=== PATIENT | male | born 1960 | race Caucasian/White ===

== ENCOUNTER → 2020-12-22 10:59 | Outpatient (BNVA) | payer MEDICARE, BC, SELFPAY | PROVIDERS: Visit Provider Nurse Practitioner Family | DX: Z20.822 Contact with and (suspected) exposure to COVID-19 (principal) | CPT/HCPCS: 87426 ==

== ENCOUNTER 2020-12-23 10:56 | Inpatient (IN) | payer MEDICARE, BC, SELFPAY ==
[2020-12-23] VITALS (11 sets, daily range): BP systolic 97–132; BP diastolic 72–78; PULSE 85–115; RESP 16–36; TEMP 37.3–39.5; O2SAT 76–96; BMI 39.8
--- NOTE | 2020-12-23 11:02 | ED_ITS ---
HPI - SOB/Dyspnea General: Chief Complaint: COVID symptoms Stated Complaint: RESP DISTRESS Time Seen by Provider: 12/23/20 11:02 History of Present Illness: HPI Narrative: Mr Ramires is a 60 yoM without significant history with exception of COVID who presents due to low O2 saturation and worsening SOB. His was sick with COVID and he had symptoms starting 1 week ago. Fevers, chill, aches, shortness of breath, nausea, cough all associated. Course worsening. Worse with exertion. Intensity now severe. Found to have room air sat of 50% at infusion clinic prior to infusion so sent to ED. No history of similar. Review of Systems General: Reports: 10 or more systems reviewed and unremarkable except in HPI and below Narrative: CONSTITUTIONAL: positive for fever, fatigue, weakness EYES - denies pain, denies loss of vision NOSE - denies congestion or rhinorrhea. THROAT - denies sore throat or difficult y swallowing. CARDIOVASCULAR - denies chest pain and palpitations RESPIRATORY - positive for shortness of breath and cough GASTROINTESTINAL - denies abdominal pain, positive for nausea, no vomiting, no changes in bowel habits GENITOURINARY - denies dysuria or urinary frequency MUSCULOSKELETAL- denies deformity. aches present SKIN - denies rashes or new changed skin lesions NEUROLOGIC - denies focal weakness or sensory changes HEMATOLOGIC/LYMPHATIC - denies easy bruising or lymphadenopathy. [facility] ED PFSH: Social History Smoking and tobacco status: never smoked Alcohol intake: never Physical Exam Narrative: EXAM NARRATIVE: GENERAL/CONSTITUTIONAL - mildly ill-appearing. No acute distress. Eyes - PERRL, no conjunctival injection ENMT - Atraumatic external nose and ears. Moist mucous membranes NECK - supple. trachea midline CARDIOVASCULAR - regular rate and rhythm. Peripheral pulses 2+ and equal RESPIRATORY -clear to auscultation bilaterally. No retractions or accessory muscle use. ABDOMEN/GI - Nontender/Nondistended. No tenderness to percussion or evidence of peritonitis MSK - Extremities without obvious deformity or tenderness to palpation SKIN - Warm, Dry NEURO - alert and appropriately oriented. strength and sensation intact. Moves all extremities equally. PSYCH - Appropriate mood and affect Course ED course: - Monitor, IV access, and vital signs obtained. - The patient was seen and evaluated by me at bedside - Initial evaluation was notable for only mildly ill appearance, hypoxemic despite NRB mask. - Heated high flow ordered with improvement. - Labs notable for no leukocytosis. Respiratory alkalosis on ABG. Procal elevated mildly concerning for superimposed bacterial process, abx ordered. Metabolic panel with dehydration, K replenishment ordered. - Imaging notable for findings consistent with covid pneumonia. - The results of ED evaluation were discussed with the patient including the need for inpatient management of their . The patient verbalized understanding and was agreeable to be admitted. - Hospitalist was contacted and agreed admit the patient. - Upon serial reexamation the patient's condition remained . They were admitted without incident or further clinical deterioration. Vital Signs: Vital signs: Vital Signs Temperature 98.6 F 12/25/20 00:00 Pulse Rate 58 L 12/25/20 12:15 Respiratory Rate 27 H 12/25/20 08:36 Blood Pressure 116/83 12/25/20 12:15 Pulse Oximetry 90 12/25/20 12:15 MDM - SOB/Dyspnea Medical Records: Attestation: I reviewed the patient's medical records. Lab Data: Attestation: I reviewed the patient's lab results. Labs: Lab Results 3 12/23/20 12/23/20 12/23/20 Range/Units 11:05 11:05 11:05 WBC 8.9 (4.0-10.0) 10^3/ uL RBC 5.15 (4.1-5.3) 10^6/u L Hgb 16.2 (11.7-16.6) g/dL Hct 45.8 (42.0-52.0) % MCV 88.9 (80-94) fl MCH 31.5 (28.0-34.0) pg MCHC 35.4 (30.0-36.0) g/dL RDW 12.5 (12.1-15.1) % Plt Count 162 (130-400) 10^3/c mm MPV 10.9 H (7.4-10.4) fL Neut % (Auto) 87.2 % Lymph % (Auto) 7.1 % Edwards % (Auto) 4.8 % Eos % (Auto) 0.0 % Baso % (Auto) 0.1 % Neut # (Auto) 7.76 H (1.8-7.7) 10^3/u L Lymph # (Auto) 0.6 L (0.8-4.8) 10^3/u L Edwards # (Auto) 0.4 (0.2-0.9) 10^3/u L Eos # (Auto) 0.0 (0.0-0.8) 10^3/u L Baso # (Auto) 0.0 (0.0-0.1) 10^3/u L Nucleated RBC % (a uto) 0 % Nucleated RBCs # 0.0 /100WBC Specimen Type Sample Site ABG pH (7.35-7.45) ABG pCO2 (35-45) mmHg ABG pO2 (80.0-100.0) mmH g ABG HCO3 (22-26) mmol/L ABG Base Excess (-2.0-2.0) mmol/ L Luke Test Hematocrit (42-52) % O2 Delivery Device O2 Liters/Min % FiO2 % [employer] Weighter ID Sodium 134 L (136-145) mmol/L Potassium 3.1 L (3.5-5.1) mmol/L Chloride 94 L (98-107) mmol/L Carbon Dioxide 28 (22-29) mmol/L Anion Gap 15.1 (5-19) BUN 23 (8-23) mg/dL Creatinine 1.0 (0.7-1.2) mg/dL GFR Calculation 75.7 L (90-130) mL/min Glucose 114 (65-115) mg/dL Calculated Osmolal ity 283 L (285-295) mOsm/k g Lactic Acid 1.7 (0.5-2.2) mmol/L Calcium 8.1 L (8.5-10.5) mg/dL Total Bilirubin 0.9 (0.15-1.2) mg/dL AST 78 H (0-40) U/L ALT 30 (0-41) U/L Alkaline Phosphata se 84 (40-130) IU/L Troponin T Baselin e (0-15) ng/L Troponin T 120 Min belkofski (0-15) ng/L Delta Troponin T (0-10) ABS# C-Reactive Protein 182.2 H (0.0-4.9) mg/L NT-Pro-B Natriuret Pep 199 H (0-125) pg/mL Total Protein 6.3 L (6.6-8.7) g/dL Albumin 3.2 L (3.5-5.2) g/dL Globulin 3.1 (1.3-4.6) g/dL Procalcitonin 0.56 H (0-0.5) ng/mL 12/23/20 12/23/20 12/23/20 Range/Units 11:05 11:23 15:04 WBC (4.0-10.0) 10^3/ uL RBC (4.1-5.3) 10^6/u L Hgb (11.7-16.6) g/dL Hct (42.0-52.0) % MCV (80-94) fl MCH (28.0-34.0) pg MCHC (30.0-36.0) g/dL RDW (12.1-15.1) % Plt Count (130-400) 10^3/c mm MPV (7.4-10.4) fL Neut % (Auto) % Lymph % (Auto) % Edwards % (Auto) % Eos % (Auto) % Baso % (Auto) % Neut # (Auto) (1.8-7.7) 10^3/u L Lymph # (Auto) (0.8-4.8) 10^3/u L Edwards # (Auto) (0.2-0.9) 10^3/u L Eos # (Auto) (0.0-0.8) 10^3/u L Baso # (Auto) (0.0-0.1) 10^3/u L Nucleated RBC % (a uto) % Nucleated RBCs # /100WBC Specimen Type Arterial Sample Site Brachial, left ABG pH 7.53 H (7.35-7.45) ABG pCO2 32.1 L (35-45) mmHg ABG pO2 48.1 L (80.0-100.0) mmH g ABG HCO3 26.6 H (22-26) mmol/L ABG Base Excess 4.5 H (-2.0-2.0) mmol/ L Luke Test Pos Hematocrit 50.9 (42-52) % O2 Delivery Device Hag O2 Liters/Min 50.0 % FiO2 100.0 % [employer] Weighter ID Cak Sodium (136-145) mmol/L Potassium (3.5-5.1) mmol/L Chloride (98-107) mmol/L Carbon Dioxide (22-29) mmol/L Anion Gap (5-19) BUN (8-23) mg/dL Creatinine (0.7-1.2) mg/dL GFR Calculation (90-130) mL/min Glucose (65-115) mg/dL Calculated Osmolal ity (285-295) mOsm/k g Lactic Acid (0.5-2.2) mmol/L Calcium (8.5-10.5) mg/dL Total Bilirubin (0.15-1.2) mg/dL AST (0-40) U/L ALT (0-41) U/L Alkaline Phosphata se (40-130) IU/L Troponin T Baselin e 14 (0-15) ng/L Troponin T 120 Min belkofski 12.13 (0-15) ng/L Delta Troponin T -1.87 L (0-10) ABS# C-Reactive Protein (0.0-4.9) mg/L NT-Pro-B Natriuret Pep (0-125) pg/mL Total Protein (6.6-8.7) g/dL Albumin (3.5-5.2) g/dL Globulin (1.3-4.6) g/dL Procalcitonin (0-0.5) ng/mL EKG Data^: EKG 1: Attestation: I personally reviewed and interpreted this EKG as follows: EKG Interpretation Date: 12/23/20 EKG interpretation time: 12:35 Prior EKG tracings: not available for review Interpretation: 12 lead EKG shows regular sinus rhythm at rate of 90 NC 181, QRS 105, QTc 428 Normal axis Interp: Sinus rhythm. limited interpretation due to baseline. EKG 2: Attestation: I personally reviewed and interpreted this EKG as follows: EKG Interpretation Date: 12/23/20 EKG interpretation time: 18:00 Prior EKG tracings: available for review Interpretation: Regular sinus rhythm at rate of 92 NC 168, QRS 99, QTc 430 Normal axis Interp: Sinus rhythm. PVC. Critical Care Time Critical Care Time: Critical Care Time: Yes Total Critical Care Time: 35 Attestation: This case had a high probability of a clinically significant, sudden, or life threatening deterioration of this patient's condition which required my full and direct attention, intervention and personal management. 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
--- NOTE | 2020-12-23 11:03 | XR_ITS ---
WS: [id number] Portable AP upright chest, 12/23/2020 Clinical Data: hypoxia Comparison: None. Findings: Bilateral patchy pulmonary opacities consistent with pneumonia are seen. The heart is enlar ged. There are no nodules, masses or effusions. XR/XR chest 1V portable [id number] Impression: 1. Bilateral patchy opacities consistent with pneumonia. 2. Cardiomegaly.
--- NOTE | 2020-12-23 11:04 | ECG_ITS ---
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
[2020-12-23 11:24] LABS: Basophils % 0.1 %; Hematocrit 45.8 % (42.0-52.0); Hemoglobin 16.2 g/dL (11.7-16.6); Lymphocytes # 0.6 10^3/uL (0.8-4.8); Lymphocytes % 7.1 %; Mean Corpuscular HGB Conc 35.4 g/dL (30.0-36.0); Mean Corpuscular Hemoglobin 31.5 pg (28.0-34.0); Mean Corpuscular Volume 88.9 fl (80-94); Mean Platelet Volume 10.9 fL (7.4-10.4); Monocytes # 0.4 10^3/uL (0.2-0.9); Monocytes % 4.8 %; Neutrophils # 7.76 10^3/uL (1.8-7.7); Neutrophils % 87.2 %; Nucleated Red Blood Cells % 0 %; Platelet Count 162 10^3/cmm (130-400); Red Blood Count 5.15 10^6/uL (4.1-5.3); Red Cell Distribution Width 12.5 % (12.1-15.1); White Blood Count 8.9 10^3/uL (4.0-10.0)
[2020-12-23 11:34] LABS: ABG PCO2 32.1 mmHg (35-45); ABG PH Result 7.53 (7.35-7.45); Arterial Blood Gas Hematocrit 50.9 % (42-52); Base Excess ABG 4.5 mmol/L (-2.0-2.0); Blood Gas Allen Test Pos; Blood Gas Operator Identificat CAK; Blood Gas Sample Site Brachial, left; Blood Gas Sample Type Arterial; HCO3 ABG 26.6 mmol/L (22-26); Oxygen Device HAG; PO2 ABG 48.1 mmHg (80.0-100.0)
[2020-12-23 11:59] LABS: Lactic Sepsis W/Reflex 1.7 mmol/L (0.5-2.2)
[2020-12-23 12:04] LABS: Troponin(5th) Baseline 14 ng/L (0-15)
[2020-12-23 12:11] LABS: NT Pro B Type Natriuretic Pept 199 pg/mL (0-125); Procalcitonin 0.56 ng/mL (0-0.5)
--- NOTE | 2020-12-23 12:20 | PC.PHAR ---
pts verified the pts medications entered-pts states the pt takes no rx medications
[2020-12-23 12:22] LABS: Alanine Aminotransferase 30 U/L (0-41); Albumin Level 3.2 g/dL (3.5-5.2); Alkaline Phosphatase 84 IU/L (40-130); Anion Gap 15.1 (5-19); Aspartate Amino Transferase 78 U/L (0-40); Blood Urea Nitrogen 23 mg/dL (8-23); C Reactive Protein 182.2 mg/L (0.0-4.9); Calcium 8.1 mg/dL (8.5-10.5); Carbon Dioxide 28 mmol/L (22-29); Chloride 94 mmol/L (98-107); Globulin 3.1 g/dL (1.3-4.6); Glomerular Filtration Rate 75.7 mL/min (90-130); Glucose 114 mg/dL (65-115); Osmolality Calculated 283 mOsm/kg (285-295); Potassium 3.1 mmol/L (3.5-5.1); Sodium 134 mmol/L (136-145); Total Bilirubin 0.9 mg/dL (0.15-1.2); Total Protein 6.3 g/dL (6.6-8.7)
--- NOTE | 2020-12-23 13:04 | ECG_ITS ---
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
[2020-12-23] MEDS: cefTRIAXone 1,000 MG in sodium chloride 0.9% (plus) 50 ML 100 MG IV (14:00)
[2020-12-23] MEDS: potassium chloride ER 20 mEq Tablet 40 MEQ PO (14:00)
[2020-12-23] MEDS: sodium chloride 0.9% 500 ML 999 ML IV (14:00)
[2020-12-23] MEDS: morphine 4 mg/mL SDV 1 mL 1 MG IVP (16:19)
--- NOTE | 2020-12-23 16:31 | P.HP_ITS ---
Providers/Chief Complaint Admitting Physician: Joe Fernandes MD Chief Complaint: RESP DISTRESS History of Present Illness Eric Ramires is a 60 year old male with past medical history of right hip osteoarthritis came in with chief complaint of worsening fatigue, generalized body ache, fever, chills, loss of smell and taste. Symptoms started on 12/15, since then has progressively worsened, and son was tested positive for Covid, initially he was at home, but due to worsening of symptoms he decided to come to the ER. On arrival in the ER he was worked up for above-mentioned complaint. Pertinent labs: Imaging studies: X-ray chest: Bilateral patchy opacities consistent with pneumonia. wbc : 8.9, H&H:16.2/45, plt : 162, serum sodium: 134, serum potassium:3.1, BUN and serum creatinine: 23/1, lactic acid:1.7, troponin trend without significant delta. CRP : 182, proBNP: 199, procalcitonin: 0.56. Rapid Covid positive ABG: pH 7.53 PCO2 32 PO2 48 FiO2 100% Review of Systems Const: Denies: diaphoresis Card: Denies: palpitations, edema, swelling of feet/ankles or orthopnea Resp: Denies: wheezing or pain on inspiration GI: Denies: abdominal pain, nausea, vomiting, diarrhea or constipation : Denies: flank pain or difficulty urinating Neuro: Denies: headache(s) or confusion Medications/Allergies Home Medications Medication Instructions Recorded Confirmed Last Taken Type acetaminophen [Tylenol Extra 1,000 mg PO Q4H PRN 12/23/20 12/23/20 Unknown History Strength] ascorbic acid (vitamin C) [Vitamin 500 mg PO EVERY OTHER DAY 12/23/20 12/23/20 12/21/20 History C] cholecalciferol (vitamin D3) 100 mcg PO EVERY OTHER DAY 12/23/20 12/23/20 12/21/20 History [Vitamin D3] rkjjgzocn-JRD-YQ-acetaminophen 30 ml PO BEDTIME 12/23/20 12/23/20 12/22/20 History [NyQuil] guaifenesin [Mucinex] 600 mg PO Q12H 12/23/20 12/23/20 12/22/20 History ibuprofen 200 - 400 mg PO Q4H PRN 12/23/20 12/23/20 Unknown History jrqfcirx-ccu-IR-lycopen-lutein 1 tab PO EVERY OTHER DAY 12/23/20 12/23/20 12/21/20 History [Centrum Silver Men] Allergies Allergy/AdvReac Type Severity Reaction Status Date / Time No Known Allergies Allergy Verified 12/23/20 12:19 PFSH Acute PFSH: Social History (Updated 12/22/20 @ 08:17 by Oliva Lafleur NP) Smoking and tobacco status: never smoked Alcohol intake: never Vitals/I&O/Wt Last Vital Signs Temp 99.1 F 12/23/20 10:59 Pulse 86 12/23/20 14:46 Resp 22 H 12/23/20 14:46 BP 132/78 12/23/20 10:59 Pulse Ox 93 12/23/20 14:46 Weight last 48 hrs Weight 148.325 kg Physical Exam Const: COMMON NORMALS: patient oriented x3 HENMT: COMMON NORMALS: normocephalic and atraumatic HEAD & SCALP: atraumatic Resp: OTHER: Diminished air entry bilaterally, moderate respiratory distress , tachypnea Cardio: COMMON NORMALS: regular rate, regular rhythm, S1 normal heart sound present, S2 normal heart sound present, No gallops present (Cardio), No murmurs present (Cardio), No rub (Cardio) and Peripheral pulses 2+ throughout RATE: regular rate RHYTHM: regular rhythm HEART SOUNDS: S1 normal heart sound present and S2 normal heart sound present PERIPHERAL PULSES: Peripheral pulses 2+ throughout GI: COMMON NORMALS: Normal to inspection, nondistended, normoactive bowel sounds present, Soft to palpation, non-tender, No hepatosplenomegaly present and no masses AUSCULTATION: Yes normoactive bowel sounds PALPATION: Yes Soft to palpation and Yes No hepatosplenomegaly present RECTAL EXAM: Yes deferred Extremity: COMMON NORMALS: no clubbing, cyanosis or edema and no pedal edema Neuro: COMMON NORMALS: patient oriented x3 Data : 12/23/20 11:05 12/23/20 11:05 Micro: Microbiology 12/23/20 15:04 Blood Culture - Preliminary Blood SPECIMEN COLLECTED A&P Assessment and plan (1) Respiratory failure with hypoxia: Acute hypoxic respiratory failure secondary to Covid pneumonia, cannot conclusively rule out superimposed bacterial pneumonia. Currently on COVID Protocol. D -Dimer ESR CRP LDH Ferritin Monitor ABG Monitor X ray chest Dexamethasone 6mg I.V Daily Remdesivir Zinc Vitamin c Albuterol Inhaler Advair Inhaler Certriaxone 1gm I.V Daily Azithromycin 500 mg I.V Daily Incentive Spirometry Flutter Valve Supplemental oxygen Status: Acute (2) Pneumonia due to severe acute respiratory syndrome coronavirus 2 (SARS-CoV-2): Status: Acute (3) Hypokalemia: Status: Acute Additional A&P Information CODE STATUS: Patient do not want intubation and mechanical ventilation but he want rest of medical management ( including chest compression and drugs ) DVT prophylaxis: Lovenox Attestations Medical Necessity Statement*: Patient needs to be in hospital for management o f respiratory failure with hypoxia. Anticipated length of stay greater than 2 midnight. Coding Level of Care Code Acute Registered Veterinary Technician for [facility] Fwd Exam Detailed Diagnoses Respiratory failure with hypoxia J96.91 Pneumonia due to severe acute respiratory syndrome coronavirus 2 (SARS-CoV-2) U07.1; J12.82 Hypokalemia E87.6
--- NOTE | 2020-12-23 16:32 | CTR_ITS ---
PROCEDURE INFORMATION: Exam: CTA Chest With Contrast Exam date and time: 12/23/2020 4:32 PM Age: 60 years old Clinical indication: Cough and shortness of breath; Additional info: R/O p/e TECHNIQUE: Imaging protocol: Computed tomographic angiography of the chest with contrast. 3D rendering (Not supervised by radiologist): MIP and/or 3D reconstructed images were created by the technologist. Total images: 953 Radiation optimization: All CT scans at this facility use at least one of these dose optimization techniques: automated exposure control; mA and/or kV adjustment per patient size (includes targeted exams where dose is matched to clinical indication); or iterative reconstruction. Contrast material: OMNI 350; Contrast volume: 78 ml; Contrast route: INTRAVENOUS (IV); COMPARISON: CR XR chest 1V portable [id number] 12/23/2020 11:18 AM RADIATION DOSE METRICS: Total DLP (mGy-cm): 617.12 FINDINGS: Pulmonary arteries: No visible evidence of pulmonary embolism/pulmonary arterial thrombus. Aorta: The thoracic aorta is nonaneurysmal. No visible intimal flap or dissection. Bovine aortic arch which is a normal anatomical variant. Lungs: Advanced and extensive bilateral mixed ground-glass interstitial lung disease and patches of consolidated alveolar airspace disease of active pneumonitis/pneumonia. Consolidated alveolar airspace disease is most advanced bilateral lower lobes. Air bronchograms. Evidence also of air trapping of COPD/chronic bronchitis. Pleural spaces: No pneumothorax. No pleural effusion. Heart: Mild cardiomegaly. No visible pericardial effusion. No visible coronary artery disease. Mediastinal space: Small hiatal hernia. Lymph nodes: Prominent mediastinal and hilar lymph nodes believed reactive in nature. Liver: Diffuse fatty infiltration of the liver. Bones/joints: No visible active or acute osseous pathology. Soft tissues: Male gynecomastia. Other findings: Heavy body habitus. Increased quantum mottle artifact which degrades image quality and detail assessment. CT/CT angio chest PE protcl [id number] IMPRESSION: 1. No visible evidence of pulmonary embolism/pulmonary arterial thrombus. 2. Advanced and extensive bilateral mixed ground-glass interstitial lung disease and patches of consolidated alveolar airspace disease of active pneumonitis/pneumonia. 3. Evidence also of air trapping of COPD/chronic bronchitis. 4. Prominent mediastinal and hilar lymph nodes believed reactive in nature. Radiation Dose CTDIVOL = (mGy): DLP = 617.12 (mGy-cm)
[2020-12-23 16:37] LABS: Troponin 5 2HR 12.13 ng/L (0-15)
[2020-12-23 16:47] LABS: Troponin 5 2HR Delta -1.87 ABS# (0-10)
--- NOTE | 2020-12-23 17:04 | ECG_ITS ---
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
[2020-12-23 17:31] LABS: Troponin 5 6HR 12.32 ng/L (0-15)
[2020-12-23 17:33] LABS: Troponin 5 6HR Delta -1.68 ng/L (0-12)
[2020-12-23] MEDS: iohexol 350 mg/mL 100 mL Btl IV (18:20)
[2020-12-23] MEDS: acetaminophen 325 mg Tablet 650 MG PO (20:45)
[2020-12-23] MEDS: enoxaparin 40 mg/0.4 mL Syringe SUBCUT (20:45)
[2020-12-23] MEDS: dexamethasone 4 mg/mL INJ 6 MG IVP (20:46)
[2020-12-23] MEDS: ascorbic acid 500 mg Tablet 1000 MG PO (20:46)
[2020-12-24] VITALS (75 sets, daily range): BP systolic 70–139; BP diastolic 45–100; PULSE 61–118; RESP 10–34; TEMP 36.6–38.1; O2SAT 75–97
--- NOTE | 2020-12-24 05:05 | PC.NURSE ---
Patient Samira phoned for update on patient. states doctor phoned her 3 times last night and told her that she was allowed to visit patient today. advised to call back on day shift to confirm as Covid patients are not allowed visitors. agrees to call on dayshift to verify policy.
[2020-12-24 05:58] LABS: Basophils % 0.2 %; Hemoglobin 15.4 g/dL (11.7-16.6); Lymphocytes # 0.7 10^3/uL (0.8-4.8); Lymphocytes % 6.3 %; Mean Corpuscular HGB Conc 34.2 g/dL (30.0-36.0); Mean Corpuscular Hemoglobin 30.4 pg (28.0-34.0); Mean Corpuscular Volume 88.8 fl (80-94); Mean Platelet Volume 11.3 fL (7.4-10.4); Monocytes # 0.4 10^3/uL (0.2-0.9); Monocytes % 3.8 %; Neutrophils # 9.21 10^3/uL (1.8-7.7); Neutrophils % 88.7 %; Nucleated Red Blood Cells % 0 %; Platelet Count 183 10^3/cmm (130-400); Red Blood Count 5.07 10^6/uL (4.1-5.3); Red Cell Distribution Width 12.7 % (12.1-15.1); White Blood Count 10.4 10^3/uL (4.0-10.0)
[2020-12-24 06:42] LABS: INR 1.14 (0.8-1.2)
[2020-12-24 06:43] LABS: Partial Thromboplastin Time 30.4 SECONDS (23.9-36.7)
[2020-12-24 07:06] LABS: Alanine Aminotransferase 30 U/L (0-41); Albumin Level 3.1 g/dL (3.5-5.2); Alkaline Phosphatase 105 IU/L (40-130); Anion Gap 18.6 (5-19); Aspartate Amino Transferase 82 U/L (0-40); Blood Urea Nitrogen 23 mg/dL (8-23); Carbon Dioxide 24 mmol/L (22-29); Chloride 94 mmol/L (98-107); Glomerular Filtration Rate 85.5 mL/min (90-130); Glucose 135 mg/dL (65-115); Magnesium 1.9 mg/dL (1.7-2.3); Osmolality Calculated 282 mOsm/kg (285-295); Potassium 3.6 mmol/L (3.5-5.1); Sodium 133 mmol/L (136-145); Thyroid Stimulating Hormone 1.61 uIU/mL (0.27-4.20); Total Bilirubin 1.1 mg/dL (0.15-1.2); Total Protein 6.1 g/dL (6.6-8.7)
--- NOTE | 2020-12-24 08:00 | PC.NURSE ---
Respiratory distress on heated high flow and non-rebreather Pt is alert, oriented x4, awake. Pt is groaning and moaning. Pt stated he has a chronic hip pain from osteoarthritis. rated at 2/10 pain scale. Spo2 fluctuates from 75 to 86%. when on nonrebreather mask, pt spo2 is fluctuated between 84-94%. RT notified, [facility] [place] notified and talked to Dr. Fernandes. Orders received to transfer pt to ICU.
[2020-12-24] MEDS: zinc gluconate 50 mg Tablet PO (08:05)
[2020-12-24] MEDS: cholecalciferol (vitamin D3) 1,000 unit Tablet 2000 UNIT PO (08:05)
[2020-12-24] MEDS: ascorbic acid 500 mg Tablet 1000 MG PO (08:05)
[2020-12-24 08:20] LABS: NT Pro B Type Natriuretic Pept 288 pg/mL (0-125)
--- NOTE | 2020-12-24 09:30 | PC.NURSE ---
Transferred to ICU via bed. hand-off report via phone to FER [place]
[2020-12-24] MEDS: albuterol 8 gm MDI 2 PUFF INHALATION (09:45)
[2020-12-24] MEDS: dexmedeTOMIDine 0.9 % NaCL 400 MCG/100 ML PREMIX IV ×2 (09:52→16:27)
--- NOTE | 2020-12-24 09:56 | XRR_ITS ---
PROCEDURE INFORMATION: Exam: XR Chest Exam date and time: 12/24/2020 9:56 AM Age: 60 years old Clinical indication: Shortness of breath; Additional info: Pna TECHNIQUE: Imaging protocol: XR of the chest. Views: 1 view. Total images: 1 COMPARISON: CR XR chest 1V portable [id number] 12/23/2020 11:18 AM FINDINGS: Lungs: Bilateral pulmonary opacities have improved from the prior exam. Pleural spaces: Unremarkable. No pleural effusion. No pneumothorax. Heart/Mediastinum: Heart is enlarged but stable when compared to the prior exam. Bones/joints: Osseous structures are unchanged from the prior exam. XR/XR chest 1V portable [id number] IMPRESSION: 1. Bilateral pulmonary opacities have improved from the prior exam. 2. Heart is enlarged but stable when compared to the prior exam.
--- NOTE | 2020-12-24 10:00 | PC.NURSE ---
recieved from [facility] at this time placed on bipap i of 16 and e of 12 fo2 now at 100 % .. placed 16 fr zapata at this time with isatu urine noted monitor sr noted o2 sats at
[2020-12-24] MEDS: remdesivir 200 MG in sodium chloride 0.9% (100 ml) 60 ML 100 MG IV (10:03)
--- NOTE | 2020-12-24 12:00 | PC.NURSE ---
in for visit for one time because of possible intubation at possible time on covid precations isolation..
--- NOTE | 2020-12-24 13:17 | PC.NURSE ---
pressures up now awake and sitting up in bed.. had been resting comfortable prior with lower blood pressure
[2020-12-24] MEDS: ondansetron 2 mg/ML SDV 2 mL 4 MG IVP (13:50)
[2020-12-24] MEDS: cefTRIAXone 1,000 MG in sodium chloride 0.9% (plus) 50 ML 100 MG IV (13:50)
--- NOTE | 2020-12-24 14:01 | PC.NURSE ---
c/o some indegestion and nausea zofran given at this time .. also small sip of water
--- NOTE | 2020-12-24 14:29 | P.PN_ITS ---
Subjective Subjective: Interval history: Patient was seen and examined in the morning, there has been significant detoriation since yesterday evening, patient has extreme respiratory distress with high supplemental oxygen requirement, currently he is requiring 100% FiO2 on BiPAP. Medications: Reviewed: Yes Vitals/I&O/Wt Last Vital Signs Temp 97.8 F 12/24/20 12:28 Pulse 95 12/24/20 13:15 Resp 25 H 12/24/20 12:28 BP 103/69 12/24/20 13:15 Pulse Ox 84 L 12/24/20 13:15 12/23/20 12/24/20 12/24/20 22:59 06:59 14:59 Intake Total 550 / 550 1000 / 1550 60 / 60 Balance 550 / 550 1000 / 1550 60 / 60 Weight last 48 hrs Weight 148.325 kg Weight 148.325 kg Physical Exam Const: COMMON NORMALS: patient oriented x3 HENMT: COMMON NORMALS: normocephalic and atraumatic HEAD & SCALP: normocephalic and atraumatic Resp: OTHER: Diminished air entry bilaterally, marked respiratory distress , tachypnea Cardio: COMMON NORMALS: regular rate, regular rhythm, S1 normal heart sound present, S2 normal heart sound present, No gallops present (Cardio), No murmurs present (Cardio), No rub (Cardio) and Peripheral pulses 2+ throughout RATE: regular rate RHYTHM: regular rhythm HEART SOUNDS: S1 normal heart sound present and S2 normal heart sound present PERIPHERAL PULSES: Peripheral pulses 2+ throughout GI: COMMON NORMALS: Normal to inspection, nondistended, normoactive bowel sounds present, Soft to palpation, non-tender, No hepatosplenomegaly present and no masses AUSCULTATION: Yes normoactive bowel sounds PALPATION: Yes Soft to palpation and Yes No hepatosplenomegaly present RECTAL EXAM: Yes deferred Extremity: COMMON NORMALS: no clubbing, cyanosis or edema and no pedal edema Neuro: COMMON NORMALS: patient oriented x3 Urinary Catheter Management^: Espinosa: Cath Placed During This Visit: yes Urinary Catheter Date of Insertion: 12/24/20 Urinary Catheter Time of Insertion: 11:00 Data : 12/24/20 04:57 12/24/20 04:57 Micro: Microbiology 12/23/20 Unknown Blood Culture - Preliminary Blood SPECIMEN COLLECTED 12/23/20 15:04 Blood Culture - Preliminary Blood SPECIMEN COLLECTED A&P Assessment and plan (1) Respiratory failure with hypoxia: Acute hypoxic respiratory failure : secondary to Covid pneumonia, cannot conclusively rule out superimposed bacterial pneumonia. Currently on COVID Protocol. D -Dimer ESR CRP LDH Ferritin Monitor ABG Monitor X ray chest Dexamethasone 6mg I.V Daily Remdesivir Zinc Vitamin c Albuterol Inhaler Advair Inhaler Certriaxone 1gm I.V Daily Azithromycin 500 mg I.V Daily s/p 1 Dose of Actemra ( 12/24) Precedex for sedation Incentive Spirometry Flutter Valve Supplemental oxygen Status: Acute (2) Pneumonia due to severe acute respiratory syndrome coronavirus 2 (SARS-CoV- 2): Status: Acute (3) Hypokalemia: Status: Acute Additional A&P Information CODE STATUS: Full Code DVT prophylaxis: Lovenox Attestations Medical Necessity Statement*: Patient needs to be in hospital for management of severe Covid pneumonia. 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
[2020-12-24] MEDS: ipratropium-albuterol 3 mL Neb INHALATION ×2 (15:28→20:12)
[2020-12-24] MEDS: alum-mag-hydroxide-sime 30 mL UDC PO (16:19)
--- NOTE | 2020-12-24 16:36 | PC.NURSE ---
medication given for indegestion small sips of water as oxygen sats drop when off bipap
[2020-12-24] MEDS: azithromycin 500 MG in sodium chloride 0.9% 250 ML 250 MG IV (17:18)
[2020-12-24] MEDS: dexamethasone 4 mg/mL INJ 6 MG IVP (17:19)
[2020-12-24] MEDS: enoxaparin 40 mg/0.4 mL Syringe SUBCUT (17:19)
[2020-12-24] MEDS: morphine 4 mg/mL SDV 1 mL 2 MG IVP (18:02)
--- NOTE | 2020-12-24 18:23 | NUR.SHIFT ---
Shift Note Frequent safety and comfort rounds continue. Orders and/or nursing care completed as indicated. Patient monitored for response to intervention and treatment(s). Education provided includes bipap use and monitoring o2 sats []. Patient and/or site safety representative [ and staff Will continue to monitor. thoughout the day has become uncomfortable on bipap precedex infusing and morphine given for pain discomfort . noted blood pressure low Dr Fernandes here aware of status, levophed started at this time .
[2020-12-24] MEDS: budesonide 0.5 mg/2 mL Neb INHALATION (20:12)
[2020-12-24] MEDS: dexmedeTOMIDine 0.9 % NaCL 400 MCG/100 ML PREMIX 14.83 MCG IV (23:17)
[2020-12-25] VITALS (109 sets, daily range): BP systolic 85–143; BP diastolic 58–109; PULSE 54–77; RESP 19–32; TEMP 36.6–37; O2SAT 83–100
[2020-12-25] MEDS: ipratropium-albuterol 3 mL Neb INHALATION ×5 (00:34→23:37)
[2020-12-25 04:42] LABS: Basophils % 0.1 %; Hematocrit 45.2 % (42.0-52.0); Hemoglobin 15.3 g/dL (11.7-16.6); Lymphocytes # 0.6 10^3/uL (0.8-4.8); Lymphocytes % 4.3 %; Mean Corpuscular HGB Conc 33.8 g/dL (30.0-36.0); Mean Corpuscular Hemoglobin 30.5 pg (28.0-34.0); Mean Corpuscular Volume 90.2 fl (80-94); Mean Platelet Volume 11.3 fL (7.4-10.4); Monocytes # 0.3 10^3/uL (0.2-0.9); Monocytes % 2.3 %; Neutrophils # 12.94 10^3/uL (1.8-7.7); Neutrophils % 92.6 %; Nucleated Red Blood Cells % 0.1 %; Platelet Count 195 10^3/cmm (130-400); Red Blood Count 5.01 10^6/uL (4.1-5.3)
[2020-12-25] MEDS: dexmedeTOMIDine 0.9 % NaCL 400 MCG/100 ML PREMIX 14.83 MCG IV ×4 (05:00→23:46)
[2020-12-25] MEDS: remdesivir 100 MG in sodium chloride 0.9% (100 ml) 100 ML IV (05:00)
--- NOTE | 2020-12-25 05:00 | XRR_ITS ---
PROCEDURE INFORMATION: Exam: XR Chest Exam date and time: 12/25/2020 5:00 AM Age: 60 years old Clinical indication: Condition or disease; Lung condition and disease; Pneumonia; Viral; Additional info: Pna TECHNIQUE: Imaging protocol: XR of the chest. Views: 1 view. Total images: 1 COMPARISON: CR (CHEST, ) 12/24/2020 10:48 AM FINDINGS: Lungs: Pulmonary vascular congestion improved. Bilateral pulmonary opacities have improved from the prior exam. Pleural spaces: Unremarkable. No pleural effusion. No pneumothorax. Heart/Mediastinum: Cardiomegaly. Bones/joints: Osseous structures are unchanged from the prior exam. XR/XR chest 1V portable [id number] IMPRESSION: 1. Cardiomegaly with improved pulmonary vascular congestion. 2. Bilateral pulmonary opacities have improved from the prior exam.
[2020-12-25 05:03] LABS: Alanine Aminotransferase 36 U/L (0-41); Albumin Level 2.9 g/dL (3.5-5.2); Alkaline Phosphatase 132 IU/L (40-130); Anion Gap 21.7 (5-19); Aspartate Amino Transferase 67 U/L (0-40); Blood Urea Nitrogen 38 mg/dL (8-23); Calcium 8.2 mg/dL (8.5-10.5); Carbon Dioxide 20 mmol/L (22-29); Chloride 92 mmol/L (98-107); Globulin 3.2 g/dL (1.3-4.6); Glomerular Filtration Rate 36.1 mL/min (90-130); Glucose 257 mg/dL (65-115); Osmolality Calculated 288 mOsm/kg (285-295); Potassium 3.7 mmol/L (3.5-5.1); Sodium 130 mmol/L (136-145); Total Bilirubin 1.1 mg/dL (0.15-1.2); Total Protein 6.1 g/dL (6.6-8.7)
[2020-12-25 05:11] LABS: ABG PCO2 36.1 mmHg (35-45); ABG PH Result 7.38 (7.35-7.45); Arterial Blood Gas Hematocrit 48.2 % (42-52); Base Excess ABG -2.9 mmol/L (-2.0-2.0); Blood Gas Allen Test Pos; Blood Gas Sample Site Radial, right; Blood Gas Sample Type Arterial; Carboxyhemoglobin 0.9 %THgb (0.4-20.1); HCO3 ABG 21.6 mmol/L (22-26); HGB O2 Sat 91.7 % (95-100); Ionized Calcium Level - ABG 1.1 mmol/L (1.1-1.4); Methemoglobin 0.3 % (0.4-1.5); Oxygen Device BIPAP; Oxygen Saturation ABG 92.8; PO2 ABG 69.5 mmHg (80.0-100.0); Potassium Level - ABG 3.8 mmol/L (3.5-5.0); Total Hemoglobin 15.7 g/dL (14-18)
[2020-12-25 05:31] LABS: C Reactive Protein 355.6 mg/L (0.0-4.9); D Dimer >= 20.00 ug/mIFEU (0-0.59); Lactate Dehydrogenase 1301 U/L (135-225)
[2020-12-25 06:08] LABS: Erythrocyte Sedimentation Rate 25 mm/hr (0-10)
--- NOTE | 2020-12-25 07:58 | USR_ITS ---
PROCEDURE INFORMATION: Exam: US Duplex Lower Extremity Veins, Bilateral Exam date and time: 12/25/2020 7:58 AM Age: 60 years old Clinical indication: Condition or disease; Other: Covid +, shortness of breath, ? dvt TECHNIQUE: Imaging protocol: Real-time duplex ultrasound of the extremities with 2-D whyte scale, color Doppler flow and spectral waveform analysis with image documentation. Complete exam focused on the bilateral lower extremity veins. Total images: 74 COMPARISON: No relevant prior studies available. FINDINGS: Right deep veins: Unremarkable. The common femoral, femoral, proximal profunda femoral and popliteal veins are patent without thrombus. Normal Doppler waveforms. Normal compressibility and/or augmentation response. Right superficial veins: Partial thrombosis of the greater saphenous vein noted. Left deep veins: Unremarkable. The common femoral, femoral, proximal profunda femoral and popliteal veins are patent without thrombus. Normal Doppler waveforms. Normal compressibility and/or augmentation response. Questionable thrombus within the posterior tibial vein on the left. Normal compressibility seen. Left superficial veins: Questionable thrombus seen within an unnamed intramuscular vein in the left calf. Soft tissues: Unremarkable. US/[place] [id number] IMPRESSION: 1. Partial thrombosis of bilateral greater saphenous veins. 2. Questionable thrombus seen within an unnamed intramuscular vein in the left calf.
--- NOTE | 2020-12-25 08:00 | PC.NURSE ---
pt awake remain on bipap but are able to decrease settings took mask off for short period able to tolerate lone enough to swallow meds with sips.. lungs with increased breath sounds today .
--- NOTE | 2020-12-25 08:03 | USCV_ITS ---
Eric Ramires Age: 60 Gender: M : 1960 Exam Date: 12/25/2020 08:50 Ordering Phys: Joe Fernandes MD Technologist: Betzy Wiseman [place]am Location: [facility] [place]ication: SOB BP: 105 / 75 HR: 63 Rhythm: Sinus Technical Quality: Technically difficult study MEASUREMENTS (Male / Female) Normal Values 2D ECHO LV Diastolic Diameter PLAX 4.6 cm 4.2 - 5.9 / 3.9 - 5.3 cm LV Systolic Diameter PLAX 2.6 cm LV Chamber Size 4.0 cm IVS Diastolic Thickness 2.2 cm 0.6 - 1.0 / 0.6 - 0.9 cm IVS Systolic Thickness 2.2 cm LVPW Diastolic Thickness 1.2 cm 0.6 - 1.0 / 0.6 - 0.9 cm LVPW Systolic Thickness 1.3 cm RV Chamber Size 2.9 cm LVOT Diameter 2.1 cm LV Ejection Fraction 2D Teich 74.0 % LA Diameter 3.8 cm LA Width 2.1 cm LA Height 5.1 cm RA Width 2.3 cm RA Height 4.9 cm Aorta at Sinotubular Diameter 3.0 cm M-MODE LV Diastolic Diameter MM 7.2 cm 4.2 - 5.9 / 3.9 - 5.3 cm LV Systolic Diameter MM 4.5 cm LV Ejection Fraction MM Teich 66.2 % IVS Diastolic Thickness MM 1.3 cm 0.6 - 1.0 / 0.6 - 0.9 cm IVS Systolic Thickness MM 2.0 cm LVPW Diastolic Thickness MM 1.3 cm 0.6 - 1.0 / 0.6 - 0.9 cm LVPW Systolic Thickness MM 2.5 cm RV Diastolic Diameter MM 0.9 cm Aortic Annulus Diameter 3.6 cm LA Ao Ratio MM 1.3 DOPPLER AV Peak Velocity 84.0 cm/s LVOT Peak Velocity 54.0 cm/s AV Area Cont Eq vti 3.5 cm squared AV Area Cont Eq pk 2.2 cm squared MV Area PHT 2.3 cm squared Mitral E to A Ratio 1.1 MV E' Velocity 32.0 cm/s Mitral E to MV E' Ratio 6.7 Mitral E to LV E' Lateral Ratio 6.4 Mitral E to LV E' Septal Ratio 7.0 TV Peak E Velocity 26.0 cm/s FINDINGS Left Ventricle Normal left ventricular cavity size. Normal left ventricular systolic function. Left ventricular ejection fraction is estimated at 60 %. Right Ventricle The right ventricle is normal in size and function. Right Atrium The right atrium is normal in size. Left Atrium The left atrium is normal in size. Mitral Valve Moderately thickened mitral valve. No mitral valve stenosis. Mild mitral valve regurgitation. Aortic Valve Aortic valve sclerosis without stenosis or regurgitation. Tricuspid Valve Mild tricuspid valve regurgitation. Pulmonic Valve Structurally normal pulmonic valve without significant stenosis. There is no pulmonic regurgitation. Pericardium Normal pericardium without effusion. Aorta Normal ascending aorta dimension. CONCLUSIONS 1-Normal left ventricular cavity size. Normal left ventricular systolic function. Left ventricular ejection fraction is estimated at 60 %. 2-Moderately thickened mitral valve. No mitral valve stenosis. Mild mitral valve regurgitation. 3-Aortic valve sclerosis without stenosis or regurgitation. 4-There is no pericardial effusion. 5-There are no prior echocardiogram studies to compare. Tim Leon MD (Electronically Signed) Final Date: 25 December 2020 13:05 S
[2020-12-25] MEDS: zinc gluconate 50 mg Tablet PO (08:14)
[2020-12-25] MEDS: cholecalciferol (vitamin D3) 1,000 unit Tablet 2000 UNIT PO (08:14)
[2020-12-25] MEDS: heparin 5,000 unit/mL INJ 1 mL 5000 UNIT SUBCUT (08:15)
[2020-12-25] MEDS: ascorbic acid 500 mg Tablet 1000 MG PO ×2 (08:15→17:17)
[2020-12-25] MEDS: lidocaine 5% Patch 1 PATCH TOPICAL (08:16)
[2020-12-25] MEDS: budesonide 0.5 mg/2 mL Neb INHALATION ×2 (08:26→19:44)
[2020-12-25] MEDS: morphine 4 mg/mL SDV 1 mL 2 MG IVP (08:42)
--- NOTE | 2020-12-25 10:41 | PM.CONSULT ---
Providers/Reason For Consult Consulting Physician/Specialty*: temo harrison md / telenephrology Reason for Consult*: LORRAINE Attending Physician: Joe Fernandes MD History of Present Illness History of Present Illness Eric Ramires is a 60 year old male admitted on 12-23-20 w/ COVID-19 SARS PNA. he was started on remdesivir and steroids, ceftriaxone and azithromycin and inhalers. Pts condition worsened over last 48 hrs w/ hypotension and hypoxemia- he was moved to ICU and given fluids. Renal is consulted for LORRAINE. Of note pt got a CTA w/ iv contrast on 12-23-20- 1. No visible evidence of pulmonary embolism/pulmonary arterial thrombus. 2. Advanced and extensive bilateral mixed ground-glass interstitial lung disease and patches of consolidated alveolar airspace disease of active pneumonitis/pneumonia. 3. Evidence also of air trapping of COPD/chronic bronchitis. 4. Prominent mediastinal and hilar lymph nodes believed reactive in nature. he was also diagnosed w/ lower extremity superficial venous thrombosis Review of Systems General: Reports: ROS unobtainable due to medical condition Narrative: limited as sob on bipap- he is thirsty and weak, Meds/Allergies Home Medications and Allergies Home Medications Medication Instructions Recorded Confirmed Last Taken Type acetaminophen [Tylenol Extra 1,000 mg PO Q4H PRN 12/23/20 12/23/20 Unknown History Strength] ascorbic acid (vitamin C) [Vitamin 500 mg PO EVERY OTHER DAY 12/23/20 12/23/20 12/21/20 History C] cholecalciferol (vitamin D3) 100 mcg PO EVERY OTHER DAY 12/23/20 12/23/20 12/21/20 History [Vitamin D3] rkbduqhsg-MHO-QF-acetaminophen 30 ml PO BEDTIME 12/23/20 12/23/20 12/22/20 History [NyQuil] guaifenesin [Mucinex] 600 mg PO Q12H 12/23/20 12/23/20 12/22/20 History ibuprofen 200 - 400 mg PO Q4H PRN 12/23/20 12/23/20 Unknown History nbmblroo-ies-NJ-lycopen-lutein 1 tab PO EVERY OTHER DAY 12/23/20 12/23/20 12/21/20 History [Centrum Silver Men] Allergies Allergy/AdvReac Type Severity Reaction Status Date / Time No Known Allergies Allergy Verified 12/23/20 12:19 Current Medications Current Medications Generic Name Dose Route Start Last Admin Trade Name Freq PRN Reason Stop Dose Admin Acetaminophen 650 mg 12/23/20 16:22 12/23/20 20:45 Acetaminophen 325 Mg Tablet PO 650 mg Q6H PRN Administration Mild/Mod Pain Or Temp >/= 101 Al Hydrox/Mg Hydrox/Simethicone 30 ml 12/24/20 15:52 12/24/20 16:19 Sule-Cnp-Wbbezxvnm-Kenn 30 Ml Udc PO 30 ml Q4H PRN Administration INDIGESTION Albuterol Sulfate 2 puff 12/23/20 16:22 12/24/20 09:45 Albuterol 8 Gm Mdi INHALATION 2 puff Q4H.RESPIRATORY PRN Administration SHORTNESS OF BREATH Albuterol/Ipratropium 3 ml 12/24/20 16:00 12/25/20 08:26 Ipratropium-Albuterol 3 Ml Neb INHALATION 3 ml Q4H.RESPIRATORY JOHNATHON Administration Ascorbic Acid 1,000 mg 12/23/20 18:00 12/25/20 08:15 Ascorbic Acid 500 Mg Tablet PO 1,000 mg BID JOHNATHON Administration Budesonide 0.5 mg 12/24/20 20:00 12/25/20 08:26 Budesonide 0.5 Mg/2 Ml Neb INHALATION 0.5 mg BID.RESPIRATORY JOHNATHON Administration Dexamethasone 6 mg 12/23/20 17:30 12/24/20 17:19 Dexamethasone 4 Mg/Ml Inj IVP 6 mg Q24H JOHNATHON Administration Heparin Sodium (Beef Lung) 5,000 unit 12/25/20 08:30 12/25/20 08:15 Heparin 5,000 Unit/Ml Inj 1 Ml SUBCUT 5,000 unit Q8H JOHNATHON Administration Remdesivir 100 mg/ Sodium 100 mls @ 100 mls/hr 12/25/20 06:00 12/25/20 06:23 Chloride IV Infused Q24H JOHNATHON Infusion Ceftriaxone Sodium 1,000 mg/ 50 mls @ 100 mls/hr 12/24/20 14:00 12/24/20 16:39 Sodium Chloride IV Infused Q24H JOHNATHON Infusion Protocol Azithromycin 500 mg/ Sodium 250 mls @ 250 mls/hr 12/24/20 16:30 12/24/20 18:20 Chloride IV Infused Q24H JOHNATHON Infusion Protocol dexmedeTOMIDine 0.9 % NaCL 400 mcg in 100 mls @ 0 mls/hr 12/24/20 10:00 12/25/20 05:00 Dexmedetomidine-Ns IV 0.4 mcg/kg/hr .Q0M JOHNATHON 14.83 mls/hr Administration Protocol Per Protocol Norepinephrine Bitartrate 4 mg 254 mls @ 0 mls/hr 12/24/20 18:00 12/25/20 09:23 / Dextrose IV 7 mcg/min .Q0M JOHNATHON 26.67 mls/hr Titration Protocol Per Protocol Lidocaine 1 patch 12/24/20 20:00 12/25/20 08:16 Lidocaine 5% Patch TOPICAL 1 patch [id number] JOHNATHON Administration Morphine Sulfate 2 mg 12/23/20 16:22 12/25/20 08:42 Morphine 4 Mg/Ml Sdv 1 Ml IVP 2 mg Q12H PRN Administration SEVERE PAIN Ondansetron HCl 4 mg 12/23/20 16:22 12/24/20 13:50 Ondansetron 2 Mg/Ml Sdv 2 Ml IVP 4 mg Q8H PRN Administration vomiting, or N/V if npo Fluticasone/Salmeterol 2 puff 12/23/20 20:00 12/25/20 08:39 Fluticasone-Salmeterol 250-50 Diskus INHALATION Not Given BID.RESPIRATORY JOHNATHON Vitamin D 2,000 unit 12/24/20 09:00 12/25/20 08:14 Cholecalciferol (Vitamin D3) 1,000 Unit Tablet PO 2,000 unit DAILY JOHNATHON Administration Zinc Gluconate 50 mg 12/24/20 09:00 12/25/20 08:14 Zinc Gluconate 50 Mg Tablet PO 50 mg DAILY JOHNATHON Administration PFSH Acute PFSH: Social History (Updated 12/22/20 @ 08:17 by Oliva Lafleur NP) Smoking and tobacco status: never smoked Alcohol intake: never Vitals/I&O/Wt Last Vital Signs Temp 98.6 F 12/25/20 00:00 Pulse 64 12/25/20 09:45 Resp 27 H 12/25/20 08:36 BP 99/69 12/25/20 09:45 Pulse Ox 94 12/25/20 09:45 12/24/20 12/25/20 12/25/20 22:59 06:59 14:59 Intake Total 862.393 / 922.393 332.120 / 1254.513 70.549 / 70.549 Output Total 400 / 400 375 / 775 Balance 462.393 / 522.393 -42.880 / 479.513 70.549 / 70.549 Weight last 48 hrs Weight 148.325 kg Weight 148.325 kg Physical Exam Narrative: EXAM NARRATIVE: obese sob on bipap 70% fio2 bp low on levophed and precedex heent- nc/at, eomi, anicteric neck supple lungs ronchi b/l heart reg, no rub abd soft, nt, nd, +BS ext min b/l ankle edmea neuro- a,a, o x 2+ Urinary Catheter Management^: Espinosa: Cath Placed During This Visit: yes Reason for Continuing Indwelling Catheter: Accurate Measurement of Urinary Output in Critically Ill Patients Urinary Catheter Date of Insertion: 12/24/20 Urinary Catheter Time of Insertion: 11:00 Data Micro: Micro: Microbiology 12/23/20 Unknown Blood Culture - Pr eliminary Blood Gram positive c occi 12/23/20 15:04 Blood Culture - Pr eliminary Blood NEGATIVE TO CHAZ E A&P Additional A&P Information 60 yr old man w/ COVID-19 pna was on NSAID's at home, had a CTA on admission, had hypotension over Saturday and SAT and w/ LORRAINE. 1. hypoxemia is improving w/ bipap 2. LORRAINE- D Dx is ATN vs PREREnal vs COVID-19 nephropathy -pt is thirsty- pt had hypotension. pt was on nsaid's at home and had CTA on admission- risk for GORDO recs- check uric acid level -check ck -check urine studies -repeat chem 7 -give NS ivf 3. hyponatremia- check ur lytes from prerenal vs ATN -check tsh -pna can cause SIADH physiology -monitor w/ fluids 4. 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
[2020-12-25] MEDS: enoxaparin 120 mg/0.8 mL Syringe SUBCUT ×2 (11:25→22:10)
[2020-12-25] MEDS: sodium chloride 0.9% 500 ML 999 ML IV (11:25)
[2020-12-25] MEDS: enoxaparin 30 mg/0.3 mL Syringe SUBCUT ×2 (11:25→22:11)
--- NOTE | 2020-12-25 11:41 | PM.PN ---
Subjective Subjective: Interval history: Patient was seen and examined in the morning, slightly better today, currently on BiPAP, supplemental requirement is still very high. Medications: Reviewed: Yes Vitals/I&O/Wt Last Vital Signs Temp 98.6 F 12/25/20 00:00 Pulse 58 L 12/25/20 10:45 Resp 27 H 12/25/20 08:36 BP 134/87 12/25/20 10:45 Pulse Ox 91 12/25/20 10:45 12/24/20 12/25/20 12/25/20 22:59 06:59 14:59 Intake Total 862.393 / 922.393 332.120 / 1254.513 70.549 / 70.549 Output Total 400 / 400 375 / 775 Balance 462.393 / 522.393 -42.880 / 479.513 70.549 / 70.549 Weight last 48 hrs Weight 148.325 kg Physical Exam Const: COMMON NORMALS: patient oriented x3 HENMT: COMMON NORMALS: normocephalic and atraumatic HEAD & SCALP: normocephalic and atraumatic Resp: OTHER: Diminished air entry bilaterally, marked respiratory distress , tachypnea Cardio: COMMON NORMALS: regular rate, regular rhythm, S1 normal heart sound present, S2 normal heart sound present, No gallops present (Cardio), No murmurs present (Cardio), No rub (Cardio) and Peripheral pulses 2+ throughout RATE: regular rate RHYTHM: regular rhythm HEART SOUNDS: S1 normal heart sound present and S2 normal heart sound present PERIPHERAL PULSES: Peripheral pulses 2+ throughout GI: COMMON NORMALS: Normal to inspection, nondistended, normoactive bowel sounds present, Soft to palpation, non-tender, No hepatosplenomegaly present and no masses AUSCULTATION: Yes normoactive bowel sounds PALPATION: Yes Soft to palpation and Yes No hepatosplenomegaly present RECTAL EXAM: Yes deferred Extremity: COMMON NORMALS: no clubbing, cyanosis or edema and no pedal edema Neuro: COMMON NORMALS: patient oriented x3 Urinary Catheter Management^: Espinosa: Cath Placed During This Visit: yes Reason for Continuing Indwelling Catheter: Accurate Measurement of Urinary Output in Critically Ill Patients Urinary Catheter Date of Insertion: 12/24/20 Urinary Catheter Time of Insertion: 11:00 Data : 12/25/20 04:07 12/25/20 04:07 Micro: Microbiology 12/23/20 Unknown Blood Culture - Preliminary Blood Gram positive cocci 12/23/20 15:04 Blood Culture - Preliminary Blood NEGATIVE TO DATE A&P Assessment and plan (1) Respiratory failure with hypoxia: Acute hypoxic respiratory failure : secondary to Covid pneumonia, cannot conclusively rule out superimposed bacterial pneumonia. Currently on COVID Protocol. D -Dimer :>20 ESR : 25 CRP : 182-->355 LDH : 1301 Ferritin : > 41946 Monitor ABG Ph : 7.39 , PC2: 37. PO2: 66 fio2: 80 % Monitor X ray chest : Bilateral pulmonary opacities CTA Chest : Negative for PE. Extensive bilateral pulmonary infiltrates. Bilateral lower extremity Doppler veins: Partial thrombosis of bilateral greater saphenous veins. 2D Echo: Normal LV cavity size and systolic function. LVEF 60%. Blood Culture : 1 out of 2 bottles: GPC in clusters Sputum Culture : Dexamethasone 6mg I.V Daily Remdesivir for 5 days Zinc Vitamin c Albuterol Inhaler Advair Inhaler Vancomycin Certriaxone 1gm I.V Daily Azithromycin 500 mg I.V Daily s/p 1 Dose of Actemra ( 12/24) Lovenox 150 mg sc q12 h daily ( given the fact that he has very high d dimer as well as superficial vein DVT, we will keep him on full anticoagulation for now) Precedex for sedation Morphine Incentive Spirometry Flutter Valve Supplemental oxygen Status: Acute (2) Pneumonia due to severe acute respiratory syndrome coronavirus 2 (SARS-CoV-2): Status: Acute (3) LORRAINE (acute kidney injury): LORRAINE multifactorial: Contrast use, hypotensive events, Covid nephropathy, NSAID use at home Currently on gentle IV hydration with 500 cc NS Monitor BMP Avoid nephrotoxic Renal on baord Status: Acute (4) Hypokalemia: Status: Acute Additional A&P Information CODE STATUS: Full Code DVT prophylaxis: Lovenox Attestations Medical Necessity Statement*: Patient needs to be hospitalized for management of Covid pneumonia. 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
[2020-12-25] MEDS: sodium chloride 0.9% 1,000 ML 125 ML IV ×2 (11:50→19:58)
[2020-12-25 12:00] LABS: ABG PCO2 37.5 mmHg (35-45); ABG PH Result 7.39 (7.35-7.45); Alveolar-Arterial Oxygen Gradi 59.3 mmHg (5-10); Arterial Blood Gas Hematocrit 47.2 % (42-52); Blood Gas Allen Test Pos; Blood Gas Operator Identificat GD; Blood Gas Sample Site Radial, left; Blood Gas Sample Type Arterial; Carboxyhemoglobin 0.8 %THgb (0.4-20.1); HCO3 ABG 22.6 mmol/L (22-26); HGB O2 Sat 91.1 % (95-100); Ionized Calcium Level - ABG 1.1 mmol/L (1.1-1.4); Methemoglobin 0.8 % (0.4-1.5); Oxygen Device BIPAP; Oxygen Saturation ABG 92.5; PO2 ABG 66.5 mmHg (80.0-100.0); Potassium Level - ABG 3.2 mmol/L (3.5-5.0); Total Hemoglobin 15.4 g/dL (14-18)
[2020-12-25] MEDS: vancomycin 1,500 MG/300 ML PIGGYBACK 200 MG IV (12:00)
[2020-12-25] MEDS: cefTRIAXone 1,000 MG in sodium chloride 0.9% (plus) 50 ML 100 MG IV (14:06)
[2020-12-25 15:10] LABS: Protein Urine 1+ (Negative); Specific Gravity, Urine 1.025 (1.005-1.030); Urine Appearance Cloudy (CLEAR); Urine Color Dark Yellow (Yellow); pH Urine 5 (5-7)
[2020-12-25 15:11] LABS: Bilirubin Urine 1+ (Negative); Blood Urine 3+ (Negative); Glucose Urine UA Norm (Normal); Ketones Urine Negative (Negative); Leukocyte Esterase Urine Trace (Negative); Nitrate Urine Negative (Negative); Urobilinogen Urine 4 mg/dL (Negative)
[2020-12-25 15:12] LABS: Bacteria Urine 4+ /hpf; RBC Urine 40-50 /hpf (0-2); Squamous Epithelial Cell Urine RARE /hpf (0-5); WBC Urine 15-25 /hpf (0-5)
[2020-12-25 15:13] LABS: Amorphous Sediment Urine 2+ /hpf; Mucus Urine 1+ /hpf
[2020-12-25 15:14] LABS: Add Urine Culture? Yes
[2020-12-25 15:31] LABS: Potassium, Radom Urine 74 mmol/L; Urine Creatinine 231 mg/dL (39-259)
[2020-12-25 15:33] LABS: Urine Random Chloride < 10 mmol/L; Urine Random Sodium 13 mmol/L
--- NOTE | 2020-12-25 15:54 | PC.RESP ---
RT Shift Note Frequent safety and respiratory rounds continue. Orders completed as indicated. Patient monitored pre and post treatments throughout shift. Patient [Did.] tolerate treatments appropriately. Condition [DidNotChange]. Patient and/or site safety representative educated on respiratory treatment and medications. Patient and/or site safety representative [verbalized understanding]. Will continue to monitor patient progress.
[2020-12-25] MEDS: azithromycin 500 MG in sodium chloride 0.9% 250 ML 250 MG IV (16:26)
[2020-12-25 16:37] LABS: Alanine Aminotransferase 32 U/L (0-41); Albumin Level 2.8 g/dL (3.5-5.2); Alkaline Phosphatase 153 IU/L (40-130); Aspartate Amino Transferase 56 U/L (0-40); Blood Urea Nitrogen 56 mg/dL (8-23); Calcium 7.6 mg/dL (8.5-10.5); Carbon Dioxide 22 mmol/L (22-29); Chloride 92 mmol/L (98-107); Glucose 196 mg/dL (65-115); Osmolality Calculated 291 mOsm/kg (285-295); Phosphorus 4.4 mg/dL (2.5-4.5); Sodium 130 mmol/L (136-145); Thyroid Stimulating Hormone 1.82 uIU/mL (0.27-4.20); Total Bilirubin 0.8 mg/dL (0.15-1.2); Total Protein 5.8 g/dL (6.6-8.7)
[2020-12-25 17:00] LABS: Anion Gap 19.4 (5-19); Creatine Phosphokinase 685 U/L (39-308); Potassium 3.4 mmol/L (3.5-5.1)
[2020-12-25] MEDS: dexamethasone 4 mg/mL INJ 6 MG IVP (17:17)
--- NOTE | 2020-12-25 18:24 | NUR.SHIFT ---
Shift Note Frequent safety and comfort rounds continue. Orders and/or nursing care completed as indicated. Patient monitored for response to intervention and treatment(s). Education provided includes[]. Patient and/or digital sales representative [ResponseToTeaching]. Will continue to monitor. frequent request for water today unable to tolerate off bipap for any lenght of time but extremely thirsty .. and anxious remains on levophed gtt and precedex gtt for comfort . urine output very poor . Is alert and oriented at this time placed on high flow o2 100% with flow
[2020-12-26] VITALS (77 sets, daily range): BP systolic 95–172; BP diastolic 48–89; PULSE 53–94; RESP 1–30; TEMP 35.9–37.3; O2SAT 76–99
[2020-12-26] MEDS: morphine 4 mg/mL SDV 1 mL 2 MG IVP ×2 (00:44→08:15)
--- NOTE | 2020-12-26 01:00 | PC.NURSE ---
O2 sats drop in the low 80's when pt sleeping, his mouth drops open. Upon awakening his O2 sats go back up to 86-89%.
[2020-12-26] MEDS: sodium chloride 0.9% 1,000 ML 125 ML IV (01:48)
--- NOTE | 2020-12-26 02:33 | PC.NURSE ---
Shift Note Frequent safety and comfort rounds continue. Orders and/or nursing care completed as indicated. Patient monitored for response to intervention and treatment(s). Education provided includes oxygen therapies, position changes, BiPap safety, medications with side effects, signs symptoms to report, falls safety. Patient and/or business banking representative verbalized understanding of education and returns demonstration. Patient tolerated being on HHF with SpOx >88% as long as he was laying supine in high fowlers, remaining calm without any exertion. Patient tolerated being on HHF for the beginning of the shift but did require Bipap later in the shift when patient didn't recover after position change with SpOx <85%. BiPap and heated high flow managed by RT. GTT's titrated per protocol. Espinosa patient and draining. Will continue to monitor.
[2020-12-26] MEDS: ipratropium-albuterol 3 mL Neb INHALATION ×6 (03:37→23:40)
[2020-12-26 04:23] LABS: Basophils % 0.1 %; Hematocrit 40.7 % (42.0-52.0); Lymphocytes # 0.6 10^3/uL (0.8-4.8); Lymphocytes % 4.5 %; Mean Corpuscular HGB Conc 34.4 g/dL (30.0-36.0); Mean Corpuscular Hemoglobin 30.7 pg (28.0-34.0); Mean Corpuscular Volume 89.3 fl (80-94); Monocytes # 0.5 10^3/uL (0.2-0.9); Monocytes % 3.6 %; Neutrophils # 12.53 10^3/uL (1.8-7.7); Neutrophils % 90.9 %; Nucleated Red Blood Cells % 0 %; Platelet Count 177 10^3/cmm (130-400); Red Blood Count 4.56 10^6/uL (4.1-5.3); White Blood Count 13.8 10^3/uL (4.0-10.0)
[2020-12-26 04:54] LABS: D Dimer >= 20.00 ug/mIFEU (0-0.59)
[2020-12-26 05:02] LABS: NT Pro B Type Natriuretic Pept 149 pg/mL (0-125); Procalcitonin 2.26 ng/mL (0-0.5)
[2020-12-26 05:04] LABS: ABG PCO2 40.8 mmHg (35-45); ABG PH Result 7.37 (7.35-7.45); Alveolar-Arterial Oxygen Gradi 76.4 mmHg (5-10); Arterial Blood Gas Hematocrit 44.4 % (42-52); Base Excess ABG -1.7 mmol/L (-2.0-2.0); Blood Gas Allen Test Pos; Blood Gas Sample Site Radial, right; Blood Gas Sample Type Arterial; Carboxyhemoglobin 0.7 %THgb (0.4-20.1); HCO3 ABG 23.5 mmol/L (22-26); Ionized Calcium Level - ABG 1.1 mmol/L (1.1-1.4); Methemoglobin 0.3 % (0.4-1.5); Oxygen Device BIPAP; PO2 ABG 74.1 mmHg (80.0-100.0); Potassium Level - ABG 3.4 mmol/L (3.5-5.0); Total Hemoglobin 14.5 g/dL (14-18)
[2020-12-26 05:16] LABS: Alanine Aminotransferase 33 U/L (0-41); Albumin Level 2.9 g/dL (3.5-5.2); Alkaline Phosphatase 115 IU/L (40-130); Anion Gap 21.5 (5-19); Aspartate Amino Transferase 54 U/L (0-40); Blood Urea Nitrogen 59 mg/dL (8-23); C Reactive Protein 198.6 mg/L (0.0-4.9); Calcium 7.5 mg/dL (8.5-10.5); Carbon Dioxide 19 mmol/L (22-29); Chloride 97 mmol/L (98-107); Globulin 2.7 g/dL (1.3-4.6); Glucose 175 mg/dL (65-115); Osmolality Calculated 299 mOsm/kg (285-295); Potassium 3.5 mmol/L (3.5-5.1); Sodium 134 mmol/L (136-145); Total Bilirubin 0.6 mg/dL (0.15-1.2); Total Protein 5.6 g/dL (6.6-8.7)
[2020-12-26] MEDS: remdesivir 100 MG in sodium chloride 0.9% (100 ml) 100 ML IV (05:21)
[2020-12-26] MEDS: dexmedeTOMIDine 0.9 % NaCL 400 MCG/100 ML PREMIX 18.54 MCG IV ×3 (05:21→21:15)
[2020-12-26] MEDS: vancomycin 1,500 MG/300 ML PIGGYBACK 200 MG IV (05:22)
[2020-12-26 05:31] LABS: Lactate Dehydrogenase 985 U/L (135-225)
[2020-12-26 05:33] LABS: Erythrocyte Sedimentation Rate 20 mm/hr (0-10)
[2020-12-26 05:37] LABS: Magnesium 2.5 mg/dL (1.7-2.3)
--- NOTE | 2020-12-26 08:03 | P.PN_ITS ---
Subjective Subjective: Interval history: states he is feeling better today Medications: Reviewed: Yes Vitals/I&O/Wt Last Vital Signs Temp 97.6 F 12/26/20 04:00 Pulse 58 L 12/26/20 06:30 Resp 24 H 12/26/20 03:37 BP 172/89 12/26/20 06:30 Pulse Ox 91 12/26/20 06:30 12/25/20 12/26/20 12/26/20 22:59 06:59 14:59 Intake Total 1927.908 / 2898.457 1509.359 / 4407.816 Output Total 200 / 200 725 / 925 Balance 1727.908 / 2698.457 784.359 / 3482.816 Physical Exam Const: COMMON NORMALS: no acute distress GENERAL APPEARANCE: cooperative Urinary Catheter Management^: Espinosa: Cath Placed During This Visit: yes Reason for Continuing Indwelling Catheter: Accurate Measurement of Urinary Outp ut in Critically Ill Patients Urinary Catheter Date of Insertion: 12/24/20 Urinary Catheter Time of Insertion: 11:00 Data : 12/26/20 03:55 12/26/20 03:55 Other Labs: 7.37/40.8/74 on 100% BiPAP urine Na 13, FeNa < 1% Micro: Microbiology 12/26/20 03:55 Blood Culture - Preliminary Blood SPECIMEN COLLECTED 12/26/20 04:00 Blood Culture - Preliminary Blood SPECIMEN COLLECTED 12/23/20 Unknown Blood Culture - Preliminary Blood Gram positive cocci A&P Additional A&P Information 1. Acute nonoliguric kidney injury, urine sodium and FeNa consistent with prerenal azotemia. Also recent NSAIDs, contrast, hypotension, COVID pneumonia. I/O + 3L 2. Hyponatremia, improved 3. Metabolic and respiratory acidosis 4. 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
[2020-12-26] MEDS: budesonide 0.5 mg/2 mL Neb INHALATION ×2 (08:05→19:48)
[2020-12-26] MEDS: ascorbic acid 500 mg Tablet 1000 MG PO ×2 (08:14→17:30)
[2020-12-26] MEDS: zinc gluconate 50 mg Tablet PO (08:15)
[2020-12-26] MEDS: lidocaine 5% Patch 1 PATCH TOPICAL ×2 (08:15→21:10)
[2020-12-26] MEDS: cholecalciferol (vitamin D3) 1,000 unit Tablet 2000 UNIT PO (08:15)
--- NOTE | 2020-12-26 08:30 | PC.CHAP ---
Pastoral Care Encounter/Spiritual Assessment Type of Contact [] Declined preprint analyst visit [] Patient/Family/Request visit [] Outpatient visit [] Follow-up visit [] Physician referral [] Code/Alert [x] Routine visit [] Staff referral [] Actively dying [] Patient sleeping [] Family support [] [] Out of room [] Palliative care [] [] Receiving care in room [] Pre-surgical visit [] Trauma [] Long length of stay [x] ICU visit [] Other: Relational/Emotional Strength [] Patient feels connected with others/family/visitors/staff [] Distress [] Loneliness/isolation [] Abandonment Spirituality of Patient [] Person of Katharine [] Attends Confucianist of their Katharine [] Believes in Prayer [] Reads Bible or Mosque materials [] There are Spiritual issues to be addressed Welder/Installer Interventions [x] Prayer [] Active listening [] Non-anxious presence [] Spiritual/emotional support [] Crisis/trauma care [] Spiritual counseling [] Bereavement support [] Provided bereavement packet [] Provided Bible/devotional materials [] Provided toy/stuffed animal, coloring book to patient or family member [] Provided Communion [] Anointing/[place] [] Salvation [x] Completed spiritual assessment [] Other: Impact on Illness or Injury [] Angry [] Fearful [] Anxious [] Often cries [] Exhaustion [] Unable to work [] Unable to attend pentecostal [] Unable to walk/stand [] Unable to read [] Unable to drive [] Unable to eat/drink [] Unable to sleep [] Unable to be with family [] Patient intubated [] Other: Summary Time spent with patient
--- NOTE | 2020-12-26 09:53 | PC.SOCIAL ---
IM follow up discussed with and she verbalized understanding. Patient is not close to dc at this time. is aware we will continue to provide updates/ reminders regarding IM.
--- NOTE | 2020-12-26 10:30 | PC.NURSE ---
Pt agreed to prone. Assisted pt to proning position. O2 sats improved.
[2020-12-26] MEDS: sodium chloride 0.9% 1,000 ML 40 ML IV ×2 (10:50→21:15)
[2020-12-26] MEDS: enoxaparin 120 mg/0.8 mL Syringe SUBCUT ×2 (10:50→22:41)
[2020-12-26] MEDS: enoxaparin 30 mg/0.3 mL Syringe SUBCUT ×2 (10:50→22:41)
--- NOTE | 2020-12-26 10:56 | USR_ITS ---
PROCEDURE INFORMATION: Exam: US Retroperitoneal Limited, Kidneys Exam date and time: 12/26/2020 10:56 AM Age: 60 years old Clinical indication: Acute renal insufficiency. TECHNIQUE: Imaging protocol: Real-time ultrasound of the retroperitoneum with image documentation. Examination was focused on the kidneys. COMPARISON: [place] [id number] 12/25/2020 8:49 AM FINDINGS: The right kidney measures 9.6 x 6.3 x 5.4 cm. There is a possible small echogenic lesion in the mid right kidney measuring 1 cm. No hydronephrosis. The left kidney measures 12.7 x 6.1 x 3.7 cm. No suspicious mass or hydronephrosis. Incidental note is made of probable hepatic steatosis. US/US renal BI* [id number] IMPRESSION: 1. No hydronephrosis. 2. Possible small echogenic lesion in the mid right kidney. This could represent a small angiomyolipoma. Recommend follow-up CT abdomen to further assess. This could be obtained on a nonemergent basis.
--- NOTE | 2020-12-26 13:55 | PC.NURSE ---
Pt's O2 sats stay around 88% unless his mouth drops oen while resting with his eyes closed then his sats to around 83% and he needs to be nudged and reminded to breath through his nose where the cannula is located.
[2020-12-26] MEDS: cefTRIAXone 1,000 MG in sodium chloride 0.9% (plus) 50 ML 100 MG IV (14:26)
--- NOTE | 2020-12-26 14:34 | PC.SOCIAL ---
IM follow up explained with by phone and she verbalized understanding.
--- NOTE | 2020-12-26 15:01 | PM.PN ---
Subjective Subjective: Interval history: Patient was seen and examined this morning, he was in semiprone position saturating 84 to 85% on 100%, 55 L heated high flow His oxygen improved afterwards Creatinine improved 1.7 DVT positive Vitals/I&O/Wt Last Vital Signs Temp 99.2 F 12/26/20 13:00 Pulse 60 12/26/20 14:04 Resp 17 12/26/20 14:00 BP 107/62 12/26/20 14:00 Pulse Ox 91 12/26/20 14:00 12/26/20 12/26/20 12/26/20 06:59 14:59 22:59 Intake Total 1509.359 / 4407.816 945.667 / 945.667 Output Total 725 / 925 Balance 784.359 / 3482.816 945.667 / 945.667 Physical Exam Narrative: EXAM NARRATIVE: Morbidly obese male laying in semiprone position saturating 88 to 90% on 100% heated high flow 55 L Conversational dyspnea noted Bilateral breath sounds with rhonchi and crackles Distended abdomen no active signs of peritonitis Soft EOMI, PERRLA GCS 15 awake alert oriented Espinosa catheter draining concentrated urine S1, S2 no murmur appreciated No neurological deficits, patient appears very fatigued /lethargic and withdrawn Urinary Catheter Management^: Espinosa: Cath Placed During This Visit: yes Reason for Continuing Indwelling Catheter: Accurate Measurement of Urinary Output in Critically Ill Patients Urinary Catheter Date of Insertion: 12/24/20 Urinary Catheter Time of Insertion: 11:00 Data : 12/26/20 03:55 12/26/20 03:55 Micro: Microbiology 12/23/20 Unknown Blood Culture - Preliminary Blood Staphylococcus sp coag neg 12/25/20 14:00 Urine Culture - Preliminary Urine,Clean Catch 12/26/20 03:55 Blood Culture - Preliminary Blood SPECIMEN COLLECTED 12/26/20 04:00 Blood Culture - Preliminary Blood SPECIMEN COLLECTED A&P Assessment and plan (1) Pneumonia due to severe acute respiratory syndrome coronavirus 2 (SARS-CoV-2): Status: Acute (2) Respiratory failure with hypoxia: Status: Acute (3) Hypokalemia: Status: Acute (4) LORRAINE (acute kidney injury): Status: Acute (5) DVT (deep venous thrombosis): Status: Acute Additional A&P Information Persistent hypoxia related to COVID-19 Currently on heated high flow 100% High risk of deterioration considering high BMI This is his third day in the hospital, continue remdesivir and Decadron High procalcitonin level noted continue ceftriaxone and azithromycin Status post interleukin-6 inhibitor dose 12/24 Continue Lovenox therapeutic dose Incentive spirometry, proning, EF 60% 1/2 bottles GPC in clusters Continue multivitamin Staphylococcus saprophyticus most likely is contaminant noticed on 12/23 blood culture LORRAINE secondary to COVID-19 infection and hypertension, also received NSAIDs Creatinine 1.7 prerenal azotemia appreciate nephro recommendations Hypokalemia: Potassium repleted Full code DVT prophylaxis therapeutic Lovenox Attestations Medical Necessity Statement*: Continue ICU management Time Spent in Patient Care: 16 - 35 minutes Coding Level of Care Code Acute Customer Response Representative for [facility] Fwd Diagnoses Pneumonia due to severe acute respiratory syndrome coronavirus 2 (SARS-CoV-2) U07.1; J12.82 Respiratory failure with hypoxia J96.91 Hypokalemia E87.6 LORRAINE (acute kidney injury) N17.9 DVT (deep venous thrombosis) I82.409
[2020-12-26] MEDS: azithromycin 250 mg Tablet 500 MG PO (16:36)
[2020-12-26 16:46] LABS: Glucose Point of Care 180 mg/dL (70-110)
[2020-12-26] MEDS: dexamethasone 4 mg/mL INJ 6 MG IVP (17:31)
--- NOTE | 2020-12-26 18:53 | PC.NURSE ---
Shift Note: Pt has used heated high flow most of shift, 55 liters and 100%. Pt willing to prone for most of the day. When he isn't proning he is lateral lying. He desats with movement and has a slow recovery. His sats are best while proning , 94%. Sats consistent at 88% while lateral lying. Lidocaine path seems to help his hip pain as he has only needed pain meds 1 time this shift. Urine output goo, 1550ml of dark/bight yellow urine. Updates discussed with three times today. Frequent safety and comfort rounds continue. Orders and/or nursing care completed as indicated. Patient monitored for response to intervention and treatment(s). Education provided includes proning to improve oxygenation, IS and acapella use, Blood sugar and insulin. Patient and/or technical support representative verbalized understanding but both very anxious requires reassurance. Will continue to monitor.
[2020-12-27] VITALS (70 sets, daily range): BP systolic 96–188; BP diastolic 48–92; PULSE 51–97; RESP 3–42; TEMP 36.3–36.9; O2SAT 72–98
[2020-12-27 00:28] LABS: Glucose Point of Care 185 mg/dL (70-110)
[2020-12-27] MEDS: dexmedeTOMIDine 0.9 % NaCL 400 MCG/100 ML PREMIX 18.54 MCG IV (02:11)
[2020-12-27] MEDS: ipratropium-albuterol 3 mL Neb INHALATION ×5 (03:11→20:27)
[2020-12-27 03:21] LABS: ABG PCO2 41.4 mmHg (35-45); ABG PH Result 7.36 (7.35-7.45); Alveolar-Arterial Oxygen Gradi 66.8 mmHg (5-10); Arterial Blood Gas Hematocrit 44.1 % (42-52); Blood Gas Allen Test Pos; Blood Gas Sample Site Radial, right; Blood Gas Sample Type Arterial; Carboxyhemoglobin 0.7 %THgb (0.4-20.1); HCO3 ABG 23.4 mmol/L (22-26); HGB O2 Sat 93.3 % (95-100); Ionized Calcium Level - ABG 1.1 mmol/L (1.1-1.4); Methemoglobin 0.9 % (0.4-1.5); Oxygen Device BIPAP; Oxygen Saturation ABG 94.9; PO2 ABG 75.5 mmHg (80.0-100.0); Potassium Level - ABG 3.6 mmol/L (3.5-5.0); Total Hemoglobin 14.4 g/dL (14-18)
--- NOTE | 2020-12-27 05:45 | PC.NURSE ---
Shift Note Patient talking on phone, attempting to snap chat family, with this exertion became SOB with SpOx 70% on heated high flow FiO2 100%, 55L and was not recovering. RT at beside and place patient on Bipap 100% and was able to wean down to 90%. RT managed HHF and BiPap. After patient recovered, he was able to sleep a short while. Bed bath provided, frequent oral care provided. Patient remained supine or laying on left side. Spoke with and provided update at beginning of shift and in the middle of shift per request. Espinosa patient and draining. GTT's titrated per protocol. Frequent safety and comfort rounds continue. Orders and/or nursing care completed as indicated. Patient monitored for response to intervention and treatment(s). Education provided includes oral care, oxygen safety, fall safety, medication with side effects, signs/symptoms to report. Patient and/or telephone claims representative verbalized understanding of education. Will continue to monitor.
[2020-12-27 06:15] LABS: Magnesium 2.8 mg/dL (1.7-2.3)
[2020-12-27] MEDS: remdesivir 100 MG in sodium chloride 0.9% (100 ml) 100 ML IV (06:18)
[2020-12-27 06:30] LABS: Ferritin 5395 ng/mL (30-400); Lactate Dehydrogenase 1234 U/L (135-225)
[2020-12-27 06:34] LABS: D Dimer > 20.00 ug/mIFEU (0-0.59)
[2020-12-27 06:43] LABS: Erythrocyte Sedimentation Rate 13 mm/hr (0-10)
[2020-12-27] MEDS: budesonide 0.5 mg/2 mL Neb INHALATION ×2 (07:33→20:27)
[2020-12-27 08:18] LABS: Glucose Point of Care 173 mg/dL (70-110)
[2020-12-27 08:21] LABS: Blood Urea Nitrogen 42 mg/dL (8-23); Calcium 7.8 mg/dL (8.5-10.5); Carbon Dioxide 21 mmol/L (22-29); Chloride 103 mmol/L (98-107); Glomerular Filtration Rate 67.8 mL/min (90-130); Glucose 176 mg/dL (65-115); Osmolality Calculated 301 mOsm/kg (285-295); Sodium 138 mmol/L (136-145)
[2020-12-27 08:28] LABS: Anion Gap 17.5 (5-19); Potassium 3.5 mmol/L (3.5-5.1)
[2020-12-27] MEDS: lidocaine 5% Patch 1 PATCH TOPICAL ×2 (09:25→20:24)
[2020-12-27] MEDS: cholecalciferol (vitamin D3) 1,000 unit Tablet 2000 UNIT PO (09:25)
[2020-12-27] MEDS: ascorbic acid 500 mg Tablet 1000 MG PO (09:25)
[2020-12-27] MEDS: azithromycin 250 mg Tablet 500 MG PO (09:25)
[2020-12-27] MEDS: zinc gluconate 50 mg Tablet PO (09:26)
[2020-12-27] MEDS: dexmedeTOMIDine 0.9 % NaCL 400 MCG/100 ML PREMIX 14.83 MCG IV ×2 (09:27→15:56)
[2020-12-27] MEDS: enoxaparin 30 mg/0.3 mL Syringe SUBCUT ×2 (11:29→23:49)
[2020-12-27] MEDS: morphine 4 mg/mL SDV 1 mL 2 MG IVP (11:29)
[2020-12-27] MEDS: sodium chloride 0.9% 1,000 ML 40 ML IV (11:30)
[2020-12-27] MEDS: enoxaparin 120 mg/0.8 mL Syringe SUBCUT ×2 (11:30→23:49)
--- NOTE | 2020-12-27 11:33 | PM.PN ---
Subjective Subjective: Interval history: Mr Ramires came off BiPAP last night, however, desaturated on high flow oxygen and now transitioning back to BiPAP. Passing urine via Espinosa catheter. Minimal extremity edema. No uremic symptoms. Vitals/I&O/Wt Last Vital Signs Temp 97.5 F L 12/27/20 07:00 Pulse 57 L 12/27/20 10:30 Resp 24 H 12/27/20 11:29 BP 148/71 12/27/20 10:30 Pulse Ox 94 12/27/20 10:30 12/26/20 12/27/20 12/27/20 22:59 06:59 14:59 Intake Total 1516.165 / 2561.832 93.318 / 2655.150 668.146 / 668.146 Output Total 2200 / 2200 600 / 2800 Balance -683.835 / 361.832 -506.682 / -144.850 668.146 / 668.146 Physical Exam Narrative: EXAM NARRATIVE: Constitutional: Awake, comfortable HEENT: Wet mucosa, no jvp, non icteric Lungs: Bilaterally diminished, no wheeze, rales in all lung zones CVS: S1 S2, no murmurs Abdo: Soft, BS ok Ext 4: Minimal edema, peripheral perfusion with no cyanosis Neurological: Grossly non-focal Urinary Catheter Management^: Espinosa: Cath Placed During This Visit: yes Reason for Continuing Indwelling Catheter: Accurate Measurement of Urinary Output in Critically Ill Patients Urinary Catheter Date of Insertion: 12/24/20 Urinary Catheter Time of Insertion: 11:00 Data : 12/26/20 03:55 12/27/20 05:30 Micro: Microbiology 12/25/20 14:00 Urine Culture - Final Urine,Clean Catch 12/26/20 04:00 Blood Culture - Preliminary Blood NEGATIVE TO DATE 12/26/20 03:55 Blood Culture - Preliminary Blood NEGATIVE TO DATE 12/23/20 Unknown Blood Culture - Preliminary Blood Staphylococcus sp coag neg A&P Additional A&P Information 1. Acute kidney injury Recovering nicely from acute kidney injury, consistent with prerenal azotemia as the primary cause. DC IV fluids at this time Leave Espinosa catheter for the time being Avoid usual nephrotoxic agents Strict I's and O's 2. Covid pneumonitis BiPAP, status post IL-6 antibody, remdesivir, dexamethasone, broad-spectrum antibiotics. 3. Chemistry Well-balanced Renal issues have now resolved, I will watch his care peripherally at this time. As always it is a pleasure to follow these patients with you. 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
[2020-12-27 12:25] LABS: Glucose Point of Care 133 mg/dL (70-110)
[2020-12-27] MEDS: cefTRIAXone 1,000 MG in sodium chloride 0.9% (plus) 50 ML 100 MG IV (15:55)
--- NOTE | 2020-12-27 16:46 | PM.PN ---
Subjective Subjective: Interval history: -900 mL fluid balance Creatinine improved Turned off fluids Discontinued ceftriaxone and azithromycin and started Levaquin Patient has stayed afebrile, Cultures negative to date at the bedside, updated Patient did use 90% FiO2 via BiPAP and at the time of my evaluation he was 55 L 100% heated high flow Endorsing lethargy fatigue and anxiety Vitals/I&O/Wt Last Vital Signs Temp 97.5 F L 12/27/20 12:30 Pulse 57 L 12/27/20 16:14 Resp 18 12/27/20 16:14 BP 127/55 12/27/20 14:30 Pulse Ox 91 12/27/20 16:14 12/27/20 12/27/20 12/27/20 06:59 14:59 22:59 Intake Total 93.318 / 2655.150 668.146 / 668.146 96.148 / 764.294 Output Total 600 / 2800 Balance -506.682 / -144.850 668.146 / 668.146 96.148 / 764.294 Physical Exam Narrative: EXAM NARRATIVE: Patient and left lateral semiprone position Heated high flow 100% FiO2 Very anxious however able to answer my question appropriately Awake alert oriented x3 No neurological deficits Lower extremity no edema S1, S2 without any active signs of congestive heart failure Abdomen soft no signs of peritonitis EOMI, PERRLA No neurological deficits Espinosa catheter draining concentrated urine Urinary Catheter Management^: Espinosa: Cath Placed During This Visit: yes Reason for Continuing Indwelling Catheter: Accurate Measurement of Urinary Output in Critically Ill Patients Urinary Catheter Date of Insertion: 12/24/20 Urinary Catheter Time of Insertion: 11:00 Data : 12/26/20 03:55 12/27/20 05:30 Micro: Microbiology 12/26/20 16:00 MRSA Culture - Final Nose 12/25/20 14:00 Urine Culture - Final Urine,Clean Catch 12/26/20 04:00 Blood Culture - Preliminary Blood NEGATIVE TO DATE 12/26/20 03:55 Blood Culture - Preliminary Blood NEGATIVE TO DATE A&P Assessment and plan (1) DVT (deep venous thrombosis): Status: Acute (2) LORRAINE (acute kidney injury): Status: Acute (3) Hypokalemia: Status: Acute (4) Pneumonia due to severe acute respiratory syndrome coronavirus 2 (SARS-CoV-2): Status: Acute (5) Respiratory failure with hypoxia: Status: Acute Additional A&P Information Persistent hypoxia COVID-19 ARDS Continue remdesivir and Decadron Continue multivitamins Discontinue antibiotics IV and start Levaquin p.o. Actemra given 12/24 Currently on therapeutic dose of Lovenox due to bilateral DVTs Precedex to decrease anxiety related to hypoxia Morphine for as needed usage Encouraged proning and incentive spirometer LORRAINE improved with fluid resuscitation: Creatinine normal Fluids discontinued today appreciate nephro recommendations Prerenal etiology resolved Full code Consistent carb diet DVT prophylaxis currently on therapeutic Lovenox Mortality morbidity high risk high risk for intubation, updated Attestations Medical Necessity Statement*: Continue ICU management high risk for intubation Time Spent in Patient Care: Greater than 35 minutes Coding Level of Care Code Acute Electrician Underground for g Fwd Diagnoses DVT (deep venous thrombosis) I82.409 LORRAINE (acute kidney injury) N17.9 Hypokalemia E87.6 Pneumonia due to severe acute respiratory syndrome coronavirus 2 (SARS-CoV-2) U07.1; J12.82 Respiratory failure with hypoxia J96.91
[2020-12-27 18:35] LABS: Glucose Point of Care 131 mg/dL (70-110)
[2020-12-27] MEDS: dexamethasone 4 mg/mL INJ 6 MG IVP (19:10)
[2020-12-27] MEDS: dexmedeTOMIDine 0.9 % NaCL 400 MCG/100 ML PREMIX 25.96 MCG IV (21:05)
[2020-12-27] MEDS: LORazepam 2 mg/mL INJ 1 mL 1 MG IVP (21:25)
--- NOTE | 2020-12-27 23:12 | XRR_ITS ---
PROCEDURE INFORMATION: Exam: XR Chest Exam date and time: 12/27/2020 11:12 PM Age: 60 years old Clinical indication: Device placement; Ett placement (vent status); Patient HX: Check S/P et placement; Additional info: Shortness of breath TECHNIQUE: Imaging protocol: XR of the chest. Views: 1 view. COMPARISON: CR (CHEST, ) 12/25/2020 5:34 AM FINDINGS: Tubes, catheters and devices: Mid trachea positioning of the endotracheal tube about 7 cm above kana. Partial visualization of enteric tube in the midline. Lungs: Increasing widespread ground-glass opacities of both lungs compared to the prior imaging. Pleural spaces: Unremarkable. No pleural effusion. No pneumothorax. Heart/Mediastinum: Unremarkable. No cardiomegaly. Bones/joints: Unremarkable. XR/XR chest 1V portable [id number] IMPRESSION: 1. Endotracheal tube position as described. 2. Worsening airspace opacities.
[2020-12-27] MEDS: propofol 1,000 MG/100 ML INJ 4.45 MG IV (23:45)
--- NOTE | 2020-12-27 23:45 | P.EN_ITS ---
Event Note Event Note: Called to evaluate patient as 02 saturation dropping down to 49% while on Bipap. Earlier this evening patient had been tolerating Bipap poorly, extremely uncomfortable and pulling off the machine in spite of concomitant precedex infusion. Through the evening he developed worsening respiratory dis tress with increasing tachypnea and confusion, with impending respiratory arrest. ER physician Dr. Peoples was called for intubation. Patient intubated successfully in one attempt. Tube position confirmed manually and on CXR. Started on Fentanyl and propofol gtt. ABG ordered. Samira updated about all events. Event Notes Attestations Time Spent in Patient Care: Greater than 35 minutes
[2020-12-27] MEDS: succinylcholine 20 mg/mL SDV 10mL 200 MG IVP (23:48)
[2020-12-27] MEDS: fentaNYL 50 mcg/mL INJ 2mL 25 MCG IVP (23:53)
--- NOTE | 2020-12-27 23:56 | ED_ITS ---
HPI - COVID General: Chief Complaint: COVID symptoms Stated Complaint: RESP DISTRESS Time Seen by Provider: 12/23/20 11:02 Triage information: Has fever, cough or shortness of breath . No known COVID + exposure last 14 days COVID Results: SARS-CoV-2 Antigen (Rapid) Positive (Negative) H 12/22/20 10:59 12/22/20 [facility] ED PFSH: Social History Smoking and tobacco status: never smoked Alcohol intake: never Procedures Intubation Time out performed: Yes sedative: Etomidate Mg Given: 20 paralytic: Succinylcholine Mg Given: 200 Laryngoscope: Elaine ET Tube Size: 8 ET Tube Uncuffed: No Tube Secured Depth (cm): 26 Tube Secured Location: lips Tube Placement Confirmation: visualized tube passing through cords, equal breath sounds bilaterally and no breath sounds over epigastrium Patient Tolerated Procedure: well Intubation Complications: none Course Vital Signs: Vital signs: Vital Signs Temperature 98.4 F 12/27/20 16:30 Pulse Rate 61 12/27/20 20:50 Respiratory Rate 34 H 12/27/20 20:31 Blood Pressure 120/66 12/27/20 18:30 Pulse Oximetry 95 12/27/20 20:50 MDM - COVID MDM Narrative: Medical decision making narrative: I was called to the ICU to intubate patient as he is failing on BiPAP. Patient was intubated without any complications. Lab Data: Labs: Lab Results 12/23/20 12/23/20 12/23/20 Range/Units 11:05 11:05 11:05 WBC 8.9 (4.0-10.0) 10^3/ uL RBC 5.15 (4.1-5.3) 10^6/u L Hgb 16.2 (11.7-16.6) g/dL Hct 45.8 (42.0-52.0) % MCV 88.9 (80-94) fl MCH 31.5 (28.0-34.0) pg MCHC 35.4 (30.0-36.0) g/dL RDW 12.5 (12.1-15.1) % Plt Count 162 (130-400) 10^3/c mm MPV 10.9 H (7.4-10.4) fL Neut % (Auto) 87.2 % Lymph % (Auto) 7.1 % [place] % (Auto) 4.8 % Eos % (Auto) 0.0 % Baso % (Auto) 0.1 % Neut # (Auto) 7.76 H (1.8-7.7) 10^3/u L Lymph # (Auto) 0.6 L (0.8-4.8) 10^3/u L [place] # (Auto) 0.4 (0.2-0.9) 10^3/u L Eos # (Auto) 0.0 (0.0-0.8) 10^3/u L Baso # (Auto) 0.0 (0.0-0.1) 10^3/u L Nucleated RBC % (a uto) 0 % Nucleated RBCs # 0.0 /100WBC Specimen Type Sample Site ABG pH (7.35-7.45) ABG pCO2 (35-45) mmHg ABG pO2 (80.0-100.0) mmH g ABG HCO3 (22-26) mmol/L ABG Base Excess (-2.0-2.0) mmol/ L Luke Test Hematocrit (42-52) % O2 Delivery Device O2 Liters/Min % FiO2 % [employer] Cutter ID Sodium 134 L (136-145) mmol/L Potassium 3.1 L (3.5-5.1) mmol/L Chloride 94 L (98-107) mmol/L Carbon Dioxide 28 (22-29) mmol/L Anion Gap 15.1 (5-19) BUN 23 (8-23) mg/dL Creatinine 1.0 (0.7-1.2) mg/dL GFR Calculation 75.7 L (90-130) mL/min Glucose 114 (65-115) mg/dL Calculated Osmolal ity 283 L (285-295) mOsm/k g Lactic Acid 1.7 (0.5-2.2) mmol/L Calcium 8.1 L (8.5-10.5) mg/dL Total Bilirubin 0.9 (0.15-1.2) mg/dL AST 78 H (0-40) U/L ALT 30 (0-41) U/L Alkaline Phosphata se 84 (40-130) IU/L Troponin T Baselin e (0-15) ng/L Troponin T 120 Min [place] (0-15) ng/L Delta Troponin T (0-10) ABS# C-Reactive Protein 182.2 H (0.0-4.9) mg/L NT-Pro-B Natriuret Pep 199 H (0-125) pg/mL Total Protein 6.3 L (6.6-8.7) g/dL Albumin 3.2 L (3.5-5.2) g/dL Globulin 3.1 (1.3-4.6) g/dL Procalcitonin 0.56 H (0-0.5) ng/mL 12/23/20 12/23/20 12/23/20 Range/Units 11:05 11:23 15:04 WBC (4.0-10.0) 10^3/ uL RBC (4.1-5.3) 10^6/u L Hgb (11.7-16.6) g/dL Hct (42.0-52.0) % MCV (80-94) fl MCH (28.0-34.0) pg MCHC (30.0-36.0) g/dL RDW (12.1-15.1) % Plt Count (130-400) 10^3/c mm MPV (7.4-10.4) fL Neut % (Auto) % Lymph % (Auto) % [place] % (Auto) % Eos % (Auto) % Baso % (Auto) % Neut # (Auto) (1.8-7.7) 10^3/u L Lymph # (Auto) (0.8-4.8) 10^3/u L [place] # (Auto) (0.2-0.9) 10^3/u L Eos # (Auto) (0.0-0.8) 10^3/u L Baso # (Auto) (0.0-0.1) 10^3/u L Nucleated RBC % (a uto) % Nucleated RBCs # /100WBC Specimen Type Arterial Sample Site Brachial, left ABG pH 7.53 H (7.35-7.45) ABG pCO2 32.1 L (35-45) mmHg ABG pO2 48.1 L (80.0-100.0) mmH g ABG HCO3 26.6 H (22-26) mmol/L ABG Base Excess 4.5 H (-2.0-2.0) mmol/ L Luke Test Pos Hematocrit 50.9 (42-52) % O2 Delivery Device Hag O2 Liters/Min 50.0 % FiO2 100.0 % [employer] Cutter ID Cak Sodium (136-145) mmol/L Potassium (3.5-5.1) mmol/L Chloride (98-107) mmol/L Carbon Dioxide (22-29) mmol/L Anion Gap (5-19) BUN (8-23) mg/dL Creatinine (0.7-1.2) mg/dL GFR Calculation (90-130) mL/min Glucose (65-115) mg/dL Calculated Osmolal ity (285-295) mOsm/k g Lactic Acid (0.5-2.2) mmol/L Calcium (8.5-10.5) mg/dL Total Bilirubin (0.15-1.2) mg/dL AST (0-40) U/L ALT (0-41) U/L Alkaline Phosphata se (40-130) IU/L Troponin T Baselin e 14 (0-15) ng/L Troponin T 120 Min [place] 12.13 (0-15) ng/L Delta Troponin T -1.87 L (0-10) ABS# C-Reactive Protein (0.0-4.9) mg/L NT-Pro-B Natriuret Pep (0-125) pg/mL Total Protein (6.6-8.7) g/dL Albumin (3.5-5.2) g/dL Globulin (1.3-4.6) g/dL Procalcitonin (0-0.5) ng/mL COVID Results: SARS-CoV-2 Antigen (Rapid) Positive (Negative) H 12/22/20 10:59 12/22/20 Discharge Plan Discharge Patient Disposition: Admitted As Inpatient Admit Provider: Joe Fernandes Coding Level of Care Code ED Active Directory Systems Administrator for Alli Soni
[2020-12-28] VITALS (77 sets, daily range): BP systolic 80–173; BP diastolic 57–102; PULSE 63–117; RESP 18–29; TEMP 36–37.2; O2SAT 88–100
[2020-12-28 00:28] LABS: Glucose Point of Care 134 mg/dL (70-110)
[2020-12-28 01:37] LABS: ABG PCO2 44.1 mmHg (35-45); ABG PH Result 7.31 (7.35-7.45); Arterial Blood Gas Hematocrit 44.9 % (42-52); Blood Gas Allen Test Pos; Blood Gas Operator Identificat JB; Blood Gas Sample Site Radial, right; Blood Gas Sample Type Arterial; HCO3 ABG 22.3 mmol/L (22-26); Oxygen Device VENT; PO2 ABG 63.7 mmHg (80.0-100.0)
[2020-12-28] MEDS: propofol 1,000 MG/100 ML INJ 40.05 MG IV (01:43)
[2020-12-28] MEDS: ipratropium-albuterol 3 mL Neb INHALATION ×6 (03:00→20:53)
[2020-12-28] MEDS: propofol 1,000 MG/100 ML INJ 44.5 MG IV (03:18)
[2020-12-28 05:13] LABS: Basophils # 0.1 10^3/uL (0.0-0.1); Basophils % 0.3 %; Eosinophils % 0.1 %; Hematocrit 42.4 % (42.0-52.0); Hemoglobin 14.4 g/dL (11.7-16.6); Lymphocytes # 0.4 10^3/uL (0.8-4.8); Lymphocytes % 2.3 %; Mean Corpuscular Hemoglobin 31.3 pg (28.0-34.0); Mean Corpuscular Volume 92.2 fl (80-94); Mean Platelet Volume 10.8 fL (7.4-10.4); Monocytes # 0.4 10^3/uL (0.2-0.9); Monocytes % 2.7 %; Neutrophils # 14.93 10^3/uL (1.8-7.7); Neutrophils % 92.6 %; Nucleated Red Blood Cells % 0.1 %; Platelet Count 242 10^3/cmm (130-400); Red Cell Distribution Width 14.1 % (12.1-15.1); White Blood Count 16.1 10^3/uL (4.0-10.0)
[2020-12-28] MEDS: propofol 1,000 MG/100 ML INJ 48.95 MG IV ×9 (05:14→23:45)
[2020-12-28] MEDS: levoFLOXacin 750 mg Tablet PO (05:15)
[2020-12-28 05:19] LABS: ABG PCO2 46.5 mmHg (35-45); Arterial Blood Gas Hematocrit 44.5 % (42-52); Base Excess ABG -3.7 mmol/L (-2.0-2.0); Blood Gas Allen Test Pos; Blood Gas Operator Identificat HARKR; Blood Gas Sample Site Radial, right; Blood Gas Sample Type Arterial; Oxygen Device VENT; PO2 ABG 69.2 mmHg (80.0-100.0)
[2020-12-28] MEDS: remdesivir 100 MG in sodium chloride 0.9% (100 ml) 100 ML IV (05:41)
[2020-12-28 05:55] LABS: Blood Urea Nitrogen 42 mg/dL (8-23); Calcium 7.3 mg/dL (8.5-10.5); Carbon Dioxide 21 mmol/L (22-29); Chloride 106 mmol/L (98-107); Glomerular Filtration Rate 67.8 mL/min (90-130); Glucose 174 mg/dL (65-115); Magnesium 2.7 mg/dL (1.7-2.3); Osmolality Calculated 305 mOsm/kg (285-295); Sodium 140 mmol/L (136-145)
--- NOTE | 2020-12-28 06:02 | PC.NURSE ---
Shift Note Shift change report received by [facility]. Patient was in placed in semi-prone position to help oxygen, was 83% and recovering. Patient woke up in a panic and pulled off Bipap, this nurse was able to calm him down, educated on Bipap compliance and he agreed to wear Bipap. Patient extremely uncomfortable in an old ICU bed, this nurse exchanged the bed for one of the new ICU bed with working air flow, patient stated it was much more comfortable and was compliant with Bipap, oxygenating >88% on FiO2 100%. Patient woke again in a panic, pulled off Bipap, increasing confusion with worsening respiratory distress despite all interventions. Called Samira, patients , in attempt to calm him with her voice, patient in such distress that this did not help. All staff in room to help hold patient to apply oxygen. Dr Aguila called and at bedside to assist and orders received. Patient continued to decline with SpOx as now as 49%, ER MD at bedside and patient intubated. Patient recovered successfully. Both Dr. Aguila and this nurse provided with update. Frequent safety and comfort rounds continue. Orders and/or nursing care completed as indicated. Patient monitored for response to intervention and treatment(s). Education provided includes included Bipap compliance, medications with side effects, fall safety, oxygen safety. Patient and/or data entry representative verbalized understanding of education. Will continue to monitor.
[2020-12-28 06:10] LABS: Anion Gap 17.2 (5-19); Potassium 4.2 mmol/L (3.5-5.1)
--- NOTE | 2020-12-28 08:14 | XR_ITS ---
WS: [id number] Portable AP upright chest, 12/28/2020 Clinical Data: advanced ett by 3cm Comparison: Portable chest, 12/27/2020 Findings: The endotracheal tube has been advanced and is 4.5 cm above the kana. The nasogastric tub e ends in the fundus of the stomach. Monitor leads are on the chest wall. The bilateral pulmonary opa cities have not changed. The heart remains enlarged. XR/XR chest 1V portable [id number] Impression: 1. Repositioning of endotracheal tube which is 4.5 cm above the kana. 2. Nasogastric tube ends in the fundus. 3. No change in bilateral pulmonary opacities and cardiomegaly.
[2020-12-28] MEDS: budesonide 0.5 mg/2 mL Neb INHALATION ×2 (08:19→20:53)
[2020-12-28 08:30] LABS: Glucose Point of Care 175 mg/dL (70-110)
--- NOTE | 2020-12-28 09:31 | PC.CHAP ---
Pastoral Care Encounter/Spiritual Assessment Type of Contact [] Declined welding machine assembler visit [] Patient/Family/Request visit [] Outpatient visit [] Follow-up visit [] Physician referral [] Code/Alert [x] Routine visit [] Staff referral [] Actively dying [] Patient sleeping [] Family support [] [] Out of room [] Palliative care [] [] Receiving care in room [] Pre-surgical visit [] Trauma [] Long length of stay [x] ICU visit [] Other: Relational/Emotional Strength [] Patient feels connected with others/family/visitors/staff [] Distress [] Loneliness/isolation [] Abandonment Spirituality of Patient [] Person of Katharine [] Attends Restoration of their Katharine [] Believes in Prayer [] Reads Bible or Advent materials [] There are Spiritual issues to be addressed Money Room Supervisor Interventions [x] Prayer [] Active listening [] Non-anxious presence [] Spiritual/emotional support [] Crisis/trauma care [] Spiritual counseling [] Bereavement support [] Provided bereavement packet [] Provided Bible/devotional materials [] Provided toy/stuffed animal, coloring book to patient or family member [] Provided Communion [] Anointing/[place] [] Salvation [x] Completed spiritual assessment [] Other: Impact on Illness or Injury [] Angry [] Fearful [] Anxious [] Often cries [] Exhaustion [] Unable to work [] Unable to attend lutheran [] Unable to walk/stand [] Unable to read [] Unable to drive [] Unable to eat/drink [] Unable to sleep [] Unable to be with family [] Patient intubated [] Other: Summary Time spent with patient
[2020-12-28 09:50] LABS: ABG PCO2 39.8 mmHg (35-45); ABG PH Result 7.36 (7.35-7.45); Arterial Blood Gas Hematocrit 45.7 % (42-52); Base Excess ABG -2.7 mmol/L (-2.0-2.0); Blood Gas Allen Test Pos; Blood Gas Operator Identificat CAK; Blood Gas Sample Site Radial, left; Blood Gas Sample Type Arterial; HCO3 ABG 22.5 mmol/L (22-26); Oxygen Device VENT
[2020-12-28] MEDS: cholecalciferol (vitamin D3) 1,000 unit Tablet 2000 UNIT PO (09:55)
[2020-12-28] MEDS: sennosides-docusate Tablet 1 TAB PO (09:56)
[2020-12-28] MEDS: ascorbic acid 500 mg Tablet 1000 MG PO ×2 (09:56→18:24)
[2020-12-28] MEDS: FUROsemide 10 mg/mL SDV 2mL 20 MG IVP (09:56)
[2020-12-28] MEDS: zinc gluconate 50 mg Tablet PO (09:56)
[2020-12-28] MEDS: levofloxacin-dextrose 5 % 750 MG/150 ML PREMIX 100 MG IV (09:57)
[2020-12-28] MEDS: cisatracurium 100 MG in sodium chloride 0.9% 50 ML IV (10:14)
--- NOTE | 2020-12-28 10:14 | P.CONIM_ITS ---
Providers/Reason For Consult Consulting Physician/Specialty*: Kishore Vo MD Reason for Consult*: Acute hypoxic respiratory failure secondary to ARDS due to COVID - 19 Requesting Physician: Tim Ashley MD Attending Physician: Tim Ashley MD History of Present Illness History of Present Illness Eric Ramires is a 60 year old male with past medical history of right hip osteoarthritis [place] [facility] [place] for worsening of small. His symptoms started on 12/15/2020 progressively worsened, his and son were tested positive Covid. In the ED rapid antigen was positive and x-ray showed bilateral patchy opacities consistent with pneumonia, CRP 182, procalcitonin 0.46 and ABG 7.5 07/20/47 and patient was requiring 100% FiO2 on BiPAP. Over the course of next 3 to 4 days patient developed DKA and renal were consulted, after initial improvement-patient gradually deteriorated and was intubated on yesterday 12/27/2020 night. In the morning pulmonary critical care consult requested for acute hypoxic respiratory failure secondary to ARDS due to COVID-19 requiring intubation and mechanical ventilation. -patient seen at bedside intubated and sedated with propofol and fentanyl -Plan is to Versed and paralyze and prone -Labs and imaging reviewed Review of Systems General: Reports: ROS unobtainable due to endotracheal tube, ROS unobtainable due to medical condition and ROS unobtainable due to mental status Meds/Allergies Home Medications and Allergies Home Medications Medication Instructions Recorded Confirmed Last Taken Type acetaminophen [Tylenol Extra 1,000 mg PO Q4H PRN 12/23/20 12/23/20 Unknown History Strength] ascorbic acid (vitamin C) [Vitamin 500 mg PO EVERY OTHER DAY 12/23/20 12/23/20 12/21/20 History C] cholecalciferol (vitamin D3) 100 mcg PO EVERY OTHER DAY 12/23/20 12/23/20 12/21/20 History [Vitamin D3] czukunvil-PSW-RX-acetaminophen 30 ml PO BEDTIME 12/23/20 12/23/20 12/22/20 History [NyQuil] guaifenesin [Mucinex] 600 mg PO Q12H 12/23/20 12/23/20 12/22/20 History ibuprofen 200 - 400 mg PO Q4H PRN 12/23/20 12/23/20 Unknown History nrfjjhcx-sen-IV-lycopen-lutein 1 tab PO EVERY OTHER DAY 12/23/20 12/23/20 12/21/20 History [Centrum Silver Men] Allergies Allergy/AdvReac Type Severity Reaction Status Date / Time No Known Allergies Allergy Verified 12/23/20 12:19 Current Medications Current Medications Generic Name Dose Route Start Last Admin Trade Name Freq PRN Reason Stop Dose Admin Acetaminophen 650 mg 12/23/20 16:22 12/23/20 20:45 Acetaminophen 325 Mg Tablet PO 650 mg Q6H PRN Administration Mild/Mod Pain Or Temp >/= 101 Al Hydrox/Mg Hydrox/Simethicone 30 ml 12/24/20 15:52 12/24/20 16:19 Knpb-Yst-Caynfrlqs-Kenn 30 Ml Udc PO 30 ml Q4H PRN Administration INDIGESTION Albuterol Sulfate 2 puff 12/23/20 16:22 12/24/20 09:45 Albuterol 8 Gm Mdi INHALATION 2 puff Q4H.RESPIRATORY PRN Administration SHORTNESS OF BREATH Albuterol/Ipratropium 3 ml 12/24/20 16:00 12/28/20 08:19 Ipratropium-Albuterol 3 Ml Neb INHALATION 3 ml Q4H.RESPIRATORY JOHNATHON Administration Ascorbic Acid 1,000 mg 12/23/20 18:00 12/27/20 18:11 Ascorbic Acid 500 Mg Tablet PO Not Given BID JOHNATHON Budesonide 0.5 mg 12/24/20 20:00 12/28/20 08:19 Budesonide 0.5 Mg/2 Ml Neb INHALATION 0.5 mg BID.RESPIRATORY JOHNATHON Administration Dexamethasone 6 mg 12/23/20 17:30 12/27/20 19:10 Dexamethasone 4 Mg/Ml Inj IVP 6 mg Q24H JOHNATHON Administration Enoxaparin Sodium 120 mg 12/25/20 11:00 12/27/20 23:49 Enoxaparin 120 Mg/0.8 Ml Syringe SUBCUT 120 mg Q12H JOHNATHON Administration Enoxaparin Sodium 30 mg 12/25/20 11:00 12/27/20 23:49 Enoxaparin 30 Mg/0.3 Ml Syringe SUBCUT 30 mg Q12H JOHNATHON Administration Remdesivir 100 mg/ Sodium 100 mls @ 100 mls/hr 12/25/20 06:00 12/28/20 06:55 Chloride IV Infused Q24H JOHNATHON Infusion dexmedeTOMIDine 0.9 % NaCL 400 mcg in 100 mls @ 0 mls/hr 12/24/20 10:00 12/27/20 23:55 Dexmedetomidine-Ns IV 0 mcg/kg/hr .Q0M JOHNATHON 0 mls/hr Titration Protocol Per Protocol Norepinephrine Bitartrate 4 mg 254 mls @ 0 mls/hr 12/24/20 18:00 12/28/20 06:55 / Dextrose IV 3 mcg/min .Q0M JOHNATHON 11.43 mls/hr Titration Protocol Per Protocol Fentanyl 1,000 mcg/ Sodium 100 mls @ 0 mls/hr 12/27/20 23:30 12/28/20 06:32 Chloride IV 125 mcg/hr .Q0M JOHNATHON 12.5 mls/hr Administration Protocol Per Protocol Propofol 1,000 mg in 100 mls @ 0 mls/hr 12/27/20 23:30 12/28/20 06:54 Diprivan IV 55 mcg/kg/min .Q0M JOHNATHON 48.95 mls/hr Administration Protocol Per Protocol Insulin Aspart 0 unit 12/26/20 18:00 12/27/20 20:23 Insulin Aspart 100 Unit/1 Ml SUBCUT Not Given WM&BEDTIME [facility] Protocol Lidocaine 1 patch 12/24/20 20:00 12/27/20 20:24 Lidocaine 5% Patch TOPICAL 1 patch [id number] JOHNATHON Administration Lorazepam 1 mg 12/23/20 18:30 12/27/20 21:25 Lorazepam 2 Mg/Ml Inj 1 Ml IVP 1 mg Q8H PRN Administration ANXIETY Ondansetron HCl 4 mg 12/23/20 16:22 12/24/20 13:50 Ondansetron 2 Mg/Ml Sdv 2 Ml IVP 4 mg Q8H PRN Administration vomiting, or N/V if npo Fluticasone/Salmeterol 2 puff 12/23/20 20:00 12/28/20 08:20 Fluticasone-Salmeterol 250-50 Diskus INHALATION Not Given BID.RESPIRATORY JOHNATHON Vitamin D 2,000 unit 12/24/20 09:00 12/27/20 09:25 Cholecalciferol (Vitamin D3) 1,000 Unit Tablet PO 2,000 unit DAILY JOHNATHON Administration Zinc Gluconate 50 mg 12/24/20 09:00 12/27/20 09:26 Zinc Gluconate 50 Mg Tablet PO 50 mg DAILY JOHNATHON Administration PFSH Acute PFSH: Social History Smoking and tobacco status: never smoked Alcohol intake: never Vitals/I&O/Wt Last Vital Signs Temp 96.8 F L 12/28/20 04:00 Pulse 74 12/28/20 08:21 Resp 24 H 12/28/20 08:04 BP 123/62 12/28/20 06:30 Pulse Ox 94 12/28/20 08:04 12/27/20 12/28/20 12/28/20 22:59 06:59 14:59 Intake Total 245.091 / 1013.237 589.549 / 1602.786 Output Total 650 / 650 Balance 245.091 / 1013.237 -60.451 / 952.786 Physical Exam Narrative: EXAM NARRATIVE: PHYSICAL EXAM: General: lying in bed, sedated and intubated. HEENT:NCAT, PERRLA, EOMI Neck: Supple Lungs: Bilateral coarse crepitations Heart: s1/s2, RRR Abd: soft, NT, ND, BS + Normoactive Extremities: No edema FARM MANAGER: sedated and limited FARM MANAGER exam possible. SKIN: no rash LDA: # CVC: Left internal jugular vein 12/28/2020 # Espinosa: 12/24/2020 Urinary Catheter Management^: Espinosa: Cath Placed During This Visit: yes Reason for Continuing Indwelling Catheter: Accurate Measurement of Urinary Output in Critically Ill Patients Urinary Catheter Date of Insertion: 12/24/20 Urinary Catheter Time of Insertion: 11:00 Data Micro: Micro: Microbiology 12/26/20 16:00 MRSA Culture - Fin al Nose 12/25/20 14:00 Urine Culture - Fi nal Urine,Clean Catch A&P Assessment and plan (1) Respiratory failure with hypoxia: Status: Acute Qualifiers: Chronicity: acute Qualified Code(s): J96.01 - Acute respiratory failure with hypoxia (2) Acute respiratory distress syndrome (ARDS) due to severe acute respiratory syndrome coronavirus 2 (SARS-CoV-2): Status: Acute (3) DVT (deep venous thrombosis): Status: Acute Qualifiers: DVT location: lower extremity Affected thrombotic vein of extremity: other lower extremity vein Chronicity: unspecified Laterality: bilateral Qualified Code(s): I82.493 - Acute embolism and thrombosis of other specified deep vein of lower extremity, bilateral (4) LORRAINE (acute kidney injury): Status: Acute #Acute hypoxic respiratory failure secondary to ARDS due to COVID-19 pneumonia #Partial thrombosis of bilateral great saphenous veins and questionable thrombus seen on unnamed intramuscular Vein in the left calf #LORRAINE-resolved -Symptoms started 12/15/2020: Rapid antigen 12/23/2020 -Intubated 12/27/2020-currently on mechanical ventilator CMV 500/24/12/90% saturating 88% -ABG 7.3 6/39/61/22 -On day 4 of remdesivir, and Decadron 6 mg daily, 1 dose Actemra 12/24/2020 -DuoNeb and Pulmicort nebulizations -So far cultures negative, Initial pro Aung 0.56 on admission and later 2.26 could be secondary to LORRAINE -On empiric Levaquin started 12/28/2020 -LORRAINE resolved and renal signed off for now -Plan is to keep patient net negative and monitor electrolytes -Sugars well controlled-on scale coverage -On Lovenox 120 units units twice daily for DVT-CTA negative for PE on admission -Start Glucerna feeding 10 to 15 mL/h while supine -Plan is to start Versed and paralyzed with Nimbex and do proning sessions Recommendations conveyed to hospitalist, RN, taking care of the patient Consult Attestations Medical Necessity Statement: Acute hypoxic respiratory failure secondary to ARDS due to COVID-19 pneumonia requiring intubation and mechanical ventilation- plan is to prone at least 3-4 16hr proning sessions; on anticoagulation for DVT Time Spent in Patient Care: Greater than 35 minutes (>than 50% of time spent in counselling and/or direct pt care on unit) . Critical Care Time: The high probability of a clinically significant, sudden or life threatening deterioration of the patient's [pulmonary, renal, vascular] system(s) required my full and direct attention, intervention and personal management. The critical care time is as shown. This time is in addition to time spent performing any reported procedures but includes the following: [x] Data and vital sign review and interpretation [x] Patient assessment, examination and intervention [x] Documentation [x] Medication orders and management Critical Care Time (min): 75 Coding Level of Care Code New Pt Acute Assistant Professor for Chg Fwd Patient Type New History Comprehensive Exam Comprehensive Medical Decision Making High Complexity Diagnoses Respiratory failure with hypoxia J96.01 Chronicity: acute Acute respiratory distress syndrome (ARDS) due to severe acute respiratory syndrome coronavirus 2 (SARS-CoV-2) U07.1; J80 DVT (deep venous thrombosis) I82.493 DVT location: lower extremity Affected thrombotic vein of extremity: other lower extremity vein Chronicity: unspecified Laterality: bilateral LORRAINE (acute kidney injury) N17.9 Time Spent (min) 75
--- NOTE | 2020-12-28 10:14 | PM.ACPR ---
Procedure/Consent Time out: Time Out Performed: Yes Consent: Consent for Procedure: Consent obtained from other (indicate) (), Risks & Benefits reviewed and Agrees to proceed with procedure Procedure Narrative: Procedure time: 10:30 AM Procedure: Left internal jugular Central venous access placement Indication: Multiple medications and for vascular access as patient is intubated and requires sedatives and paralytics for proning Road Inspector(s): Kishore Vo MD Consent: Given by next of kin over telephone. Signed and placed in chart Time out called. [place] precautions applied. Site: Left internal jugular vein Catheter: 7 Fr, 20 cm, Triple Lumen Sutured at: 20 cm Anesthesia: Patient already intubated and sedated with propofol, fentanyl, Versed Description: Area prepped with chlorhexidine and draped in a universal sterile manner. The vessel anatomy and patency was examined by ultrasound probe which was covered with sterile probe cover. The needle was inserted into the vessel under ultrasound guidance, after venous blood aspirated the guidewire was inserted through the needle and kept in situ while the needle was removed. Placement of guidewire in the vein and in relation to the adjacent artery was verified by ultrasound. Catheter was then advanced over the guidewire after dilation and guidewire successfully removed.The catheter was sutured to the skin and sterile dressing with chlorhexidine patch placed. Number of attempts: 1 Dilator applied: 1 number of Dilations: 1 Placement Verified by: Blood draw from all ports and Ultrasound exam and Chest Xray EBL: 5-10 cc Complications: None Ultrasound guidance used: Yes Acute Procedures Epistaxis Control: Time out performed: Yes
--- NOTE | 2020-12-28 10:50 | PC.NURSE ---
CVL placed by Dr Vo. Sorba View contour shield dressing applied.
--- NOTE | 2020-12-28 11:18 | XR_ITS ---
WS: [id number] Portable AP semiupright chest, 12/28/2020, 1121 hours Clinical Data: post left internal jugular line placement Comparison: Portable chest, 12/28/2020, 0818 hours. Findings: A left internal jugular venous catheter has been inserted and it ends in the superior vena cava. No pneumothorax is seen. The remainder of the tubes remains in the same position. Patchy bilate ral pulmonary opacity has not changed. The heart remains enlarged. There are monitor leads on the kori st wall. XR/XR chest 1V portable [id number] Impression: Insertion of left internal jugular venous catheter.
[2020-12-28] MEDS: propofol 1,000 MG/100 ML INJ 62.3 MG IV ×2 (11:25→12:33)
[2020-12-28] MEDS: lidocaine 5% Patch 1 PATCH TOPICAL (11:44)
--- NOTE | 2020-12-28 11:45 | PC.NURSE ---
TOF 2/4. BIS 42. Pt proned.
[2020-12-28 11:53] LABS: Glucose Point of Care 159 mg/dL (70-110)
--- NOTE | 2020-12-28 13:45 | PC.NURSE ---
, Ysabel, in to visit. SHe stood outside room to view her .. She was very tearful. She stated getting to come in to see him helps alleviate some of her anxiety. She took pt's clothing and electronics home. She left his eye glasses and food and drinks.
--- NOTE | 2020-12-28 14:28 | PC.SOCIAL ---
IMM not Given IMM not updated. Pt is intubated & is not expected to discharge within the next 24-48hrs.
--- NOTE | 2020-12-28 15:17 | PM.PN ---
Subjective Subjective: Interval history: Overnight events noted, endotracheal tube remains to centimeters, repeat chest x-ray Increased respiratory rate to 22 after noticing ABG Started Versed and requested pulmonary consult Propofol at 55, levo at 3 fentanyl 125 Positive net fluid balance Leukocytosis 16,000 No fever Repeat ABG does show improvement in PCO2 PaO2 61 on 90% FiO2 PEEP 12 retrograde 22 tidal volume 500 Started tube feeds Vitals/I&O/Wt Last Vital Signs Temp 96.8 F L 12/28/20 04:00 Pulse 88 12/28/20 11:20 Resp 22 H 12/28/20 14:04 BP 123/62 12/28/20 06:30 Pulse Ox 100 12/28/20 14:04 12/28/20 12/28/20 12/28/20 06:59 14:59 22:59 Intake Total 589.549 / 1602.786 674.281 / 674.281 Output Total 650 / 650 Balance -60.451 / 952.786 674.281 / 674.281 Physical Exam Narrative: EXAM NARRATIVE: Patient intubated and sedated currently on mechanical ventilator settings mentioned above Bilateral assisted breath sounds Abdomen soft no signs of peritonitis No bowel movement yet Lower extremity no edema Neuro exam limited Pinpoint pupils Positive gag reflex Endotracheal tube size 8 at 29 cm Urinary Catheter Management^: Espinosa: Cath Placed During This Visit: yes Reason for Continuing Indwelling Catheter: Accurate Measurement of Urinary Output in Critically Ill Patients Urinary Catheter Date of Insertion: 12/24/20 Urinary Catheter Time of Insertion: 11:00 Data : 12/28/20 04:42 12/28/20 04:42 Micro: Microbiology 12/26/20 16:00 MRSA Culture - Final Nose A&P Assessment and plan (1) DVT (deep venous thrombosis): Status: Acute (2) LORRAINE (acute kidney injury): Status: Acute (3) Hypokalemia: Status: Acute (4) Pneumonia due to severe acute respiratory syndrome coronavirus 2 (SARS-CoV-2): Status: Acute (5) Respiratory failure with hypoxia: Status: Acute Additional A&P Information Hypoxia related to COVID-19 ARDS Positive net fluid balance patient did receive IV fluids for his LORRAINE We will give him IV Lasix 20 mg IV push Goal to keep negative balance Tube feeds to be started today at lower rate during supine sessions Start Versed, after placement of central line will start Nimbex and proning Pulmonary consult placed, Dr. Lynn notified Continue multivitamins and empirical antibiotic Levaquin for now Patient finished last dose of remdesivir tomorrow Continue Decadron for 10 days and then taper DuoNeb every 4 Sedation and paralytics Actemra 12/24 LORRAINE: Resolved after fluid resuscitation Hypokalemia: Repleted Full code Guarded prognosis DVT prophylaxis patient currently on therapeutic dose of Lovenox for DVT Attestations Medical Necessity Statement*: Guarded prognosis continue ICU management Time Spent in Patient Care: Greater than 35 minutes Coding Level of Care Code Acute Technology Sales Representative for [facility] Fwd Diagnoses DVT (deep venous thrombosis) I82.409 LORRAINE (acute kidney injury) N17.9 Hypokalemia E87.6 Pneumonia due to severe acute respiratory syndrome coronavirus 2 (SARS-CoV-2) U07.1; J12.82 Respiratory failure with hypoxia J96.91
--- NOTE | 2020-12-28 16:01 | PC.NUTR ---
Tube feeding consult received 07:[address] Ashley states max of 30 ml/hr at this time for 8 hours per day while not proning. Have entered order to start at 20 ml/hr, increase to 30 ml/hr after 4 hrs if tolerated. Pt proning at this time, nurse states feeding will start after this session. Glucerna at 30 ml/hr (X 8 hours per day) with 150 ml H2O flushes q 6 hours will provide 288 kcal, 14 g protein, 793 ml H2O. Additional 1292 kcal/day from propofol and 408 kcal from D5W at current rates. Total kcal (from D5W, propofol, and TF): 1988 kcal/day. Will meet 81% kcal needs, but only 13% protein needs. Suggest Beneprotein QID for additional [address] See full RD assessment for further details.
--- NOTE | 2020-12-28 18:00 | PC.NURSE ---
1215: TOF 0/4 BIS 42 1300: TOF 2/4 BIS 50 1405 TOF 4/4 BIS 33 Pt compliant with vent. 1500 TOF 4/4 BIS 42 continued vent compliance 1600 TOF 4/4 BIS 40 continued vent compliance 1800 TOF 4/4 BIS 45 continued vent compliance Nimbex and sedation medications adjusted accordingly, see MAR>
[2020-12-28 18:11] LABS: Glucose Point of Care 106 mg/dL (70-110)
[2020-12-28] MEDS: dexamethasone 4 mg/mL INJ 6 MG IVP (18:25)
--- NOTE | 2020-12-28 19:18 | PC.NURSE ---
Shift Note Frequent safety and comfort rounds continue. Orders and/or nursing care completed as indicated. Patient monitored for response to intervention and treatment(s). Education provided includes Paralytic, sedation, letting pt rest and let vent do the work, and proning. Central line and CVL associated infections. His verbalized her understanding of these and continued plan of care. Will continue to monitor.
[2020-12-28] MEDS: cisatracurium 100 MG in sodium chloride 0.9% 50 ML 8.9 MG IV (20:38)
[2020-12-28 21:00] LABS: Glucose Point of Care 128 mg/dL (70-110)
[2020-12-29] VITALS (58 sets, daily range): BP systolic 86–156; BP diastolic 51–90; PULSE 77–108; RESP 22–26; TEMP 36.6; O2SAT 86–100
[2020-12-29] MEDS: ipratropium-albuterol 3 mL Neb INHALATION ×6 (00:30→20:05)
[2020-12-29] MEDS: propofol 1,000 MG/100 ML INJ 48.95 MG IV ×12 (01:40→22:52)
[2020-12-29 03:49] LABS: Basophils % 0.3 %; Eosinophils % 0.2 %; Hematocrit 42.3 % (42.0-52.0); Hemoglobin 13.6 g/dL (11.7-16.6); Lymphocytes # 0.2 10^3/uL (0.8-4.8); Lymphocytes % 1.5 %; Mean Corpuscular HGB Conc 32.2 g/dL (30.0-36.0); Mean Corpuscular Hemoglobin 30.8 pg (28.0-34.0); Mean Corpuscular Volume 95.7 fl (80-94); Mean Platelet Volume 10.5 fL (7.4-10.4); Monocytes # 0.3 10^3/uL (0.2-0.9); Monocytes % 2.1 %; Neutrophils # 14.71 10^3/uL (1.8-7.7); Neutrophils % 94.4 %; Nucleated Red Blood Cells % 0.3 %; Platelet Count 192 10^3/cmm (130-400); Red Blood Count 4.42 10^6/uL (4.1-5.3); Red Cell Distribution Width 14.6 % (12.1-15.1); White Blood Count 15.6 10^3/uL (4.0-10.0)
--- NOTE | 2020-12-29 04:00 | XR_ITS ---
WS: [id number] Portable AP semiupright chest, 12/29/2020 Clinical Data: Hypoxia Comparison: Portable chest, 12/28/2020 Findings: The bilateral patchy pulmonary opacities remain the same. Endotracheal tube, nasogastric tu be and left internal jugular venous catheter remain in same position. The heart is slightly enlarged. XR/XR chest 1V portable [id number] Impression: 1. No change in bilateral patchy pulmonary opacities consistent with pneumonia. 2. No change in multiple tubes.
[2020-12-29 04:13] LABS: Anion Gap 13.9 (5-19); Blood Urea Nitrogen 41 mg/dL (8-23); C Reactive Protein 28.6 mg/L (0.0-4.9); Calcium 7.3 mg/dL (8.5-10.5); Carbon Dioxide 26 mmol/L (22-29); Chloride 106 mmol/L (98-107); Glomerular Filtration Rate 61.3 mL/min (90-130); Glucose 168 mg/dL (65-115); Osmolality Calculated 306 mOsm/kg (285-295); Potassium 4.9 mmol/L (3.5-5.1); Sodium 141 mmol/L (136-145)
[2020-12-29 05:02] LABS: ABG PCO2 58.4 mmHg (35-45); ABG PH Result 7.28 (7.35-7.45); Base Excess ABG -0.9 mmol/L (-2.0-2.0); Blood Gas Allen Test Pos; Blood Gas Operator Identificat HARKR; Blood Gas Sample Site Radial, left; Blood Gas Sample Type Arterial; HCO3 ABG 27.1 mmol/L (22-26); Oxygen Device VENT
--- NOTE | 2020-12-29 05:40 | PC.NURSE ---
Shift Note Frequent safety and comfort rounds continue. Orders and/or nursing care completed as indicated. Patient monitored for response to intervention and treatment(s). Education provided to Samira () via phone call 2 times throughout shift. eager to learn. Pt supined at approx. 0515 with assistance from RT. Will continue to monitor.
--- NOTE | 2020-12-29 05:48 | NUR.SHIFT ---
TOF 1900 -4 2100 -4 2300 -3 0100 -3 0300 -3 0500 -3
[2020-12-29] MEDS: remdesivir 100 MG in sodium chloride 0.9% (100 ml) 100 ML IV (06:15)
[2020-12-29] MEDS: levofloxacin-dextrose 5 % 750 MG/150 ML PREMIX 100 MG IV (07:22)
[2020-12-29 07:37] LABS: Glucose Point of Care 185 mg/dL (70-110)
[2020-12-29] MEDS: budesonide 0.5 mg/2 mL Neb INHALATION ×2 (07:43→20:05)
[2020-12-29] MEDS: sennosides-docusate Tablet 1 TAB PO (08:09)
[2020-12-29] MEDS: zinc gluconate 50 mg Tablet PO (08:09)
[2020-12-29] MEDS: ascorbic acid 500 mg Tablet 1000 MG PO ×2 (08:09→17:04)
[2020-12-29] MEDS: cholecalciferol (vitamin D3) 1,000 unit Tablet 2000 UNIT PO (08:09)
[2020-12-29] MEDS: lidocaine 5% Patch 1 PATCH TOPICAL (08:10)
[2020-12-29] MEDS: cisatracurium 100 MG in sodium chloride 0.9% 50 ML 8.9 MG IV ×2 (08:10→19:18)
--- NOTE | 2020-12-29 08:42 | PC.NURSE ---
Glucerna started per pump at 15ml/h with 120ml H20 flush q4h per MD verbal order. Versed and fentanyl weaned down at this time until time to prone pt.
[2020-12-29 10:26] LABS: ABG PCO2 58.2 mmHg (35-45); ABG PH Result 7.27 (7.35-7.45); Alveolar-Arterial Oxygen Gradi 76.9 mmHg (5-10); Arterial Blood Gas Hematocrit 43.6 % (42-52); Base Excess ABG -1.3 mmol/L (-2.0-2.0); Blood Gas Allen Test Pos; Blood Gas Operator Identificat GD; Blood Gas Sample Site Radial, right; Blood Gas Sample Type Arterial; Blood Gas Tidal Volume 0.45; HCO3 ABG 26.8 mmol/L (22-26); HGB O2 Sat 85.1 % (95-100); Ionized Calcium Level - ABG 1.1 mmol/L (1.1-1.4); Oxygen Device VENT; Oxygen Saturation ABG 86.9; PO2 ABG 54.6 mmHg (80.0-100.0); Potassium Level - ABG 4.3 mmol/L (3.5-5.0); Total Hemoglobin 14.2 g/dL (14-18)
[2020-12-29] MEDS: enoxaparin 30 mg/0.3 mL Syringe SUBCUT ×2 (11:02)
[2020-12-29] MEDS: enoxaparin 120 mg/0.8 mL Syringe SUBCUT ×3 (11:02→22:53)
[2020-12-29 11:09] LABS: Glucose Point of Care 147 mg/dL (70-110)
--- NOTE | 2020-12-29 14:25 | PM.PN ---
Subjective Subjective: Interval history: Patient was seen and examined this morning, status post first cycle of the proning he did response to proning with improvement in oxygenation however with same dosages of paralytic and sedatives as soon as he was turned back to supine position his O2 saturation dropped and he required 100% FiO2 vent settings were changed by overnight respiratory therapist however this morning we have turned down his tidal volume to 450 respiratory rate inc 26, FiO2 100%, plan to decrease sedation during supine interval Second cycle of proning to be started at 2 PM We will give him second dose of Lasix today to keep him in negative balance Kidney function normal creatinine 1.2 Will obtain blood gas before proning and then at the end of proning Chest x-ray shows similar bilateral groundglass opacities CRP 28 updated Vitals/I&O/Wt Last Vital Signs Temp 97.9 F 12/29/20 12:00 Pulse 85 12/29/20 12:30 Resp 26 H 12/29/20 14:11 BP 90/56 12/29/20 12:30 Pulse Ox 95 12/29/20 14:11 12/28/20 12/29/20 12/29/20 22:59 06:59 14:59 Intake Total 706.753 / 1381.034 573.172 / 1954.206 867.425 / 867.425 Output Total 1550 / 1550 850 / 2400 Balance -843.247 / -168.966 -276.828 / -445.794 867.425 / 867.425 Physical Exam Narrative: EXAM NARRATIVE: Patient intubated sedated and paralyzed Versed 6 fentanyl 150 propofol 55 level running at 1 Distended abdomen visceral obesity Assisted bilateral breath sounds Neuro exam limited Espinosa catheter draining concentrated urine Lower extremity no edema Pinpoint pupils Urinary Catheter Management^: Espinosa: Cath Placed During This Visit: yes Reason for Continuing Indwelling Catheter: Accurate Measurement of Urinary Output in Critically Ill Patients Urinary Catheter Date of Insertion: 12/24/20 Urinary Catheter Time of Insertion: 11:00 Data : 12/29/20 03:15 12/29/20 03:15 Micro: Microbiology 12/28/20 11:10 Gram Stain - Final Sputum - Endotracheal Tube Aspirate Sputum Culture - Preliminary 12/23/20 Unknown Blood Culture - Final Blood Staphylococcus sp coag neg 12/23/20 15:04 Blood Culture - Final Blood NO GROWTH AFTER 5 DAYS A&P Assessment and plan (1) Acute respiratory distress syndrome (ARDS) due to severe acute respiratory syndrome coronavirus 2 (SARS-CoV-2): Status: Acute (2) Goals of care, counseling/discussion: Status: Acute (3) DVT (deep venous thrombosis): Status: Acute (4) LORRAINE (acute kidney injury): Status: Acute (5) Hypokalemia: Status: Acute (6) Pneumonia due to severe acute respiratory syndrome coronavirus 2 (SARS-CoV-2): Status: Acute (7) Respiratory failure with hypoxia: Status: Acute Additional A&P Information Persistent hypoxia related to COVID-19 Severe ARDS Responsive to full first cycle of proning however oxygenation worsens as soon as he gets in supine position, asked nurse to titrate down sedatives during supine positioning Tube feed to be resumed during supine positioning Afebrile no leukocytosis To finish second cycle of proning today Patient will finish his fifth dose of remdesivir today 12/29, continue Decadron and Levaquin to keep his fluid balance in negative range would use Lasix 20 mg IV push daily monitor kidney function, monitor for any signs of superimposed infections, LORRAINE improved after fluid resuscitation currently he is getting Lasix to keep him in negative balance Adequate urine output creatinine 1.2 Tube feeds to be re-initiated during supine intervals recommendations made by dietitian DVT: currently on therapeutic dose of Lovenox No electrolyte imbalance Family updated Full code Attestations Medical Necessity Statement*: Continue ICU management Time Spent in Patient Care: 16 - 35 minutes Coding Level of Care Code Acute Marble Finisher for [facility] Fwd Diagnoses Acute respiratory distress syndrome (ARDS) due to severe acute respiratory syndrome coronavirus 2 (SARS-CoV-2) U07.1; J80 Goals of care, counseling/discussion Z71.89 DVT (deep venous thrombosis) I82.409 LORRAINE (acute kidney injury) N17.9 Hypokalemia E87.6 Pneumonia due to severe acute respiratory syndrome coronavirus 2 (SARS-CoV-2) U07.1; J12.82 Respiratory failure with hypoxia J96.91
[2020-12-29] MEDS: FUROsemide 10 mg/mL SDV 2mL 20 MG IVP (14:43)
--- NOTE | 2020-12-29 15:22 | PC.RESP ---
RT Shift Note Frequent safety and respiratory rounds continue. Orders completed as indicated. Patient monitored pre and post treatments throughout shift. Patient [Did.] tolerate treatments appropriately. Condition [DidNotChange]. Patient and/or premium service representative educated on respiratory treatment and medications. Patient and/or premium service representative [unable to comprehend]. Will continue to monitor patient progress.
[2020-12-29 16:29] LABS: Glucose Point of Care 124 mg/dL (70-110)
[2020-12-29] MEDS: dexamethasone 4 mg/mL INJ 6 MG IVP (17:04)
--- NOTE | 2020-12-29 18:02 | PC.NURSE ---
Shift Note Frequent safety and comfort rounds continue. Orders and/or nursing care completed as indicated. Patient monitored for response to intervention and treatment(s). Education provided includes treatment plan and medication regimen. verbalizes understanding but requires frequent reminding and reinforcement. Pt oxgenating well in prone position. BIS 39 and TOF 4/4 at this time. No issues noted. Levophed paused after turning, sedation and paralytic infusing per orders. VSS. Will continue to monitor.
[2020-12-29 18:06] LABS: ABG PCO2 57.3 mmHg (35-45); ABG PH Result 7.28 (7.35-7.45); Alveolar-Arterial Oxygen Gradi 47.2 mmHg (5-10); Arterial Blood Gas Hematocrit 44.1 % (42-52); Base Excess ABG -1.1 mmol/L (-2.0-2.0); Blood Gas Allen Test Pos; Blood Gas Operator Identificat GD; Blood Gas Sample Site Radial, left; Blood Gas Sample Type Arterial; Blood Gas Tidal Volume 0.48; Carboxyhemoglobin 0.8 %THgb (0.4-20.1); HCO3 ABG 26.8 mmol/L (22-26); HGB O2 Sat 90.1 % (95-100); Ionized Calcium Level - ABG 1.1 mmol/L (1.1-1.4); Methemoglobin 1.2 % (0.4-1.5); Oxygen Device VENT; PO2 ABG 67.8 mmHg (80.0-100.0); Potassium Level - ABG 4.5 mmol/L (3.5-5.0); Total Hemoglobin 14.4 g/dL (14-18)
--- NOTE | 2020-12-29 19:37 | P.PN_ITS ---
Subjective Subjective: Interval history: -Patient seen at bedside today -Yesterday completed first proning session and during proning his FiO2 is down to 60% -While supine FiO2 again increased to 100% -Plan is to do second proning session today afternoon -Other labs and imaging reviewed Medications: Reviewed: Yes Vitals/I&O/Wt Last Vital Signs Temp 97.8 F 12/29/20 16:00 Pulse 86 12/29/20 16:00 Resp 26 H 12/29/20 17:20 BP 147/82 12/29/20 16:00 Pulse Ox 97 12/29/20 17:20 12/29/20 12/29/20 12/29/20 06:59 14:59 22:59 Intake Total 573.172 / 1954.206 867.425 / 867.425 673.973 / 1541.398 Output Total 850 / 2400 600 / 600 Balance -276.828 / -445.794 867.425 / 867.425 73.973 / 941.398 Physical Exam Narrative: EXAM NARRATIVE: lying in bed, sedated and intubated. HEENT:NCAT, PERRLA, EOMI Neck: Supple Lungs: Bilateral coarse crepitations Heart: s1/s2, RRR Abd: soft, NT, ND, BS + Normoactive Extremities: No edema [employer]IC AFFAIRS VICE PRESIDENT: sedated and limited ACADEMIC AFFA[employer] VICE PRESIDENT exam possible. SKIN: no rash LDA: # CVC: Left internal jugular vein 12/28/2020 # Espinosa: 12/24/2020 Urinary Catheter Management^: Espinosa: Cath Placed During This Visit: yes Reason for Continuing Indwelling Catheter: Accurate Measurement of Urinary Output in Critically Ill Patients Urinary Catheter Date of Insertion: 12/24/20 Urinary Catheter Time of Insertion: 11:00 Data : 12/29/20 03:15 12/29/20 03:15 Other Labs: Laboratory Results WBC 15.6 10^3/uL (4.0-10.0) H 12/29/20 03:15 RBC 4.42 10^6/uL (4.1-5.3) 12/29/20 03:15 Hgb 13.6 g/dL (11.7-16.6) 12/29/20 03:15 Hct 42.3 % (42.0-52.0) 12/29/20 03:15 MCV 95.7 fl (80-94) H 12/29/20 03:15 MCH 30.8 pg (28.0-34.0) 12/29/20 03:15 MCHC 32.2 g/dL (30.0-36.0) D 12/29/20 03:15 RDW 14.6 % (12.1-15.1) 12/29/20 03:15 Plt Count 192 10^3/cmm (130-400) 12/29/20 03:15 MPV 10.5 fL (7.4-10.4) H 12/29/20 03:15 Neut % (Auto) 94.4 % 12/29/20 03:15 Lymph % (Auto) 1.5 % 12/29/20 03:15 [place] % (Auto) 2.1 % 12/29/20 03:15 Eos % (Auto) 0.2 % 12/29/20 03:15 Baso % (Auto) 0.3 % 12/29/20 03:15 Neut # (Auto) 14.71 10^3/uL (1.8-7.7) H 12/29/20 03:15 Lymph # (Auto) 0.2 10^3/uL (0.8-4.8) L 12/29/20 03:15 [place] # (Auto) 0.3 10^3/uL (0.2-0.9) 12/29/20 03:15 Eos # (Auto) 0.0 10^3/uL (0.0-0.8) 12/29/20 03:15 Baso # (Auto) 0.0 10^3/uL (0.0-0.1) 12/29/20 03:15 Nucleated RBC % (auto) 0.3 % 12/29/20 03:15 Nucleated RBCs # 0.0 /100WBC 12/29/20 03:15 ESR 13 mm/hr (0-10) H 12/27/20 05:30 PT 14.90 SECONDS (12.1-14.9) 12/24/20 04:57 INR 1.14 (0.8-1.2) 12/24/20 04:57 APTT 30.4 SECONDS (23.9-36.7) 12/24/20 04:57 D-Dimer > 20.00 ug/mIFEU (0-0.59) H 12/27/20 05:30 Specimen Type Arterial 12/29/20 17:45 Sample Site Radial, left 12/29/20 17:45 ABG pH 7.28 (7.35-7.45) L 12/29/20 17:45 ABG pCO2 57.3 mmHg (35-45) H 12/29/20 17:45 ABG pO2 67.8 mmHg (80.0-100.0) L 12/29/20 17:45 ABG HCO3 26.8 mmol/L (22-26) H 12/29/20 17:45 ABG O2 Saturation 92.0 12/29/20 17:45 ABG Base Excess -1.1 mmol/L (-2.0-2.0) 12/29/20 17:45 Luke Test Pos 12/29/20 17:45 A-a O2 Gradient 47.2 mmHg (5-10) H 12/29/20 17:45 Hematocrit 44.1 % (42-52) 12/29/20 17:45 Hgb O2 Saturation 90.1 % (95-100) L 12/29/20 17:45 Carboxyhemoglobin 0.8 %THgb (0.4-20.1) 12/29/20 17:45 Methemoglobin 1.2 % (0.4-1.5) 12/29/20 17:45 Total Hemoglobin 14.4 g/dL (14-18) 12/29/20 17:45 Sodium 140.0 mmol/L (131-143) 12/29/20 17:45 Potassium 4.5 mmol/L (3.5-5.0) 12/29/20 17:45 Glucose 141.0 mg/dL (70-115) H 12/29/20 17:45 Ionized Calcium 1.1 mmol/L (1.1-1.4) 12/29/20 17:45 O2 Delivery Device Vent 12/29/20 17:45 O2 Liters/Min 50.0 % 12/23/20 11:23 Mechanical Rate 26.0 12/29/20 17:45 FiO2 70.0 % 12/29/20 17:45 Tidal Volume 0.48 12/29/20 17:45 PEEP 12.0 cmH20 12/29/20 17:45 Mobile Electronics Installer ID Gd 12/29/20 17:45 Sodium 141 mmol/L (136-145) 12/29/20 03:15 Potassium 4.9 mmol/L (3.5-5.1) 12/29/20 03:15 Chloride 106 mmol/L (98-107) 12/29/20 03:15 Carbon Dioxide 26 mmol/L (22-29) 12/29/20 03:15 Anion Gap 13.9 (5-19) 12/29/20 03:15 BUN 41 mg/dL (8-23) H 12/29/20 03:15 Creatinine 1.2 mg/dL (0.7-1.2) 12/29/20 03:15 GFR Calculation 61.3 mL/min (90-130) L 12/29/20 03:15 Glucose 168 mg/dL (65-115) H 12/29/20 03:15 POC Glucose 124 mg/dL (70-110) H 12/29/20 16:24 Calculated Osmolality 306 mOsm/kg (285-295) H 12/29/20 03:15 Lactic Acid 1.7 mmol/L (0.5-2.2) 12/23/20 11:05 Uric Acid 7.0 mg/dL (3.4-7.0) 12/25/20 14:00 Calcium 7.3 mg/dL (8.5-10.5) L 12/29/20 03:15 Phosphorus 4.4 mg/dL (2.5-4.5) 12/25/20 14:00 Magnesium 2.7 mg/dL (1.7-2.3) H 12/28/20 04:42 Ferritin 5395 ng/mL (30-400) H 12/27/20 05:30 Total Bilirubin 0.6 mg/dL (0.15-1.2) 12/26/20 03:55 AST 54 U/L (0-40) H 12/26/20 03:55 ALT 33 U/L (0-41) 12/26/20 03:55 Alkaline Phosphatase 115 IU/L (40-130) 12/26/20 03:55 Lactate Dehydrogenase 1234 U/L (135-225) H 12/27/20 05:30 Creatine Kinase 685 U/L (39-308) H* 12/25/20 14:00 Troponin T Baseline 14 ng/L (0-15) 12/23/20 11:05 Troponin T 120 Minute 12.13 ng/L (0-15) 12/23/20 15:04 Delta Troponin T -1.87 ABS# (0-10) L 12/23/20 15:04 Troponin T Hi Sens 6Hr 12.32 ng/L (0-15) 12/23/20 17:00 Troponin T Hi Sens 6Hr Delta -1.68 ng/L (0-12) L 12/23/20 17:00 C-Reactive Protein 28.6 mg/L (0.0-4.9) H 12/29/20 03:15 NT-Pro-B Natriuret Pep 149 pg/mL (0-125) H 12/26/20 03:55 Total Protein 5.6 g/dL (6.6-8.7) L 12/26/20 03:55 Albumin 2.9 g/dL (3.5-5.2) L 12/26/20 03:55 Globulin 2.7 g/dL (1.3-4.6) 12/26/20 03:55 Procalcitonin 0.70 ng/mL (0-0.5) H 12/28/20 04:42 TSH 1.82 uIU/mL (0.27-4.20) 12/25/20 14:00 Urine Color Dark yellow (Yellow) 12/25/20 14:00 Urine Appearance Cloudy (CLEAR) 12/25/20 14:00 Urine pH 5 (5-7) 12/25/20 14:00 Ur Specific Hines 1.025 (1.005-1.030) 12/25/20 14:00 Urine Protein 1+ (Negative) H 12/25/20 14:00 Urine Glucose (UA) Norm (Normal) 12/25/20 14:00 Urine Ketones Negative (Negative) 12/25/20 14:00 Urine Blood 3+ (Negative) H 12/25/20 14:00 Urine Nitrate Negative (Negative) 12/25/20 14:00 Urine Bilirubin 1+ (Negative) H 12/25/20 14:00 Urine Urobilinogen 4 mg/dL (Negative) H 12/25/20 14:00 Ur Leukocyte Esterase Trace (Negative) H 12/25/20 14:00 Urine RBC 40-50 /hpf (0-2) H 12/25/20 14:00 Urine WBC 15-25 /hpf (0-5) H 12/25/20 14:00 Ur Squamous Epith Cells Rare /hpf (0-5) 12/25/20 14:00 Amorphous Sediment 2+ /hpf 12/25/20 14:00 Urine Bacteria 4+ /hpf (NONE) H 12/25/20 14:00 Coarse Granular Casts 10-15 /lpf H 12/25/20 14:00 Urine Mucus 1+ /hpf 12/25/20 14:00 Ur Random Sodium 13 mmol/L 12/25/20 14:00 Ur Random Potassium 74 mmol/L 12/25/20 14:00 Ur Random Chloride < 10 mmol/L 12/25/20 14:00 Urine Creatinine 231 mg/dL (39-259) 12/25/20 14:00 Impressions Chest CTA 12/23/20 16:32 IMPRESSION: 1. No visible evidence of pulmonary embolism/pulmonary arterial thrombus. 2. Advanced and extensive bilateral mixed ground-glass interstitial lung disease and patches of consolidated alveolar airspace disease of active pneumonitis/pneumonia. 3. Evidence also of air trapping of COPD/chronic bronchitis. 4. Prominent mediastinal and hilar lymph nodes believed reactive in nature. Radiation Dose CTDIVOL = (mGy): DLP = 617.12 (mGy-cm) Venous Duplex 12/25/20 07:58 IMPRESSION: 1. Partial thrombosis of bilateral greater saphenous veins. 2. Questionable thrombus seen within an unnamed intramuscular vein in the left calf. Renal Ultrasound 12/26/20 10:56 IMPRESSION: 1. No hydronephrosis. 2. Possible small echogenic lesion in the mid right kidney. This could represent a small angiomyolipoma. Recommend follow-up CT abdomen to further assess. This could be obtained on a nonemergent basis. Chest X-Ray 12/29/20 04:00 Impression: 1. No change in bilateral patchy pulmonary opacities consistent with pneumonia. 2. No change in multiple tubes. Micro: Microbiology 12/28/20 11:10 Gram Stain - Final Sputum - Endotracheal Tube Aspirate Sputum Culture - Preliminary 12/23/20 Unknown Blood Culture - Final Blood Staphylococcus sp coag neg 12/23/20 15:04 Blood Culture - Final Blood NO GROWTH AFTER 5 DAYS A&P Assessment and plan (1) Respiratory failure with hypoxia: Status: Acute Qualifiers: Chronicity: acute Qualified Code(s): J96.01 - Acute respiratory failure with hypoxia (2) Acute respiratory distress syndrome (ARDS) due to severe acute respiratory syndrome coronavirus 2 (SARS-CoV-2): Status: Acute (3) DVT (deep venous thrombosis): Status: Acute Qualifiers: DVT location: lower extremity Affected thrombotic vein of extremity: other lower extremity vein Chronicity: unspecified Laterality: bilateral Qualified Code(s): I82.493 - Acute embolism and thrombosis of other specified deep vein of lower extremity, bilateral (4) LORRAINE (acute kidney injury): Status: Acute #Acute hypoxic respiratory failure secondary to ARDS due to COVID-19 pneumonia #Partial thrombosis of bilateral great saphenous veins and questionable thrombus seen on unnamed intramuscular Vein in the left calf #LORRAINE-resolved -Symptoms started 12/15/2020: Rapid antigen 12/23/2020 -Intubated 12/27/2020-currently on mechanical ventilator sedated with propofol, fentanyl, Versed, paralyzed with Nimbex and proned for second session-On CMV 480//12/70% ABG 7.2 8/67/20 6/92% -Taper off sedation and paralytic while patient is supine -1 dose Actemra 12/24/2020; completed 5 doses of remdesivir -Currently on dexamethasone 10 mg daily started 12/23/2020 -Downtrending CRP-monitor q 48 hours -On DuoNeb and Pulmicort scheduled nebulizations -So far cultures negative, Initial pro Aung 0.56 on admission and later 2.26 could be secondary to LORRAINE - -On empiric Levaquin started 12/28/2020 -LORRAINE resolved and renal signed off for now -Overall net +5.9 L-plan is to keep patient net negative and monitor electrolytes-we will give Lasix 20 mg and assess daily -On Lovenox 120 units units twice daily for DVT-CTA negative for PE on admission -Start Glucerna feeding 10 to 15 mL/h while supine; bowel regimen senna/docusate -Sugars well controlled-on scale coverage -DVT prophylaxis: Lovenox -PPI for GI prophylaxis -Full code -Family updated by hospitalist -Continue to monitor for fluid balance, electrolytes, hemodynamics, secondary infections Recommendations conveyed to hospitalist, RN, taking care of the patient Attestations Medical Necessity Statement*: acute hypoxic respiratory failure secondary to ARDS due to COVID-19 pneumonia requiring mechanical ventilation and continue with 16 hours proning sessions at least 4 sessions; coexisting DVT on therapeutic anticoagulation Time Spent in Patient Care: Greater than 35 minutes (>than 50% of time s pent in counselling and/or direct pt care on unit) . Critical Care Time: The high probability of a clinically significant, sudden or life threatening deterioration of the patient's [pulmonary, renal, vascular] system(s) required my full and direct attention, intervention and personal management. The critical care time is as shown. This time is in addition to time spent performing any reported procedures but includes the following: [x] Data and vital sign review and interpretation [x] Patient assessment, examination and intervention [x] Documentation [x] Medication orders and management Critical Care Time (min): 45 Coding Level of Care Code Established Pt Acute Senior Web Engineer for Chg Fwd Patient Type Established History Comprehensive Exam Comprehensive Medical Decision Making High Complexity Diagnoses Respiratory failure with hypoxia J96.01 Chronicity: acute Acute respiratory distress syndrome (ARDS) due to severe acute respiratory syndrome coronavirus 2 (SARS-CoV-2) U07.1; J80 DVT (deep venous thrombosis) I82.493 DVT location: lower extremity Affected thrombotic vein of extremity: other lower extremity vein Chronicity: unspecified Laterality: bilateral LORRAINE (acute kidney injury) N17.9 Time Spent (min) 45
[2020-12-29 21:17] LABS: Glucose Point of Care 153 mg/dL (70-110)
[2020-12-30] VITALS (49 sets, daily range): BP systolic 93–177; BP diastolic 60–110; PULSE 75–122; RESP 22–26; TEMP 36.2–36.7; O2SAT 88–98
[2020-12-30] MEDS: ipratropium-albuterol 3 mL Neb INHALATION ×6 (00:12→19:53)
[2020-12-30] MEDS: propofol 1,000 MG/100 ML INJ 48.95 MG IV ×5 (00:50→08:47)
[2020-12-30] MEDS: cisatracurium 100 MG in sodium chloride 0.9% 50 ML 8.9 MG IV ×2 (05:12→23:36)
[2020-12-30] MEDS: remdesivir 100 MG in sodium chloride 0.9% (100 ml) 100 ML IV (05:12)
[2020-12-30 05:17] LABS: ABG PCO2 49.4 mmHg (35-45); ABG PH Result 7.34 (7.35-7.45); Arterial Blood Gas Hematocrit 41.5 % (42-52); Base Excess ABG 0.2 mmol/L (-2.0-2.0); Blood Gas Sample Site Radial, right; Blood Gas Sample Type Arterial; Carboxyhemoglobin 0.8 %THgb (0.4-20.1); HCO3 ABG 26.7 mmol/L (22-26); HGB O2 Sat 92.9 % (95-100); Ionized Calcium Level - ABG 1.1 mmol/L (1.1-1.4); Methemoglobin 1.3 % (0.4-1.5); Oxygen Saturation ABG 94.9; PO2 ABG 73.5 mmHg (80.0-100.0); Potassium Level - ABG 4.5 mmol/L (3.5-5.0); Total Hemoglobin 13.5 g/dL (14-18)
[2020-12-30 05:19] LABS: Alveolar-Arterial Oxygen Gradi 47.7 mmHg (5-10); Blood Gas Tidal Volume 0.48; Oxygen Device VENT
--- NOTE | 2020-12-30 05:29 | PC.NURSE ---
TOF 1900 - 4 2100 - 4 2300 - 4 0100 - 4 0300 - 4 0500 - 4
[2020-12-30 06:29] LABS: Basophils % 0.3 %; Eosinophils # 0.1 10^3/uL (0.0-0.8); Eosinophils % 0.4 %; Hemoglobin 13.4 g/dL (11.7-16.6); Lymphocytes # 0.4 10^3/uL (0.8-4.8); Lymphocytes % 3.3 %; Mean Corpuscular HGB Conc 32.7 g/dL (30.0-36.0); Mean Corpuscular Hemoglobin 31.9 pg (28.0-34.0); Mean Corpuscular Volume 97.6 fl (80-94); Mean Platelet Volume 10.1 fL (7.4-10.4); Monocytes # 0.3 10^3/uL (0.2-0.9); Monocytes % 2.7 %; Neutrophils # 10.57 10^3/uL (1.8-7.7); Neutrophils % 88.6 %; Nucleated Red Blood Cells % 0.3 %; Platelet Count 182 10^3/cmm (130-400); Red Cell Distribution Width 14.5 % (12.1-15.1); White Blood Count 11.9 10^3/uL (4.0-10.0)
[2020-12-30 07:04] LABS: Procalcitonin 0.37 ng/mL (0-0.5)
[2020-12-30 07:17] LABS: Blood Urea Nitrogen 47 mg/dL (8-23); Calcium 7.4 mg/dL (8.5-10.5); Carbon Dioxide 23 mmol/L (22-29); Chloride 105 mmol/L (98-107); Glomerular Filtration Rate 61.3 mL/min (90-130); Glucose 145 mg/dL (65-115); Osmolality Calculated 303 mOsm/kg (285-295); Phosphorus 3.9 mg/dL (2.5-4.5); Sodium 139 mmol/L (136-145)
[2020-12-30 07:28] LABS: Glucose Point of Care 172 mg/dL (70-110)
[2020-12-30 07:35] LABS: Creatine Phosphokinase 1454 U/L (39-308)
[2020-12-30 07:36] LABS: Anion Gap 15.6 (5-19); Potassium 4.6 mmol/L (3.5-5.1)
[2020-12-30] MEDS: lidocaine 5% Patch 1 PATCH TOPICAL (08:24)
[2020-12-30] MEDS: levofloxacin-dextrose 5 % 750 MG/150 ML PREMIX 100 MG IV (08:25)
[2020-12-30] MEDS: ascorbic acid 500 mg Tablet 1000 MG PO ×2 (08:26→17:14)
[2020-12-30] MEDS: cholecalciferol (vitamin D3) 1,000 unit Tablet 2000 UNIT PO (08:26)
[2020-12-30] MEDS: zinc gluconate 50 mg Tablet PO (08:26)
[2020-12-30] MEDS: sennosides-docusate Tablet 1 TAB PO (08:26)
--- NOTE | 2020-12-30 09:59 | PC.NURSE ---
Supine 0900 via 6 staff members.
[2020-12-30] MEDS: budesonide 0.5 mg/2 mL Neb INHALATION ×2 (10:07→19:53)
[2020-12-30] MEDS: propofol 1,000 MG/100 ML INJ 35.6 MG IV (11:19)
[2020-12-30 12:13] LABS: Glucose Point of Care 128 mg/dL (70-110)
--- NOTE | 2020-12-30 12:30 | PC.SOCIAL ---
IMM Update Unable to speak to patient at this time. Patient not anticipated to discharge within the next 24-48 hours.
--- NOTE | 2020-12-30 13:49 | P.PN_ITS ---
Subjective Subjective: Interval history: -Patient seen at bedside today -Completed second session of proning -Requiring 70% FiO2 -Plan is to do third session proning tonight -Labs and imaging reviewed Medications: Reviewed: Yes Vitals/I&O/Wt Last Vital Signs Temp 97.8 F 12/29/20 16:00 Pulse 87 12/30/20 12:00 Resp 26 H 12/30/20 12:00 BP 156/93 12/30/20 09:30 Pulse Ox 92 12/30/20 12:00 12/29/20 12/30/20 12/30/20 22:59 06:59 14:59 Intake Total 922.006 / 1789.431 671.945 / 2461.376 632.544 / 632.544 Output Total 600 / 600 950 / 1550 Balance 322.006 / 1189.431 -278.055 / 911.376 632.544 / 632.544 Physical Exam Narrative: EXAM NARRATIVE: General: Lying in bed, sedated and intubated. HEENT:NCAT, PERRLA, EOMI Neck: Supple Lungs: Bilateral coarse crepitations Heart: s1/s2, RRR Abd: soft, NT, ND, BS + Normoactive Extremities: No edema CRIMINAL JUSTICE INSTRUCTOR: sedated and limited CRIMINAL JUSTICE INSTRUCTOR exam possible. SKIN: no rash LDA: # CVC: Left internal jugular vein 12/28/2020 # Espinosa: 12/24/2020 Urinary Catheter Management^: Espinosa: Cath Placed During This Visit: yes Reason for Continuing Indwelling Catheter: Accurate Measurement of Urinary Output in Critically Ill Patients Urinary Catheter Date of Insertion: 12/24/20 Urinary Catheter Time of Insertion: 11:00 Data : 12/31/20 03:40 12/31/20 03:40 Other Labs: Laboratory Results WBC 11.9 10^3/uL (4.0-10.0) H 12/30/20 06:06 Corrected WBC Cancelled 12/30/20 03:40 RBC 4.20 10^6/uL (4.1-5.3) 12/30/20 06:06 Hgb 13.4 g/dL (11.7-16.6) 12/30/20 06:06 Hct 41.0 % (42.0-52.0) L 12/30/20 06:06 MCV 97.6 fl (80-94) H 12/30/20 06:06 MCH 31.9 pg (28.0-34.0) 12/30/20 06:06 MCHC 32.7 g/dL (30.0-36.0) 12/30/20 06:06 RDW 14.5 % (12.1-15.1) 12/30/20 06:06 Plt Count 182 10^3/cmm (130-400) 12/30/20 06:06 MPV 10.1 fL (7.4-10.4) 12/30/20 06:06 Gran % Cancelled 12/30/20 03:40 Neut % (Auto) 88.6 % 12/30/20 06:06 Lymph % (Auto) 3.3 % 12/30/20 06:06 [place] % (Auto) 2.7 % 12/30/20 06:06 Eos % (Auto) 0.4 % 12/30/20 06:06 Baso % (Auto) 0.3 % 12/30/20 06:06 Neut # (Auto) 10.57 10^3/uL (1.8-7.7) H 12/30/20 06:06 Lymph # (Auto) 0.4 10^3/uL (0.8-4.8) L 12/30/20 06:06 [place] # (Auto) 0.3 10^3/uL (0.2-0.9) 12/30/20 06:06 Eos # (Auto) 0.1 10^3/uL (0.0-0.8) 12/30/20 06:06 Baso # (Auto) 0.0 10^3/uL (0.0-0.1) 12/30/20 06:06 Absolute Gran (auto) Cancelled 12/30/20 03:40 Nucleated RBC % (auto) 0.3 % 12/30/20 06:06 Nucleated RBCs # 0.0 /100WBC 12/30/20 06:06 ESR 13 mm/hr (0-10) H 12/27/20 05:30 PT 14.90 SECONDS (12.1-14.9) 12/24/20 04:57 INR 1.14 (0.8-1.2) 12/24/20 04:57 APTT 30.4 SECONDS (23.9-36.7) 12/24/20 04:57 D-Dimer > 20.00 ug/mIFEU (0-0.59) H 12/27/20 05:30 Specimen Type Arterial 12/30/20 05:04 Sample Site Radial, right 12/30/20 05:04 ABG pH 7.34 (7.35-7.45) L 12/30/20 05:04 ABG pCO2 49.4 mmHg (35-45) H 12/30/20 05:04 ABG pO2 73.5 mmHg (80.0-100.0) L 12/30/20 05:04 ABG HCO3 26.7 mmol/L (22-26) H 12/30/20 05:04 ABG O2 Saturation 94.9 12/30/20 05:04 ABG Base Excess 0.2 mmol/L (-2.0-2.0) 12/30/20 05:04 Luke Test N/a 12/30/20 05:04 A-a O2 Gradient 47.7 mmHg (5-10) H 12/30/20 05:04 Hematocrit 41.5 % (42-52) L 12/30/20 05:04 Hgb O2 Saturation 92.9 % (95-100) L 12/30/20 05:04 Carboxyhemoglobin 0.8 %THgb (0.4-20.1) 12/30/20 05:04 Methemoglobin 1.3 % (0.4-1.5) 12/30/20 05:04 Total Hemoglobin 13.5 g/dL (14-18) L 12/30/20 05:04 Sodium 140.0 mmol/L (131-143) 12/30/20 05:04 Potassium 4.5 mmol/L (3.5-5.0) 12/30/20 05:04 Glucose 165.0 mg/dL (70-115) H 12/30/20 05:04 Ionized Calcium 1.1 mmol/L (1.1-1.4) 12/30/20 05:04 O2 Delivery Device Vent 12/30/20 05:04 O2 Liters/Min 50.0 % 12/23/20 11:23 Mechanical Rate 26.0 12/29/20 17:45 FiO2 70.0 % 12/30/20 05:04 Tidal Volume 0.48 12/30/20 05:04 PEEP 12.0 cmH20 12/30/20 05:04 Track Service Person ID Kiki 12/30/20 05:04 Sodium 139 mmol/L (136-145) 12/30/20 06:06 Potassium 4.6 mmol/L (3.5-5.1) 12/30/20 06:06 Chloride 105 mmol/L (98-107) 12/30/20 06:06 Carbon Dioxide 23 mmol/L (22-29) 12/30/20 06:06 Anion Gap 15.6 (5-19) 12/30/20 06:06 BUN 47 mg/dL (8-23) H 12/30/20 06:06 Creatinine 1.2 mg/dL (0.7-1.2) 12/30/20 06:06 GFR Calculation 61.3 mL/min (90-130) L 12/30/20 06:06 Glucose 145 mg/dL (65-115) H 12/30/20 06:06 POC Glucose 128 mg/dL (70-110) H 12/30/20 11:57 Calculated Osmolality 303 mOsm/kg (285-295) H 12/30/20 06:06 Lactic Acid 1.7 mmol/L (0.5-2.2) 12/23/20 11:05 Uric Acid 7.0 mg/dL (3.4-7.0) 12/25/20 14:00 Calcium 7.4 mg/dL (8.5-10.5) L 12/30/20 06:06 Phosphorus 3.9 mg/dL (2.5-4.5) 12/30/20 06:06 Magnesium 3.0 mg/dL (1.7-2.3) H 12/30/20 06:06 Ferritin 5395 ng/mL (30-400) H 12/27/20 05:30 Total Bilirubin 0.6 mg/dL (0.15-1.2) 12/26/20 03:55 AST 54 U/L (0-40) H 12/26/20 03:55 ALT 33 U/L (0-41) 12/26/20 03:55 Alkaline Phosphatase 115 IU/L (40-130) 12/26/20 03:55 Lactate Dehydrogenase 1234 U/L (135-225) H 12/27/20 05:30 Creatine Kinase 1454 U/L (39-308) H* 12/30/20 06:06 Troponin T Baseline 14 ng/L (0-15) 12/23/20 11:05 Troponin T 120 Minute 12.13 ng/L (0-15) 12/23/20 15:04 Delta Troponin T -1.87 ABS# (0-10) L 12/23/20 15:04 Troponin T Hi Sens 6Hr 12.32 ng/L (0-15) 12/23/20 17:00 Troponin T Hi Sens 6Hr Delta -1.68 ng/L (0-12) L 12/23/20 17:00 C-Reactive Protein 28.6 mg/L (0.0-4.9) H 12/29/20 03:15 NT-Pro-B Natriuret Pep 149 pg/mL (0-125) H 12/26/20 03:55 Total Protein 5.6 g/dL (6.6-8.7) L 12/26/20 03:55 Albumin 2.9 g/dL (3.5-5.2) L 12/26/20 03:55 Globulin 2.7 g/dL (1.3-4.6) 12/26/20 03:55 Procalcitonin 0.37 ng/mL (0-0.5) 12/30/20 06:06 TSH 1.82 uIU/mL (0.27-4.20) 12/25/20 14:00 Urine Color Dark yellow (Yellow) 12/25/20 14:00 Urine Appearance Cloudy (CLEAR) 12/25/20 14:00 Urine pH 5 (5-7) 12/25/20 14:00 Ur Specific Carpenter 1.025 (1.005-1.030) 12/25/20 14:00 Urine Protein 1+ (Negative) H 12/25/20 14:00 Urine Glucose (UA) Norm (Normal) 12/25/20 14:00 Urine Ketones Negative (Negative) 12/25/20 14:00 Urine Blood 3+ (Negative) H 12/25/20 14:00 Urine Nitrate Negative (Negative) 12/25/20 14:00 Urine Bilirubin 1+ (Negative) H 12/25/20 14:00 Urine Urobilinogen 4 mg/dL (Negative) H 12/25/20 14:00 Ur Leukocyte Esterase Trace (Negative) H 12/25/20 14:00 Urine RBC 40-50 /hpf (0-2) H 12/25/20 14:00 Urine WBC 15-25 /hpf (0-5) H 12/25/20 14:00 Ur Squamous Epith Cells Rare /hpf (0-5) 12/25/20 14:00 Amorphous Sediment 2+ /hpf 12/25/20 14:00 Urine Bacteria 4+ /hpf (NONE) H 12/25/20 14:00 Coarse Granular Casts 10-15 /lpf H 12/25/20 14:00 Urine Mucus 1+ /hpf 12/25/20 14:00 Ur Random Sodium 13 mmol/L 12/25/20 14:00 Ur Random Potassium 74 mmol/L 12/25/20 14:00 Ur Random Chloride < 10 mmol/L 12/25/20 14:00 Urine Creatinine 231 mg/dL (39-259) 12/25/20 14:00 Impressions Chest CTA 12/23/20 16:32 IMPRESSION: 1. No visible evidence of pulmonary embolism/pulmonary arterial thrombus. 2. Advanced and extensive bilateral mixed ground-glass interstitial lung disease and patches of consolidated alveolar airspace disease of active pneumonitis/pneumonia. 3. Evidence also of air trapping of COPD/chronic bronchitis. 4. Prominent mediastinal and hilar lymph nodes believed reactive in nature. Radiation Dose CTDIVOL = (mGy): DLP = 617.12 (mGy-cm) Venous Duplex 12/25/20 07:58 IMPRESSION: 1. Partial thrombosis of bilateral greater saphenous veins. 2. Questionable thrombus seen within an unnamed intramuscular vein in the left calf. Renal Ultrasound 12/26/20 10:56 IMPRESSION: 1. No hydronephrosis. 2. Possible small echogenic lesion in the mid right kidney. This could represent a small angiomyolipoma. Recommend follow-up CT abdomen to further assess. This could be obtained on a nonemergent basis. Chest X-Ray 12/29/20 04:00 Impression: 1. No change in bilateral patchy pulmonary opacities consistent with pneumonia. 2. No change in multiple tubes. Micro: Microbiology 12/28/20 11:10 Gram Stain - Final Sputum - Endotracheal Tube Aspirate Sputum Culture - Preliminary 12/23/20 Unknown Blood Culture - Final Blood Staphylococcus sp coag neg A&P Assessment and plan (1) Respiratory failure with hypoxia: Status: Acute Qualifiers: Chronicity: acute Qualified Code(s): J96.01 - Acute respiratory failure with hypoxia (2) Acute respiratory distress syndrome (ARDS) due to severe acute respiratory syndrome coronavirus 2 (SARS-CoV-2): Status: Acute (3) DVT (deep venous thrombosis): Status: Acute Qualifiers: DVT location: lower extremity Affected thrombotic vein of extremity: other lower extremity vein Chronicity: unspecified Laterality: bilateral Qualified Code(s): I82.493 - Acute embolism and thrombosis of other specified deep vein of lower extremity, bilateral (4) LORRAINE (acute kidney injury): Status: Acute #Acute hypoxic respiratory failure secondary to ARDS due to COVID-19 pneumonia #Partial thrombosis of bilateral great saphenous veins and questionable thrombus seen on unnamed intramuscular Vein in the left calf #LORRAINE-resolved -Symptoms started 12/15/2020: Rapid antigen 12/23/2020 -Intubated 12/27/2020-currently on mechanical ventilator sedated with propofol, fentanyl, Versed, paralyzed with Nimbex and completed second session of proning- On CMV 480/26/12/70% ABG 7.3 4/49/73/20 6/92% -Taper off Versed and fentanyl and paralytic while patient is supine -Plan is to prone for third session tonight -1 dose Actemra 12/24/2020; completed 5 doses of remdesivir -Currently on dexamethasone 10 mg daily started 12/23/2020 -Downtrending CRP-monitor q 48 hours -On DuoNeb and Pulmicort scheduled nebulizations -So far cultures negative, Initial pro Aung 0.56 on admission and later 2.26 could be secondary to LORRAINE - -On empiric Levaquin started 12/28/2020 -LORRAINE resolved and renal signed off for now -Overall net + 6.8 L-plan is to keep patient net negative and monitor electrolytes-we will give Lasix 20 mg and assess daily -On Lovenox 120 units units twice daily for DVT-CTA negative for PE on admission -Start Glucerna feeding 10 to 15 mL/h while supine; bowel regimen senna/docusate -Sugars well controlled-on scale coverage -DVT prophylaxis: Lovenox -PPI for GI prophylaxis -Full code -Family updated by hospitalist -Continue to monitor for fluid balance, electrolytes, hemodynamics, secondary infections Recommendations conveyed to hospitalist, RN, taking care of the patient Attestations Medical Necessity Statement*: acute hypoxic respiratory failure secondary to ARDS due to COVID-19 pneumonia requiring mechanical ventilation and continue with 16 hours proning sessions at least 4 sessions; coexisting DVT on therapeutic anticoagulation Time Spent in Patient Care: Greater than 35 minutes (>than 50% of time spent in counselling and/or direct pt care on unit) . Critical Care Time: The high probability of a clinically significant, sudden or life threatening deterioration of the patient's [pulmonary, renal, vascular] system(s) required my full and direct attention, intervention and personal management. The critical care time is as shown. This time is in addition to time spent performing any reported procedures but includes the following: [x] Data and vital sign review and interpretation [x] Patient assessment, examination and intervention [x] Documentation [x] Medication orders and management Critical Care Time (min): 45 Coding Level of Care Code Established Pt Acute Teletype Installer for Chg Fwd Patient Type Established History Comprehensive Exam Comprehensive Medical Decision Making High Complexity Diagnoses Respiratory failure with hypoxia J96.01 Chronicity: acute Acute respiratory distress syndrome (ARDS) due to severe acute respiratory syndrome coronavirus 2 (SARS-CoV-2) U07.1; J80 DVT (deep venous thrombosis) I82.493 DVT location: lower extremity Affected thrombotic vein of extremity: other lower extremity vein Chronicity: unspecified Laterality: bilateral LORRAINE (acute kidney injury) N17.9 Time Spent (min) 45
[2020-12-30] MEDS: propofol 1,000 MG/100 ML INJ 26.7 MG IV ×2 (14:04→17:14)
[2020-12-30] MEDS: FUROsemide 10 mg/mL SDV 2mL 20 MG IVP (14:05)
--- NOTE | 2020-12-30 15:50 | PC.NURSE ---
Coffee ground emesis (300 ml) coming from mouth and saturating adeola beneath head at shift change 0700. Patient suctioned and oral care provided. Patient placed in reverse trendelenburg [address] Ashley at bedside. Lovenox and tube feeds held at this time.
--- NOTE | 2020-12-30 16:05 | PC.NUTR ---
Addendum entered by Lovely Glynn 12/30/20 16:11: Clarify below recommendation to say Recommend resume previous order...when medically appropriate as nurse reports issue of blood in throat at this time. Original Note: Tube feeding recommendations: Day 8 of minimal nutritional intake/provision. No TF orders in place. Has received 54 ml total of TF since ordered on 12/28 per chart, providing total of 65 kcal in 3 days. Recommend resume previous order of Glucerna 1.2 at 30 ml/hr (X 8 hours per day) with 150 ml H2O flushes q 6 hours, to provide 288 kcal, 14 g protein, 793 ml H2O. Additional 704 kcal/day from propofol and 408 kcal from D5W at current rates. Total kcal (from D5W, propofol, and TF): 1400 kcal/day. Will meet 55% kcal needs, but only 13% protein needs. Continue to suggest Beneprotein QID for additional 24 g protein. When proning sessions complete, recommend continuous (24 hr) feeding if tolerated to better meet nutritional needs. See full RD assessment for further details.
--- NOTE | 2020-12-30 16:17 | PM.PN ---
Subjective Subjective: Interval history: Patient was proned at the time of my evaluation Noticed overnight events of hemoptysis, dark color blood was noticed on his pillow around endotracheal tube as well about 30 cc of blood noticed overnight hemoglobin however is stable 13.4 he is off vasopressors Positive fluid balance Propofol 55, fentanyl 100 Versed at 4 I have asked his nurse to reduce sedation when he is supine Leukocytosis improving Patient does show improvement in his oxygenation with proning PO2 73 on 70% FiO2 PEEP 12 respiratory rate 26 Cultures negative No bowel movement yet Vitals/I&O/Wt Last Vital Signs Temp 97.1 F L 12/30/20 13:30 Pulse 96 12/30/20 14:00 Resp 22 H 12/30/20 13:30 BP 109/74 12/30/20 13:30 Pulse Ox 95 12/30/20 13:30 12/30/20 12/30/20 12/30/20 06:59 14:59 22:59 Intake Total 671.945 / 2461.376 679.004 / 679.004 Output Total 950 / 1550 550 / 550 Balance -278.055 / 911.376 129.004 / 129.004 Physical Exam Narrative: EXAM NARRATIVE: Patient was proned intubated sedated and paralyzed, right intervention Hemoptysis noted Absent bowel sounds Does not look fluid overloaded Neuro exam limited Assisted bilateral coarse breath sounds Propofol fentanyl and Versed Nimbex running at the bedside rate mention in my subjective Skin without any ulcers Urinary Catheter Management^: Espinosa: Cath Placed During This Visit: yes Reason for Continuing Indwelling Catheter: Accurate Measurement of Urinary Output in Critically Ill Patients Urinary Catheter Date of Insertion: 12/24/20 Urinary Catheter Time of Insertion: 11:00 Data : 12/30/20 06:06 12/30/20 06:06 Micro: Microbiology 12/28/20 11:10 Gram Stain - Final Sputum - Endotracheal Tube Aspirate Sputum Culture - Final 12/23/20 Unknown Blood Culture - Final Blood Staphylococcus sp coag neg A&P Assessment and plan (1) Goals of care, counseling/discussion: Status: Acute (2) Acute respiratory distress syndrome (ARDS) due to severe acute respiratory syndrome coronavirus 2 (SARS-CoV-2): Status: Acute (3) DVT (deep venous thrombosis): Status: Acute Qualifiers: DVT location: lower extremity Affected thrombotic vein of extremity: other lower extremity vein Chronicity: unspecified Laterality: bilateral Qualified Code(s): I82.493 - Acute embolism and thrombosis of other specified deep vein of lower extremity, bilateral (4) LORRAINE (acute kidney injury): Status: Acute (5) Hypokalemia: Status: Acute (6) Pneumonia due to severe acute respiratory syndrome coronavirus 2 (SARS-CoV-2): Status: Acute (7) Respiratory failure with hypoxia: Status: Acute Qualifiers: Chronicity: acute Qualified Code(s): J96.01 - Acute respiratory failure with hypoxia (8) Rhabdomyolysis: Status: Acute Additional A&P Information ARDS COVID-19 Procalcitonin unremarkable Cultures negative Afebrile Leukocytosis improving Positive fluid balance 2/4 cycles of proning Patient is responsive to proning with improvement in oxygenation No bowel movement yet Status post course of remdesivir continue Decadron Status post Actemra 12/24 On empirical antibiotics Hemoptysis most likely secondary to pressure during proning Hemoglobin stable off Levophed Monitor for now continue DVT treatment Hypokalemia: Repleted Rhabdomyolysis secondary to sedation and 16 hours of proning he is getting adequate fluids via medications and tube feeding I would be reluctant to add fluids to avoid keeping his fluid balance over and cause fluid overload I would like to try Lasix today as well Full code currently on therapeutic dose secondary to DVT Family is being updated on daily basis Attestations Medical Necessity Statement*: Continue ICU management Time Spent in Patient Care: 16 - 35 minutes Coding Level of Care Code 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 [facility] Fwd Diagnoses Goals of care, counseling/discussion Z71.89 Acute respiratory distress syndrome (ARDS) due to severe acute respiratory syndrome coronavirus 2 (SARS-CoV-2) U07.1; J80 DVT (deep venous thrombosis) I82.493 DVT location: lower extremity Affected thrombotic vein of extremity: other lower extremity vein Chronicity: unspecified Laterality: bilateral LORRAINE (acute kidney injury) N17.9 Hypokalemia E87.6 Pneumonia due to severe acute respiratory syndrome coronavirus 2 (SARS-CoV-2) U07.1; J12.82 Respiratory failure with hypoxia J96.01 Chronicity: acute Rhabdomyolysis M62.82
[2020-12-30] MEDS: dexamethasone 4 mg/mL INJ IVP (17:13)
[2020-12-30] MEDS: enoxaparin 30 mg/0.3 mL Syringe SUBCUT (17:14)
[2020-12-30 17:41] LABS: Glucose Point of Care 121 mg/dL (70-110)
[2020-12-30] MEDS: propofol 1,000 MG/100 ML INJ 44.5 MG IV ×3 (19:20→23:37)
[2020-12-30 21:08] LABS: Glucose Point of Care 169 mg/dL (70-110)
[2020-12-31] VITALS (64 sets, daily range): BP systolic 94–186; BP diastolic 65–113; PULSE 90–118; RESP 20–36; TEMP 36.2–36.4; O2SAT 87–95
[2020-12-31] MEDS: enoxaparin 120 mg/0.8 mL Syringe SUBCUT ×3 (00:17→23:14)
[2020-12-31] MEDS: ipratropium-albuterol 3 mL Neb INHALATION ×7 (00:46→23:07)
[2020-12-31] MEDS: morphine 4 mg/mL SDV 1 mL 2 MG IVP ×2 (01:20→06:33)
[2020-12-31] MEDS: propofol 1,000 MG/100 ML INJ 44.5 MG IV ×10 (01:45→23:31)
[2020-12-31] MEDS: enoxaparin 30 mg/0.3 mL Syringe SUBCUT ×2 (03:57→16:58)
[2020-12-31 03:58] LABS: Basophils # 0.1 10^3/uL (0.0-0.1); Basophils % 0.3 %; Eosinophils # 0.2 10^3/uL (0.0-0.8); Hematocrit 45.2 % (42.0-52.0); Hemoglobin 14.7 g/dL (11.7-16.6); Lymphocytes # 0.4 10^3/uL (0.8-4.8); Lymphocytes % 2.9 %; Mean Corpuscular HGB Conc 32.5 g/dL (30.0-36.0); Mean Corpuscular Hemoglobin 31.5 pg (28.0-34.0); Mean Corpuscular Volume 96.8 fl (80-94); Mean Platelet Volume 10.1 fL (7.4-10.4); Monocytes # 0.5 10^3/uL (0.2-0.9); Monocytes % 3.2 %; Neutrophils # 12.69 10^3/uL (1.8-7.7); Neutrophils % 86.2 %; Nucleated Red Blood Cells # 0.1 /100WBC; Nucleated Red Blood Cells % 0.3 %; Platelet Count 246 10^3/cmm (130-400); Red Blood Count 4.67 10^6/uL (4.1-5.3); Red Cell Distribution Width 14.8 % (12.1-15.1); White Blood Count 14.7 10^3/uL (4.0-10.0)
[2020-12-31 04:29] LABS: Blood Urea Nitrogen 49 mg/dL (8-23); C Reactive Protein 20.1 mg/L (0.0-4.9); Calcium 7.6 mg/dL (8.5-10.5); Carbon Dioxide 25 mmol/L (22-29); Chloride 105 mmol/L (98-107); Glomerular Filtration Rate 55.9 mL/min (90-130); Glucose 148 mg/dL (65-115); Osmolality Calculated 308 mOsm/kg (285-295); Sodium 141 mmol/L (136-145)
[2020-12-31 04:32] LABS: Anion Gap 16.6 (5-19); Potassium 5.6 mmol/L (3.5-5.1)
[2020-12-31] MEDS: hyDRALAzine 20 mg/mL INJ 1 mL 10 MG IVP (04:32)
[2020-12-31 04:34] LABS: Creatine Phosphokinase 1169 U/L (39-308)
[2020-12-31 05:10] LABS: ABG PCO2 50.7 mmHg (35-45); ABG PH Result 7.33 (7.35-7.45); Arterial Blood Gas Hematocrit 47.4 % (42-52); Blood Gas Allen Test Pos; Blood Gas Sample Type Arterial; HCO3 ABG 26.8 mmol/L (22-26); PO2 ABG 95.4 mmHg (80.0-100.0)
[2020-12-31 05:11] LABS: Blood Gas Sample Site Radial, right; Blood Gas Tidal Volume 0.48; Oxygen Device VENT
[2020-12-31 05:12] LABS: Slide Review Slide Review Perform
--- NOTE | 2020-12-31 05:21 | PC.NURSE ---
TOF 1900 -4 2100 -4 2300 -4 0100 -4 0300 -4 0500 -4
--- NOTE | 2020-12-31 05:23 | PC.NURSE ---
Shift Note Frequent safety and comfort rounds continue. Orders and/or nursing care completed as indicated. Patient monitored for response to intervention and treatment(s). Pt had high BP most of the night. Ayla notified and a one time order given (see MAR). Pt catheter dislodged at some point, catheter removed and a new one was inserted. called unit 3 times and asked for update. Update given. Will continue to monitor.
[2020-12-31] MEDS: propofol 1,000 MG/100 ML INJ 48.95 MG IV (05:45)
--- NOTE | 2020-12-31 07:45 | PC.NURSE ---
Fresh dark/venous blood still coming from mouth and nose. Provider already aware. Patient repositioned for comfort.
--- NOTE | 2020-12-31 07:57 | PC.NURSE ---
Gastric tube out. Will replace when supine.
[2020-12-31 09:03] LABS: Glucose Point of Care 124 mg/dL (70-110)
[2020-12-31] MEDS: lidocaine 5% Patch 1 PATCH TOPICAL (09:05)
[2020-12-31] MEDS: levofloxacin-dextrose 5 % 750 MG/150 ML PREMIX 100 MG IV (09:06)
[2020-12-31] MEDS: calcium gluconate 0.1 gm/mL 10% SDV 10mL 1 GM IVP (09:06)
[2020-12-31] MEDS: dextrose 50% syringe 50 mL 25 ML IVP (09:06)
[2020-12-31] MEDS: insulin regular-human 10 UNIT in SYRINGE 1 EACH IVP (09:07)
[2020-12-31] MEDS: budesonide 0.5 mg/2 mL Neb INHALATION ×2 (09:22→20:16)
[2020-12-31 12:15] LABS: Glucose Point of Care 122 mg/dL (70-110)
[2020-12-31 13:18] LABS: ABG PCO2 53.3 mmHg (35-45); Alveolar-Arterial Oxygen Gradi 38.6 mmHg (5-10); Arterial Blood Gas Hematocrit 47.6 % (42-52); Blood Gas Allen Test Pos; Blood Gas Operator Identificat CAAK; Blood Gas Sample Site Brachial, left; Blood Gas Sample Type Arterial; HCO3 ABG 26.4 mmol/L (22-26); HGB O2 Sat 90.7 % (95-100); Ionized Calcium Level - ABG 1.2 mmol/L (1.1-1.4); Methemoglobin 1.1 % (0.4-1.5); Oxygen Device VENT; Oxygen Saturation ABG 92.6; PO2 ABG 67.9 mmHg (80.0-100.0); Potassium Level - ABG 4.7 mmol/L (3.5-5.0); Total Hemoglobin 15.5 g/dL (14-18)
[2020-12-31] MEDS: FUROsemide 10 mg/mL SDV 2mL 20 MG IVP (14:59)
[2020-12-31] MEDS: sodium polystyrene sulfonate 15 gm/60 mL Btl OG-TUBE (15:01)
[2020-12-31] MEDS: dexamethasone 4 mg/mL INJ IVP (16:58)
[2020-12-31] MEDS: ascorbic acid 500 mg Tablet 1000 MG PO (16:58)
--- NOTE | 2020-12-31 17:23 | PC.NURSE ---
Tube feedings held at this time. Will be proning in one hour.
--- NOTE | 2020-12-31 18:07 | PM.PN ---
Subjective Subjective: Interval history: Bleeding noticed from the nose today which is currently controlled Patient is hypertensive Propofol 50 fentanyl 125 Versed at 4 Off levo pressors 65% FiO2 No bowel movement Given Kayexalate, insulin D50 for hyperkalemia telemetry showed PVCs last night Negative fluid balance Afebrile Blood gas in supine dropped to [id number] Vitals/I&O/Wt Last Vital Signs Temp 97.2 F L 12/31/20 17:00 Pulse 98 12/31/20 17:00 Resp 23 H 12/31/20 17:00 BP 110/84 12/31/20 17:00 Pulse Ox 91 12/31/20 17:00 12/31/20 12/31/20 12/31/20 06:59 14:59 22:59 Intake Total 552.365 / 1584.618 741.447 / 741.447 134.566 / 876.013 Output Total 650 / 1250 1500 / 1500 Balance -97.635 / 334.618 741.447 / 741.447 -1365.434 / -623.987 Physical Exam Narrative: EXAM NARRATIVE: Proned intubated paralyzed and sedated Hypertensive Sinus tachycardia No bowel movement Bilateral assisted breath sounds Neuro exam limited Noticed edema of lower extremities Concentrated urine color in the bag Urinary Catheter Management^: Espinosa: Cath Placed During This Visit: yes Reason for Continuing Indwelling Catheter: Accurate Measurement of Urinary Output in Critically Ill Patients Urinary Catheter Date of Insertion: 12/24/20 Urinary Catheter Time of Insertion: 11:00 Data : 12/31/20 03:40 12/31/20 03:40 Micro: Microbiology 12/26/20 04:00 Blood Culture - Final Blood NO GROWTH AFTER 5 DAYS 12/26/20 03:55 Blood Culture - Final Blood NO GROWTH AFTER 5 DAYS 12/28/20 11:10 Gram Stain - Final Sputum - Endotracheal Tube Aspirate Sputum Culture - Final A&P Assessment and plan (1) Rhabdomyolysis: Status: Acute (2) Goals of care, counseling/discussion: Status: Acute (3) Acute respiratory distress syndrome (ARDS) due to severe acute respiratory syndrome coronavirus 2 (SARS-CoV-2): Status: Acute (4) DVT (deep venous thrombosis): Status: Acute Qualifiers: DVT location: lower extremity Affected thrombotic vein of extremity: other lower extremity vein Chronicity: unspecified Laterality: bilateral Qualified Code(s): I82.493 - Acute embolism and thrombosis of other specified deep vein of lower extremity, bilateral (5) LORRAINE (acute kidney injury): Status: Acute (6) Hypokalemia: Status: Acute (7) Pneumonia due to severe acute respiratory syndrome coronavirus 2 (SARS-CoV-2): Status: Acute (8) Respiratory failure with hypoxia: Status: Acute Qualifiers: Chronicity: acute Qualified Code(s): J96.01 - Acute respiratory failure with hypoxia (9) Hyperkalemia: Status: Acute Additional A&P Information ARDS COVID-19 Persistent hypoxia 3/4 proning today responsive, Status post Actemra Continue Decadron, finished remdesivir We will keep him on Lasix because of his swelling of the extremities Continue multivitamins and empirical antibiotics Hyperkalemia: We will give insulin and D50 and Kayexalate No bowel movement secondary to paralytics and sedatives We will give him bowel regimen Rhabdomyolysis: Improving LORRAINE Monitor on Lasix, CPK improving Full code Currently on therapeutic dose of Lovenox Attestations Medical Necessity Statement*: Continue ICU management Coding Level of Care Code Acute Gluing Machine Adjuster for g Fwd Diagnoses Rhabdomyolysis M62.82 Goals of care, counseling/discussion Z71.89 Acute respiratory distress syndrome (ARDS) due to severe acute respiratory syndrome coronavirus 2 (SARS-CoV-2) U07.1; J80 DVT (deep venous thrombosis) I82.493 DVT location: lower extremity Affected thrombotic vein of extremity: other lower extremity vein Chronicity: unspecified Laterality: bilateral LORRAINE (acute kidney injury) N17.9 Hypokalemia E87.6 Pneumonia due to severe acute respiratory syndrome coronavirus 2 (SARS-CoV-2) U07.1; J12.82 Respiratory failure with hypoxia J96.01 Chronicity: acute Hyperkalemia E87.5
[2020-12-31 18:54] LABS: Glucose Point of Care 174 mg/dL (70-110)
--- NOTE | 2020-12-31 19:15 | PC.NURSE ---
4th proning session held per Tube feedings resumed at 15 ml/hr with 120 flush Q4H.
[2020-12-31 20:39] LABS: Glucose Point of Care 169 mg/dL (70-110)
[2021-01-01] VITALS (54 sets, daily range): BP systolic 94–147; BP diastolic 54–88; PULSE 91–116; RESP 23–34; TEMP 36.6–36.7; O2SAT 87–94
[2021-01-01] MEDS: propofol 1,000 MG/100 ML INJ 40.05 MG IV (01:34)
[2021-01-01] MEDS: ipratropium-albuterol 3 mL Neb INHALATION ×6 (03:21→23:26)
[2021-01-01 03:51] LABS: ABG PCO2 50.8 mmHg (35-45); ABG PH Result 7.35 (7.35-7.45); Base Excess ABG 1.2 mmol/L (-2.0-2.0); Blood Gas Allen Test Pos; Blood Gas Sample Site Radial, right; Blood Gas Sample Type Arterial; Blood Gas Tidal Volume 0.48; HCO3 ABG 27.8 mmol/L (22-26); Oxygen Device VENT; PO2 ABG 56.9 mmHg (80.0-100.0)
[2021-01-01] MEDS: propofol 1,000 MG/100 ML INJ 35.6 MG IV ×4 (04:05→14:58)
[2021-01-01] MEDS: enoxaparin 30 mg/0.3 mL Syringe SUBCUT ×2 (04:06→17:03)
[2021-01-01 04:09] LABS: Basophils % 0.3 %; Eosinophils # 0.1 10^3/uL (0.0-0.8); Eosinophils % 1.3 %; Hematocrit 43.2 % (42.0-52.0); Hemoglobin 13.9 g/dL (11.7-16.6); Lymphocytes # 0.4 10^3/uL (0.8-4.8); Lymphocytes % 3.8 %; Mean Corpuscular HGB Conc 32.2 g/dL (30.0-36.0); Mean Corpuscular Hemoglobin 31.8 pg (28.0-34.0); Mean Corpuscular Volume 98.9 fl (80-94); Mean Platelet Volume 10.3 fL (7.4-10.4); Monocytes # 0.5 10^3/uL (0.2-0.9); Monocytes % 4.2 %; Neutrophils # 9.03 10^3/uL (1.8-7.7); Neutrophils % 84.7 %; Nucleated Red Blood Cells % 0.3 %; Platelet Count 217 10^3/cmm (130-400); Red Blood Count 4.37 10^6/uL (4.1-5.3); Red Cell Distribution Width 15.2 % (12.1-15.1); White Blood Count 10.7 10^3/uL (4.0-10.0)
[2021-01-01 04:33] LABS: Blood Urea Nitrogen 62 mg/dL (8-23); Carbon Dioxide 24 mmol/L (22-29); Chloride 105 mmol/L (98-107); Glomerular Filtration Rate 61.3 mL/min (90-130); Glucose 126 mg/dL (65-115); Osmolality Calculated 309 mOsm/kg (285-295); Sodium 140 mmol/L (136-145)
[2021-01-01 04:54] LABS: Slide Review Slide Review Perform
[2021-01-01 04:59] LABS: Anion Gap 16.1 (5-19); Potassium 5.1 mmol/L (3.5-5.1)
[2021-01-01 05:07] LABS: Creatine Phosphokinase 792 U/L (39-308)
--- NOTE | 2021-01-01 05:56 | PC.NURSE ---
Shift Note Frequent safety and comfort rounds continue. Pt turned every 2 hours and assessed for pain. Nursing cares completed as indicated. Sedation weaned as tolerated. Patient monitored for response to intervention and treatments. Education provided to Samira, , includes vent settings and sedation. Samira verbalized understanding.
[2021-01-01 06:39] LABS: Glucose Point of Care 107 mg/dL (70-110)
[2021-01-01] MEDS: levofloxacin-dextrose 5 % 750 MG/150 ML PREMIX 100 MG IV (07:08)
--- NOTE | 2021-01-01 08:30 | PC.SOCIAL ---
IMM Not Updated Pg. 2 of IMM not updated. Patient remains intubated at this time, not anticipated to d/c within the next 48hours.
[2021-01-01] MEDS: budesonide 0.5 mg/2 mL Neb INHALATION ×2 (08:35→20:52)
[2021-01-01] MEDS: lidocaine 5% Patch 1 PATCH TOPICAL ×2 (09:39→21:29)
[2021-01-01] MEDS: cholecalciferol (vitamin D3) 1,000 unit Tablet 2000 UNIT PO (09:40)
[2021-01-01] MEDS: sennosides-docusate Tablet 1 TAB PO (09:40)
[2021-01-01] MEDS: zinc gluconate 50 mg Tablet PO (09:40)
[2021-01-01] MEDS: ascorbic acid 500 mg Tablet 1000 MG PO ×2 (09:40→17:04)
--- NOTE | 2021-01-01 10:08 | PC.NURSE ---
Tube feedings held for 4th proning session.
[2021-01-01] MEDS: cisatracurium 100 MG in sodium chloride 0.9% 50 ML IV (10:38)
[2021-01-01] MEDS: enoxaparin 120 mg/0.8 mL Syringe SUBCUT ×2 (11:10→23:07)
[2021-01-01 11:16] LABS: Glucose Point of Care 111 mg/dL (70-110)
[2021-01-01] MEDS: propofol 1,000 MG/100 ML INJ 44.5 MG IV (11:58)
--- NOTE | 2021-01-01 12:01 | PC.NURSE ---
4th proning session started at this time, x6 staff.
--- NOTE | 2021-01-01 12:59 | PM.PN ---
Subjective Subjective: Interval history: -400 net balance Afebrile White count 10.7 Requested RT and nurse to finish fourth cycle of proning today Epistaxis and hemoptysis improved Hemoglobin stable Tube feed to be resumed, dietary recommendations appreciated Tube feeding was held because of epistaxis yesterday Creatinine improved 1.2 today however urine color is orange-yellow(he did receive Lasix ) CPK improving CRP trending down FiO2 60% tidal volume 480 PEEP 12 Euglycemic This morning Nimbex and Versed were turned off however they will be resumed to finish for cycle of proning No bowel movement in last 5 days Propofol at 40 fentanyl at 100 Vitals/I&O/Wt Last Vital Signs Temp 98.1 F 01/01/21 07:00 Pulse 116 H 01/01/21 11:56 Resp 23 H 01/01/21 11:56 BP 103/55 01/01/21 11:00 Pulse Ox 92 01/01/21 11:56 12/31/20 01/01/21 01/01/21 22:59 06:59 14:59 Intake Total 399.216 / 1140.663 691.785 / 1832.448 551.482 / 551.482 Output Total 1500 / 1500 700 / 2200 Balance -1100.784 / -359.337 -8.215 / -367.552 551.482 / 551.482 Physical Exam Narrative: EXAM NARRATIVE: Patient supine, sedated and intubated Bilateral assisted breath sounds with rhonchi Patient looks fluid overloaded with edema of extremities Terrell urine Abdomen distended with obesity Bowel sounds present, no bowel movement yet Lower extremity no sign of cellulitis, no signs of ischemia or gangrene Neuro exam limited pinpoint pupils Urinary Catheter Management^: Espinosa: Cath Placed During This Visit: yes Reason for Continuing Indwelling Catheter: Accurate Measurement of Urinary Output in Critically Ill Patients Urinary Catheter Date of Insertion: 12/24/20 Urinary Catheter Time of Insertion: 11:00 Data : 01/01/21 03:30 01/01/21 03:30 A&P Assessment and plan (1) Hyperkalemia: Status: Acute (2) Rhabdomyolysis: Status: Acute (3) Goals of care, counseling/discussion: Status: Acute (4) Acute respiratory distress syndrome (ARDS) due to severe acute respiratory syndrome coronavirus 2 (SARS-CoV-2): Status: Acute (5) DVT (deep venous thrombosis): Status: Acute Qualifiers: DVT location: lower extremity Affected thrombotic vein of extremity: other lower extremity vein Chronicity: unspecified Laterality: bilateral Qualified Code(s): I82.493 - Acute embolism and thrombosis of other specified deep vein of lower extremity, bilateral (6) LORRAINE (acute kidney injury): Status: Acute (7) Pneumonia due to severe acute respiratory syndrome coronavirus 2 (SARS-CoV-2): Status: Acute (8) Respiratory failure with hypoxia: Status: Acute Qualifiers: Chronicity: acute Qualified Code(s): J96.01 - Acute respiratory failure with hypoxia Additional A&P Information Persistent hypoxia ARDS Responsive to proning Today he will finish 4th cycles of proning ABG in the morning Today's blood gas was done in supine position Continue Decadron Status post Actemra and remdesivir Continue Lasix to keep him in negative balance Has stayed afebrile cultures negative, leukocytosis improving, cultures negative to date Will discontinue paralytics and decrease sedation to start awakening trials tomorrow morning LORRAINE: Improved with Lasix Tube feeding to be resumed and optimized tomorrow Hyperkalemia: Improved with insulin, Kayexalate regimen yesterday Rhabdomyolysis: Improving DVT: Currently on therapeutic dose of Lovenox Epistaxis and hemoptysis improved Constipation: Anticipating improvement with stool softeners and with discontinuation of paralytics Full code Tube feeding diet Attestations Medical Necessity Statement*: Awakening trial tomorrow continue ICU management Time Spent in Patient Care: 16 - 35 minutes Coding Level of Care Code Acute 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 [facility] Diagnoses Hyperkalemia E87.5 Rhabdomyolysis M62.82 Goals of care, counseling/discussion Z71.89 Acute respiratory distress syndrome (ARDS) due to severe acute respiratory syndrome coronavirus 2 (SARS-CoV-2) U07.1; J80 DVT (deep venous thrombosis) I82.493 DVT location: lower extremity Affected thrombotic vein of extremity: other lower extremity vein Chronicity: unspecified Laterality: bilateral LORRAINE (acute kidney injury) N17.9 Pneumonia due to severe acute respiratory syndrome coronavirus 2 (SARS-CoV-2) U07.1; J12.82 Respiratory failure with hypoxia J96.01 Chronicity: acute
--- NOTE | 2021-01-01 13:17 | PC.NUTR ---
Addendum entered by Lovely Glynn 01/01/21 13:34: Noted poor tolerance per chart and recent bleeding issues. If TF not appropriate, recommend consideration of TPN for nutritional provision. Original Note: Tube feeding recommendation: Verbal order from Dr. Ashley entered to resume Glucerna 1.2 @ 15 ml/hr when current proning session complete, with goal of 30 ml/hr. 120 ml H2O flushes q 4 hrs. Additional 939 kcal/day from propofol and 408 kcal from D5W at current rates. Total kcal (from D5W, propofol, and TF): 2211 kcal/day. Will meet 91% kcal needs, but only 39% protein needs. If propofol not decreased at that time, would continue to suggest Beneprotein QID for additional 24 g protein, and possibly limiting TF to 15 ml/hr to avoid overfeeding. See full RD assessment for further details.
[2021-01-01] MEDS: FUROsemide 10 mg/mL SDV 2mL 20 MG IVP (14:02)
[2021-01-01] MEDS: dexamethasone 4 mg/mL INJ IVP (17:03)
[2021-01-01] MEDS: alum-mag-hydroxide-sime 30 mL UDC PO (17:04)
[2021-01-01] MEDS: bisacodyl 5 mg Tablet 10 MG PO (17:04)
[2021-01-01 18:02] LABS: Glucose Point of Care 137 mg/dL (70-110)
[2021-01-01] MEDS: propofol 1,000 MG/100 ML INJ 26.7 MG IV ×2 (18:18→21:27)
[2021-01-01] MEDS: cisatracurium 100 MG in sodium chloride 0.9% 50 ML 8.9 MG IV (20:45)
[2021-01-01 21:16] LABS: Glucose Point of Care 170 mg/dL (70-110)
[2021-01-02] VITALS (50 sets, daily range): BP systolic 110–178; BP diastolic 72–105; PULSE 73–125; RESP 20–26; TEMP 35.6–37.2; O2SAT 89–96
[2021-01-02] MEDS: propofol 1,000 MG/100 ML INJ 26.7 MG IV ×4 (00:33→10:18)
--- NOTE | 2021-01-02 04:00 | XR_ITS ---
WS: [id number] XR chest 1V portable [id number] REASON FOR EXAM: hypoxia FINDINGS: Endotracheal tube, left internal jugular central venous line, and nasogastric tube remain properly po sitioned. Extensive interstitial and alveolar infiltrative changes, predominating in the left lower lobe. Minim al resolution compared to 12/29/2020. No new findings. XR/XR chest 1V portable [id number] IMPRESSION: Minimal resolution of diffuse pulmonary infiltrates.
[2021-01-02] MEDS: enoxaparin 30 mg/0.3 mL Syringe SUBCUT (04:12)
[2021-01-02 05:04] LABS: Basophils % 0.2 %; Eosinophils # 0.1 10^3/uL (0.0-0.8); Eosinophils % 1.1 %; Hematocrit 41.4 % (42.0-52.0); Hemoglobin 13.4 g/dL (11.7-16.6); Lymphocytes # 0.5 10^3/uL (0.8-4.8); Lymphocytes % 5.4 %; Mean Corpuscular HGB Conc 32.4 g/dL (30.0-36.0); Mean Corpuscular Hemoglobin 31.9 pg (28.0-34.0); Mean Corpuscular Volume 98.6 fl (80-94); Mean Platelet Volume 10.2 fL (7.4-10.4); Monocytes # 0.6 10^3/uL (0.2-0.9); Monocytes % 5.9 %; Neutrophils # 7.56 10^3/uL (1.8-7.7); Neutrophils % 81.6 %; Nucleated Red Blood Cells % 0 %; Platelet Count 193 10^3/cmm (130-400); Red Cell Distribution Width 14.9 % (12.1-15.1); White Blood Count 9.3 10^3/uL (4.0-10.0)
[2021-01-02 05:26] LABS: Blood Urea Nitrogen 68 mg/dL (8-23); C Reactive Protein 22.9 mg/L (0.0-4.9); Calcium 8.1 mg/dL (8.5-10.5); Carbon Dioxide 25 mmol/L (22-29); Chloride 108 mmol/L (98-107); Glomerular Filtration Rate 61.3 mL/min (90-130); Glucose 108 mg/dL (65-115); Magnesium 3.2 mg/dL (1.7-2.3); Osmolality Calculated 316 mOsm/kg (285-295); Phosphorus 4.4 mg/dL (2.5-4.5); Sodium 143 mmol/L (136-145)
[2021-01-02 05:27] LABS: Anion Gap 14.6 (5-19); Potassium 4.6 mmol/L (3.5-5.1)
[2021-01-02 05:28] LABS: Creatine Phosphokinase 656 U/L (39-308)
[2021-01-02 05:58] LABS: ABG PCO2 48.4 mmHg (35-45); ABG PH Result 7.39 (7.35-7.45); Arterial Blood Gas Hematocrit 49.7 % (42-52); Blood Gas Allen Test Pos; Blood Gas Operator Identificat JB; Blood Gas Sample Site Radial, right; Blood Gas Sample Type Arterial; Blood Gas Tidal Volume 0.48; HCO3 ABG 29.1 mmol/L (22-26); Oxygen Device VENT; PO2 ABG 73.9 mmHg (80.0-100.0)
[2021-01-02 06:11] LABS: Slide Review Slide Review Perform
[2021-01-02] MEDS: levofloxacin-dextrose 5 % 750 MG/150 ML PREMIX 100 MG IV (07:16)
[2021-01-02] MEDS: ipratropium-albuterol 3 mL Neb INHALATION ×5 (08:24→23:09)
[2021-01-02] MEDS: budesonide 0.5 mg/2 mL Neb INHALATION ×2 (08:24→20:24)
--- NOTE | 2021-01-02 08:48 | PC.CHAP ---
Pastoral Care Encounter/Spiritual Assessment Type of Contact [] Declined proofsheet corrector visit [] Patient/Family/Request visit [] Outpatient visit [] Follow-up visit [] Physician referral [] Code/Alert [x] Routine visit [] Staff referral [] Actively dying [] Patient sleeping [] Family support [] [] Out of room [] Palliative care [] [x] Receiving care in room [] Pre-surgical visit [] Trauma [] Long length of stay [x] ICU visit [] Other: Relational/Emotional Strength [] Patient feels connected with others/family/visitors/staff [] Distress [] Loneliness/isolation [] Abandonment Spirituality of Patient [] Person of Katharine [] Attends Caodaism of their Katharine [] Believes in Prayer [] Reads Bible or Pentecostalism materials [] There are Spiritual issues to be addressed Transport Aide Interventions [x] Prayer [] Active listening [] Non-anxious presence [] Spiritual/emotional support [] Crisis/trauma care [] Spiritual counseling [] Bereavement support [] Provided bereavement packet [] Provided Bible/devotional materials [] Provided toy/stuffed animal, coloring book to patient or family member [] Provided Communion [] Anointing/[place] [] Salvation [x] Completed spiritual assessment [] Other: Impact on Illness or Injury [] Angry [] Fearful [] Anxious [] Often cries [] Exhaustion [] Unable to work [] Unable to attend baptism [] Unable to walk/stand [] Unable to read [] Unable to drive [] Unable to eat/drink [] Unable to sleep [] Unable to be with family [] Patient intubated [] Other: Summary Time spent with patient
[2021-01-02] MEDS: ascorbic acid 500 mg Tablet 1000 MG PO ×2 (10:11→17:34)
[2021-01-02] MEDS: cholecalciferol (vitamin D3) 1,000 unit Tablet 2000 UNIT PO (10:11)
[2021-01-02] MEDS: lidocaine 5% Patch 1 PATCH TOPICAL ×2 (10:12→20:27)
[2021-01-02] MEDS: zinc gluconate 50 mg Tablet PO (10:12)
[2021-01-02] MEDS: enoxaparin 120 mg/0.8 mL Syringe SUBCUT (10:12)
[2021-01-02] MEDS: sennosides-docusate Tablet 1 TAB PO (10:12)
[2021-01-02] MEDS: albumin 12.5 GM/250 ML VIAL IV (11:00)
[2021-01-02] MEDS: lactulose oral liq 20 gm/30 mL UDC 10 GM PO ×2 (11:25→17:33)
[2021-01-02 12:51] LABS: Glucose Point of Care 118 mg/dL (70-110)
--- NOTE | 2021-01-02 13:18 | PC.NUTR ---
Nutrition note: Received verbal order from Dr. Ashley to increase TF rate, as pt has completed proning sessions. Propofol rate noted to be decreasing, currently at 14.1 ml/hr and providing 372 kcal. Have modified TF order to Glucerna 1.2, goal rate of 40 ml/hr, with 120 ml H2O flushes q 4, to provide 1152 kcal, 58 g protein, and 1493 ml. Will follow up tomorrow and recommend further increases to better meet nutritional needs as appropriate. See nutrition reassessment completed 01/01/21 for further details.
[2021-01-02] MEDS: propofol 1,000 MG/100 ML INJ 22.25 MG IV (14:23)
[2021-01-02] MEDS: FUROsemide 10 mg/mL SDV 2mL 20 MG IVP (14:23)
[2021-01-02 17:17] LABS: Glucose Point of Care 167 mg/dL (70-110)
--- NOTE | 2021-01-02 17:24 | PC.NURSE ---
Late note: at 0830, patient was placed supine. Respuratory therapy and 4 nurses assisted with turn. reposition was uneventful.
--- NOTE | 2021-01-02 17:24 | PC.NURSE ---
Central line dressing has become saturated with blood. Difficult to estimate as some has leaked out of the dressing. Nurse is approximating 20-[address] Ashley and received orders to hold 1630 lovenox.
[2021-01-02] MEDS: dexamethasone 4 mg/mL INJ 2 MG IVP (17:32)
--- NOTE | 2021-01-02 17:44 | P.PN_ITS ---
Subjective Subjective: Interval history: Patient in negative neck tolerance blood-tinged urine blood noticed around central line status post 4 cycles of proning sedation vacation, awakening trials no further epistaxis or hemoptysis no bowel movement yet added lactulose given albumin with Lasix today held Lovenox secondary to oozing of blood around central line PO2 73 on 60% FiO2 creatinine improved, CPK improving no further electrolyte imbalances noted CRP 22 Vitals/I&O/Wt Last Vital Signs Temp 97.9 F 01/02/21 13:00 Pulse 100 01/02/21 15:23 Resp 20 H 01/02/21 15:09 BP 149/90 01/02/21 14:30 Pulse Ox 90 01/02/21 15:09 01/02/21 01/02/21 01/02/21 06:59 14:59 22:59 Intake Total 173.105 / 1218.147 443.615 / 443.615 418.541 / 862.156 Output Total 1124 250 / 250 Balance -951.895 / -806.853 193.615 / 193.615 418.541 / 612.156 Physical Exam Narrative: EXAM NARRATIVE: Intubated and sedated bilateral assisted breath sounds abdomen nondistended bowel sounds sluggish but present lower extremity trace edema blood-tinged urine blood around Enterline endotracheal tube size 8 at 29 cm FiO2 60% neuro exam limited Urinary Catheter Management^: Espinosa: Cath Placed During This Visit: yes Reason for Continuing Indwelling Catheter: Accurate Measurement of Urinary Output in Critically Ill Patients Urinary Catheter Date of Insertion: 12/24/20 Urinary Catheter Time of Insertion: 11:00 Data : 01/02/21 04:27 01/02/21 04:27 A&P Assessment and plan (1) Rhabdomyolysis: Status: Acute (2) Goals of care, counseling/discussion: Status: Acute (3) Acute respiratory distress syndrome (ARDS) due to severe acute respiratory syndrome coronavirus 2 (SARS-CoV-2): Status: Acute (4) DVT (deep venous thrombosis): Status: Acute Qualifiers: DVT location: lower extremity Affected thrombotic vein of extremity: other lower extremity vein Chronicity: unspecified Laterality: bilateral Joaquin lified Code(s): I82.493 - Acute embolism and thrombosis of other specified deep vein of lower extremity, bilateral (5) LORRAINE (acute kidney injury): Status: Acute (6) Pneumonia due to severe acute respiratory syndrome coronavirus 2 (SARS-CoV-2): Status: Acute (7) Respiratory failure with hypoxia: Status: Acute Qualifiers: Chronicity: acute Qualified Code(s): J96.01 - Acute respiratory failure with hypoxia (8) Uremia: Status: Acute Additional A&P Information Persistent hypoxia related to COVID-19 ARDS P to F ratio improved with 4 cycles of proning sedation vacation off paralytics awakening trials status post Actemra, remdesivir reduce Decadron dose discontinue empirical Levaquin he has been afebrile no growth on cultures Hypoalbuminemia 1 dose of albumin today Blood-tinged urine and oozing of blood around central line: Hold therapeutic Lovenox dose today repeat H&H no further epistaxis or hemoptysis hemoglobin stable DVT: Holding Lovenox for tonight LORRAINE: Improved with Lasix Rhabdomyolysis: Improved Hypocalcemia: Corrected calcium albumin ll be normal Start tube feeding today and optimize full code and daughter in agreement if we need to do tracheostomy placed PEG tube and plan for LTAC in case there is difficulty in extubation plan devised with the help of marketing senior recruiter Attestations Medical Necessity Statement*: Continue medical management Time Spent in Patient Care: 16 - 35 minutes Coding Level of Care Code Acute Product Distribution Specialist for [facility] [facility] Diagnoses Rhabdomyolysis M62.82 Goals of care, counseling/discussion Z71.89 Acute respiratory distress syndrome (ARDS) due to severe acute respiratory syndrome coronavirus 2 (SARS-CoV-2) U07.1; J80 DVT (deep venous thrombosis) I82.493 DVT location: lower extremity Affected thrombotic vein of extremity: other lower extremity vein Chronicity: unspecified Laterality: bilateral LORRAINE (acute kidney injury) N17.9 Pneumonia due to severe acute respiratory syndrome coronavirus 2 (SARS-CoV-2) U07.1; J12.82 Respiratory failure with hypoxia J96.01 Chronicity: acute Uremia N19
--- NOTE | 2021-01-02 18:40 | P.PN_ITS ---
Subjective Subjective: Interval history: -Patient seen in supine position today -Completed 4 proning sessions and currently requiring 60% FiO2 -Plan is to taper down paralytic and sedation and do awakening trial -Labs and imaging reviewed Medications: Reviewed: Yes Vitals/I&O/Wt Last Vital Signs Temp 98.2 F 01/02/21 17:30 Pulse 118 H 01/02/21 17:30 Resp 21 H 01/02/21 17:47 BP 145/89 01/02/21 17:30 Pulse Ox 92 01/02/21 17:47 01/02/21 01/02/21 01/02/21 06:59 14:59 22:59 Intake Total 173.105 / 1218.147 443.615 / 443.615 418.541 / 862.156 Output Total 1124 250 / 250 1150 / 1400 Balance -951.895 / -806.853 193.615 / 193.615 -731.459 / -537.844 Physical Exam Narrative: EXAM NARRATIVE: General: Lying in bed, sedated and intubated. HEENT:NCAT, PERRLA, EOMI Neck: Supple Lungs: Bilateral coarse crepitations Heart: s1/s2, RRR Abd: soft, NT, ND, BS + Normoactive Extremities: No edema COMMISSARY PRODUCTION SUPERVISOR: sedated and limited COMMISSARY PRODUCTION SUPERVISOR exam possible. SKIN: no rash LDA: # CVC: Left internal jugular vein 12/28/2020 # Espinosa: 12/24/2020 Urinary Catheter Management^: Espinosa: Cath Placed During This Visit: yes Reason for Continuing Indwelling Catheter: Accurate Measurement of Urinary Output in Critically Ill Patients Urinary Catheter Date of Insertion: 12/24/20 Urinary Catheter Time of Insertion: 11:00 Data : 01/02/21 04:27 01/02/21 04:27 Other Labs: Laboratory Results WBC 9.3 10^3/uL (4.0-10.0) 01/02/21 04:27 Corrected WBC Cancelled 12/30/20 03:40 RBC 4.20 10^6/uL (4.1-5.3) 01/02/21 04:27 Hgb 13.4 g/dL (11.7-16.6) 01/02/21 04:27 Hct 41.4 % (42.0-52.0) L 01/02/21 04:27 MCV 98.6 fl (80-94) H 01/02/21 04:27 MCH 31.9 pg (28.0-34.0) 01/02/21 04:27 MCHC 32.4 g/dL (30.0-36.0) 01/02/21 04:27 RDW 14.9 % (12.1-15.1) 01/02/21 04:27 Plt Count 193 10^3/cmm (130-400) 01/02/21 04:27 MPV 10.2 fL (7.4-10.4) 01/02/21 04:27 Gran % Cancelled 12/30/20 03:40 Neut % (Auto) 81.6 % 01/02/21 04:27 Lymph % (Auto) 5.4 % 01/02/21 04:27 [facility] % (Auto) 5.9 % 01/02/21 04:27 Eos % (Auto) 1.1 % 01/02/21 04:27 Baso % (Auto) 0.2 % 01/02/21 04:27 Neut # (Auto) 7.56 10^3/uL (1.8-7.7) 01/02/21 04:27 Lymph # (Auto) 0.5 10^3/uL (0.8-4.8) L 01/02/21 04:27 [facility] # (Auto) 0.6 10^3/uL (0.2-0.9) 01/02/21 04:27 Eos # (Auto) 0.1 10^3/uL (0.0-0.8) 01/02/21 04:27 Baso # (Auto) 0.0 10^3/uL (0.0-0.1) 01/02/21 04:27 Absolute Gran (auto) Cancelled 12/30/20 03:40 Nucleated RBC % (auto) 0 % 01/02/21 04:27 Nucleated RBCs # 0.0 /100WBC 01/02/21 04:27 ESR 13 mm/hr (0-10) H 12/27/20 05:30 PT 14.90 SECONDS (12.1-14.9) 12/24/20 04:57 INR 1.14 (0.8-1.2) 12/24/20 04:57 APTT 30.4 SECONDS (23.9-36.7) 12/24/20 04:57 D-Dimer > 20.00 ug/mIFEU (0-0.59) H 12/27/20 05:30 Specimen Type Arterial 01/02/21 05:40 Sample Site Radial, right 01/02/21 05:40 ABG pH 7.39 (7.35-7.45) 01/02/21 05:40 ABG pCO2 48.4 mmHg (35-45) H 01/02/21 05:40 ABG pO2 73.9 mmHg (80.0-100.0) L 01/02/21 05:40 ABG HCO3 29.1 mmol/L (22-26) H 01/02/21 05:40 ABG O2 Saturation 92.6 12/31/20 13:05 ABG Base Excess 3.0 mmol/L (-2.0-2.0) H 01/02/21 05:40 Luke Test Pos 01/02/21 05:40 A-a O2 Gradient 38.6 mmHg (5-10) H 12/31/20 13:05 Hematocrit 49.7 % (42-52) 01/02/21 05:40 Hgb O2 Saturation 90.7 % (95-100) L 12/31/20 13:05 Carboxyhemoglobin 1.0 %THgb (0.4-20.1) 12/31/20 13:05 Methemoglobin 1.1 % (0.4-1.5) 12/31/20 13:05 Total Hemoglobin 15.5 g/dL (14-18) 12/31/20 13:05 Sodium 143.0 mmol/L (131-143) 12/31/20 13:05 Potassium 4.7 mmol/L (3.5-5.0) 12/31/20 13:05 Glucose 136.0 mg/dL (70-115) H 12/31/20 13:05 Ionized Calcium 1.2 mmol/L (1.1-1.4) 12/31/20 13:05 O2 Delivery Device Vent 01/02/21 05:40 O2 Liters/Min 50.0 % 12/23/20 11:23 Mechanical Rate 26.0 12/29/20 17:45 FiO2 60.0 % 01/02/21 05:40 Tidal Volume 0.48 01/02/21 05:40 PEEP 12.0 cmH20 01/02/21 05:40 Medical Screener ID Albert 01/02/21 05:40 Sodium 143 mmol/L (136-145) 01/02/21 04:27 Potassium 4.6 mmol/L (3.5-5.1) 01/02/21 04:27 Chloride 108 mmol/L (98-107) H 01/02/21 04:27 Carbon Dioxide 25 mmol/L (22-29) 01/02/21 04:27 Anion Gap 14.6 (5-19) 01/02/21 04:27 BUN 68 mg/dL (8-23) H 01/02/21 04:27 Creatinine 1.2 mg/dL (0.7-1.2) 01/02/21 04:27 GFR Calculation 61.3 mL/min (90-130) L 01/02/21 04:27 Glucose 108 mg/dL (65-115) 01/02/21 04:27 POC Glucose 167 mg/dL (70-110) H 01/02/21 17:07 Calculated Osmolality 316 mOsm/kg (285-295) H 01/02/21 04:27 Lactic Acid 1.7 mmol/L (0.5-2.2) 12/23/20 11:05 Uric Acid 7.0 mg/dL (3.4-7.0) 12/25/20 14:00 Calcium 8.1 mg/dL (8.5-10.5) L 01/02/21 04:27 Phosphorus 4.4 mg/dL (2.5-4.5) 01/02/21 04:27 Magnesium 3.2 mg/dL (1.7-2.3) H 01/02/21 04:27 Ferritin 5395 ng/mL (30-400) H 12/27/20 05:30 Total Bilirubin 0.6 mg/dL (0.15-1.2) 12/26/20 03:55 AST 54 U/L (0-40) H 12/26/20 03:55 ALT 33 U/L (0-41) 12/26/20 03:55 Alkaline Phosphatase 115 IU/L (40-130) 12/26/20 03:55 Lactate Dehydrogenase 1234 U/L (135-225) H 12/27/20 05:30 Creatine Kinase 656 U/L (39-308) H* 01/02/21 04:27 Troponin T Baseline 14 ng/L (0-15) 12/23/20 11:05 Troponin T 120 Minute 12.13 ng/L (0-15) 12/23/20 15:04 Delta Troponin T -1.87 ABS# (0-10) L 12/23/20 15:04 Troponin T Hi Sens 6Hr 12.32 ng/L (0-15) 12/23/20 17:00 Troponin T Hi Sens 6Hr Delta -1.68 ng/L (0-12) L 12/23/20 17:00 C-Reactive Protein 22.9 mg/L (0.0-4.9) H 01/02/21 04:27 NT-Pro-B Natriuret Pep 149 pg/mL (0-125) H 12/26/20 03:55 Total Protein 5.6 g/dL (6.6-8.7) L 12/26/20 03:55 Albumin 2.9 g/dL (3.5-5.2) L 12/26/20 03:55 Globulin 2.7 g/dL (1.3-4.6) 12/26/20 03:55 Procalcitonin 0.37 ng/mL (0-0.5) 12/30/20 06:06 TSH 1.82 uIU/mL (0.27-4.20) 12/25/20 14:00 Urine Color Dark yellow (Yellow) 12/25/20 14:00 Urine Appearance Cloudy (CLEAR) 12/25/20 14:00 Urine pH 5 (5-7) 12/25/20 14:00 Ur Specific [place] 1.025 (1.005-1.030) 12/25/20 14:00 Urine Protein 1+ (Negative) H 12/25/20 14:00 Urine Glucose (UA) Norm (Normal) 12/25/20 14:00 Urine Ketones Negative (Negative) 12/25/20 14:00 Urine Blood 3+ (Negative) H 12/25/20 14:00 Urine Nitrate Negative (Negative) 12/25/20 14:00 Urine Bilirubin 1+ (Negative) H 12/25/20 14:00 Urine Urobilinogen 4 mg/dL (Negative) H 12/25/20 14:00 Ur Leukocyte Esterase Trace (Negative) H 12/25/20 14:00 Urine RBC 40-50 /hpf (0-2) H 12/25/20 14:00 Urine WBC 15-25 /hpf (0-5) H 12/25/20 14:00 Ur Squamous Epith Cells Rare /hpf (0-5) 12/25/20 14:00 Amorphous Sediment 2+ /hpf 12/25/20 14:00 Urine Bacteria 4+ /hpf (NONE) H 12/25/20 14:00 Coarse Granular Casts 10-15 /lpf H 12/25/20 14:00 Urine Mucus 1+ /hpf 12/25/20 14:00 Ur Random Sodium 13 mmol/L 12/25/20 14:00 Ur Random Potassium 74 mmol/L 12/25/20 14:00 Ur Random Chloride < 10 mmol/L 12/25/20 14:00 Urine Creatinine 231 mg/dL (39-259) 12/25/20 14:00 Impressions Chest CTA 12/23/20 16:32 IMPRESSION: 1. No visible evidence of pulmonary embolism/pulmonary arterial thrombus. 2. Advanced and extensive bilateral mixed ground-glass interstitial lung disease and patches of consolidated alveolar airspace disease of active pneumonitis/pneumonia. 3. Evidence also of air trapping of COPD/chronic bronchitis. 4. Prominent mediastinal and hilar lymph nodes believed reactive in nature. Radiation Dose CTDIVOL = (mGy): DLP = 617.12 (mGy-cm) Venous Duplex 12/25/20 07:58 IMPRESSION: 1. Partial thrombosis of bilateral greater saphenous veins. 2. Questionable thrombus seen within an unnamed intramuscular vein in the left calf. Renal Ultrasound 12/26/20 10:56 IMPRESSION: 1. No hydronephrosis. 2. Possible small echogenic lesion in the mid right kidney. This could represent a small angiomyolipoma. Recommend follow-up CT abdomen to further assess. This could be obtained on a nonemergent basis. Chest X-Ray 01/02/21 04:00 IMPRESSION: Minimal resolution of diffuse pulmonary infiltrates. A&P Assessment and plan (1) Respiratory failure with hypoxia: Status: Acute Qualifiers: Chronicity: acute Qualified Code(s): J96.01 - Acute respiratory failure with hypoxia (2) Acute respiratory distress syndrome (ARDS) due to severe acute respiratory syndrome coronavirus 2 (SARS-CoV-2): Status: Acute (3) DVT (deep venous thrombosis): Status: Acute Qualifiers: DVT location: lower extremity Affected thrombotic vein of extremity: other lower extremity vein Chronicity: unspecified Laterality: bilateral Qualified Code(s): I82.493 - Acute embolism and thrombosis of other specified deep vein of lower extremity, bilateral (4) LORRAINE (acute kidney injury): Status: Acute #Acute hypoxic respiratory failure secondary to ARDS due to COVID-19 pneumonia #Partial thrombosis of bilateral great saphenous veins and questionable thrombus seen on unnamed intramuscular Vein in the left calf #LORRAINE-resolved -Symptoms started 12/15/2020: Rapid antigen 12/23/2020 -Intubated 12/27/2020-currently on mechanical ventilator sedated with propofol, fentanyl, Versed, paralyzed with Nimbex and completed 4 sessions of proning-On CMV 480/12/60 % FiO2 ABG 7.3 /73/29/90% -Taper off paralytic, Versed and fentanyl and do awakening trial -1 dose Actemra 12/24/2020; completed 5 doses of remdesivir -Currently on dexamethasone 10 mg daily started 12/23/2020-discontinue -Downtrending CRP -On DuoNeb and Pulmicort scheduled nebulizations -So far cultures negative, Initial pro Aung 0.56 on admission and later 2.26 could be secondary to LORRAINE - -On empiric Levaquin started 12/28/2020-discontinue -LORRAINE resolved and renal signed off for now -Overall net +5.6 L-plan is to keep patient net negative and monitor electrolytes-we will give 1 dose of albumin and Lasix 20 mg and assess daily -On Lovenox 120 units units twice daily for DVT-CTA negative for PE on admission; Blood-tinged urine and oozing of blood around central line: H&H stable,-check evening H&H until then hold Lovenox -Glucerna feeding 30 mL/h while supine; bowel regimen senna/docusate; added lactulose 10 mg twice daily -Sugars well controlled-on scale coverage -DVT prophylaxis: Currently held Lovenox -PPI for GI prophylaxis -Full code -Family updated by hospitalist -Continue to monitor for fluid balance, electrolytes, hemodynamics, secondary infections Recommendations conveyed to hospitalist, RN, taking care of the patient Attestations Medical Necessity Statement*: acute hypoxic respiratory failure secondary to ARDS due to COVID-19 pneumonia requiring mechanical ventilation and continue with 16 hours proning sessions at least 4 sessions; coexisting DVT on therapeutic anticoagulation Time Spent in Patient Care: Greater than 35 minutes (>than 50% of time spent in counselling and/or direct pt care on unit) . Critical Care Time: The high probability of a clinically significant, sudden or life threatening deterioration of the patient's [pulmonary, renal, vascular] system(s) required my full and direct attention, intervention and personal management. The critical care time is as shown. This time is in addition to time spent performing any reported procedures but includes the following: [x] Data and vital sign review and interpretation [x] Patient assessment, examination and intervention [x] Documentation [x] Medication orders and management Critical Care Time (min): 45 Coding Level of Care Code Established Pt Acute Loan Processor for g Fwd Patient Type Established History Comprehensive Exam Comprehensive Medical Decision Making High Complexity Diagnoses Respiratory failure with hypoxia J96.01 Chronicity: acute Acute respiratory distress syndrome (ARDS) due to severe acute respiratory syndrome coronavirus 2 (SARS-CoV-2) U07.1; J80 DVT (deep venous thrombosis) I82.493 DVT location: lower extremity Affected thrombotic vein of extremity: other lower extremity vein Chronicity: unspecified Laterality: bilateral LORRAINE (acute kidney injury) N17.9 Time Spent (min) 45
[2021-01-02 19:01] LABS: Hematocrit 42.2 % (42.0-52.0); Hemoglobin 13.4 g/dL (11.7-16.6)
--- NOTE | 2021-01-02 19:10 | PC.NURSE ---
Shift Note Frequent safety and comfort rounds continue. Orders and/or nursing care completed as indicated. Patient monitored for response to intervention and treatment. Shift SUmmary: Patient was placed supine at 0830 this morning. Nimbex and versed were discontinued. Sedation vacation started. As of 1400, only sedation going is 25mcg/hr of fentanyl. Patient is becoming slightly more active, but is still unable to follow commands by the end of day shift 01/02/2021. Patient has been bleeding small amounts from from his central line but requiring requiring multiple dressing changes over time. Bleeds approximately 20-30 mL every 3 hours. Lovenox was discontinued.
[2021-01-02 20:34] LABS: Glucose Point of Care 170 mg/dL (70-110)
[2021-01-03] VITALS (34 sets, daily range): BP systolic 93–155; BP diastolic 54–91; PULSE 65–129; RESP 20–33; TEMP 36.9–38.3; O2SAT 86–95
[2021-01-03] MEDS: ipratropium-albuterol 3 mL Neb INHALATION ×6 (03:15→23:58)
[2021-01-03 03:25] LABS: ABG PCO2 44.4 mmHg (35-45); ABG PH Result 7.43 (7.35-7.45); Arterial Blood Gas Hematocrit 41.7 % (42-52); Blood Gas Allen Test Pos; Blood Gas Sample Site Radial, right; Blood Gas Sample Type Arterial; Blood Gas Tidal Volume 0.48; HCO3 ABG 29.1 mmol/L (22-26); Oxygen Device VENT; PO2 ABG 51.6 mmHg (80.0-100.0)
[2021-01-03 06:04] LABS: Basophils % 0.3 %; Eosinophils # 0.1 10^3/uL (0.0-0.8); Eosinophils % 1.2 %; Hematocrit 42.3 % (42.0-52.0); Hemoglobin 12.9 g/dL (11.7-16.6); Lymphocytes # 0.5 10^3/uL (0.8-4.8); Lymphocytes % 4.9 %; Mean Corpuscular HGB Conc 30.5 g/dL (30.0-36.0); Mean Corpuscular Hemoglobin 30.8 pg (28.0-34.0); Mean Platelet Volume 10.1 fL (7.4-10.4); Monocytes % 9.5 %; Neutrophils # 8.35 10^3/uL (1.8-7.7); Neutrophils % 82.1 %; Nucleated Red Blood Cells % 0.2 %; Platelet Count 152 10^3/cmm (130-400); Red Blood Count 4.19 10^6/uL (4.1-5.3); Red Cell Distribution Width 15.5 % (12.1-15.1); White Blood Count 10.2 10^3/uL (4.0-10.0)
[2021-01-03 06:14] LABS: INR 1.06 (0.8-1.2)
[2021-01-03 06:16] LABS: Fibrinogen 321 mg/dL (174-498)
[2021-01-03 06:18] LABS: Alanine Aminotransferase 79 U/L (0-41); Albumin Level 3.1 g/dL (3.5-5.2); Alkaline Phosphatase 142 IU/L (40-130); Anion Gap 13.6 (5-19); Aspartate Amino Transferase 63 U/L (0-40); Blood Urea Nitrogen 72 mg/dL (8-23); C Reactive Protein 25.9 mg/L (0.0-4.9); Calcium 8.4 mg/dL (8.5-10.5); Carbon Dioxide 27 mmol/L (22-29); Chloride 109 mmol/L (98-107); Globulin 2.5 g/dL (1.3-4.6); Glomerular Filtration Rate 61.3 mL/min (90-130); Glucose 137 mg/dL (65-115); Osmolality Calculated 323 mOsm/kg (285-295); Potassium 4.6 mmol/L (3.5-5.1); Sodium 145 mmol/L (136-145); Total Bilirubin 1.1 mg/dL (0.15-1.2); Total Protein 5.6 g/dL (6.6-8.7)
[2021-01-03 06:25] LABS: D Dimer 5.27 ug/mIFEU (0-0.59)
[2021-01-03 08:02] LABS: Glucose Point of Care 146 mg/dL (70-110)
[2021-01-03] MEDS: lactulose oral liq 20 gm/30 mL UDC 10 GM PO ×2 (08:06→17:14)
[2021-01-03] MEDS: zinc gluconate 50 mg Tablet PO (08:06)
[2021-01-03] MEDS: cholecalciferol (vitamin D3) 1,000 unit Tablet 2000 UNIT PO (08:06)
[2021-01-03] MEDS: sennosides-docusate Tablet 1 TAB PO (08:06)
[2021-01-03] MEDS: ascorbic acid 500 mg Tablet 1000 MG PO ×2 (08:06→17:14)
[2021-01-03] MEDS: lidocaine 5% Patch 1 PATCH TOPICAL (08:07)
--- NOTE | 2021-01-03 08:29 | ECG_ITS ---
[facility] Test Date: 2021-01-03 Pat Name: Eric Ramires Department: Room: ICU11 Gender: Male Occupational Therapist: : [id number] Requested By: Tim Ashley Order Number: [id number] Jaxon MD: Britany Teran M.D. Measurements Intervals Zimmerman Rate: 128 P: 47 MD: 163 QRS: 34 QRSD: 97 T: 20 QT: 404 QTc: 591 Interpretive Statements SINUS TACHYCARDIA MODERATE T-WAVE ABNORMALITY, CONSIDER INFERIOR ISCHEMIA [-0.1+ mV T-WAVE IN II/aVF] Compared to ECG 12/23/2020 17:52:14 T-wave abnormality now present Possible ischemia now present Sinus rhythm no longer present Ventricular premature complex(es) no longer present Electronically Signed On 01-03-2021 23:49:47 CDT by Britany Tearn M.D. [id number]
--- NOTE | 2021-01-03 09:28 | PC.NURSE ---
Patient's called for an update, nurse was tending to another patient and unable to get to the phone. Nurse attempted to call back, no answer.
[2021-01-03] MEDS: budesonide 0.5 mg/2 mL Neb INHALATION ×2 (09:35→19:47)
[2021-01-03] MEDS: enoxaparin 120 mg/0.8 mL Syringe SUBCUT ×2 (10:47→22:01)
[2021-01-03] MEDS: dexmedeTOMIDine 0.9 % NaCL 400 MCG/100 ML PREMIX IV (10:48)
--- NOTE | 2021-01-03 12:02 | PC.NUTR ---
Addendum entered by Lovely Glynn 01/03/21 12:52: Received order from Dr. Ashley to increase to 70 ml/hr as tolerated--have entered. Decreased H2O flushes to 50 ml q 4 hr to avoid fluid overload per MD request. Glucerna 1.2 @ 70 ml/hr with 50 ml H2O flush q 4 hrs to provide 2016 kcal, 101 g protein, and 1652 ml H2O. Original Note: Tube feeding recommendations: Glucerna 1.2 at 40 ml/hr with 120 ml H2O flushes q 4 hrs providing 1152 kcal, 58 g protein, and 1493 ml H2O.(<50% estimated kcal needs, and approx 53% protein needs.) Propofol providing 235 kcal/day at 8.9 ml/hr--nurse states not like to require propofol for extended time. 41 lb weight loss noted since 12/23/20--question accuracy. Recommend increase by 10 ml/hr q 8 hrs as tolerated to 70 ml/hr, to provide 2016 kcal, 101 g protein, and 2072 ml H2O. See full RD assessment for further details.
--- NOTE | 2021-01-03 13:00 | P.PN_ITS ---
Subjective Subjective: Interval history: -Patient seen multiple times at bedside today -Off sedation-opening eyes to deep stimuli -Currently on FiO2 60% on ventilator -Plan is to keep off sedation and do awakening trial -If agitated can start on Precedex and add propofol if needed, try to avoid o piates and benzodiazepines -[place] 5-325 twice daily for opiate withdrawal and pain -Labs and imaging reviewed Medications: Reviewed: Yes Vitals/I&O/Wt Last Vital Signs Temp 99.9 F H 01/03/21 08:00 Pulse 120 H 01/03/21 11:26 Resp 30 H 01/03/21 11:26 BP 136/87 01/03/21 08:00 Pulse Ox 90 01/03/21 11:26 01/02/21 01/03/21 01/03/21 22:59 06:59 14:59 Intake Total 429.541 / 873.156 550.267 / 1423.423 21.329 / 21.329 Output Total 1150 / 1400 1300 / 2700 Balance -720.459 / -526.844 -749.733 / -1276.577 21.329 / 21.329 Weight last 48 hrs Weight 286 lb 9.6 oz Weight 286 lb 9.6 oz Physical Exam Narrative: EXAM NARRATIVE: General: Lying in bed, sedated and intubated. HEENT:NCAT, PERRLA, EOMI Neck: Supple Lungs: Bilateral coarse crepitations Heart: s1/s2, RRR Abd: soft, NT, ND, BS + Normoactive Extremities: No edema STAFF DEVELOPMENT EDUCATOR: sedated and limited STAFF DEVELOPMENT EDUCATOR exam possible. SKIN: no rash LDA: # CVC: Left internal jugular vein 12/28/2020 # Espinosa: 12/24/2020 Urinary Catheter Management^: Espinosa: Cath Placed During This Visit: yes Reason for Continuing Indwelling Catheter: Accurate Measurement of Urinary Out put in Critically Ill Patients Urinary Catheter Date of Insertion: 12/24/20 Urinary Catheter Time of Insertion: 11:00 Data : 01/03/21 05:29 01/03/21 05:29 Other Labs: Laboratory Results WBC 10.2 10^3/uL (4.0-10.0) H 01/03/21 05:29 Corrected WBC Cancelled 12/30/20 03:40 RBC 4.19 10^6/uL (4.1-5.3) 01/03/21 05:29 Hgb 12.9 g/dL (11.7-16.6) 01/03/21 05:29 Hct 42.3 % (42.0-52.0) 01/03/21 05:29 MCV 101.0 fl (80-94) H 01/03/21 05:29 MCH 30.8 pg (28.0-34.0) 01/03/21 05:29 MCHC 30.5 g/dL (30.0-36.0) D 01/03/21 05:29 RDW 15.5 % (12.1-15.1) H 01/03/21 05:29 Plt Count 152 10^3/cmm (130-400) 01/03/21 05:29 MPV 10.1 fL (7.4-10.4) 01/03/21 05:29 Gran % Cancelled 12/30/20 03:40 Neut % (Auto) 82.1 % 01/03/21 05:29 Lymph % (Auto) 4.9 % 01/03/21 05:29 Gem % (Auto) 9.5 % 01/03/21 05:29 Eos % (Auto) 1.2 % 01/03/21 05:29 Baso % (Auto) 0.3 % 01/03/21 05:29 Neut # (Auto) 8.35 10^3/uL (1.8-7.7) H 01/03/21 05:29 Lymph # (Auto) 0.5 10^3/uL (0.8-4.8) L 01/03/21 05:29 Gem # (Auto) 1.0 10^3/uL (0.2-0.9) H 01/03/21 05:29 Eos # (Auto) 0.1 10^3/uL (0.0-0.8) 01/03/21 05:29 Baso # (Auto) 0.0 10^3/uL (0.0-0.1) 01/03/21 05:29 Absolute Gran (auto) Cancelled 12/30/20 03:40 Nucleated RBC % (auto) 0.2 % 01/03/21 05:29 Nucleated RBCs # 0.0 /100WBC 01/03/21 05:29 ESR 13 mm/hr (0-10) H 12/27/20 05:30 PT 14.10 SECONDS (12.1-14.9) 01/03/21 05:29 INR 1.06 (0.8-1.2) 01/03/21 05:29 APTT 34.0 SECONDS (23.9-36.7) 01/03/21 05:29 Fibrinogen 321 mg/dL (174-498) 01/03/21 05:29 Fibrin Degrad Products Pos, 10-40 ug/mL (NEG) H 01/03/21 05:29 D-Dimer 5.27 ug/mIFEU (0-0.59) H 01/03/21 05:29 Specimen Type Arterial 01/03/21 03:15 Sample Site Radial, right 01/03/21 03:15 ABG pH 7.43 (7.35-7.45) 01/03/21 03:15 ABG pCO2 44.4 mmHg (35-45) 01/03/21 03:15 ABG pO2 51.6 mmHg (80.0-100.0) L 01/03/21 03:15 ABG HCO3 29.1 mmol/L (22-26) H 01/03/21 03:15 ABG O2 Saturation 92.6 12/31/20 13:05 ABG Base Excess 4.0 mmol/L (-2.0-2.0) H 01/03/21 03:15 Luke Test Pos 01/03/21 03:15 A-a O2 Gradient 38.6 mmHg (5-10) H 12/31/20 13:05 Hematocrit 41.7 % (42-52) L 01/03/21 03:15 Hgb O2 Saturation 90.7 % (95-100) L 12/31/20 13:05 Carboxyhemoglobin 1.0 %THgb (0.4-20.1) 12/31/20 13:05 Methemoglobin 1.1 % (0.4-1.5) 12/31/20 13:05 Total Hemoglobin 15.5 g/dL (14-18) 12/31/20 13:05 Sodium 143.0 mmol/L (131-143) 12/31/20 13:05 Potassium 4.7 mmol/L (3.5-5.0) 12/31/20 13:05 Glucose 136.0 mg/dL (70-115) H 12/31/20 13:05 Ionized Calcium 1.2 mmol/L (1.1-1.4) 12/31/20 13:05 O2 Delivery Device Vent 01/03/21 03:15 O2 Liters/Min 50.0 % 12/23/20 11:23 Mechanical Rate 26.0 12/29/20 17:45 FiO2 50.0 % 01/03/21 03:15 Tidal Volume 0.48 01/03/21 03:15 PEEP 12.0 cmH20 01/03/21 03:15 Plant Guide ID [email or web address] 01/03/21 03:15 Sodium 145 mmol/L (136-145) 01/03/21 05:29 Potassium 4.6 mmol/L (3.5-5.1) 01/03/21 05:29 Chloride 109 mmol/L (98-107) H 01/03/21 05:29 Carbon Dioxide 27 mmol/L (22-29) 01/03/21 05:29 Anion Gap 13.6 (5-19) 01/03/21 05:29 BUN 72 mg/dL (8-23) H 01/03/21 05:29 Creatinine 1.2 mg/dL (0.7-1.2) 01/03/21 05:29 GFR Calculation 61.3 mL/min (90-130) L 01/03/21 05:29 Glucose 137 mg/dL (65-115) H 01/03/21 05:29 POC Glucose 146 mg/dL (70-110) H 01/03/21 07:29 Calculated Osmolality 323 mOsm/kg (285-295) H 01/03/21 05:29 Lactic Acid 1.7 mmol/L (0.5-2.2) 12/23/20 11:05 Uric Acid 7.0 mg/dL (3.4-7.0) 12/25/20 14:00 Calcium 8.4 mg/dL (8.5-10.5) L 01/03/21 05:29 Phosphorus 4.4 mg/dL (2.5-4.5) 01/02/21 04:27 Magnesium 3.2 mg/dL (1.7-2.3) H 01/02/21 04:27 Ferritin 5395 ng/mL (30-400) H 12/27/20 05:30 Total Bilirubin 1.1 mg/dL (0.15-1.2) 01/03/21 05:29 AST 63 U/L (0-40) H 01/03/21 05:29 ALT 79 U/L (0-41) H 01/03/21 05:29 Alkaline Phosphatase 142 IU/L (40-130) H 01/03/21 05:29 Lactate Dehydrogenase 1234 U/L (135-225) H 12/27/20 05:30 Creatine Kinase 656 U/L (39-308) H* 01/02/21 04:27 Troponin T Baseline 14 ng/L (0-15) 12/23/20 11:05 Troponin T 120 Minute 12.13 ng/L (0-15) 12/23/20 15:04 Delta Troponin T -1.87 ABS# (0-10) L 12/23/20 15:04 Troponin T Hi Sens 6Hr 12.32 ng/L (0-15) 12/23/20 17:00 Troponin T Hi Sens 6Hr Delta -1.68 ng/L (0-12) L 12/23/20 17:00 C-Reactive Protein 25.9 mg/L (0.0-4.9) H 01/03/21 05:29 NT-Pro-B Natriuret Pep 149 pg/mL (0-125) H 12/26/20 03:55 Total Protein 5.6 g/dL (6.6-8.7) L 01/03/21 05:29 Albumin 3.1 g/dL (3.5-5.2) L 01/03/21 05:29 Globulin 2.5 g/dL (1.3-4.6) 01/03/21 05:29 Procalcitonin 0.37 ng/mL (0-0.5) 12/30/20 06:06 TSH 1.82 uIU/mL (0.27-4.20) 12/25/20 14:00 Urine Color Dark yellow (Yellow) 12/25/20 14:00 Urine Appearance Cloudy (CLEAR) 12/25/20 14:00 Urine pH 5 (5-7) 12/25/20 14:00 Ur Specific [place] 1.025 (1.005-1.030) 12/25/20 14:00 Urine Protein 1+ (Negative) H 12/25/20 14:00 Urine Glucose (UA) Norm (Normal) 12/25/20 14:00 Urine Ketones Negative (Negative) 12/25/20 14:00 Urine Blood 3+ (Negative) H 12/25/20 14:00 Urine Nitrate Negative (Negative) 12/25/20 14:00 Urine Bilirubin 1+ (Negative) H 12/25/20 14:00 Urine Urobilinogen 4 mg/dL (Negative) H 12/25/20 14:00 Ur Leukocyte Esterase Trace (Negative) H 12/25/20 14:00 Urine RBC 40-50 /hpf (0-2) H 12/25/20 14:00 Urine WBC 15-25 /hpf (0-5) H 12/25/20 14:00 Ur Squamous Epith Cells Rare /hpf (0-5) 12/25/20 14:00 Amorphous Sediment 2+ /hpf 12/25/20 14:00 Urine Bacteria 4+ /hpf (NONE) H 12/25/20 14:00 Coarse Granular Casts 10-15 /lpf H 12/25/20 14:00 Urine Mucus 1+ /hpf 12/25/20 14:00 Ur Random Sodium 13 mmol/L 12/25/20 14:00 Ur Random Potassium 74 mmol/L 12/25/20 14:00 Ur Random Chloride < 10 mmol/L 12/25/20 14:00 Urine Creatinine 231 mg/dL (39-259) 12/25/20 14:00 Impressions Chest CTA 12/23/20 16:32 IMPRESSION: 1. No visible evidence of pulmonary embolism/pulmonary arterial thrombus. 2. Advanced and extensive bilateral mixed ground-glass interstitial lung disease and patches of consolidated alveolar airspace disease of active pneumonitis/pneumonia. 3. Evidence also of air trapping of COPD/chronic bronchitis. 4. Prominent mediastinal and hilar lymph nodes believed reactive in nature. Radiation Dose CTDIVOL = (mGy): DLP = 617.12 (mGy-cm) Venous Duplex 12/25/20 07:58 IMPRESSION: 1. Partial thrombosis of bilateral greater saphenous veins. 2. Questionable thrombus seen within an unnamed intramuscular vein in the left calf. Renal Ultrasound 12/26/20 10:56 IMPRESSION: 1. No hydronephrosis. 2. Possible small echogenic lesion in the mid right kidney. This could represent a small angiomyolipoma. Recommend follow-up CT abdomen to further assess. This could be obtained on a nonemergent basis. Chest X-Ray 01/02/21 04:00 IMPRESSION: Minimal resolution of diffuse pulmonary infiltrates. A&P Assessment and plan (1) Respiratory failure with hypoxia: Status: Acute Qualifiers: Chronicity: acute Qualified Code(s): J96.01 - Acute respiratory failure with hypoxia (2) Acute respiratory distress syndrome (ARDS) due to severe acute respiratory syndrome coronavirus 2 (SARS-CoV-2): Status: Acute (3) DVT (deep venous thrombosis): Status: Acute Qualifiers: DVT location: lower extremity Affected thrombotic vein of extremity: other lower extremity vein Chronicity: unspecified Laterality: bilateral Qualified Code(s): I82.493 - Acute embolism and thrombosis of other specified deep vein of lower extremity, bilateral (4) LORRAINE (acute kidney injury): Status: Acute #Acute hypoxic respiratory failure secondary to ARDS due to COVID-19 pneumonia #Partial thrombosis of bilateral great saphenous veins and questionable thrombus seen on unnamed intramuscular Vein in the left calf #LORRAINE-resolved -Symptoms started 12/15/2020: Rapid antigen 12/23/2020 -Intubated 12/27/2020- completed 4 sessions of proning -On CMV 480/12/60 % FiO2 ABG 7.3 //73/29/90% -Off sedation, opening eyes to deep stimuli, do awakening trial-if needed start Precedex and add propofol-try to avoid fentanyl and Versed if possible -[place] 5-325 1 tablet twice daily for pain and opiate withdrawal -1 dose Actemra 12/24/2020; completed 5 doses of remdesivir and 10 days of dexamethasone 10 mg -On DuoNeb and Pulmicort scheduled nebulizations -So far cultures negative, Initial pro Aung 0.56 on admission and later 2.26 could be secondary to LORRAINE - -received 7 days of empiric Levaquin -LORRAINE resolved and renal signed off for now -Overall net + 4.7 L-plan is to keep patient net negative and monitor electrolyt es- 1 dose of Lasix 20 mg and assess daily -On Lovenox 120 units units twice daily for DVT-CTA negative for PE on admission; Blood-tinged urine and oozing of blood around central line: H&H stable,-continue Lovenox -Glucerna feeding 30 mL/h while supine; bowel regimen senna/docusate; & lactulose 10 mg twice daily and plan is to give enema today -Sugars well controlled-on scale coverage -DVT prophylaxis: Lovenox -PPI for GI prophylaxis -Full code -Family updated by hospitalist -Continue to monitor for fluid balance, electrolytes, hemodynamics, secondary infections Recommendations conveyed to hospitalist, RN, taking care of the patient Attestations Medical Necessity Statement*: acute hypoxic respiratory failure secondary to ARDS due to COVID-19 pneumonia requiring mechanical ventilation and continue with 16 hours proning sessions at least 4 sessions; coexisting DVT on therapeutic anticoagulation Time Spent in Patient Care: Greater than 35 minutes (>than 50% of time spent in counselling and/or direct pt care on unit) . Critical Care Time: The high probability of a clinically significant, sudden or life threatening deterioration of the patient's [pulmonary, renal, vascular] system(s) required my full and direct attention, intervention and personal management. The critical care time is as shown. 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
[2021-01-03 13:13] LABS: Glucose Point of Care 183 mg/dL (70-110)
[2021-01-03] MEDS: acetaminophen 325 mg Tablet 650 MG PO (13:18)
--- NOTE | 2021-01-03 14:03 | PM.PN ---
Subjective Subjective: Interval history: Negative fluid balance No bowel movement will try enema today Awakening trials patient does open his eyes to painful stimuli FiO2 60% Afebrile No growth on cultures Fentanyl turned off today Awakening trials, added Precedex Bergoo scheduled by propagator laborer Plan to avoid sedatives benzodiazepines Hemoglobin stable Blood-tinged urine requested manual irrigation Patient seems to have opiate withdrawal sinus tachycardia Chest x-ray shows mild improvement QTC greater than 500 EKG showing sinus tachycardia Vitals/I&O/Wt Last Vital Signs Temp 99.9 F H 01/03/21 08:00 Pulse 120 H 01/03/21 11:26 Resp 29 H 01/03/21 13:00 BP 136/87 01/03/21 08:00 Pulse Ox 91 01/03/21 13:00 01/02/21 01/03/21 01/03/21 22:59 06:59 14:59 Intake Total 429.541 / 873.156 550.267 / 1423.423 21.329 / 21.329 Output Total 1150 / 1400 1300 / 2700 Balance -720.459 / -526.844 -749.733 / -1276.577 21.329 / 21.329 Weight last 48 hrs Weight 130 kg Weight 130 kg Physical Exam Narrative: EXAM NARRATIVE: Patient intubated Opening his eyes to deep painful stimuli FiO2 60% on vent Abdomen does not look distended bowel sounds sluggish Blood-tinged urine Left-sided IJ central line without any oozing of blood Assisted bilateral breath sounds with rhonchi at the bases Neuro exam limited Sinus tachycardia Edema of extremities noted Urinary Catheter Management^: Espinosa: Cath Placed During This Visit: yes Reason for Continuing Indwelling Catheter: Accurate Measurement of Urinary Output in Critically Ill Patients Urinary Catheter Date of Insertion: 12/24/20 Urinary Catheter Time of Insertion: 11:00 Data : 01/03/21 05:29 01/03/21 05:29 A&P Assessment and plan (1) Uremia: Status: Acute (2) Hyperkalemia: Status: Acute (3) Rhabdomyolysis: Status: Acute (4) Goals of care, counseling/discussion: Status: Acute (5) Acute respiratory distress syndrome (ARDS) due to severe acute respiratory syndrome coronavirus 2 (SARS-CoV-2): Status: Acute (6) DVT (deep venous thrombosis): Status: Acute Qualifiers: DVT location: lower extremity Affected thrombotic vein of extremity: other lower extremity vein Chronicity: unspecified Laterality: bilateral Qualified Code(s): I82.493 - Acute embolism and thrombosis of other specified deep vein of lower extremity, bilateral (7) LORRAINE (acute kidney injury): Status: Acute (8) Pneumonia due to severe acute respiratory syndrome coronavirus 2 (SARS-CoV-2): Status: Acute (9) Respiratory failure with hypoxia: Status: Acute Qualifiers: Chronicity: acute Qualified Code(s): J96.01 - Acute respiratory failure with hypoxia Additional A&P Information Persistent hypoxia ARDS Chest x-ray shows resolution of infiltrates Currently on FiO2 60% Status post 4 cycles of proning Status post remdesivir, Actemra, weaning of steroids On empirical Levaquin Multivitamins Therapeutic Lovenox for DVT Hemoglobin stable Awakening trials, Bergoo scheduled by propagator laborer fentanyl turned off started Precedex today for conscious sedation If patient able to follow commands can try weaning trial Constipation Lactulose started yesterday, will do milk of molasses enema today Hematuria after placement of Espinosa catheter Adequate urine output creatinine normal hemoglobin stable Requested manual irrigation Rhabdomyolysis: Improved LORRAINE: Improved with diuresis continue IV diuretics Status post albumin 01/02 Tube feeding to be optimized as per dietitian's recommendations DVT currently on therapeutic Lovenox Plan was devised in presence of ICU nurse and propagator laborer Attestations Medical Necessity Statement*: Continue ICU management Time Spent in Patient Care: Greater than 35 minutes Coding Level of Care Code Acute Operator Cavity Pump for [facility] Fwd Diagnoses Uremia N19 Hyperkalemia E87.5 Rhabdomyolysis M62.82 Goals of care, counseling/discussion Z71.89 Acute respiratory distress syndrome (ARDS) due to severe acute respiratory syndrome coronavirus 2 (SARS-CoV-2) U07.1; J80 DVT (deep venous thrombosis) I82.493 DVT location: lower extremity Affected thrombotic vein of extremity: other lower extremity vein Chronicity: unspecified Laterality: bilateral LORRAINE (acute kidney injury) N17.9 Pneumonia due to severe acute respiratory syndrome coronavirus 2 (SARS-CoV-2) U07.1; J12.82 Respiratory failure with hypoxia J96.01 Chronicity: acute
--- NOTE | 2021-01-03 14:38 | PC.SOCIAL ---
IMM not updated Imm not updated due to pt still intubated at this time, pt isnt expected to discharge within the next 24-48 hours
[2021-01-03] MEDS: levofloxacin-dextrose 5 % 750 MG/150 ML PREMIX 100 MG IV (15:24)
[2021-01-03] MEDS: FUROsemide 10 mg/mL SDV 2mL 20 MG IVP (15:24)
[2021-01-03] MEDS: dexmedeTOMIDine 0.9 % NaCL 400 MCG/100 ML PREMIX 6.5 MCG IV (15:24)
--- NOTE | 2021-01-03 15:51 | PC.RESP ---
RT Shift Note Frequent safety and respiratory rounds continue. Orders completed as indicated. Patient monitored pre and post treatments throughout shift. Patient [Did.] tolerate treatments appropriately. Condition [DidNotChange]. Patient and/or provider relations representative educated on respiratory treatment and medications. Patient and/or provider relations representative unable to comprehend]. Will continue to monitor patient progress.
[2021-01-03 16:27] LABS: Add Urine Microscopic? YES; Bilirubin Urine Neg (Negative); Blood Urine 3+ (Negative); Glucose Urine UA Norm (Normal); Ketones Urine Negative (Negative); Leukocyte Esterase Urine Trace (Negative); Nitrate Urine Negative (Negative); Protein Urine 2+ (Negative); Specific Gravity, Urine 1.015 (1.005-1.030); Urine Appearance Bloody (CLEAR); Urine Color Red (Yellow); Urobilinogen Urine 1 mg/dL (Negative); pH Urine 5 (5-7)
[2021-01-03 16:28] LABS: Add Urine Culture? Yes; Bacteria Urine TRACE /hpf; RBC Urine >100 /hpf (0-2); Squamous Epithelial Cell Urine 0-4 /hpf (0-5); WBC Urine 0-4 /hpf (0-5)
[2021-01-03] MEDS: HYDROcodone-acetaminophen 5-325 mg Tablet 1 TAB PO (17:14)
[2021-01-03] MEDS: dexamethasone 4 mg/mL INJ 2 MG IVP (17:15)
[2021-01-03 17:36] LABS: Glucose Point of Care 168 mg/dL (70-110)
[2021-01-03] MEDS: propofol 1,000 MG/100 ML INJ 8.9 MG IV (19:00)
--- NOTE | 2021-01-03 19:29 | PC.NURSE ---
Shift Note Frequent safety and comfort rounds continue. Orders and/or nursing care completed as indicated. Patient monitored for response to intervention and treatment. Uneventful shift. Patient rested in bed throughout the day. Sedation was turned completely off during the AM and patient did not become any more alert. Precedex and propofol started for tachypnea and tachycardia. Patient had 1550 mL or urine out. Instances of bleeding from central line did not reoccur. Patient had a bowel movement after a milk and molasses enema. Patient's visited today and was given an update, also updated her at the end of shift.
[2021-01-03 20:44] LABS: Glucose Point of Care 150 mg/dL (70-110)
[2021-01-03] MEDS: dexmedeTOMIDine 0.9 % NaCL 400 MCG/100 ML PREMIX 22.75 MCG IV (21:53)
--- NOTE | 2021-01-03 21:54 | PC.NURSE ---
Upon shift change, Precedex drip was running at 0.7mcg/kg/hr which was no reflected on MAR. Titrated order to current rate at shift change
[2021-01-04] VITALS (37 sets, daily range): BP systolic 84–150; BP diastolic 51–105; PULSE 60–131; RESP 16–24; TEMP 36.5–36.9; O2SAT 89–94
[2021-01-04] MEDS: dexmedeTOMIDine 0.9 % NaCL 400 MCG/100 ML PREMIX 22.75 MCG IV ×3 (00:11→20:47)
[2021-01-04] MEDS: ipratropium-albuterol 3 mL Neb INHALATION ×6 (03:32→23:31)
--- NOTE | 2021-01-04 04:00 | XR_ITS ---
WS: [id number] XR chest 1V portable [id number] REASON FOR EXAM: covid FINDINGS: Nasogastric tube, endotracheal tube, and left internal jugular central venous line remain in proper p osition. Compared to 01/02/2021, bilateral infiltrates demonstrate some resolution. No new findings. XR/XR chest 1V portable [id number] IMPRESSION: Improving abnormal chest.
[2021-01-04 04:40] LABS: ABG PCO2 43.2 mmHg (35-45); ABG PH Result 7.45 (7.35-7.45)
[2021-01-04 04:41] LABS: Base Excess ABG 5.2 mmol/L (-2.0-2.0); HCO3 ABG 29.8 mmol/L (22-26); Oxygen Device VENT; PO2 ABG 61.2 mmHg (80.0-100.0)
--- NOTE | 2021-01-04 05:46 | PC.NURSE ---
Patient able to follow commands and squeeze nurses hands when asked.
--- NOTE | 2021-01-04 05:47 | PC.NURSE ---
Shift Note Frequent safety and comfort rounds continue. Orders and/or nursing care completed as indicated. Patient monitored for response to intervention and treatment(s). Education provided includes effective breathing patterns. Patient and/or school admissions representative reinforcement needed. Will continue to monitor.
[2021-01-04 05:57] LABS: Basophils % 0.2 %; Eosinophils # 0.1 10^3/uL (0.0-0.8); Eosinophils % 1.2 %; Hematocrit 37.5 % (42.0-52.0); Hemoglobin 11.6 g/dL (11.7-16.6); Lymphocytes # 0.6 10^3/uL (0.8-4.8); Lymphocytes % 6.3 %; Mean Corpuscular HGB Conc 30.9 g/dL (30.0-36.0); Mean Corpuscular Hemoglobin 31.2 pg (28.0-34.0); Mean Corpuscular Volume 100.8 fl (80-94); Mean Platelet Volume 10.1 fL (7.4-10.4); Monocytes # 0.8 10^3/uL (0.2-0.9); Monocytes % 9.3 %; Neutrophils # 7.34 10^3/uL (1.8-7.7); Neutrophils % 81.8 %; Nucleated Red Blood Cells % 0 %; Platelet Count 119 10^3/cmm (130-400); Red Blood Count 3.72 10^6/uL (4.1-5.3); Red Cell Distribution Width 15.3 % (12.1-15.1)
[2021-01-04 06:14] LABS: Anion Gap 12.4 (5-19); Blood Urea Nitrogen 78 mg/dL (8-23); Calcium 8.7 mg/dL (8.5-10.5); Carbon Dioxide 30 mmol/L (22-29); Chloride 115 mmol/L (98-107); Glomerular Filtration Rate 55.9 mL/min (90-130); Glucose 149 mg/dL (65-115); Osmolality Calculated 342 mOsm/kg (285-295); Potassium 4.4 mmol/L (3.5-5.1); Sodium 153 mmol/L (136-145)
[2021-01-04] MEDS: budesonide 0.5 mg/2 mL Neb INHALATION ×2 (07:59→20:37)
[2021-01-04] MEDS: HYDROcodone-acetaminophen 5-325 mg Tablet 1 TAB PO ×2 (07:59→17:48)
[2021-01-04] MEDS: zinc gluconate 50 mg Tablet PO (07:59)
[2021-01-04] MEDS: sennosides-docusate Tablet 1 TAB PO (07:59)
[2021-01-04] MEDS: lactulose oral liq 20 gm/30 mL UDC 10 GM PO ×2 (07:59→17:48)
[2021-01-04] MEDS: cholecalciferol (vitamin D3) 1,000 unit Tablet 2000 UNIT PO (08:00)
[2021-01-04] MEDS: lidocaine 5% Patch 1 PATCH TOPICAL (08:04)
[2021-01-04 08:06] LABS: Glucose Point of Care 145 mg/dL (70-110)
[2021-01-04] MEDS: HYDROmorphone 1 mg/mL INJ 1 mL 0.5 MG IVP (09:05)
--- NOTE | 2021-01-04 09:12 | PC.CHAP ---
Pastoral Care Encounter/Spiritual Assessment Type of Contact [] Declined demolition hammer operator visit [] Patient/Family/Request visit [] Outpatient visit [] Follow-up visit [] Physician referral [] Code/Alert [x] Routine visit [] Staff referral [] Actively dying [] Patient sleeping [] Family support [] [] Out of room [] Palliative care [] [x] Receiving care in room [] Pre-surgical visit [] Trauma [] Long length of stay [x] ICU visit [x] Other: irst time jd seen patients eye open... continue to pray Relational/Emotional Strength [] Patient feels connected with others/family/visitors/staff [] Distress [] Loneliness/isolation [] Abandonment Spirituality of Patient [] Person of Katharine [] Attends Uatsdin of their Katharine [] Believes in Prayer [] Reads Bible or Taoist materials [] There are Spiritual issues to be addressed Director Fundraising Interventions [x] Prayer [] Active listening [] Non-anxious presence [] Spiritual/emotional support [] Crisis/trauma care [] Spiritual counseling [] Bereavement support [] Provided bereavement packet [] Provided Bible/devotional materials [] Provided toy/stuffed animal, coloring book to patient or family member [] Provided Communion [] Anointing/[place] [] Salvation [x] Completed spiritual assessment [] Other: Impact on Illness or Injury [] Angry [] Fearful [] Anxious [] Often cries [] Exhaustion [] Unable to work [] Unable to attend oriental orthodox [] Unable to walk/stand [] Unable to read [] Unable to drive [] Unable to eat/drink [] Unable to sleep [] Unable to be with family [] Patient intubated [] Other: Summary Time spent with patient
[2021-01-04] MEDS: FUROsemide 10 mg/mL SDV 2mL 20 MG IVP (09:48)
[2021-01-04] MEDS: ascorbic acid 500 mg Tablet 1000 MG PO ×2 (09:49→17:48)
--- NOTE | 2021-01-04 09:57 | PM.PN ---
Subjective Subjective: Interval history: -Patient seen multiple times at bedside today -Opening eyes following commands, appears weak-on Precedex and propofol drip -Currently saturating 93% on 65% FiO2 and PEEP of 12 -Plan is to continue awakening trial and do spontaneous breathing trial -Dark blood noted around the left IJ insertion dressing site-patient on full dose anticoagulation, H&H stays stable-we will repeat CBC in the evening -Labs and imaging reviewed Medications: Reviewed: Yes Vitals/I&O/Wt Last Vital Signs Temp 100.9 F H 01/03/21 13:00 Pulse 60 01/04/21 07:30 Resp 24 H 01/04/21 07:40 BP 134/86 01/04/21 06:00 Pulse Ox 90 01/04/21 07:40 01/03/21 01/04/21 01/04/21 22:59 06:59 14:59 Intake Total 137.162 / 158.491 343.339 / 501.830 78.795 / 78.795 Output Total 325 / 1550 550 / 2100 Balance -187.838 / -1391.509 -206.661 / -1598.170 78.795 / 78.795 Weight last 48 hrs Weight 286 lb 9.6 oz Weight 286 lb 9.6 oz Physical Exam Narrative: EXAM NARRATIVE: General: Lying in bed, sedated and intubated. HEENT:NCAT, PERRLA, EOMI Neck: Supple Lungs: Bilateral coarse crepitations Heart: s1/s2, RRR Abd: soft, NT, ND, BS + Normoactive Extremities: No edema CORPORATE STATISTICAL FINANCIAL ANALYST: sedated and limited CORPORATE STATISTICAL FINANCIAL ANALYST exam possible. SKIN: no rash LDA: # CVC: Left internal jugular vein 12/28/2020 # Espinosa: 12/24/2020 Urinary Catheter Management^: Espinosa: Cath Placed During This Visit: yes Reason for Continuing Indwelling Catheter: Accurate Measurement of Urinary Output in Critically Ill Patients Urinary Catheter Date of Insertion: 12/24/20 Urinary Catheter Time of Insertion: 11:00 Data : 01/04/21 05:45 01/04/21 05:45 Other Labs: Laboratory Results WBC 9.0 10^3/uL (4.0-10.0) 01/04/21 05:45 Corrected WBC Cancelled 12/30/20 03:40 RBC 3.72 10^6/uL (4.1-5.3) L 01/04/21 05:45 Hgb 11.6 g/dL (11.7-16.6) L 01/04/21 05:45 Hct 37.5 % (42.0-52.0) L 01/04/21 05:45 MCV 100.8 fl (80-94) H 01/04/21 05:45 MCH 31.2 pg (28.0-34.0) 01/04/21 05:45 MCHC 30.9 g/dL (30.0-36.0) 01/04/21 05:45 RDW 15.3 % (12.1-15.1) H 01/04/21 05:45 Plt Count 119 10^3/cmm (130-400) L 01/04/21 05:45 MPV 10.1 fL (7.4-10.4) 01/04/21 05:45 Gran % Cancelled 12/30/20 03:40 Neut % (Auto) 81.8 % 01/04/21 05:45 Lymph % (Auto) 6.3 % 01/04/21 05:45 [place] % (Auto) 9.3 % 01/04/21 05:45 Eos % (Auto) 1.2 % 01/04/21 05:45 Baso % (Auto) 0.2 % 01/04/21 05:45 Neut # (Auto) 7.34 10^3/uL (1.8-7.7) 01/04/21 05:45 Lymph # (Auto) 0.6 10^3/uL (0.8-4.8) L 01/04/21 05:45 [place] # (Auto) 0.8 10^3/uL (0.2-0.9) 01/04/21 05:45 Eos # (Auto) 0.1 10^3/uL (0.0-0.8) 01/04/21 05:45 Baso # (Auto) 0.0 10^3/uL (0.0-0.1) 01/04/21 05:45 Absolute Gran (auto) Cancelled 12/30/20 03:40 Nucleated RBC % (auto) 0 % 01/04/21 05:45 Nucleated RBCs # 0.0 /100WBC 01/04/21 05:45 ESR 13 mm/hr (0-10) H 12/27/20 05:30 PT 14.10 SECONDS (12.1-14.9) 01/03/21 05:29 INR 1.06 (0.8-1.2) 01/03/21 05:29 APTT 34.0 SECONDS (23.9-36.7) 01/03/21 05:29 Fibrinogen 321 mg/dL (174-498) 01/03/21 05:29 Fibrin Degrad Products Pos, 10-40 ug/mL (NEG) H 01/03/21 05:29 D-Dimer 5.27 ug/mIFEU (0-0.59) H 01/03/21 05:29 Specimen Type Arterial 01/04/21 04:20 Sample Site Radial,right 01/04/21 04:20 ABG pH 7.45 (7.35-7.45) 01/04/21 04:20 ABG pCO2 43.2 mmHg (35-45) 01/04/21 04:20 ABG pO2 61.2 mmHg (80.0-100.0) L 01/04/21 04:20 ABG HCO3 29.8 mmol/L (22-26) H 01/04/21 04:20 ABG O2 Saturation 92.6 12/31/20 13:05 ABG Base Excess 5.2 mmol/L (-2.0-2.0) H 01/04/21 04:20 Luke Test Pos 01/04/21 04:20 A-a O2 Gradient 38.6 mmHg (5-10) H 12/31/20 13:05 Hematocrit 36.0 % (42-52) L 01/04/21 04:20 Hgb O2 Saturation 90.7 % (95-100) L 12/31/20 13:05 Carboxyhemoglobin 1.0 %THgb (0.4-20.1) 12/31/20 13:05 Methemoglobin 1.1 % (0.4-1.5) 12/31/20 13:05 Total Hemoglobin 15.5 g/dL (14-18) 12/31/20 13:05 Sodium 143.0 mmol/L (131-143) 12/31/20 13:05 Potassium 4.7 mmol/L (3.5-5.0) 12/31/20 13:05 Glucose 136.0 mg/dL (70-115) H 12/31/20 13:05 Ionized Calcium 1.2 mmol/L (1.1-1.4) 12/31/20 13:05 Respiration Rate 20.0 % 01/04/21 04:20 O2 Delivery Device Vent 01/04/21 04:20 O2 Liters/Min 50.0 % 12/23/20 11:23 Mechanical Rate 26.0 12/29/20 17:45 FiO2 65.0 % 01/04/21 04:20 Tidal Volume .48 01/04/21 04:20 PEEP 12.0 cmH20 01/04/21 04:20 Strapping Machine Tender ID Hinja 01/04/21 04:20 Sodium 153 mmol/L (136-145) H 01/04/21 05:45 Potassium 4.4 mmol/L (3.5-5.1) 01/04/21 05:45 Chloride 115 mmol/L (98-107) H 01/04/21 05:45 Carbon Dioxide 30 mmol/L (22-29) H 01/04/21 05:45 Anion Gap 12.4 (5-19) 01/04/21 05:45 BUN 78 mg/dL (8-23) H 01/04/21 05:45 Creatinine 1.3 mg/dL (0.7-1.2) H 01/04/21 05:45 GFR Calculation 55.9 mL/min (90-130) L 01/04/21 05:45 Glucose 149 mg/dL (65-115) H 01/04/21 05:45 POC Glucose 145 mg/dL (70-110) H 01/04/21 07:47 Calculated Osmolality 342 mOsm/kg (285-295) H 01/04/21 05:45 Lactic Acid 1.7 mmol/L (0.5-2.2) 12/23/20 11:05 Uric Acid 7.0 mg/dL (3.4-7.0) 12/25/20 14:00 Calcium 8.7 mg/dL (8.5-10.5) 01/04/21 05:45 Phosphorus 4.4 mg/dL (2.5-4.5) 01/02/21 04:27 Magnesium 3.2 mg/dL (1.7-2.3) H 01/02/21 04:27 Ferritin 5395 ng/mL (30-400) H 12/27/20 05:30 Total Bilirubin 1.1 mg/dL (0.15-1.2) 01/03/21 05:29 AST 63 U/L (0-40) H 01/03/21 05:29 ALT 79 U/L (0-41) H 01/03/21 05:29 Alkaline Phosphatase 142 IU/L (40-130) H 01/03/21 05:29 Lactate Dehydrogenase 1234 U/L (135-225) H 12/27/20 05:30 Creatine Kinase 656 U/L (39-308) H* 01/02/21 04:27 Troponin T Baseline 14 ng/L (0-15) 12/23/20 11:05 Troponin T 120 Minute 12.13 ng/L (0-15) 12/23/20 15:04 Delta Troponin T -1.87 ABS# (0-10) L 12/23/20 15:04 Troponin T Hi Sens 6Hr 12.32 ng/L (0-15) 12/23/20 17:00 Troponin T Hi Sens 6Hr Delta -1.68 ng/L (0-12) L 12/23/20 17:00 C-Reactive Protein 25.9 mg/L (0.0-4.9) H 01/03/21 05:29 NT-Pro-B Natriuret Pep 149 pg/mL (0-125) H 12/26/20 03:55 Total Protein 5.6 g/dL (6.6-8.7) L 01/03/21 05:29 Albumin 3.1 g/dL (3.5-5.2) L 01/03/21 05:29 Globulin 2.5 g/dL (1.3-4.6) 01/03/21 05:29 Procalcitonin 0.37 ng/mL (0-0.5) 12/30/20 06:06 TSH 1.82 uIU/mL (0.27-4.20) 12/25/20 14:00 Urine Color Red (Yellow) 01/03/21 15:25 Urine Appearance Bloody (CLEAR) A 01/03/21 15:25 Urine pH 5 (5-7) 01/03/21 15:25 Ur Specific [place] 1.015 (1.005-1.030) 01/03/21 15:25 Urine Protein 2+ (Negative) H 01/03/21 15:25 Urine Glucose (UA) Norm (Normal) 01/03/21 15:25 Urine Ketones Negative (Negative) 01/03/21 15:25 Urine Blood 3+ (Negative) H 01/03/21 15:25 Urine Nitrate Negative (Negative) 01/03/21 15:25 Urine Bilirubin Neg (Negative) 01/03/21 15:25 Urine Urobilinogen 1 mg/dL (Negative) H 01/03/21 15:25 Ur Leukocyte Esterase Trace (Negative) H 01/03/21 15:25 Urine RBC >100 /hpf (0-2) H 01/03/21 15:25 Urine WBC 0-4 /hpf (0-5) H 01/03/21 15:25 Ur Squamous Epith Cells 0-4 /hpf (0-5) H 01/03/21 15:25 Amorphous Sediment Not Reportable 01/03/21 15:25 Urine Bacteria Trace /hpf (NONE) 01/03/21 15:25 Coarse Granular Casts 10-15 /lpf H 12/25/20 14:00 Urine Mucus 1+ /hpf 12/25/20 14:00 Ur Random Sodium 13 mmol/L 12/25/20 14:00 Ur Random Potassium 74 mmol/L 12/25/20 14:00 Ur Random Chloride < 10 mmol/L 12/25/20 14:00 Urine Creatinine 231 mg/dL (39-259) 12/25/20 14:00 Impressions Chest CTA 12/23/20 16:32 IMPRESSION: 1. No visible evidence of pulmonary embolism/pulmonary arterial thrombus. 2. Advanced and extensive bilateral mixed ground-glass interstitial lung disease and patches of consolidated alveolar airspace disease of active pneumonitis/pneumonia. 3. Evidence also of air trapping of COPD/chronic bronchitis. 4. Prominent mediastinal and hilar lymph nodes believed reactive in nature. Radiation Dose CTDIVOL = (mGy): DLP = 617.12 (mGy-cm) Venous Duplex 12/25/20 07:58 IMPRESSION: 1. Partial thrombosis of bilateral greater saphenous veins. 2. Questionable thrombus seen within an unnamed intramuscular vein in the left calf. Renal Ultrasound 12/26/20 10:56 IMPRESSION: 1. No hydronephrosis. 2. Possible small echogenic lesion in the mid right kidney. This could represent a small angiomyolipoma. Recommend follow-up CT abdomen to further assess. This could be obtained on a nonemergent basis. Chest X-Ray 01/04/21 04:00 IMPRESSION: Improving abnormal chest. Micro: Microbiology 01/03/21 15:05 Blood Culture - Preliminary Blood SPECIMEN COLLECTED 01/03/21 15:05 Blood Culture - Preliminary Blood SPECIMEN COLLECTED A&P Assessment and plan (1) Respiratory failure with hypoxia: Status: Acute Qualifiers: Chronicity: acute Qualified Code(s): J96.01 - Acute respiratory failure with hypoxia (2) Acute respiratory distress syndrome (ARDS) due to severe acute respiratory syndrome coronavirus 2 (SARS-CoV-2): Status: Acute (3) DVT (deep venous thrombosis): Status: Acute Qualifiers: DVT location: lower extremity Affected thrombotic vein of extremity: other lower extremity vein Chronicity: unspecified Laterality: bilateral Qualified Code(s): I82.493 - Acute embolism and thrombosis of other specified deep vein of lower extremity, bilateral (4) LORRAINE (acute kidney injury): Status: Acute #Acute hypoxic respiratory failure secondary to ARDS due to COVID-19 pneumonia #Partial thrombosis of bilateral great saphenous veins and questionable thrombus seen on unnamed intramuscular Vein in the left calf #LORRAINE-resolved -Symptoms started 12/15/2020: Rapid antigen 12/23/2020 -Intubated 12/27/2020- completed 4 sessions of proning -On CMV 480/65%/12 ABG 7.4 5/43/61/29 -Off sedation, opening eyes to deep stimuli, do awakening trial-if needed start Precedex and add propofol-try to avoid fentanyl and Versed if possible -[place] 5-325 1 tablet twice daily for pain and opiate withdrawal -Continue awakening trial and start doing breathing trial -1 dose Actemra 12/24/2020; completed 5 doses of remdesivir and 10 days of dexamethasone 10 mg -On DuoNeb and Pulmicort scheduled nebulizations -So far cultures negative, Initial pro Aung 0.56 on admission and later 2.26 could be secondary to LORRAINE - -received 7 days of empiric Levaquin -LORRAINE resolved and renal signed off for now -Overall net + 3.1 L-plan is to keep patient net negative and monitor electrolytes- 1 dose of Lasix 20 mg and assess daily -Sodium 153, BUN and creatinine increasing-started on D5-repeat BMP today evening -On Lovenox 120 units units twice daily for DVT-CTA negative for PE on admission; Blood-tinged urine and oozing of blood around central line: H&H stable,-continue Lovenox-repeat CBC today evening -Glucerna feeding 30 mL/h while supine; bowel regimen senna/docusate; & lactulose 10 mg twice daily and-had 1 bowel movement yesterday after edema -Sugars well controlled-on scale coverage -DVT prophylaxis: Lovenox -PPI for GI prophylaxis -Full code -Family updated by hospitalist -Continue to monitor for fluid balance, electrolytes, hemodynamics, secondary infections Recommendations conveyed to hospitalist, RN, taking care of the patient Attestations Medical Necessity Statement*: acute hypoxic respiratory failure secondary to ARDS due to COVID-19 pneumonia requiring mechanical ventilation coexisting DVT on therapeutic anticoagulation Time Spent in Patient Care: Greater than 35 minutes (>than 50% of time spent in counselling and/or direct pt care on unit). Critical Care Time: The high probability of a clinically significant, sudden or life threatening deterioration of the patient's [pulmonary, renal, vascular] system(s) required my full and direct attention, intervention and personal management. The critical care time is as shown. 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
[2021-01-04] MEDS: dexmedeTOMIDine 0.9 % NaCL 400 MCG/100 ML PREMIX 16.25 MCG IV ×2 (10:34→15:57)
[2021-01-04 11:14] LABS: Basophils % 0.2 %; Eosinophils # 0.1 10^3/uL (0.0-0.8); Eosinophils % 0.9 %; Hematocrit 37.9 % (42.0-52.0); Hemoglobin 11.9 g/dL (11.7-16.6); Lymphocytes # 0.6 10^3/uL (0.8-4.8); Lymphocytes % 5.6 %; Mean Corpuscular HGB Conc 31.4 g/dL (30.0-36.0); Mean Corpuscular Hemoglobin 31.3 pg (28.0-34.0); Mean Corpuscular Volume 99.7 fl (80-94); Mean Platelet Volume 10.1 fL (7.4-10.4); Monocytes % 8.9 %; Neutrophils # 9.22 10^3/uL (1.8-7.7); Neutrophils % 83.3 %; Nucleated Red Blood Cells % 0 %; Platelet Count 116 10^3/cmm (130-400); Red Cell Distribution Width 15.2 % (12.1-15.1); White Blood Count 11.1 10^3/uL (4.0-10.0)
[2021-01-04] MEDS: dextrose 5% 1,000 ML 75 ML IV ×2 (11:36→23:11)
[2021-01-04] MEDS: enoxaparin 120 mg/0.8 mL Syringe SUBCUT ×2 (11:36→22:36)
--- NOTE | 2021-01-04 11:51 | PC.NURSE ---
Bleeding rom the central line has reoccured. Dressing becomes saturated after 3-[address] dorsey and Dr salvador. received orders to check a CBC before next lovenox dose. CBC shows HGB went up from this morning. was 11.6, now 11.9. Continuing lovenox as ordered.
[2021-01-04 12:02] LABS: Glucose Point of Care 124 mg/dL (70-110)
--- NOTE | 2021-01-04 12:23 | PC.NUTR ---
Tube feeding recommendation: TF was increased 01/[address] and was being well-tolerated at 70 ml/hr, but decreased to 30 ml/hr today per MD verbal order. No flushes. (Noted this order not yet entered in EMR--still reads 70 ml/hr with 50 ml flushes q [address]). Dr. Ashley requested this RD to re-evaluate as pt appears dehydrated. Recommend continue with 50 ml H2O flushes q 4 hrs, as pt is to be receiving D5 today as well. If Na remains high, suggest increase of flushes to 75-100 ml q 4 hrs per MD discretion. If weaning trial unsuccessful, recommend resume TF rate of 70 ml/hr. Propofol providing 235 kcal/day at 8.9 ml/hr. See full RD assessment for further details.
--- NOTE | 2021-01-04 13:46 | PC.NURSE ---
Weaning trial attempted, patient failed. WHen taken off of pressure control, patient would regularly pull tidal volumes of 1500. Weaning trial stopped. placed back on pressure control. alerted physician.
--- NOTE | 2021-01-04 15:07 | PC.NURSE ---
[facility] call- patient's children did a facetime call with him. WHen his children started talking to him, he opened his eyes and smiled at seeing them. Was able to communicate through hand squeezes that he recognizes them. Email address to use for [employer]: [email or web address]
[2021-01-04 15:36] LABS: Blood Gas Allen Test Pos; Blood Gas Sample Site Radial, right; Blood Gas Sample Type Arterial; Blood Gas Tidal Volume 0.48
[2021-01-04] MEDS: levofloxacin-dextrose 5 % 750 MG/150 ML PREMIX 100 MG IV (15:45)
[2021-01-04] MEDS: propofol 1,000 MG/100 ML INJ 4.45 MG IV (15:56)
[2021-01-04] MEDS: dexamethasone 4 mg/mL INJ 2 MG IVP (16:04)
--- NOTE | 2021-01-04 16:10 | PM.PN ---
Subjective Subjective: Interval history: Patient is dehydrated However net balance is positive Creatinine 1.3 Started D5 today Sedation location awakening trials failed weaning trial patient became tachypneic was pulling high tidal volumes 1 episode of low-grade temperature 100.9 Currently on Levaquin Cultures and urinalysis was sent yesterday Chest x-ray showing mild improvement Patient is on Precedex 0.5 and propofol Give 2 dose of Dilaudid this morning Vitals/I&O/Wt Last Vital Signs Temp 97.9 F 01/04/21 12:00 Pulse 91 01/04/21 15:32 Resp 21 H 01/04/21 15:33 BP 84/55 01/04/21 13:00 Pulse Ox 92 01/04/21 15:33 01/04/21 01/04/21 01/04/21 06:59 14:59 22:59 Intake Total 343.339 / 564.311 5214.986 / 1363.986 87.479 / 1451.465 Output Total 550 / 2100 200 / 200 Balance -206.661 / -3760.168 8778.986 / 1163.986 87.479 / 1251.465 Weight last 48 hrs Weight 130 kg Weight 130 kg Physical Exam Narrative: EXAM NARRATIVE: Intubated and sedated Opening his eyes does respond to verbal commands appropriately Failed weaning trial today Bilateral assisted breath sounds with rhonchi Precedex and propofol at the bedside Abdomen soft Lower extremity trace edema Left-sided left IJ dressing soaked with blood Neuro exam limited Lower extremities without any signs of ischemia or gangrene Urinary Catheter Management^: Espinosa: Cath Placed During This Visit: yes Reason for Continuing Indwelling Catheter: Accurate Measurement of Urinary Output in Critically Ill Patients Urinary Catheter Date of Insertion: 12/24/20 Urinary Catheter Time of Insertion: 11:00 Data : 01/04/21 11:08 01/04/21 05:45 Micro: Microbiology 01/03/21 15:05 Blood Culture - Preliminary Blood NEGATIVE TO DATE 01/03/21 15:05 Blood Culture - Preliminary Blood NEGATIVE TO DATE 01/03/21 21:40 Gram Stain - Final Sputum - Endotracheal Tube Aspirate A&P Assessment and plan (1) Uremia: Status: Acute (2) Hyperkalemia: Status: Acute (3) Rhabdomyolysis: Status: Acute (4) Goals of care, counseling/discussion: Status: Acute (5) Acute respiratory distress syndrome (ARDS) due to severe acute respiratory syndrome coronavirus 2 (SARS-CoV-2): Status: Acute (6) DVT (deep venous thrombosis): Status: Acute Qualifiers: DVT location: lower extremity Affected thrombotic vein of extremity: other lower extremity vein Chronicity: unspecified Laterality: bilateral Qualified Code(s): I82.493 - Acute embolism and thrombosis of other specified deep vein of lower extremity, bilateral (7) LORRAINE (acute kidney injury): Status: Acute (8) Pneumonia due to severe acute respiratory syndrome coronavirus 2 (SARS-CoV-2): Status: Acute (9) Hypernatremia: Status: Acute Additional A&P Information Persistent hypoxia related to ARDS COVID-19 Failed weaning trial today Status post remdesivir Actemra, weaning off steroids Isolated episode of low-grade fever Currently on IV Levaquin Cultures sent yesterday UA reviewed Chest x-ray showing improvement in bilateral infiltrates Sedation location another weaning trial later today In order to avoid going up on propofol was used as needed opioids to avoid opiate withdrawal Hypernatremia 6 0 water deficit Started D5 adjusted tube feedings, dietitian also made some changes Rhabdomyolysis: Improved LORRAINE with hypernatremia Will monitor with fluid resuscitation for next 24 hours Low albumin: Status post 1 dose of albumin DVT on therapeutic dose of Lovenox hemoglobin stable Constipation resolved after bowel regimen Tube feeds Full code Awakening trials Plan for extubation in next 24 hours Attestations Medical Necessity Statement*: Continue ICU management Time Spent in Patient Care: 16 - 35 minutes Coding Level of Care Code Acute Business Associate for [facility] Fwd Diagnoses Uremia N19 Hyperkalemia E87.5 Rhabdomyolysis M62.82 Goals of care, counseling/discussion Z71.89 Acute respiratory distress syndrome (ARDS) due to severe acute respiratory syndrome coronavirus 2 (SARS-CoV-2) U07.1; J80 DVT (deep venous thrombosis) I82.493 DVT location: lower extremity Affected thrombotic vein of extremity: other lower extremity vein Chronicity: unspecified Laterality: bilateral LORRAINE (acute kidney injury) N17.9 Pneumonia due to severe acute respiratory syndrome coronavirus 2 (SARS-CoV-2) U07.1; J12.82 Hypernatremia E87.0
[2021-01-04 17:33] LABS: Glucose Point of Care 163 mg/dL (70-110)
[2021-01-04 18:48] LABS: Sodium 153 mmol/L (136-145)
--- NOTE | 2021-01-04 19:03 | PC.NURSE ---
Attempted weaning trial again. Same issues occurred as earlier today. patient was pulling tidal volumes in excess of 1200. Weaning trial discontinued a few minutes after starting.
--- NOTE | 2021-01-04 19:04 | PC.NURSE ---
Shift Note Frequent safety and comfort rounds continue. Orders and/or nursing care completed as indicated. Patient monitored for response to intervention and treatment. SHIft summary: overall positive shift Patient's mental status has improved. he is able to follow commands, and answer yes/no questions by squeezing hands or eyes shut. Failed 2 weaning trials due to excessive tidal volumes. BLeeding from central line and hematuria continue to be an issue, but HGB is 11.9 and is rising despite bleeding. Physicians aware. Continuing lovenox as ordered. Patient's visited today and was updated on condition. Patient facetimed with his children. It appeared as though he was able to recognize them as he immediately woke up when hearing their voices and smiled when he saw them.
[2021-01-04] MEDS: HYDROmorphone 1 mg/mL INJ 1 mL IVP ×2 (20:14→23:25)
[2021-01-04 20:43] LABS: Glucose Point of Care 118 mg/dL (70-110)
[2021-01-05] VITALS (41 sets, daily range): BP systolic 86–148; BP diastolic 54–87; PULSE 49–81; RESP 12–23; TEMP 36–36.4; O2SAT 82–94
[2021-01-05] MEDS: dexmedeTOMIDine 0.9 % NaCL 400 MCG/100 ML PREMIX 26 MCG IV ×6 (00:28→20:08)
[2021-01-05] MEDS: propofol 1,000 MG/100 ML INJ 8.9 MG IV (01:30)
[2021-01-05] MEDS: HYDROmorphone 1 mg/mL INJ 1 mL IVP ×3 (02:30→13:03)
[2021-01-05] MEDS: ipratropium-albuterol 3 mL Neb INHALATION ×6 (03:42→23:32)
[2021-01-05 04:07] LABS: Basophils % 0.2 %; Eosinophils # 0.1 10^3/uL (0.0-0.8); Eosinophils % 1.6 %; Hematocrit 34.5 % (42.0-52.0); Hemoglobin 10.5 g/dL (11.7-16.6); Lymphocytes # 0.5 10^3/uL (0.8-4.8); Lymphocytes % 6.3 %; Mean Corpuscular HGB Conc 30.4 g/dL (30.0-36.0); Mean Corpuscular Hemoglobin 30.8 pg (28.0-34.0); Mean Corpuscular Volume 101.2 fl (80-94); Mean Platelet Volume 10.1 fL (7.4-10.4); Monocytes # 0.6 10^3/uL (0.2-0.9); Monocytes % 7.9 %; Neutrophils # 6.72 10^3/uL (1.8-7.7); Neutrophils % 83.3 %; Nucleated Red Blood Cells % 0 %; Platelet Count 99 10^3/cmm (130-400); Red Blood Count 3.41 10^6/uL (4.1-5.3); Red Cell Distribution Width 15.2 % (12.1-15.1); White Blood Count 8.1 10^3/uL (4.0-10.0)
[2021-01-05 04:30] LABS: Procalcitonin 0.17 ng/mL (0-0.5)
[2021-01-05 04:31] LABS: Anion Gap 10.3 (5-19); Blood Urea Nitrogen 71 mg/dL (8-23); C Reactive Protein 22.6 mg/L (0.0-4.9); Calcium 8.5 mg/dL (8.5-10.5); Carbon Dioxide 30 mmol/L (22-29); Chloride 118 mmol/L (98-107); Glomerular Filtration Rate 75.7 mL/min (90-130); Glucose 142 mg/dL (65-115); Osmolality Calculated 341 mOsm/kg (285-295); Potassium 4.3 mmol/L (3.5-5.1); Sodium 154 mmol/L (136-145)
[2021-01-05 07:40] LABS: Glucose Point of Care 145 mg/dL (70-110)
[2021-01-05] MEDS: budesonide 0.5 mg/2 mL Neb INHALATION ×2 (08:02→20:48)
[2021-01-05] MEDS: zinc gluconate 50 mg Tablet PO (08:17)
[2021-01-05] MEDS: lidocaine 5% Patch 1 PATCH TOPICAL ×2 (08:17→22:01)
[2021-01-05] MEDS: sennosides-docusate Tablet 1 TAB PO (08:17)
[2021-01-05] MEDS: cholecalciferol (vitamin D3) 1,000 unit Tablet 2000 UNIT PO (08:17)
[2021-01-05] MEDS: ascorbic acid 500 mg Tablet 1000 MG PO ×2 (08:17→18:23)
[2021-01-05] MEDS: HYDROcodone-acetaminophen 5-325 mg Tablet 1 TAB PO ×2 (08:17→18:23)
[2021-01-05] MEDS: lactulose oral liq 20 gm/30 mL UDC 10 GM PO ×2 (08:17→18:23)
--- NOTE | 2021-01-05 08:34 | PC.SOCIAL ---
IMM not updated IMM not updated pt currently intubated
[2021-01-05] MEDS: dextrose 5% 1,000 ML 100 ML IV ×2 (11:11→22:01)
[2021-01-05] MEDS: propofol 1,000 MG/100 ML INJ 17.8 MG IV ×3 (11:51→22:03)
[2021-01-05 12:34] LABS: Glucose Point of Care 152 mg/dL (70-110)
--- NOTE | 2021-01-05 13:32 | XR_ITS ---
WS: [id number] XR chest 1V portable [id number] REASON FOR EXAM: OG tube placement FINDINGS: The nasogastric tube is seen to lie within the body of the stomach. Endotracheal tube and left internal jugular vein central venous line remain in proper position. Newly identifiable infiltrative changes in the right upper mid and lateral lung. The lower lobe infil trates appear to be resolving. XR/XR chest 1V portable [id number] IMPRESSION: New infiltrates as above. Resolving lower lobe infiltrates.
--- NOTE | 2021-01-05 15:00 | PM.PN ---
Subjective Subjective: Interval history: Patient is getting intravascular depleted sodium 154 HIT panel sent Start argatroban discontinue Lovenox Consult to pharmacy to run medications mixed with dextrose instead of normal saline Afebrile Hemoglobin 10.5 Oozing of blood noticed around left IJ Hematuria in urine bag Thrombocytopenia Polyuric more than 3 L output Procalcitonin unremarkable Added water flushes, D5 Chest x-ray with right-sided new infiltrate, aspiration pneumonitis A lot of thick secretions suctioned Requested Mucomyst and chest physiotherapy Oral secretions changed with blood, hemoptysis Change Levaquin to Zosyn Failed weaning trial Vitals/I&O/Wt Last Vital Signs Temp 97.7 F 01/04/21 21:00 Pulse 57 L 01/05/21 11:40 Resp 18 01/05/21 13:27 BP 100/62 01/05/21 11:00 Pulse Ox 89 L 01/05/21 13:27 01/05/21 01/05/21 01/05/21 06:59 14:59 22:59 Intake Total 1497.925 / 3215.365 1281.200 / 1281.200 Output Total 1400 / 2950 650 / 650 Balance 97.925 / 265.365 631.200 / 631.200 Physical Exam Narrative: EXAM NARRATIVE: Intubated and sedated Precedex and propofol which was discontinued to start weaning trial however it was discontinued because of his higher O2 requirement FiO2 increased from 60 to 65% Extremity edema slightly improved Hemoptysis, blood-tinged oral secretions Hematuria in urine bag Soft nondistended abdomen bowel sound present however sluggish Assisted bilateral breath sounds with rhonchi Patient is opening eyes does try to move his arms and follow commands with sedation vacation Dressing soaked with blood around left IJ Urinary Catheter Management^: Espinosa: Cath Placed During This Visit: yes Reason for Continuing Indwelling Catheter: Accurate Measurement of Urinary Output in Critically Ill Patients Urinary Catheter Date of Insertion: 01/05/21 Urinary Catheter Time of Insertion: 10:16 Data : 01/05/21 03:43 01/05/21 03:43 Micro: Microbiology 01/03/21 21:40 Gram Stain - Final Sputum - Endotracheal Tube Aspirate Sputum Culture - Preliminary Yeast 01/03/21 15:25 Urine Culture - Preliminary Urine,Clean Catch 01/03/21 15:05 Blood Culture - Preliminary Blood NEGATIVE TO DATE 01/03/21 15:05 Blood Culture - Preliminary Blood NEGATIVE TO DATE A&P Assessment and plan (1) Thrombocytopenia: Status: Acute (2) Hypernatremia: Status: Acute (3) Uremia: Status: Acute (4) Rhabdomyolysis: Status: Acute (5) Goals of care, counseling/discussion: Status: Acute (6) Acute respiratory distress syndrome (ARDS) due to severe acute respiratory syndrome coronavirus 2 (SARS-CoV-2): Status: Acute (7) DVT (deep venous thrombosis): Status: Acute Qualifiers: DVT location: lower extremity Affected thrombotic vein of extremity: other lower extremity vein Chronicity: unspecified Laterality: bilateral Qualified Code(s): I82.493 - Acute embolism and thrombosis of other specified deep vein of lower extremity, bilateral (8) LORRAINE (acute kidney injury): Status: Acute (9) Pneumonia due to severe acute respiratory syndrome coronavirus 2 (SARS-CoV-2): Status: Acute (10) Respiratory failure with hypoxia: Status: Acute Qualifiers: Chronicity: acute Qualified Code(s): J96.01 - Acute respiratory failure with hypoxia (11) Hematuria: Status: Acute (12) Aspiration pneumonitis: Status: Acute Additional A&P Information COVID-19 related hypoxia ARDS Status post 4 cycles of proning Status post Actemra 12/24 Finished steroid regimen continue inhaled steroids Change Levaquin to Zosyn because of aspiration pneumonitis seen on chest x-ray today a lot of thick sputum secretions change with blood noticed Procalcitonin unremarkable no fever no leukocytosis Failed weaning trial x3 FiO2 60 to 65%, hold off on weaning trials keep on weaning off sedatives patient does open his eyes and follow commands Opioids added to avoid increasing sedative dosages Patient had 2 bowel movements so far during his hospitalization, last bowel movement day before yesterday with enema Hypernatremia Contraction alkalosis bicarb 30 6 L water deficit Start D5 increase water flushes run medication mixed with D5 Lasix held Thrombocytopenia: HIT panel sent secondary to DVT we will start him on argatroban infusion LORRAINE: Improved uremia improved with increase in water flushes Upper GI bleed versus catabolic state Rhabdomyolysis improved Hematuria: Persistent hematuria which has not resolved since placement of previous Espinosa catheter, manual irrigation requested urine color has become dark pink Acute blood loss anemia hemoglobin trickled down noticed hemoptysis hematuria we will transfuse if hemoglobin less than 7 Aspiration pneumonitis change Levaquin to Zosyn, isolated episode of fever however no recurrence, repeat cultures unremarkable Patient has failed weaning trial, FiO2 60 to 65%, guarded prognosis, family is agreeable if we need PEG tube placement and trach, will update behavioral health case manager to start looking for LTAC Full code Attestations Medical Necessity Statement*: Failure of weaning trial, hold off on weaning trial for now continue ICU management Time Spent in Patient Care: 16 - 35 minutes Coding Level of Care Code Acute General Utility Worker for Chg Fwd Diagnoses Thrombocytopenia D69.6 Hypernatremia E87.0 Uremia N19 Rhabdomyolysis M62.82 Goals of care, counseling/discussion Z71.89 Acute respiratory distress syndrome (ARDS) due to severe acute respiratory syndrome coronavirus 2 (SARS-CoV-2) U07.1; J80 DVT (deep venous thrombosis) I82.493 DVT location: lower extremity Affected thrombotic vein of extremity: other lower extremity vein Chronicity: unspecified Laterality: bilateral LORRAINE (acute kidney injury) N17.9 Pneumonia due to severe acute respiratory syndrome coronavirus 2 (SARS-CoV-2) U07.1; J12.82 Respiratory failure with hypoxia J96.01 Chronicity: acute Hematuria R31.9 Aspiration pneumonitis J69.0
[2021-01-05 15:39] LABS: INR 1.09 (0.8-1.2)
[2021-01-05 15:40] LABS: Partial Thromboplastin Time 34.8 SECONDS (23.9-36.7)
[2021-01-05 15:41] LABS: Fibrinogen 397 mg/dL (174-498)
[2021-01-05 15:43] LABS: D Dimer 2.54 ug/mIFEU (0-0.59)
[2021-01-05] MEDS: piperacillin-tazobactam 3.375 GM in sodium chloride 0.9% (plus) 50 ML IV (15:48)
[2021-01-05] MEDS: argatroban 250 MG in sodium chloride 0.9% 250 ML 15.76 MG IV (16:55)
[2021-01-05 17:37] LABS: Glucose Point of Care 135 mg/dL (70-110)
[2021-01-05 19:52] LABS: Partial Thromboplastin Time 68.5 SECONDS (23.9-36.7)
[2021-01-05] MEDS: acetylcysteine 200 mg/mL SDV 4 mL 100 MG INHALATION (20:47)
[2021-01-05] MEDS: quetiapine 25 mg Tablet PO (22:01)
[2021-01-06] VITALS (38 sets, daily range): BP systolic 82–130; BP diastolic 46–75; PULSE 58–86; RESP 16–28; TEMP 37.1–37.2; O2SAT 87–95; BMI 34.8
[2021-01-06] MEDS: dexmedeTOMIDine 0.9 % NaCL 400 MCG/100 ML PREMIX 26 MCG IV ×6 (00:22→20:27)
[2021-01-06] MEDS: propofol 1,000 MG/100 ML INJ 17.8 MG IV (02:15)
[2021-01-06] MEDS: ipratropium-albuterol 3 mL Neb INHALATION ×5 (03:09→20:39)
[2021-01-06] MEDS: piperacillin-tazobactam 3.375 GM in sodium chloride 0.9% (plus) 50 ML IV ×2 (04:18→14:29)
[2021-01-06 04:38] LABS: ABG PCO2 43.2 mmHg (35-45); ABG PH Result 7.43 (7.35-7.45); Arterial Blood Gas Hematocrit 33.4 % (42-52); Base Excess ABG 3.8 mmol/L (-2.0-2.0); Blood Gas Operator Identificat JB; Blood Gas Sample Site Brachial, right; Blood Gas Sample Type Arterial; Blood Gas Tidal Volume 0.48; HCO3 ABG 28.6 mmol/L (22-26); Oxygen Device VENT; PO2 ABG 53.9 mmHg (80.0-100.0)
[2021-01-06 05:46] LABS: Basophils % 0.1 %; Eosinophils # 0.1 10^3/uL (0.0-0.8); Eosinophils % 1.7 %; Hematocrit 33.4 % (42.0-52.0); Hemoglobin 10.5 g/dL (11.7-16.6); Lymphocytes # 0.4 10^3/uL (0.8-4.8); Lymphocytes % 4.9 %; Mean Corpuscular HGB Conc 31.4 g/dL (30.0-36.0); Mean Corpuscular Hemoglobin 31.3 pg (28.0-34.0); Mean Corpuscular Volume 99.7 fl (80-94); Mean Platelet Volume 10.2 fL (7.4-10.4); Monocytes # 0.6 10^3/uL (0.2-0.9); Monocytes % 6.8 %; Neutrophils # 7.14 10^3/uL (1.8-7.7); Neutrophils % 86.1 %; Nucleated Red Blood Cells % 0 %; Platelet Count 88 10^3/cmm (130-400); Red Blood Count 3.35 10^6/uL (4.1-5.3); Red Cell Distribution Width 14.6 % (12.1-15.1); White Blood Count 8.3 10^3/uL (4.0-10.0)
[2021-01-06 05:49] LABS: Glucose Point of Care 126 mg/dL (70-110)
[2021-01-06 06:09] LABS: Partial Thromboplastin Time 78.5 SECONDS (23.9-36.7)
[2021-01-06 06:14] LABS: Alanine Aminotransferase 46 U/L (0-41); Albumin Level 2.8 g/dL (3.5-5.2); Alkaline Phosphatase 106 IU/L (40-130); Aspartate Amino Transferase 29 U/L (0-40); Blood Urea Nitrogen 51 mg/dL (8-23); C Reactive Protein 41.8 mg/L (0.0-4.9); Calcium 8.3 mg/dL (8.5-10.5); Carbon Dioxide 28 mmol/L (22-29); Chloride 111 mmol/L (98-107); Globulin 2.2 g/dL (1.3-4.6); Glucose 106 mg/dL (65-115); Osmolality Calculated 318 mOsm/kg (285-295); Procalcitonin 0.22 ng/mL (0-0.5); Sodium 147 mmol/L (136-145); Total Bilirubin 0.6 mg/dL (0.15-1.2)
--- NOTE | 2021-01-06 07:20 | PC.NURSE ---
Shift Note Frequent safety and comfort rounds continue. Orders and/or nursing care completed as indicated. Patient monitored for response to intervention and treatment(s). Education provided includes[]. Patient and/or traveling representative [ResponseToTeaching]. Will continue to monitor. There were no new changes with the patient. The argatroban drip is still running and had been titrated once during the shift based on the drip protocol. The patient is still producing hematuria.
[2021-01-06 07:24] LABS: Glucose Point of Care 97 mg/dL (70-110)
[2021-01-06] MEDS: budesonide 0.5 mg/2 mL Neb INHALATION ×2 (08:18→20:39)
[2021-01-06] MEDS: acetylcysteine 200 mg/mL SDV 4 mL 100 MG INHALATION ×2 (08:19→20:44)
[2021-01-06] MEDS: propofol 1,000 MG/100 ML INJ 31.15 MG IV (08:56)
[2021-01-06] MEDS: zinc gluconate 50 mg Tablet PO (08:57)
[2021-01-06] MEDS: sennosides-docusate Tablet 1 TAB PO (08:57)
[2021-01-06] MEDS: lactulose oral liq 20 gm/30 mL UDC 10 GM PO ×2 (08:57→17:41)
[2021-01-06] MEDS: HYDROcodone-acetaminophen 5-325 mg Tablet 1 TAB PO ×2 (08:58→17:41)
[2021-01-06] MEDS: HYDROmorphone 1 mg/mL INJ 1 mL IVP ×2 (09:08→18:26)
[2021-01-06 09:29] LABS: Partial Thromboplastin Time 70.4 SECONDS (23.9-36.7)
[2021-01-06] MEDS: ascorbic acid 500 mg Tablet 1000 MG PO ×2 (09:41→17:41)
[2021-01-06] MEDS: cholecalciferol (vitamin D3) 1,000 unit Tablet 2000 UNIT PO (09:41)
[2021-01-06] MEDS: lidocaine 5% Patch 1 PATCH TOPICAL ×2 (10:00→20:28)
--- NOTE | 2021-01-06 11:29 | PM.PN ---
Subjective Subjective: Interval history: Patient is pulling higher tidal volume 800 decision was made to increase his sedation to propofol 35 today Precedex 0.8 FiO2 65% Persistent hypoxia Hypernatremia improved Bleeding around left IJ catheter improved however hematuria is persistent Afebrile, no leukocytosis Concern for aspiration pneumonitis antibiotics switched to Zosyn yesterday Mucomyst trickled down to 10.5, HIT panel sent yesterday, currently on argatroban for DVT, which is on hold because of hematuria BUN improved along chloride with D5 fluid resuscitation and increasing water flushes Albumin 2.8 CRP trending down procalcitonin unremarkable Vitals/I&O/Wt Last Vital Signs Temp 97.6 F 01/05/21 20:00 Pulse 66 01/06/21 10:00 Resp 18 01/06/21 09:08 BP 91/56 01/06/21 10:00 Pulse Ox 90 01/06/21 10:00 01/05/21 01/06/21 01/06/21 22:59 06:59 14:59 Intake Total 1700.370 / 2981.570 566.583 / 3548.153 1307.606 / 1307.606 Output Total 500 / 1150 1000 / 2150 Balance 1200.370 / 1831.570 -433.417 / 7816.517 9398.606 / 1307.606 Weight last 48 hrs Weight 129.727 kg Physical Exam Narrative: EXAM NARRATIVE: Patient is intubated, sedated, FiO2 65% PEEP 12, tidal volume 480, pulling 800 tidal volume Bilateral breath sounds with rhonchi right lower than left Soft abdomen bowel sound present Persistent hematuria Left IJ dressing not soaked with blood today No hemoptysis or epistaxis Patient does respond to painful stimuli S1, S2 sinus rhythm Extremities look less edematous today Urinary Catheter Management^: Espinosa: Cath Placed During This Visit: yes Reason for Continuing Indwelling Catheter: Accurate Measurement of Urinary Output in Critically Ill Patients Urinary Catheter Date of Insertion: 01/05/21 Urinary Catheter Time of Insertion: 10:16 Data : 01/06/21 05:00 01/06/21 05:00 Micro: Microbiology 01/03/21 21:40 Gram Stain - Final Sputum - Endotracheal Tube Aspirate Sputum Culture - Preliminary Yeast 01/03/21 15:25 Urine Culture - Final Urine,Clean Catch A&P Assessment and plan (1) Aspiration pneumonitis: Status: Acute (2) Hematuria: Status: Acute (3) Thrombocytopenia: Status: Acute (4) Hypernatremia: Status: Acute (5) Uremia: Status: Acute (6) Hyperkalemia: Status: Acute (7) Rhabdomyolysis: Status: Acute (8) Goals of care, counseling/discussion: Status: Acute (9) Acute respiratory distress syndrome (ARDS) due to severe acute respiratory syndrome coronavirus 2 (SARS-CoV-2): Status: Acute (10) DVT (deep venous thrombosis): Status: Acute Qualifiers: DVT location: lower extremity Affected thrombotic vein of extremity: other lower extremity vein Chronicity: unspecified Laterality: bilateral Qualified Code(s): I82.493 - Acute embolism and thrombosis of other specified deep vein of lower extremity, bilateral (11) LORRAINE (acute kidney injury): Status: Acute (12) Hypokalemia: Status: Acute (13) Pneumonia due to severe acute respiratory syndrome coronavirus 2 (SARS-CoV-2): Status: Acute (14) Respiratory failure with hypoxia: Status: Acute Qualifiers: Chronicity: acute Qualified Code(s): J96.01 - Acute respiratory failure with hypoxia Additional A&P Information Persistent hypoxia related to COVID-19 Severe ARDS Status post 4 cycles of proning Status post Actemra 12/24 Finished remdesivir and Decadron regimen Has been weaned off steroids Secondary to new appearance of infiltrates on right side of his chest evident on previous chest x-ray started Zosyn and discontinue Levaquin he has been afebrile no leukocytosis procalcitonin unremarkable CRP trending down Failed weaning trials x3 Arranging family meeting today to discuss tracheostomy, PEG tube and LTAC, case management associate updated, family updated To avoid positive net fluid balance we will give him another dose of Lasix today LORRAINE improved No signs of active infection Difficulty weaning off ventilator with underlying ARDS related to COVID-19, consider another CTA chest rule out PE in case of further worsening hypoxia, no active barotrauma pneumomediastinum or pneumothorax however he would be considered high risk DVT: Thrombocytopenia, HIT panel sent, argatroban currently on hold because of persistent hematuria DIC panel unremarkable D-dimer trended down LORRAINE: Uremia Improved Hypernatremia Improved with D5 and increasing water flushes Rhabdomyolysis: Resolved Acute blood loss anemia This seems secondary to COVID-19 related coagulopathy, I am holding off on argatroban today noticed Eliquis, hemoptysis and bleeding around catheter site which has resolved for now Persistent hematuria Aspiration pneumonitis currently doing well on Zosyn, I do believe this happened during episodes of hemoptysis and epistaxis No active signs of ventilator associated pneumonia Constipation: We will do another enema today he responded well to enema 3 days ago, active bowel sounds abdomen does not look distended Guarded prognosis Full code Attestations Medical Necessity Statement*: Continue ICU management Time Spent in Patient Care: 16 - 35 minutes Coding Level of Care Code Acute Bed Placement Coordinator for Chg Fwd Diagnoses Aspiration pneumonitis J69.0 Hematuria R31.9 Thrombocytopenia D69.6 Hypernatremia E87.0 Uremia N19 Hyperkalemia E87.5 Rhabdomyolysis M62.82 Goals of care, counseling/discussion Z71.89 Acute respiratory distress syndrome (ARDS) due to severe acute respiratory syndrome coronavirus 2 (SARS-CoV-2) U07.1; J80 DVT (deep venous thrombosis) I82.493 DVT location: lower extremity Affected thrombotic vein of extremity: other lower extremity vein Chronicity: unspecified Laterality: bilateral LORRAINE (acute kidney injury) N17.9 Hypokalemia E87.6 Pneumonia due to severe acute respiratory syndrome coronavirus 2 (SARS-CoV-2) U07.1; J12.82 Respiratory failure with hypoxia J96.01 Chronicity: acute
[2021-01-06 11:32] LABS: Glucose Point of Care 111 mg/dL (70-110)
[2021-01-06] MEDS: argatroban 250 MG in sodium chloride 0.9% 250 ML 11.82 MG IV (11:32)
[2021-01-06] MEDS: propofol 1,000 MG/100 ML INJ 35.6 MG IV ×4 (12:26→22:00)
[2021-01-06 12:30] LABS: LAB Peripheral Smear Sent for Review
[2021-01-06] MEDS: FUROsemide 10 mg/mL SDV 2mL 20 MG IVP (12:36)
--- NOTE | 2021-01-06 13:38 | PC.NURSE ---
Family meeting asked nurse if I could called Dr. Ashley to discuss patient care. and son questioned nurse and Dr. Ashley about possible tracheotomy and custodial options and possible withdrawal from care if not improving vs comfort measures. All questions answered by Dr. Ashley. Family wishes to wait for more family to arrive to area tomorrow before making a decision. Family wishes to wean sedations enough for them to ask the patient if he wants to continue care or not. They plan on being back 01/07/21 at 1500 to discuss with patient. Nurse to turn down sedation prior to this, if patient's vitals/vent settings allow.
--- NOTE | 2021-01-06 14:06 | PC.NUTR ---
Tube feeding recommendations: Glucerna at 30 ml/hr with 50 ml H2O flush q 4 hrs providing 864 kcal, 43 g protein, 730 ml H2O. Propofol providing 940 kcal/day at 35.6 ml/hr. Nurse reports pt does not tolerate TF well when it goes above 30 ml/hr, however unable to meet estimated nutritional needs at this rate. Recommend continue at 30 ml/hr, and add Beneprotein flushes QID for additional 100 kcal and 24 g protein. Also may benefit from increase in H2O flushes given that TF at 30 providing less fluid than 70 ml/hr would. See full RD assessment for further details.
--- NOTE | 2021-01-06 16:07 | P.PN_ITS ---
Subjective Subjective: Interval history: -Patient seen at bedside today -Overnight had aspiration and ET tube passed tube feeding-hold tube feeding -Yesterday night antibiotic changed to Zosyn -Labs and imaging reviewed -Patient pulling volumes excess of 900 cc on CMV mode and Precedex 0.8 and pr opofol 15 mg/hour; still requiring PEEP of 12 and FiO2 65% -Continues to have hematuria-discontinue argatroban -Appears clinically volume overloaded-sodium 147-DC D5 and give Lasix 20 mg Medications: Reviewed: Yes Vitals/I&O/Wt Last Vital Signs Temp 97.6 F 01/05/21 20:00 Pulse 71 01/06/21 16:06 Resp 21 H 01/06/21 16:06 BP 99/50 01/06/21 14:00 Pulse Ox 92 01/06/21 16:06 01/06/21 01/06/21 01/06/21 06:59 14:59 22:59 Intake Total 566.583 / 3548.153 1488.427 / 1488.427 100 / 1588.427 Output Total 1000 / 2150 800 / 800 Balance -433.417 / 9455.098 7709.427 / 1488.427 -700 / 788.427 Weight last 48 hrs Weight 286 lb Physical Exam Narrative: EXAM NARRATIVE: General: Lying in bed, sedated and intubated. HEENT:NCAT, PERRLA, EOMI Neck: Supple Lungs: Bilateral coarse crepitations Heart: s1/s2, RRR Abd: soft, NT, ND, BS + Normoactive Extremities: No edema SALES APPRENTICE: sedated and limited SALES APPRENTICE exam possible. SKIN: no rash LDA: # CVC: Left internal jugular vein 12/28/2020 # Espinosa: 12/24/2020 Urinary Catheter Management^: Espinosa: Cath Placed During This Visit: yes Reason for Continuing Indwelling Catheter: Accurate Measurement of Urinary Output in Critically Ill Patients Urinary Catheter Date of Insertion: 01/05/21 Urinary Catheter Time of Insertion: 10:16 Data : 01/06/21 05:00 01/06/21 05:00 Other Labs: Laboratory Results WBC 8.3 10^3/uL (4.0-10.0) 01/06/21 05:00 Corrected WBC Cancelled 12/30/20 03:40 RBC 3.35 10^6/uL (4.1-5.3) L 01/06/21 05:00 Hgb 10.5 g/dL (11.7-16.6) L 01/06/21 05:00 Hct 33.4 % (42.0-52.0) L 01/06/21 05:00 MCV 99.7 fl (80-94) H 01/06/21 05:00 MCH 31.3 pg (28.0-34.0) 01/06/21 05:00 MCHC 31.4 g/dL (30.0-36.0) 01/06/21 05:00 RDW 14.6 % (12.1-15.1) 01/06/21 05:00 Plt Count 88 10^3/cmm (130-400) L 01/06/21 05:00 MPV 10.2 fL (7.4-10.4) 01/06/21 05:00 Gran % Cancelled 12/30/20 03:40 Neut % (Auto) 86.1 % 01/06/21 05:00 Lymph % (Auto) 4.9 % 01/06/21 05:00 [place] % (Auto) 6.8 % 01/06/21 05:00 Eos % (Auto) 1.7 % 01/06/21 05:00 Baso % (Auto) 0.1 % 01/06/21 05:00 Neut # (Auto) 7.14 10^3/uL (1.8-7.7) 01/06/21 05:00 Lymph # (Auto) 0.4 10^3/uL (0.8-4.8) L 01/06/21 05:00 [place] # (Auto) 0.6 10^3/uL (0.2-0.9) 01/06/21 05:00 Eos # (Auto) 0.1 10^3/uL (0.0-0.8) 01/06/21 05:00 Baso # (Auto) 0.0 10^3/uL (0.0-0.1) 01/06/21 05:00 Absolute Gran (auto) Cancelled 12/30/20 03:40 Nucleated RBC % (auto) 0 % 01/06/21 05:00 Nucleated RBCs # 0.0 /100WBC 01/06/21 05:00 ESR 13 mm/hr (0-10) H 12/27/20 05:30 PT 14.50 SECONDS (12.1-14.9) 01/05/21 15:10 INR 1.09 (0.8-1.2) 01/05/21 15:10 APTT 70.4 SECONDS (23.9-36.7) H 01/06/21 08:39 Fibrinogen 397 mg/dL (174-498) 01/05/21 15:10 Fibrin Degrad Products Pos, 10-40 ug/mL (NEG) H 01/05/21 15:10 D-Dimer 2.54 ug/mIFEU (0-0.59) H 01/05/21 15:10 Specimen Type Arterial 01/06/21 04:24 Sample Site Brachial, right 01/06/21 04:24 ABG pH 7.43 (7.35-7.45) 01/06/21 04:24 ABG pCO2 43.2 mmHg (35-45) 01/06/21 04:24 ABG pO2 53.9 mmHg (80.0-100.0) L 01/06/21 04:24 ABG HCO3 28.6 mmol/L (22-26) H 01/06/21 04:24 ABG O2 Saturation 92.6 12/31/20 13:05 ABG Base Excess 3.8 mmol/L (-2.0-2.0) H 01/06/21 04:24 Luke Test N/a 01/06/21 04:24 A-a O2 Gradient 38.6 mmHg (5-10) H 12/31/20 13:05 Hematocrit 33.4 % (42-52) L 01/06/21 04:24 Hgb O2 Saturation 90.7 % (95-100) L 12/31/20 13:05 Carboxyhemoglobin 1.0 %THgb (0.4-20.1) 12/31/20 13:05 Methemoglobin 1.1 % (0.4-1.5) 12/31/20 13:05 Total Hemoglobin 15.5 g/dL (14-18) 12/31/20 13:05 Sodium 143.0 mmol/L (131-143) 12/31/20 13:05 Potassium 4.7 mmol/L (3.5-5.0) 12/31/20 13:05 Glucose 136.0 mg/dL (70-115) H 12/31/20 13:05 Ionized Calcium 1.2 mmol/L (1.1-1.4) 12/31/20 13:05 Respiration Rate 20.0 % 01/04/21 04:20 O2 Delivery Device Vent 01/06/21 04:24 O2 Liters/Min 50.0 % 12/23/20 11:23 Mechanical Rate 26.0 12/29/20 17:45 FiO2 65.0 % 01/06/21 04:24 Tidal Volume 0.48 01/06/21 04:24 PEEP 12.0 cmH20 01/06/21 04:24 [employer] Outfit Supervisor ID Albert 01/06/21 04:24 Sodium 147 mmol/L (136-145) H 01/06/21 05:00 Potassium 4.0 mmol/L (3.5-5.1) 01/06/21 05:00 Chloride 111 mmol/L (98-107) H 01/06/21 05:00 Carbon Dioxide 28 mmol/L (22-29) 01/06/21 05:00 Anion Gap 12.0 (5-19) 01/06/21 05:00 BUN 51 mg/dL (8-23) H 01/06/21 05:00 Creatinine 0.8 mg/dL (0.7-1.2) 01/06/21 05:00 GFR Calculation 98.0 mL/min (90-130) 01/06/21 05:00 Glucose 106 mg/dL (65-115) 01/06/21 05:00 POC Glucose 111 mg/dL (70-110) H 01/06/21 11:18 Calculated Osmolality 318 mOsm/kg (285-295) H 01/06/21 05:00 Lactic Acid 1.7 mmol/L (0.5-2.2) 12/23/20 11:05 Uric Acid 7.0 mg/dL (3.4-7.0) 12/25/20 14:00 Calcium 8.3 mg/dL (8.5-10.5) L 01/06/21 05:00 Phosphorus 4.4 mg/dL (2.5-4.5) 01/02/21 04:27 Magnesium 3.2 mg/dL (1.7-2.3) H 01/02/21 04:27 Ferritin 5395 ng/mL (30-400) H 12/27/20 05:30 Total Bilirubin 0.6 mg/dL (0.15-1.2) 01/06/21 05:00 AST 29 U/L (0-40) 01/06/21 05:00 ALT 46 U/L (0-41) H 01/06/21 05:00 Alkaline Phosphatase 106 IU/L (40-130) 01/06/21 05:00 Lactate Dehydrogenase 1234 U/L (135-225) H 12/27/20 05:30 Creatine Kinase 656 U/L (39-308) H* 01/02/21 04:27 Troponin T Baseline 14 ng/L (0-15) 12/23/20 11:05 Troponin T 120 Minute 12.13 ng/L (0-15) 12/23/20 15:04 Delta Troponin T -1.87 ABS# (0-10) L 12/23/20 15:04 Troponin T Hi Sens 6Hr 12.32 ng/L (0-15) 12/23/20 17:00 Troponin T Hi Sens 6Hr Delta -1.68 ng/L (0-12) L 12/23/20 17:00 C-Reactive Protein 41.8 mg/L (0.0-4.9) H 01/06/21 05:00 NT-Pro-B Natriuret Pep 149 pg/mL (0-125) H 12/26/20 03:55 Total Protein 5.0 g/dL (6.6-8.7) L 01/06/21 05:00 Albumin 2.8 g/dL (3.5-5.2) L 01/06/21 05:00 Globulin 2.2 g/dL (1.3-4.6) 01/06/21 05:00 Procalcitonin 0.22 ng/mL (0-0.5) 01/06/21 05:00 TSH 1.82 uIU/mL (0.27-4.20) 12/25/20 14:00 Urine Color Red (Yellow) 01/03/21 15:25 Urine Appearance Bloody (CLEAR) A 01/03/21 15:25 Urine pH 5 (5-7) 01/03/21 15:25 Ur Specific [place] 1.015 (1.005-1.030) 01/03/21 15:25 Urine Protein 2+ (Negative) H 01/03/21 15:25 Urine Glucose (UA) Norm (Normal) 01/03/21 15:25 Urine Ketones Negative (Negative) 01/03/21 15:25 Urine Blood 3+ (Negative) H 01/03/21 15:25 Urine Nitrate Negative (Negative) 01/03/21 15:25 Urine Bilirubin Neg (Negative) 01/03/21 15:25 Urine Urobilinogen 1 mg/dL (Negative) H 01/03/21 15:25 Ur Leukocyte Esterase Trace (Negative) H 01/03/21 15:25 Urine RBC >100 /hpf (0-2) H 01/03/21 15:25 Urine WBC 0-4 /hpf (0-5) H 01/03/21 15:25 Ur Squamous Epith Cells 0-4 /hpf (0-5) H 01/03/21 15:25 Amorphous Sediment Not Reportable 01/03/21 15:25 Urine Bacteria Trace /hpf (NONE) 01/03/21 15:25 Coarse Granular Casts 10-15 /lpf H 12/25/20 14:00 Urine Mucus 1+ /hpf 12/25/20 14:00 Ur Random Sodium 13 mmol/L 12/25/20 14:00 Ur Random Potassium 74 mmol/L 12/25/20 14:00 Ur Random Chloride < 10 mmol/L 12/25/20 14:00 Urine Creatinine 231 mg/dL (39-259) 12/25/20 14:00 Impressions Chest CTA 12/23/20 16:32 IMPRESSION: 1. No visible evidence of pulmonary embolism/pulmonary arterial thrombus. 2. Advanced and extensive bilateral mixed ground-glass interstitial lung disease and patches of consolidated alveolar airspace disease of active pneumonitis/pneumonia. 3. Evidence also of air trapping of COPD/chronic bronchitis. 4. Prominent mediastinal and hilar lymph nodes believed reactive in nature. Radiation Dose CTDIVOL = (mGy): DLP = 617.12 (mGy-cm) Venous Duplex 12/25/20 07:58 IMPRESSION: 1. Partial thrombosis of bilateral greater saphenous veins. 2. Questionable thrombus seen within an unnamed intramuscular vein in the left calf. Renal Ultrasound 12/26/20 10:56 IMPRESSION: 1. No hydronephrosis. 2. Possible small echogenic lesion in the mid right kidney. This could represent a small angiomyolipoma. Recommend follow-up CT abdomen to further assess. This could be obtained on a nonemergent basis. Chest X-Ray 01/05/21 13:32 IMPRESSION: New infiltrates as above. Resolving lower lobe infiltrates. Micro: Microbiology 01/03/21 21:40 Gram Stain - Final Sputum - Endotracheal Tube Aspirate Sputum Culture - Preliminary Yeast 01/03/21 15:25 Urine Culture - Final Urine,Clean Catch A&P Assessment and plan (1) Respiratory failure with hypoxia: Status: Acute Qualifiers: Chronicity: acute Qualified Code(s): J96.01 - Acute respiratory failure with hypoxia (2) Acute respiratory distress syndrome (ARDS) due to severe acute respiratory syndrome coronavirus 2 (SARS-CoV-2): Status: Acute (3) DVT (deep venous thrombosis): Status: Acute Qualifiers: DVT location: lower extremity Affected thrombotic vein of extremity: other lower extremity vein Chronicity: unspecified Laterality: bilateral Qualified Code(s): I82.493 - Acute embolism and thrombosis of other specified deep vein of lower extremity, bilateral (4) LORRAINE (acute kidney injury): Status: Acute (5) Aspiration pneumonitis: Status: Acute (6) Hematuria: Status: Acute (7) Thrombocytopenia: Status: Acute (8) Hypernatremia: Status: Acute #Acute hypoxic respiratory failure secondary to ARDS due to COVID-19 p neumonia #Aspiration pneumonia #Partial thrombosis of bilateral great saphenous veins and questionable thrombus seen on unnamed intramuscular Vein in the left calf-on anticoagulation- complicated by hematuria-so held anticoagulation #LORRAINE-resolved #Hypernatremia-resolved #Thrombocytopenia-? Heparin-induced #Hematuria -Symptoms started 12/15/2020: Rapid antigen 12/23/2020 -Intubated 12/27/2020- completed 4 sessions of proning -1 dose Actemra 12/24/2020; completed 5 doses of remdesivir and 10 days of dexamethasone 10 mg -On CMV 480/65%/12 ABG 7.4 /53/20 8/92% -On Precedex 0.8 and propofol 15 mg/hour, opening eyes, hemodynamically stable but pulling volumes excess of 900 cc -Titrate propofol up to 40 mg/hour -[place] 5-325 1 tablet twice daily for pain and Dilaudid as needed for opiate withdrawal -Unfortunately patient has an episode of aspiration yesterday with tube feeds and ET tube: Hold tube feeding for now and antibiotic changed to Zosyn to cover aspiration pneumonia -On DuoNeb and Pulmicort scheduled nebulizations -So far cultures negative, Initial pro Aung 0.56 on admission and later 2.26 could be secondary to LORRAINE -Endotracheal tube aspirate grew yeast -received 7 days of empiric Levaquin -LORRAINE resolved and renal signed off for now -sodium down from 154-147 on D5 at 100 mL's per hour; Patient is clinically volume overloaded with net +5.5 L since admission and +1.4 L in last 24 hours -Recommended to DC D5 and give Lasix 20 mg and assess daily -Renal functions better, monitor electrolytes -Patient was on Lovenox 120 units units twice daily for DVT-CTA negative for PE on admission; developed thrombocytopenia, discontinue Lovenox and started on argatroban, HIT antibody sent-patient continues to have hematuria and gradual decline in CBC-discontinue argatroban for now -Hold feeding for now as patient has aspiration pneumonia; start tube feeding in the evening at the rate of 10 mL/h and gradually increase not more than 30 mL/h -bowel regimen senna/docusate; & lactulose 10 mg twice daily -Sugars well controlled-on scale coverage -DVT prophylaxis: Currently held argatroban due to hematuria -PPI for GI prophylaxis -Full code -Family updated by hospitalist -Continue to monitor for fluid balance, electrolytes, hemodynamics, secondary infections -If patient continues to improve with PEEP less than 10 and FiO2 around 50%-we will attempt weaning trials-if fails-we will plan for trach and PEG and sent to LTAC Recommendations conveyed to hospitalist, RN, taking care of the patient Attestations Medical Necessity Statement*: acute hypoxic respiratory failure secondary to ARDS due to COVID-19 pneumonia requiring mechanical ventilation coexisting DVT on therapeutic anticoagulation Time Spent in Patient Care: Greater than 35 minutes (>than 50% of time spent in counselling and/or direct pt care on unit) . Critical Care Time: The high probability of a clinically significant, sudden or life threatening deterioration of the patient's [pulmonary, renal, vascular] system(s) required my full and direct attention, intervention and personal management. The critical care time is as shown. This time is in addition to time spent performing any reported procedures but includes the following: [x] Data and vital sign review and interpretation [x] Patient assessment, examination and intervention [x] Documentation [x] Medication orders and management Critical Care Time (min): 45 Coding Level of Care Code Established Pt Acute Software Engineering Project Manager for Chg Fwd Patient Type Established History Comprehensive Exam Comprehensive Medical Decision Making High Complexity Diagnoses Respiratory failure with hypoxia J96.01 Chronicity: acute Acute respiratory distress syndrome (ARDS) due to severe acute respiratory syndrome coronavirus 2 (SARS-CoV-2) U07.1; J80 DVT (deep venous thrombosis) I82.493 DVT location: lower extremity Affected thrombotic vein of extremity: other lower extremity vein Chronicity: unspecified Laterality: bilateral LORRAINE (acute kidney injury) N17.9 Aspiration pneumonitis J69.0 Hematuria R31.9 Thrombocytopenia D69.6 Hypernatremia E87.0 Time Spent (min) 45
--- NOTE | 2021-01-06 16:58 | PC.NURSE ---
Enema given, patient placed on left side x 15 minutes. Only enema returned at this time.
[2021-01-06 17:34] LABS: Glucose Point of Care 157 mg/dL (70-110)
[2021-01-06 18:15] LABS: Urine Creatinine 92 mg/dL (39-259)
[2021-01-06 18:17] LABS: Urine Random Sodium 11 mmol/L
[2021-01-06 18:20] LABS: Creatinine Urine, Random 92 mg/dL (39-259); Microalbum Creatinine Ratio Ur 33 mg/dL (0-20); Microalbumin Random Urine 3 ug/dL (0-20)
[2021-01-06] MEDS: hydroCHLOROthiazide 25 mg Tablet PO (18:22)
[2021-01-06 19:27] LABS: Urine Random Chloride 10 mmol/L
[2021-01-06] MEDS: quetiapine 25 mg Tablet PO (20:28)
[2021-01-06 20:36] LABS: Glucose Point of Care 105 mg/dL (70-110)
[2021-01-07] VITALS (43 sets, daily range): BP systolic 90–132; BP diastolic 52–72; PULSE 76–116; RESP 19–34; TEMP 36.9–38.2; O2SAT 86–91; BMI 36.1
[2021-01-07] MEDS: dexmedeTOMIDine 0.9 % NaCL 400 MCG/100 ML PREMIX 26 MCG IV ×3 (00:22→08:56)
[2021-01-07] MEDS: ipratropium-albuterol 3 mL Neb INHALATION ×7 (00:25→23:34)
[2021-01-07] MEDS: propofol 1,000 MG/100 ML INJ 35.6 MG IV ×2 (01:45→04:17)
[2021-01-07] MEDS: piperacillin-tazobactam 3.375 GM in sodium chloride 0.9% (plus) 50 ML IV (03:30)
[2021-01-07 03:31] LABS: Basophils % 0.2 %; Eosinophils # 0.2 10^3/uL (0.0-0.8); Eosinophils % 2.1 %; Hematocrit 35.2 % (42.0-52.0); Lymphocytes # 0.5 10^3/uL (0.8-4.8); Mean Corpuscular HGB Conc 31.3 g/dL (30.0-36.0); Mean Corpuscular Hemoglobin 31.7 pg (28.0-34.0); Mean Corpuscular Volume 101.4 fl (80-94); Mean Platelet Volume 10.1 fL (7.4-10.4); Monocytes # 0.7 10^3/uL (0.2-0.9); Monocytes % 7.6 %; Neutrophils # 7.55 10^3/uL (1.8-7.7); Neutrophils % 84.8 %; Nucleated Red Blood Cells % 0 %; Platelet Count 103 10^3/cmm (130-400); Red Blood Count 3.47 10^6/uL (4.1-5.3); White Blood Count 8.9 10^3/uL (4.0-10.0)
[2021-01-07 04:03] LABS: Partial Thromboplastin Time 37.6 SECONDS (23.9-36.7)
[2021-01-07 04:04] LABS: Alanine Aminotransferase 44 U/L (0-41); Albumin Level 2.9 g/dL (3.5-5.2); Alkaline Phosphatase 124 IU/L (40-130); Anion Gap 15.5 (5-19); Aspartate Amino Transferase 33 U/L (0-40); Blood Urea Nitrogen 62 mg/dL (8-23); C Reactive Protein 99.3 mg/L (0.0-4.9); Calcium 8.7 mg/dL (8.5-10.5); Carbon Dioxide 25 mmol/L (22-29); Chloride 111 mmol/L (98-107); Globulin 2.6 g/dL (1.3-4.6); Glomerular Filtration Rate 55.9 mL/min (90-130); Glucose 128 mg/dL (65-115); Lactate Dehydrogenase 463 U/L (135-225); Osmolality Calculated 323 mOsm/kg (285-295); Potassium 4.5 mmol/L (3.5-5.1); Sodium 147 mmol/L (136-145); Total Bilirubin 0.8 mg/dL (0.15-1.2); Total Protein 5.5 g/dL (6.6-8.7)
[2021-01-07 04:07] LABS: Procalcitonin 0.38 ng/mL (0-0.5)
[2021-01-07 06:23] LABS: ABG PCO2 43.9 mmHg (35-45); ABG PH Result 7.39 (7.35-7.45); Arterial Blood Gas Hematocrit 40.2 % (42-52); Base Excess ABG 1.4 mmol/L (-2.0-2.0); Blood Gas Sample Type Arterial; Carboxyhemoglobin 1.3 %THgb (0.4-20.1); HCO3 ABG 26.7 mmol/L (22-26); HGB O2 Sat 86.8 % (95-100); Ionized Calcium Level - ABG 1.2 mmol/L (1.1-1.4); Methemoglobin 0.8 % (0.4-1.5); Oxygen Saturation ABG 88.7; PO2 ABG 58.5 mmHg (80.0-100.0); Potassium Level - ABG 4.5 mmol/L (3.5-5.0); Total Hemoglobin 13.1 g/dL (14-18)
[2021-01-07 06:24] LABS: Alveolar-Arterial Oxygen Gradi 59.8 mmHg (5-10); Blood Gas Sample Site Brachial, right; Oxygen Device VENT
--- NOTE | 2021-01-07 06:38 | PC.NURSE ---
Shift Note Frequent safety and comfort rounds continue. Orders and/or nursing care completed as indicated. Patient monitored for response to intervention and treatment(s). Education provided includes[]. 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 . I talked with Samira (spouse) twice during the shift to update her that there had been no improvements. The patient's oxygen saturation dropped down to 86% several times and the FiO2 had to be titrated up from 70 to 80. The patient's sedation was increased from 40 to 50 mcg. of propofol, due to the patient's respirations increasing from an average of 26 bpm to about 31-32 bpm. The patient's residual was measured twice during the shift with the first being 220 mL, and the second 175 mL. Urine output was a little less than 600 mL for the shift, and the the urine was clear and tea color.
[2021-01-07] MEDS: propofol 1,000 MG/100 ML INJ 44.5 MG IV ×5 (07:29→16:26)
--- NOTE | 2021-01-07 07:43 | PM.PN ---
Subjective Subjective: Interval history: -Patient seen at bedside today -currently resting on Precedex 0.8 and propofol drip -Last 24 hours FiO2 requirement increased to 80%, patient had aspiration 1 day ago -Clinically volume overloaded, bedside ultrasound showed dilated IVC -Bright blood noted to 80 suction tube, no active bleeding noted -Urine looks clear with no hematuria -Anticoagulation on hold and H&H is stable Medications: Reviewed: Yes Vitals/I&O/Wt Last Vital Signs Temp 98.5 F 01/07/21 04:00 Pulse 87 01/07/21 06:00 Resp 27 H 01/07/21 06:42 BP 121/61 01/07/21 06:00 Pulse Ox 90 01/07/21 06:42 01/06/21 01/07/21 01/07/21 22:59 06:59 14:59 Intake Total 1526.667 / 3015.094 1030.187 / 4045.281 Output Total 950 / 950 575 / 1525 Balance 576.667 / 2065.094 455.187 / 2520.281 Weight last 48 hrs Weight 296 lb 5 oz Weight 286 lb Physical Exam Narrative: EXAM NARRATIVE: General: Lying in bed, sedated and intubated. HEENT:NCAT, PERRLA, EOMI Neck: Supple Lungs: Bilateral coarse crepitations Heart: s1/s2, RRR Abd: soft, NT, ND, BS + Normoactive Extremities: 1+ pitting pedal edema; old subcutaneous hematoma on right deltoid OPTICAL MODEL MAKER AND TESTER: sedated and limited OPTICAL MODEL MAKER AND TESTER exam possible. SKIN: no rash LDA: # CVC: Left internal jugular vein 12/28/2020 # Espinosa: 12/24/2020 Urinary Catheter Management^: Espinosa: Cath Placed During This Visit: yes Reason for Continuing Indwelling Catheter: Accurate Measurement of Urinary Output in Critically Ill Patients Urinary Catheter Date of Insertion: 01/05/21 Urinary Catheter Time of Insertion: 10:16 Data : 01/07/21 03:20 01/07/21 03:20 Other Labs: Laboratory Results WBC 8.9 10^3/uL (4.0-10.0) 01/07/21 03:20 Corrected WBC Cancelled 12/30/20 03:40 RBC 3.47 10^6/uL (4.1-5.3) L 01/07/21 03:20 Hgb 11.0 g/dL (11.7-16.6) L 01/07/21 03:20 Hct 35.2 % (42.0-52.0) L 01/07/21 03:20 MCV 101.4 fl (80-94) H 01/07/21 03:20 MCH 31.7 pg (28.0-34.0) 01/07/21 03:20 MCHC 31.3 g/dL (30.0-36.0) 01/07/21 03:20 RDW 15.0 % (12.1-15.1) 01/07/21 03:20 Plt Count 103 10^3/cmm (130-400) L 01/07/21 03:20 MPV 10.1 fL (7.4-10.4) 01/07/21 03:20 Gran % Cancelled 12/30/20 03:40 Neut % (Auto) 84.8 % 01/07/21 03:20 Lymph % (Auto) 5.0 % 01/07/21 03:20 Bradford % (Auto) 7.6 % 01/07/21 03:20 Eos % (Auto) 2.1 % 01/07/21 03:20 Baso % (Auto) 0.2 % 01/07/21 03:20 Neut # (Auto) 7.55 10^3/uL (1.8-7.7) 01/07/21 03:20 Lymph # (Auto) 0.5 10^3/uL (0.8-4.8) L 01/07/21 03:20 Bradford # (Auto) 0.7 10^3/uL (0.2-0.9) 01/07/21 03:20 Eos # (Auto) 0.2 10^3/uL (0.0-0.8) 01/07/21 03:20 Baso # (Auto) 0.0 10^3/uL (0.0-0.1) 01/07/21 03:20 Absolute Gran (auto) Cancelled 12/30/20 03:40 Nucleated RBC % (auto) 0 % 01/07/21 03:20 Nucleated RBCs # 0.0 /100WBC 01/07/21 03:20 ESR 13 mm/hr (0-10) H 12/27/20 05:30 Haptoglobin 55.0 mg/L (30-200) 01/07/21 03:20 PT 14.50 SECONDS (12.1-14.9) 01/05/21 15:10 INR 1.09 (0.8-1.2) 01/05/21 15:10 APTT 37.6 SECONDS (23.9-36.7) H 01/07/21 03:20 Fibrinogen 397 mg/dL (174-498) 01/05/21 15:10 Fibrin Degrad Products Pos, 10-40 ug/mL (NEG) H 01/05/21 15:10 D-Dimer 2.54 ug/mIFEU (0-0.59) H 01/05/21 15:10 Specimen Type Arterial 01/07/21 06:10 Sample Site Brachial, right 01/07/21 06:10 ABG pH 7.39 (7.35-7.45) 01/07/21 06:10 ABG pCO2 43.9 mmHg (35-45) 01/07/21 06:10 ABG pO2 58.5 mmHg (80.0-100.0) L 01/07/21 06:10 ABG HCO3 26.7 mmol/L (22-26) H 01/07/21 06:10 ABG O2 Saturation 88.7 01/07/21 06:10 ABG Base Excess 1.4 mmol/L (-2.0-2.0) 01/07/21 06:10 Luke Test N/a 01/07/21 06:10 A-a O2 Gradient 59.8 mmHg (5-10) H 01/07/21 06:10 Hematocrit 40.2 % (42-52) L 01/07/21 06:10 Hgb O2 Saturation 86.8 % (95-100) L 01/07/21 06:10 Carboxyhemoglobin 1.3 %THgb (0.4-20.1) 01/07/21 06:10 Methemoglobin 0.8 % (0.4-1.5) 01/07/21 06:10 Total Hemoglobin 13.1 g/dL (14-18) L 01/07/21 06:10 Sodium 149.0 mmol/L (131-143) H 01/07/21 06:10 Potassium 4.5 mmol/L (3.5-5.0) 01/07/21 06:10 Glucose 126.0 mg/dL (70-115) H 01/07/21 06:10 Ionized Calcium 1.2 mmol/L (1.1-1.4) 01/07/21 06:10 Respiration Rate 20.0 % 01/04/21 04:20 O2 Delivery Device Vent 01/07/21 06:10 O2 Liters/Min 50.0 % 12/23/20 11:23 Mechanical Rate 12.0 01/07/21 06:10 FiO2 80.0 % 01/07/21 06:10 Tidal Volume 0.48 01/06/21 04:24 PEEP 12.0 cmH20 01/07/21 06:10 Computer Hardware Designer ID Rieri 01/07/21 06:10 Sodium 147 mmol/L (136-145) H 01/07/21 03:20 Potassium 4.5 mmol/L (3.5-5.1) 01/07/21 03:20 Chloride 111 mmol/L (98-107) H 01/07/21 03:20 Carbon Dioxide 25 mmol/L (22-29) 01/07/21 03:20 Anion Gap 15.5 (5-19) 01/07/21 03:20 BUN 62 mg/dL (8-23) H 01/07/21 03:20 Creatinine 1.3 mg/dL (0.7-1.2) H 01/07/21 03:20 GFR Calculation 55.9 mL/min (90-130) L 01/07/21 03:20 Glucose 128 mg/dL (65-115) H 01/07/21 03:20 POC Glucose 105 mg/dL (70-110) 01/06/21 19:31 Calculated Osmolality 323 mOsm/kg (285-295) H 01/07/21 03:20 Lactic Acid 1.7 mmol/L (0.5-2.2) 12/23/20 11:05 Uric Acid 7.0 mg/dL (3.4-7.0) 12/25/20 14:00 Calcium 8.7 mg/dL (8.5-10.5) 01/07/21 03:20 Phosphorus 4.4 mg/dL (2.5-4.5) 01/02/21 04:27 Magnesium 3.2 mg/dL (1.7-2.3) H 01/02/21 04:27 Ferritin 5395 ng/mL (30-400) H 12/27/20 05:30 Total Bilirubin 0.8 mg/dL (0.15-1.2) 01/07/21 03:20 AST 33 U/L (0-40) 01/07/21 03:20 ALT 44 U/L (0-41) H 01/07/21 03:20 Alkaline Phosphatase 124 IU/L (40-130) 01/07/21 03:20 Lactate Dehydrogenase 463 U/L (135-225) H 01/07/21 03:20 Creatine Kinase 656 U/L (39-308) H* 01/02/21 04:27 Troponin T Baseline 14 ng/L (0-15) 12/23/20 11:05 Troponin T 120 Minute 12.13 ng/L (0-15) 12/23/20 15:04 Delta Troponin T -1.87 ABS# (0-10) L 12/23/20 15:04 Troponin T Hi Sens 6Hr 12.32 ng/L (0-15) 12/23/20 17:00 Troponin T Hi Sens 6Hr Delta -1.68 ng/L (0-12) L 12/23/20 17:00 C-Reactive Protein 99.3 mg/L (0.0-4.9) H 01/07/21 03:20 NT-Pro-B Natriuret Pep 149 pg/mL (0-125) H 12/26/20 03:55 Total Protein 5.5 g/dL (6.6-8.7) L 01/07/21 03:20 Albumin 2.9 g/dL (3.5-5.2) L 01/07/21 03:20 Globulin 2.6 g/dL (1.3-4.6) 01/07/21 03:20 Procalcitonin 0.38 ng/mL (0-0.5) 01/07/21 03:20 TSH 1.82 uIU/mL (0.27-4.20) 12/25/20 14:00 Urine Color Red (Yellow) 01/03/21 15:25 Urine Appearance Bloody (CLEAR) A 01/03/21 15:25 Urine pH 5 (5-7) 01/03/21 15:25 Ur Specific [place] 1.015 (1.005-1.030) 01/03/21 15:25 Urine Protein 2+ (Negative) H 01/03/21 15:25 Urine Glucose (UA) Norm (Normal) 01/03/21 15:25 Urine Ketones Negative (Negative) 01/03/21 15:25 Urine Blood 3+ (Negative) H 01/03/21 15:25 Urine Nitrate Negative (Negative) 01/03/21 15:25 Urine Bilirubin Neg (Negative) 01/03/21 15:25 Urine Urobilinogen 1 mg/dL (Negative) H 01/03/21 15:25 Ur Leukocyte Esterase Trace (Negative) H 01/03/21 15:25 Urine RBC >100 /hpf (0-2) H 01/03/21 15:25 Urine WBC 0-4 /hpf (0-5) H 01/03/21 15:25 Ur Squamous Epith Cells 0-4 /hpf (0-5) H 01/03/21 15:25 Amorphous Sediment Not Reportable 01/03/21 15:25 Urine Bacteria Trace /hpf (NONE) 01/03/21 15:25 Coarse Granular Casts 10-15 /lpf H 12/25/20 14:00 Urine Mucus 1+ /hpf 12/25/20 14:00 Ur Random Microalbumin 3 ug/dL (0-20) 01/06/21 17:30 Ur Random Sodium 11 mmol/L 01/06/21 17:30 Ur Random Potassium 74 mmol/L 12/25/20 14:00 Ur Random Chloride 10 mmol/L 01/06/21 17:30 Urine Creatinine 92 mg/dL (39-259) 01/06/21 17:30 Urine Creatinine 92 mg/dL (39-259) 01/06/21 17:30 Microalb/Creat Ratio 33 mg/dL (0-20) H 01/06/21 17:30 Impressions Chest CTA 12/23/20 16:32 IMPRESSION: 1. No visible evidence of pulmonary embolism/pulmonary arterial thrombus. 2. Advanced and extensive bilateral mixed ground-glass interstitial lung disease and patches of consolidated alveolar airspace disease of active pneumonitis/pneumonia. 3. Evidence also of air trapping of COPD/chronic bronchitis. 4. Prominent mediastinal and hilar lymph nodes believed reactive in nature. Radiation Dose CTDIVOL = (mGy): DLP = 617.12 (mGy-cm) Venous Duplex 12/25/20 07:58 IMPRESSION: 1. Partial thrombosis of bilateral greater saphenous veins. 2. Questionable thrombus seen within an unnamed intramuscular vein in the left calf. Renal Ultrasound 12/26/20 10:56 IMPRESSION: 1. No hydronephrosis. 2. Possible small echogenic lesion in the mid right kidney. This could represent a small angiomyolipoma. Recommend follow-up CT abdomen to further assess. This could be obtained on a nonemergent basis. Chest X-Ray 01/05/21 13:32 IMPRESSION: New infiltrates as above. Resolving lower lobe infiltrates. Micro: Microbiology 01/03/21 21:40 Gram Stain - Final Sputum - Endotracheal Tube Aspirate Sputum Culture - Preliminary Yeast 01/03/21 15:25 Urine Culture - Final Urine,Clean Catch A&P Assessment and plan (1) Respiratory failure with hypoxia: Status: Acute Qualifiers: Chronicity: acute Qualified Code(s): J96.01 - Acute respiratory failure with hypoxia (2) Acute respiratory distress syndrome (ARDS) due to severe acute respiratory syndrome coronavirus 2 (SARS-CoV-2): Status: Acute (3) DVT (deep venous thrombosis): Status: Acute Qualifiers: DVT location: lower extremity Affected thrombotic vein of extremity: other lower extremity vein Chronicity: unspecified Laterality: bilateral Qualified Code(s): I82.493 - Acute embolism and thrombosis of other specified deep vein of lower extremity, bilateral (4) LORRAINE (acute kidney injury): Status: Acute (5) Aspiration pneumonitis: Status: Acute (6) Hematuria: Status: Acute (7) Thrombocytopenia: Status: Acute (8) Hypernatremia: Status: Acute #Acute hypoxic respiratory failure secondary to ARDS due to COVID-19 pneumonia #Event of aspiration 01/06/2021-?? Aspiration pneumonia #Partial thrombosis of bilateral great saphenous veins and questionable thrombus seen on unnamed intramuscular Vein in the left calf-on anticoagulation-complicated by hematuria and Endo tracheal bleeding- held anticoagulation #LORRAINE #Hypernatremia-resolved #Thrombocytopenia-? Heparin-induced #Hematuria -Symptoms started 12/15/2020: Rapid antigen 12/23/2020 -Intubated 12/27/2020- completed 4 sessions of proning -1 dose Actemra 12/24/2020; completed 5 doses of remdesivir and 10 days of dexamethasone 10 mg -On CMV 480/ 80%/12 ABG 7.3 9/43/58/26/88% -On Precedex 0.8 and propofol gtt., opening eyes, hemodynamically stable -Nicolaus 5-325 1 tablet twice daily for pain and Dilaudid as needed for opiate withdrawal -Unfortunately patient has an episode of aspiration 01/06/2021 with tube feeds in ET tube -On DuoNeb and Pulmicort scheduled nebulizations -So far cultures negative, Initial pro Aung 0.56 on admission and later 2.26 could be secondary to LORRAINE -Endotracheal tube aspirate grew yeast-identification pending -Completed 7 days of empiric Levaquin -Due to worsening FiO2 requirements-which I think is predominantly due to fluid overload but also patient had aspiration event 1 day ago -patient started on Zosyn; -Although patient is afebrile and normal WBC, there is a chance of translocation and possibility of VAP - and broadened coverage with addition of vancomycin; pharmacy to drug vancomycin trough and adjust dosage accordingly -sodium 147'; Patient is clinically volume overloaded and ultrasound showed dilated IVC with net + 7.2 L since admission and + 2.5 L in last 24 hours -Albumin 2.9; give 1 dose of albumin and Lasix 40 mg, check BMP today evening and if chemistry is normal I will give another dose of Lasix 40 mg -Patient was on Lovenox 120 units units twice daily for DVT-CTA negative for PE on admission; developed thrombocytopenia, discontinue Lovenox and started on argatroban, HIT antibody pending -patient continues to have hematuria and gradual decline in CBC-discontinue argatroban for now-currently H&H stable -Restarted tube feeding-target not more than 30 mL/h -bowel regimen senna/docusate; & lactulose 10 mg twice daily -Sugars well controlled-on scale coverage -DVT prophylaxis: Currently held argatroban due to hematuria -PPI for GI prophylaxis -Full code -Family updated by hospitalist -Continue to monitor for fluid balance, electrolytes, hemodynamics, secondary infections Recommendations conveyed to hospitalist, RN, taking care of the patient Attestations Medical Necessity Statement*: acute hypoxic respiratory failure secondary to ARDS due to COVID-19 pneumonia requiring mechanical ventilation coexisting DVT on therapeutic anticoagulation Time Spent in Patient Care: Greater than 35 minutes (>than 50% of time spent in counselling and/or direct pt care on unit). Critical Care Time: The high probability of a clinically significant, sudden or life threatening deterioration of the patient's [pulmonary, renal, vascular] system(s) required my full and direct attention, intervention and personal management. The critical care time is as shown. This time is in addition to time spent performing any reported procedures but includes the following: [x] Data and vital sign review and interpretation [x] Patient assessment, examination and intervention [x] Documentation [x] Medication orders and management Critical Care Time (min): 45 Coding Level of Care Code Established Pt Acute Pet Technologist for Chg Fwd Patient Type Established History Comprehensive Exam Comprehensive Medical Decision Making High Complexity Diagnoses Respiratory failure with hypoxia J96.01 Chronicity: acute Acute respiratory distress syndrome (ARDS) due to severe acute respiratory syndrome coronavirus 2 (SARS-CoV-2) U07.1; J80 DVT (deep venous thrombosis) I82.493 DVT location: lower extremity Affected thrombotic vein of extremity: other lower extremity vein Chronicity: unspecified Laterality: bilateral LORRAINE (acute kidney injury) N17.9 Aspiration pneumonitis J69.0 Hematuria R31.9 Thrombocytopenia D69.6 Hypernatremia E87.0 Time Spent (min) 45
--- NOTE | 2021-01-07 07:48 | XRR_ITS ---
PROCEDURE INFORMATION: Exam: XR Chest Exam date and time: 01/07/2021 7:48 AM Age: 60 years old Clinical indication: Condition or disease; Lung condition and disease; Pneumonia TECHNIQUE: Imaging protocol: XR of the chest. Views: 1 view. COMPARISON: CR XR chest 1V portable [id number] 01/05/2021 1:38 PM FINDINGS: Tubes, catheters and devices: Endotracheal tube is in satisfactory position. Feeding tube is in satisfactory position. Left IJ approach central line is in satisfactory position, with distal tip in the SVC, approximately 2 cm above the SVC/RA junction. Lungs: Low lung volumes. Persistent bilateral airspace opacities. No large pleural effusion or pneumothorax. Pleural spaces: See Lungs finding. Heart/Mediastinum: Stable cardiomediastinal silhouette. Bones/joints: No acute osseous injury identified. XR/XR chest 1V portable [id number] IMPRESSION: Persistent bilateral airspace opacities.
--- NOTE | 2021-01-07 08:47 | PC.SOCIAL ---
IMM Updated Page 2 of IMM updated. Copy left in chart. Initialed, signed and dated.
[2021-01-07 08:54] LABS: Glucose Point of Care 125 mg/dL (70-110)
[2021-01-07] MEDS: lactulose oral liq 20 gm/30 mL UDC 10 GM PO ×2 (08:54→17:39)
[2021-01-07] MEDS: lidocaine 5% Patch 1 PATCH TOPICAL ×2 (08:55→20:41)
[2021-01-07] MEDS: zinc gluconate 50 mg Tablet PO (08:55)
[2021-01-07] MEDS: sennosides-docusate Tablet 1 TAB PO (08:55)
[2021-01-07] MEDS: ascorbic acid 500 mg Tablet 1000 MG PO ×2 (08:55→17:39)
[2021-01-07] MEDS: HYDROcodone-acetaminophen 5-325 mg Tablet 1 TAB PO ×2 (08:55→17:39)
[2021-01-07] MEDS: cholecalciferol (vitamin D3) 1,000 unit Tablet 2000 UNIT PO (08:55)
[2021-01-07] MEDS: budesonide 0.5 mg/2 mL Neb INHALATION ×2 (08:57→20:27)
[2021-01-07] MEDS: acetylcysteine 200 mg/mL SDV 4 mL 100 MG INHALATION ×2 (09:25→20:27)
[2021-01-07] MEDS: FUROsemide 10 mg/mL SDV 4mL 40 MG IVP ×2 (09:38→21:08)
[2021-01-07 11:35] LABS: Glucose Point of Care 173 mg/dL (70-110)
--- NOTE | 2021-01-07 11:45 | PM.PN ---
Subjective Subjective: Interval history: Patient was seen and examined this morning, currently intubated, sedated and on mechanical ventilation.Off sedation GCS is 10 T Medications: Reviewed: Yes Vitals/I&O/Wt Last Vital Signs Temp 100.1 F H 01/07/21 09:14 Pulse 112 H 01/07/21 09:14 Resp 34 H 01/07/21 09:27 BP 116/67 01/07/21 09:14 Pulse Ox 90 01/07/21 09:27 01/06/21 01/07/21 01/07/21 22:59 06:59 14:59 Intake Total 1526.667 / 3015.094 1030.187 / 4045.281 849.383 / 849.383 Output Total 950 / 950 575 / 1525 Balance 576.667 / 2065.094 455.187 / 2520.281 849.383 / 849.383 Weight last 48 hrs Weight 134.405 kg Weight 129.727 kg Physical Exam Const: COMMON NORMALS: patient oriented x3 HENMT: COMMON NORMALS: normocephalic and atraumatic HEAD & SCALP: normocephalic and atraumatic Resp: OTHER: Diminished air entry bilaterally, marked respiratory distress , tachypnea Cardio: COMMON NORMALS: regular rate, regular rhythm, S1 normal heart sound present, S2 normal heart sound present, No gallops present (Cardio), No murmurs present (Cardio), No rub (Cardio) and Peripheral pulses 2+ throughout RATE: regular rate RHYTHM: regular rhythm HEART SOUNDS: S1 normal heart sound present and S2 normal heart sound present PERIPHERAL PULSES: Peripheral pulses 2+ throughout GI: COMMON NORMALS: Normal to inspection, nondistended, normoactive bowel sounds present, Soft to palpation, non-tender, No hepatosplenomegaly present and no masses AUSCULTATION: Yes normoactive bowel sounds PALPATION: Yes Soft to palpation and Yes No hepatosplenomegaly present RECTAL EXAM: Yes deferred Extremity: COMMON NORMALS: no clubbing, cyanosis or edema and no pedal edema Neuro: COMMON NORMALS: patient oriented x3 Urinary Catheter Management^: Espinosa: Cath Placed During This Visit: yes Reason for Continuing Indwelling Catheter: Accurate Measurement of Urinary Output in Critically Ill Patients Urinary Catheter Date of Insertion: 01/05/21 Urinary Catheter Time of Insertion: 10:16 Data : 01/07/21 03:20 01/07/21 17:05 Micro: Microbiology 01/03/21 21:40 Gram Stain - Final Sputum - Endotracheal Tube Aspirate Sputum Culture - Preliminary Yeast 01/03/21 15:25 Urine Culture - Final Urine,Clean Catch A&P Assessment and plan (1) Aspiration pneumonitis: Status: Acute (2) Hematuria: Status: Acute (3) Thrombocytopenia: Status: Acute (4) Hypernatremia: Status: Acute (5) Uremia: Status: Acute (6) Hyperkalemia: Status: Acute (7) Rhabdomyolysis: Status: Acute (8) Goals of care, counseling/discussion: Status: Acute (9) Acute respiratory distress syndrome (ARDS) due to severe acute respiratory syndrome coronavirus 2 (SARS-CoV-2): Status: Acute (10) DVT (deep venous thrombosis): Status: Acute Qualifiers: Affected thrombotic vein of extremity: other lower extremity vein Chronicity: unspecified DVT location: lower extremity Laterality: bilateral Qualified Code(s): I82.493 - Acute embolism and thrombosis of other specified deep vein of lower extremity, bilateral (11) LORRAINE (acute kidney injury): LORRAINE multifactorial: Contrast use, hypotensive events, Covid nephropathy, NSAID use at home Currently on gentle IV hydration with 500 cc NS Monitor BMP Avoid nephrotoxic Renal on baord Status: Acute (12) Hypokalemia: Status: Acute (13) Pneumonia due to severe acute respiratory syndrome coronavirus 2 (SARS-CoV-2): Status: Acute (14) Respiratory failure with hypoxia: Severe ARDS 2/2 COVID pneumonia, cannot conclusively rule out superimposed bacterial pneumonia. Currently on COVID Protocol. D -Dimer :>20 ESR : 25 CRP : 182-->355 LDH : 1301 Ferritin : > 03672 Monitor ABG Ph : 7.39 , PC2: 37. PO2: 66 fio2: 80 % Monitor X ray chest : Bilateral pulmonary opacities CTA Chest : Negative for PE. Extensive bilateral pulmonary infiltrates. Bilateral lower extremity Doppler veins: Partial thrombosis of bilateral greater saphenous veins. 2D Echo: Normal LV cavity size and systolic function. LVEF 60%. Blood Culture : 1 out of 2 bottles: GPC in clusters Sputum Culture : Initially on Dexamethasone 6mg I.V Daily. Remdesivir for 5 days Zinc Vitamin c Albuterol Inhaler Advair Inhaler Vancomycin Zosyn Caspofungin s/p 1 Dose of Actemra ( 12/24) S/P 4 Proning sessions Initially on Lovenox 150 mg sc q12 h daily ( given the fact that he has very high d dimer as well as superficial vein DVT. Was Stopped as there is some concern for possible HIT.Argatroban currently on hold because of persistent hematuria. Precedex Fentanyl and Propofol for sedation Morphine On Mechanical Ventilation Status: Acute Qualifiers: Chronicity: acute Qualified Code(s): J96.01 - Acute respiratory failure with hypoxia Additional A&P Information Persistent hypoxia related to COVID-19 Severe ARDS Status post 4 cycles of proning Status post Actemra 12/24 Finished remdesivir and Decadron regimen Has been weaned off steroids Secondary to new appearance of infiltrates on right side of his chest evident on previous chest x-ray started Zosyn and discontinue Levaquin he has been afebrile no leukocytosis procalcitonin unremarkable CRP trending down Failed weaning trials x3 Arranging family meeting today to discuss tracheostomy, PEG tube and LTAC, manager rn case updated, family updated To avoid positive net fluid balance we will give him another dose of Lasix today LORRAINE improved No signs of active infection Difficulty weaning off ventilator with underlying ARDS related to COVID-19, consider another CTA chest rule out PE in case of further worsening hypoxia, no active barotrauma pneumomediastinum or pneumothorax however he would be considered high risk DVT: Thrombocytopenia, HIT panel sent, argatroban currently on hold because of persistent hematuria DIC panel unremarkable D-dimer trended down LORRAINE: Uremia Improved Hypernatremia Improved with D5 and increasing water flushes Rhabdomyolysis: Resolved Acute blood loss anemia This seems secondary to COVID-19 related coagulopathy, I am holding off on argatroban today noticed Eliquis, hemoptysis and bleeding around catheter site which has resolved for now Persistent hematuria Aspiration pneumonitis currently doing well on Zosyn, I do believe this happened during episodes of hemoptysis and epistaxis No active signs of ventilator associated pneumonia Constipation: We will do another enema today he responded well to enema 3 days ago, active bowel sounds abdomen does not look distended Guarded prognosis Full code Attestations Medical Necessity Statement*: Patient needs to be in hospital for management of ARDS. Coding Level of Care Code Acute Coal Handler for [facility] Fwd Exam Detailed Diagnoses Aspiration pneumonitis J69.0 Hematuria R31.9 Thrombocytopenia D69.6 Hypernatremia E87.0 Uremia N19 Hyperkalemia E87.5 Rhabdomyolysis M62.82 Goals of care, counseling/discussion Z71.89 Acute respiratory distress syndrome (ARDS) due to severe acute respiratory syndrome coronavirus 2 (SARS-CoV-2) U07.1; J80 DVT (deep venous thrombosis) I82.493 Affected thrombotic vein of extremity: other lower extremity vein Chronicity: unspecified DVT location: lower extremity Laterality: bilateral LORRAINE (acute kidney injury) N17.9 Hypokalemia E87.6 Pneumonia due to severe acute respiratory syndrome coronavirus 2 (SARS-CoV-2) U07.1; J12.82 Respiratory failure with hypoxia J96.01 Chronicity: acute
[2021-01-07] MEDS: piperacillin-tazobactam 3.375 GM in dextrose 5% (plus) 50 ML IV ×2 (11:53→20:39)
[2021-01-07] MEDS: dexmedeTOMIDine 0.9 % NaCL 400 MCG/100 ML PREMIX 16.25 MCG IV ×2 (16:26→20:51)
[2021-01-07 17:35] LABS: Anion Gap 17.7 (5-19); Blood Urea Nitrogen 68 mg/dL (8-23); Calcium 8.8 mg/dL (8.5-10.5); Carbon Dioxide 25 mmol/L (22-29); Chloride 107 mmol/L (98-107); Creatinine Clr Calc Pharmacy 81.9015; Glomerular Filtration Rate 51.4 mL/min (90-130); Glucose 202 mg/dL (65-115); Magnesium 2.8 mg/dL (1.7-2.3); Osmolality Calculated 326 mOsm/kg (285-295); Potassium 4.7 mmol/L (3.5-5.1); Sodium 145 mmol/L (136-145)
[2021-01-07 17:44] LABS: Glucose Point of Care 210 mg/dL (70-110)
[2021-01-07] MEDS: propofol 1,000 MG/100 ML INJ 53.4 MG IV ×3 (18:34→23:00)
[2021-01-07] MEDS: quetiapine 25 mg Tablet PO (20:42)
[2021-01-07 20:46] LABS: Glucose Point of Care 197 mg/dL (70-110)
[2021-01-08] VITALS (35 sets, daily range): BP systolic 86–115; BP diastolic 45–64; PULSE 69–95; RESP 16–24; TEMP 35.8–36.8; O2SAT 88–92; BMI 35.8
[2021-01-08] MEDS: propofol 1,000 MG/100 ML INJ 53.4 MG IV ×3 (01:53→05:59)
[2021-01-08] MEDS: ipratropium-albuterol 3 mL Neb INHALATION ×6 (03:00→23:22)
[2021-01-08] MEDS: piperacillin-tazobactam 3.375 GM in dextrose 5% (plus) 50 ML IV (03:17)
[2021-01-08] MEDS: dexmedeTOMIDine 0.9 % NaCL 400 MCG/100 ML PREMIX 16.25 MCG IV ×4 (03:19→22:48)
[2021-01-08 04:08] LABS: Basophils % 0.1 %; Hematocrit 32.3 % (42.0-52.0); Hemoglobin 9.8 g/dL (11.7-16.6); Lymphocytes # 0.4 10^3/uL (0.8-4.8); Lymphocytes % 3.1 %; Mean Corpuscular HGB Conc 30.3 g/dL (30.0-36.0); Mean Corpuscular Hemoglobin 31.8 pg (28.0-34.0); Mean Corpuscular Volume 104.9 fl (80-94); Monocytes # 0.6 10^3/uL (0.2-0.9); Monocytes % 4.1 %; Neutrophils # 12.68 10^3/uL (1.8-7.7); Neutrophils % 92.3 %; Nucleated Red Blood Cells % 0 %; Platelet Count 117 10^3/cmm (130-400); Red Blood Count 3.08 10^6/uL (4.1-5.3); Red Cell Distribution Width 14.6 % (12.1-15.1); White Blood Count 13.7 10^3/uL (4.0-10.0)
[2021-01-08 04:58] LABS: Alanine Aminotransferase 63 U/L (0-41); Albumin Level 3.4 g/dL (3.5-5.2); Alkaline Phosphatase 123 IU/L (40-130); Anion Gap 14.8 (5-19); Aspartate Amino Transferase 108 U/L (0-40); Blood Urea Nitrogen 62 mg/dL (8-23); Calcium 8.7 mg/dL (8.5-10.5); Carbon Dioxide 26 mmol/L (22-29); Chloride 110 mmol/L (98-107); Creatinine Clr Calc Pharmacy 71.6639; Globulin 2.3 g/dL (1.3-4.6); Glucose 177 mg/dL (65-115); NT Pro B Type Natriuretic Pept 553 pg/mL (0-125); Osmolality Calculated 324 mOsm/kg (285-295); Potassium 4.8 mmol/L (3.5-5.1); Sodium 146 mmol/L (136-145); Total Bilirubin 0.8 mg/dL (0.15-1.2); Total Protein 5.7 g/dL (6.6-8.7)
--- NOTE | 2021-01-08 07:19 | PC.NURSE ---
Shift Note Frequent safety and comfort rounds continue. Orders and/or nursing care completed as indicated. Patient monitored for response to intervention and treatment(s). Education provided includes[]. Patient and/or physician representative [ResponseToTeaching]. Will continue to monitor. There were no changes during the shift. The patient's oxygen saturation fluctuated between 88-92%. The sedation medication remained the same as the previous shift, and the tube feeding was stopped at 2200 due to high residuals. I talked with Samira (Spouse) twice during the shift.
[2021-01-08 08:25] LABS: Glucose Point of Care 170 mg/dL (70-110)
[2021-01-08 08:49] LABS: Vancomycin Trough 34.4 ug/mL (10-15)
[2021-01-08] MEDS: acetylcysteine 200 mg/mL SDV 4 mL 100 MG INHALATION ×2 (08:56→19:39)
[2021-01-08] MEDS: budesonide 0.5 mg/2 mL Neb INHALATION ×2 (08:57→19:37)
[2021-01-08] MEDS: propofol 1,000 MG/100 ML INJ 44.5 MG IV (09:00)
[2021-01-08] MEDS: lactulose oral liq 20 gm/30 mL UDC 10 GM PO ×2 (09:41→17:39)
[2021-01-08] MEDS: cholecalciferol (vitamin D3) 1,000 unit Tablet 2000 UNIT PO (09:41)
[2021-01-08] MEDS: sennosides-docusate Tablet 1 TAB PO (09:41)
[2021-01-08] MEDS: lidocaine 5% Patch 1 PATCH TOPICAL ×2 (09:42→20:40)
[2021-01-08] MEDS: ascorbic acid 500 mg Tablet 1000 MG PO ×2 (09:42→17:39)
[2021-01-08] MEDS: HYDROcodone-acetaminophen 5-325 mg Tablet 1 TAB PO ×2 (09:42→17:39)
[2021-01-08] MEDS: pantoprazole 40 mg SDV IVP (09:42)
[2021-01-08] MEDS: zinc gluconate 50 mg Tablet PO (09:43)
[2021-01-08] MEDS: FUROsemide 10 mg/mL SDV 4mL 40 MG IVP ×2 (09:43→20:39)
[2021-01-08] MEDS: propofol 1,000 MG/100 ML INJ 35.6 MG IV ×5 (11:28→23:33)
[2021-01-08] MEDS: dexamethasone 10 mg/mL INJ 6 MG IVP (12:43)
[2021-01-08 12:59] LABS: Glucose Point of Care 165 mg/dL (70-110)
--- NOTE | 2021-01-08 13:10 | PC.NUTR ---
Nutrition Note: TF was halted 01/07 @ 22:00. If/when medically appropriate, recommend continuation of Glucerna at 30 ml/hr with 50 ml H2O flush q 4 hrs which provides 864 kcal, 43 g protein, 730 ml H2O. Currently Pt recieving Propofol at 35.6 ml/hr which provides additional 940 kcal/day. Recommend adding Beneprotein flushes QID for additional 100 kcal and 24 g protein. Also may benefit from increase in H2O flushes per MD discretion.
[2021-01-08 13:29] LABS: Magnesium 3.1 mg/dL (1.7-2.3)
--- NOTE | 2021-01-08 13:39 | P.PN_ITS ---
Subjective Subjective: Interval history: Patient was seen and examined this morning, Good Urine output in the last 24 Hrs, though patient is still 8.6 Ls positive.Currently on 80 % Fio2 and maintaining saturation around upper 85% to 90s. Medications: Reviewed: Yes Vitals/I&O/Wt Last Vital Signs Temp 97.1 F L 01/08/21 09:00 Pulse 77 01/08/21 11:08 Resp 18 01/08/21 11:08 BP 115/64 01/08/21 09:00 Pulse Ox 90 01/08/21 11:08 01/07/21 01/08/21 01/08/21 22:59 06:59 14:59 Intake Total 2195.704 / 3586.312 692.833 / 4279.145 450.000 / 450.000 Output Total 1999 / 1999 1100 / 3100 450 / 450 Balance 195.704 / 1586.312 -407.167 / 1179.145 0 / 0 Weight last 48 hrs Weight 133.47 kg Weight 134.405 kg Physical Exam Const: COMMON NORMALS: patient oriented x3 HENMT: COMMON NORMALS: normocephalic and atraumatic HEAD & SCALP: normocephalic and atraumatic Resp: OTHER: Diminished air entry bilaterally, marked respiratory distress , tachypnea Cardio: COMMON NORMALS: regular rate, regular rhythm, S1 normal heart sound present, S2 normal heart sound present, No gallops present (Cardio), No murmurs present (Cardio), No rub (Cardio) and Peripheral pulses 2+ throughout RATE: regular rate RHYTHM: regular rhythm HEART SOUNDS: S1 normal heart sound present and S2 normal heart sound present PERIPHERAL PULSES: Peripheral pulses 2+ throughout GI: COMMON NORMALS: Normal to inspection, nondistended, normoactive bowel sounds present, Soft to palpation, non-tender, No hepatosplenomegaly present and no masses AUSCULTATION: Yes normoactive bowel sounds PALPATION: Yes Soft to palpation and Yes No hepatosplenomegaly present RECTAL EXAM: Yes deferred Extremity: COMMON NORMALS: no clubbing, cyanosis or edema and no pedal edema Neuro: COMMON NORMALS: patient oriented x3 Urinary Catheter Management^: Espinosa: Cath Placed During This Visit: yes Reason for Continuing Indwelling Catheter: Accurate Measurement of Urinary Output in Critically Ill Patients Urinary Catheter Date of Insertion: 01/05/21 Urinary Catheter Time of Insertion: 10:16 Data : 01/08/21 03:48 01/08/21 03:48 Micro: Microbiology 01/03/21 21:40 Gram Stain - Final Sputum - Endotracheal Tube Aspirate Sputum Culture - Final Yeast 01/07/21 09:15 Sputum Culture - Preliminary Sputum - Endotracheal Tube Aspirate Yeast A&P Assessment and plan (1) Aspiration pneumonitis: Status: Acute (2) Hematuria: Status: Acute (3) Thrombocytopenia: Status: Acute (4) Hypernatremia: Status: Acute (5) Uremia: Status: Acute (6) Hyperkalemia: Status: Acute (7) Rhabdomyolysis: Status: Acute (8) Goals of care, counseling/discussion: Status: Acute (9) Acute respiratory distress syndrome (ARDS) due to severe acute respiratory syndrome coronavirus 2 (SARS-CoV-2): Status: Acute (10) DVT (deep venous thrombosis): Status: Acute Qualifiers: Affected thrombotic vein of extremity: other lower extremity vein Chronicity: unspecified DVT location: lower extremity Laterality: bilateral Qualified Code(s): I82.493 - Acute embolism and thrombosis of other specified deep vein of lower extremity, bilateral (11) LORRAINE (acute kidney injury): LORRAINE multifactorial: Contrast use, hypotensive events, Covid nephropathy, NSAID use at home Currently on gentle IV hydration with 500 cc NS Monitor BMP Avoid nephrotoxic Renal on baord Status: Acute (12) Hypokalemia: Status: Acute (13) Pneumonia due to severe acute respiratory syndrome coronavirus 2 (SARS-CoV-2): Status: Acute (14) Respiratory failure with hypoxia: Severe ARDS 2/2 COVID pneumonia, cannot conclusively rule out superimposed bacterial pneumonia. Currently on COVID Protocol. D -Dimer :>20 ESR : 25 CRP : 182-->355 LDH : 1301 Ferritin : > 50248 Monitor ABG Ph : 7.39 , PC2: 37. PO2: 66 fio2: 80 % Monitor X ray chest : Bilateral pulmonary opacities CTA Chest : Negative for PE. Extensive bilateral pulmonary infiltrates. Bilateral lower extremity Doppler veins: Partial thrombosis of bilateral greater saphenous veins. 2D Echo: Normal LV cavity size and systolic function. LVEF 60%. Blood Culture : 1 out of 2 bottles: GPC in clusters Sputum Culture : Extended Dexamethasone 6mg I.V Shanna course . Remdesivir for 5 days Zinc Vitamin c Albuterol Inhaler Advair Inhaler Vancomycin Imipenam Caspofungin s/p 1 Dose of Actemra ( 12/24) S/P 4 Proning sessions Initially on Lovenox 150 mg sc q12 h daily ( given the fact that he has very high d dimer as well as superficial vein DVT. Was Stopped as there is some concern for possible HIT.Argatroban currently on hold because of persistent hematuria. Precedex Fentanyl and Propofol for sedation Morphine On Mechanical Ventilation. Lasix 40 mg I.V Q12 H Daily Status: Acute Qualifiers: Chronicity: acute Qualified Code(s): J96.01 - Acute respiratory failure with hypoxia Additional A&P Information Persistent hypoxia related to COVID-19 Severe ARDS Status post 4 cycles of proning Status post Actemra 12/24 Finished remdesivir and Decadron regimen Has been weaned off steroids Secondary to new appearance of infiltrates on right side of his chest evident on previous chest x-ray started Zosyn and discontinue Levaquin he has been afebrile no leukocytosis procalcitonin unremarkable CRP trending down Failed weaning trials x3 Arranging family meeting today to discuss tracheostomy, PEG tube and LTAC, pillowcase maker updated, family updated To avoid positive net fluid balance we will give him another dose of Lasix today LORRAINE improved No signs of active infection Difficulty weaning off ventilator with underlying ARDS related to COVID-19, consider another CTA chest rule out PE in case of further worsening hypoxia, no active barotrauma pneumomediastinum or pneumothorax however he would be considered high risk DVT: Thrombocytopenia, HIT panel sent, argatroban currently on hold because of persistent hematuria DIC panel unremarkable D-dimer trended down LORRAINE: Uremia Improved Hypernatremia Improved with D5 and increasing water flushes Rhabdomyolysis: Resolved Acute blood loss anemia This seems secondary to COVID-19 related coagulopathy, I am holding off on argatroban today noticed Eliquis, hemoptysis and bleeding around catheter site which has resolved for now Persistent hematuria Aspiration pneumonitis currently doing well on Zosyn, I do believe this happened during episodes of hemoptysis and epistaxis No active signs of ventilator associated pneumonia Constipation: We will do another enema today he responded well to enema 3 days ago, active bowel sounds abdomen does not look distended Guarded prognosis Full code Attestations Medical Necessity Statement*: Patient needs to be in hospital for the management of ARDS 2/2 COVID PNA Coding Level of Care Code 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 Detailed Diagnoses Aspiration pneumonitis J69.0 Hematuria R31.9 Thrombocytopenia D69.6 Hypernatremia E87.0 Uremia N19 Hyperkalemia E87.5 Rhabdomyolysis M62.82 Goals of care, counseling/discussion Z71.89 Acute respiratory distress syndrome (ARDS) due to severe acute respiratory syndrome coronavirus 2 (SARS-CoV-2) U07.1; J80 DVT (deep venous thrombosis) I82.493 Affected thrombotic vein of extremity: other lower extremity vein Chronicity: unspecified DVT location: lower extremity Laterality: bilateral LORRAINE (acute kidney injury) N17.9 Hypokalemia E87.6 Pneumonia due to severe acute respiratory syndrome coronavirus 2 (SARS-CoV-2) U07.1; J12.82 Respiratory failure with hypoxia J96.01 Chronicity: acute
--- NOTE | 2021-01-08 13:49 | PC.NURSE ---
Patient had a 10 second run of SVT at 1234, then returned to normal sinus. Nurse alerted Dr Mcfadden. Received an order to draw a magnesium lab. Lab drawn and sent to lab. Level came back as 3.1. Nurse alerted Dr mcfadden. no new orders received at this time. was advised to continue to monitor.
[2021-01-08 17:14] LABS: Glucose Point of Care 133 mg/dL (70-110)
--- NOTE | 2021-01-08 18:45 | PC.NURSE ---
Shift Note Frequent safety and comfort rounds continue. Orders and/or nursing care completed as indicated. Patient monitored for response to intervention and treatment. Shift SUmmary: Uneventful shift. Patient rested in bed throughout the day. Had 1400 urine output. Had a 10 second bout of SVT and magnesium levels were shown to be elevated at 3.10. FIO2 reduced form 90% to 80%.
[2021-01-08 20:03] LABS: Glucose Point of Care 144 mg/dL (70-110)
[2021-01-08] MEDS: quetiapine 25 mg Tablet PO (20:40)
[2021-01-09] VITALS (42 sets, daily range): BP systolic 87–133; BP diastolic 47–74; PULSE 71–117; RESP 16–24; TEMP 36.6–37.3; O2SAT 90–98; BMI 35.8
[2021-01-09] MEDS: propofol 1,000 MG/100 ML INJ 35.6 MG IV ×3 (03:12→13:48)
[2021-01-09] MEDS: ipratropium-albuterol 3 mL Neb INHALATION ×6 (03:14→23:35)
[2021-01-09 04:59] LABS: Basophils % 0.2 %; Eosinophils % 0.2 %; Hematocrit 29.1 % (42.0-52.0); Hemoglobin 8.7 g/dL (11.7-16.6); Lymphocytes # 0.5 10^3/uL (0.8-4.8); Lymphocytes % 8.2 %; Mean Corpuscular HGB Conc 29.9 g/dL (30.0-36.0); Mean Corpuscular Hemoglobin 31.1 pg (28.0-34.0); Mean Corpuscular Volume 103.9 fl (80-94); Mean Platelet Volume 10.4 fL (7.4-10.4); Monocytes # 0.6 10^3/uL (0.2-0.9); Monocytes % 9.8 %; Neutrophils # 4.85 10^3/uL (1.8-7.7); Neutrophils % 80.6 %; Nucleated Red Blood Cells % 0 %; Platelet Count 108 10^3/cmm (130-400); Red Cell Distribution Width 14.5 % (12.1-15.1)
[2021-01-09] MEDS: dexmedeTOMIDine 0.9 % NaCL 400 MCG/100 ML PREMIX 16.25 MCG IV ×4 (05:20→22:05)
[2021-01-09 05:32] LABS: Alanine Aminotransferase 78 U/L (0-41); Albumin Level 3.1 g/dL (3.5-5.2); Alkaline Phosphatase 108 IU/L (40-130); Anion Gap 17.5 (5-19); Aspartate Amino Transferase 113 U/L (0-40); Calcium 8.4 mg/dL (8.5-10.5); Carbon Dioxide 25 mmol/L (22-29); Chloride 112 mmol/L (98-107); Globulin 2.2 g/dL (1.3-4.6); Glomerular Filtration Rate 38.4 mL/min (90-130); Glucose 98 mg/dL (65-115); Osmolality Calculated 336 mOsm/kg (285-295); Potassium 4.5 mmol/L (3.5-5.1); Sodium 150 mmol/L (136-145); Total Bilirubin 0.6 mg/dL (0.15-1.2); Total Protein 5.3 g/dL (6.6-8.7)
[2021-01-09 05:38] LABS: Blood Urea Nitrogen 86 mg/dL (8-23)
--- NOTE | 2021-01-09 05:45 | PC.PHAR ---
Vancomycin trough on 2gm IVPB every 12 hours is 24.0. Hold 224 hours and resume at 1500mg IVPB every 12 hours with another trough before the fourth 1500mg dose.
--- NOTE | 2021-01-09 07:11 | PC.NURSE ---
Shift Note Frequent safety and comfort rounds continue. Orders and/or nursing care completed as indicated. Patient monitored for response to intervention and treatment(s). Education provided includes[]. 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 Will continue to monitor. For changes this shift, the kidneys are continuing to worsening according to the labs, the Fio2 went down from 80% to 70%, the fentanyl drip was decreased from 100 mcg. down to 25 mcg. Urine output was 1,175 mL for the shift. Residual was 175 mL with a coffee ground appearance. The patient's oxygen saturation was been steady at 93%.
[2021-01-09 07:21] LABS: Glucose Point of Care 103 mg/dL (70-110)
--- NOTE | 2021-01-09 07:26 | XRR_ITS ---
PROCEDURE INFORMATION: Exam: XR Chest Exam date and time: 01/09/2021 7:26 AM Age: 60 years old Clinical indication: Shortness of breath; Additional info: Pneumonia, respiratory distress, PT unable to provide HX TECHNIQUE: Imaging protocol: XR of the chest. Views: 1 view. COMPARISON: CR (CHEST, ) 01/07/2021 7:49 AM FINDINGS: Tubes, catheters and devices: An endotracheal tube, nasogastric tube and central venous catheter projects in satisfactory position. Lungs: There are extensive bilateral pulmonary infiltrates which are unchanged. Pleural spaces: Unremarkable. No pleural effusion. No pneumothorax. Heart/Mediastinum: Unremarkable. No cardiomegaly. Bones/joints: Unremarkable. XR/XR chest 1V portable [id number] IMPRESSION: Stable extensive bilateral pulmonary infiltrates.
--- NOTE | 2021-01-09 07:26 | P.PN_ITS ---
Subjective Subjective: Interval history: Patient seen at bedside today - FiO2 down to 70% -Received Lasix 40 mg twice daily yesterday and net -400 cc -Unfortunately renal functions are deteriorating with creatinine up to 1.8 and BUN 86 -Currently sedated with fentanyl 25 mg/hour, Precedex gtt. and propofol gtt. -Overnight maps were around 60-65 started on Levophed to max to keep MAP greater than 65 -Gradual drop in H&H noted, no active bleeding -Other labs and imaging reviewed Medications: Reviewed: Yes Vitals/I&O/Wt Last Vital Signs Temp 97.8 F 01/09/21 04:00 Pulse 77 01/09/21 07:00 Resp 16 01/09/21 03:14 BP 108/54 01/09/21 07:00 Pulse Ox 92 01/09/21 07:00 01/08/21 01/09/21 01/09/21 22:59 06:59 14:59 Intake Total 598.493 / 1248.493 719.389 / 1967.882 Output Total 750 / 1200 1175 / 2375 Balance -151.507 / 48.493 -455.611 / -407.118 Weight last 48 hrs Weight 294 lb 4 oz Weight 294 lb 4 oz Physical Exam Narrative: EXAM NARRATIVE: General: Lying in bed, sedated and intubated. HEENT:NCAT, PERRLA, EOMI Neck: Supple Lungs: Bilateral coarse crepitations Heart: s1/s2, RRR Abd: soft, NT, ND, BS + Normoactive Extremities: 1+ pitting pedal edema; healing subcutaneous hematoma on right deltoid BRUSH CLEANER: sedated and limited BRUSH CLEANER exam possible. SKIN: no rash LDA: # CVC: Left internal jugular vein 12/28/2020 # Espinosa: 12/24/2020 Urinary Catheter Management^: Espinosa: Cath Placed During This Visit: yes Reason for Continuing Indwelling Catheter: Accurate Measurement of Urinary Out put in Critically Ill Patients Urinary Catheter Date of Insertion: 01/05/21 Urinary Catheter Time of Insertion: 10:16 Data : 01/09/21 04:17 01/09/21 04:17 Other Labs: Laboratory Results WBC 6.0 10^3/uL (4.0-10.0) 01/09/21 04:17 Corrected WBC Cancelled 12/30/20 03:40 RBC 2.80 10^6/uL (4.1-5.3) L 01/09/21 04:17 Hgb 8.7 g/dL (11.7-16.6) L 01/09/21 04:17 Hct 29.1 % (42.0-52.0) L 01/09/21 04:17 MCV 103.9 fl (80-94) H 01/09/21 04:17 MCH 31.1 pg (28.0-34.0) 01/09/21 04:17 MCHC 29.9 g/dL (30.0-36.0) L 01/09/21 04:17 RDW 14.5 % (12.1-15.1) 01/09/21 04:17 Plt Count 108 10^3/cmm (130-400) L 01/09/21 04:17 MPV 10.4 fL (7.4-10.4) 01/09/21 04:17 Gran % Cancelled 12/30/20 03:40 Neut % (Auto) 80.6 % 01/09/21 04:17 Lymph % (Auto) 8.2 % 01/09/21 04:17 [place] % (Auto) 9.8 % 01/09/21 04:17 Eos % (Auto) 0.2 % 01/09/21 04:17 Baso % (Auto) 0.2 % 01/09/21 04:17 Neut # (Auto) 4.85 10^3/uL (1.8-7.7) 01/09/21 04:17 Lymph # (Auto) 0.5 10^3/uL (0.8-4.8) L 01/09/21 04:17 [place] # (Auto) 0.6 10^3/uL (0.2-0.9) 01/09/21 04:17 Eos # (Auto) 0.0 10^3/uL (0.0-0.8) 01/09/21 04:17 Baso # (Auto) 0.0 10^3/uL (0.0-0.1) 01/09/21 04:17 Absolute Gran (auto) Cancelled 12/30/20 03:40 Nucleated RBC % (auto) 0 % 01/09/21 04:17 Nucleated RBCs # 0.0 /100WBC 01/09/21 04:17 ESR 13 mm/hr (0-10) H 12/27/20 05:30 Haptoglobin 55.0 mg/L (30-200) 01/07/21 03:20 PT 14.50 SECONDS (12.1-14.9) 01/05/21 15:10 INR 1.09 (0.8-1.2) 01/05/21 15:10 APTT 37.6 SECONDS (23.9-36.7) H 01/07/21 03:20 Fibrinogen 397 mg/dL (174-498) 01/05/21 15:10 Fibrin Degrad Products Pos, 10-40 ug/mL (NEG) H 01/05/21 15:10 D-Dimer 2.54 ug/mIFEU (0-0.59) H 01/05/21 15:10 Specimen Type Arterial 01/07/21 06:10 Sample Site Brachial, right 01/07/21 06:10 ABG pH 7.39 (7.35-7.45) 01/07/21 06:10 ABG pCO2 43.9 mmHg (35-45) 01/07/21 06:10 ABG pO2 58.5 mmHg (80.0-100.0) L 01/07/21 06:10 ABG HCO3 26.7 mmol/L (22-26) H 01/07/21 06:10 ABG O2 Saturation 88.7 01/07/21 06:10 ABG Base Excess 1.4 mmol/L (-2.0-2.0) 01/07/21 06:10 Luke Test N/a 01/07/21 06:10 A-a O2 Gradient 59.8 mmHg (5-10) H 01/07/21 06:10 Hematocrit 40.2 % (42-52) L 01/07/21 06:10 Hgb O2 Saturation 86.8 % (95-100) L 01/07/21 06:10 Carboxyhemoglobin 1.3 %THgb (0.4-20.1) 01/07/21 06:10 Methemoglobin 0.8 % (0.4-1.5) 01/07/21 06:10 Total Hemoglobin 13.1 g/dL (14-18) L 01/07/21 06:10 Sodium 149.0 mmol/L (131-143) H 01/07/21 06:10 Potassium 4.5 mmol/L (3.5-5.0) 01/07/21 06:10 Glucose 126.0 mg/dL (70-115) H 01/07/21 06:10 Ionized Calcium 1.2 mmol/L (1.1-1.4) 01/07/21 06:10 Respiration Rate 20.0 % 01/04/21 04:20 O2 Delivery Device Vent 01/07/21 06:10 O2 Liters/Min 50.0 % 12/23/20 11:23 Mechanical Rate 12.0 01/07/21 06:10 FiO2 80.0 % 01/07/21 06:10 Tidal Volume 0.48 01/06/21 04:24 PEEP 12.0 cmH20 01/07/21 06:10 Power Sweeper Operator ID [email or web address] 01/07/21 06:10 Sodium 150 mmol/L (136-145) H 01/09/21 04:17 Potassium 4.5 mmol/L (3.5-5.1) 01/09/21 04:17 Chloride 112 mmol/L (98-107) H 01/09/21 04:17 Carbon Dioxide 25 mmol/L (22-29) 01/09/21 04:17 Anion Gap 17.5 (5-19) 01/09/21 04:17 BUN 86 mg/dL (8-23) H* 01/09/21 04:17 Creatinine 1.8 mg/dL (0.7-1.2) H 01/09/21 04:17 GFR Calculation 38.4 mL/min (90-130) L 01/09/21 04:17 Glucose 98 mg/dL (65-115) 01/09/21 04:17 POC Glucose 103 mg/dL (70-110) 01/09/21 07:17 Calculated Osmolality 336 mOsm/kg (285-295) H 01/09/21 04:17 Lactic Acid 1.7 mmol/L (0.5-2.2) 12/23/20 11:05 Uric Acid 7.0 mg/dL (3.4-7.0) 12/25/20 14:00 Calcium 8.4 mg/dL (8.5-10.5) L 01/09/21 04:17 Phosphorus 4.4 mg/dL (2.5-4.5) 01/02/21 04:27 Magnesium 3.1 mg/dL (1.7-2.3) H 01/08/21 13:00 Ferritin 5395 ng/mL (30-400) H 12/27/20 05:30 Total Bilirubin 0.6 mg/dL (0.15-1.2) 01/09/21 04:17 AST 113 U/L (0-40) H 01/09/21 04:17 ALT 78 U/L (0-41) H 01/09/21 04:17 Alkaline Phosphatase 108 IU/L (40-130) 01/09/21 04:17 Lactate Dehydrogenase 463 U/L (135-225) H 01/07/21 03:20 Creatine Kinase 656 U/L (39-308) H* 01/02/21 04:27 Troponin T Baseline 14 ng/L (0-15) 12/23/20 11:05 Troponin T 120 Minute 12.13 ng/L (0-15) 12/23/20 15:04 Delta Troponin T -1.87 ABS# (0-10) L 12/23/20 15:04 Troponin T Hi Sens 6Hr 12.32 ng/L (0-15) 12/23/20 17:00 Troponin T Hi Sens 6Hr Delta -1.68 ng/L (0-12) L 12/23/20 17:00 C-Reactive Protein 99.3 mg/L (0.0-4.9) H 01/07/21 03:20 NT-Pro-B Natriuret Pep 553 pg/mL (0-125) H 01/08/21 03:48 Total Protein 5.3 g/dL (6.6-8.7) L 01/09/21 04:17 Albumin 3.1 g/dL (3.5-5.2) L 01/09/21 04:17 Globulin 2.2 g/dL (1.3-4.6) 01/09/21 04:17 Procalcitonin 0.38 ng/mL (0-0.5) 01/07/21 03:20 TSH 1.82 uIU/mL (0.27-4.20) 12/25/20 14:00 Urine Color Red (Yellow) 01/03/21 15:25 Urine Appearance Bloody (CLEAR) A 01/03/21 15:25 Urine pH 5 (5-7) 01/03/21 15:25 Ur Specific [place] 1.015 (1.005-1.030) 01/03/21 15:25 Urine Protein 2+ (Negative) H 01/03/21 15:25 Urine Glucose (UA) Norm (Normal) 01/03/21 15:25 Urine Ketones Negative (Negative) 01/03/21 15:25 Urine Blood 3+ (Negative) H 01/03/21 15:25 Urine Nitrate Negative (Negative) 01/03/21 15:25 Urine Bilirubin Neg (Negative) 01/03/21 15:25 Urine Urobilinogen 1 mg/dL (Negative) H 01/03/21 15:25 Ur Leukocyte Esterase Trace (Negative) H 01/03/21 15:25 Urine RBC >100 /hpf (0-2) H 01/03/21 15:25 Urine WBC 0-4 /hpf (0-5) H 01/03/21 15:25 Ur Squamous Epith Cells 0-4 /hpf (0-5) H 01/03/21 15:25 Amorphous Sediment Not Reportable 01/03/21 15:25 Urine Bacteria Trace /hpf (NONE) 01/03/21 15:25 Coarse Granular Casts 10-15 /lpf H 12/25/20 14:00 Urine Mucus 1+ /hpf 12/25/20 14:00 Ur Random Microalbumin 3 ug/dL (0-20) 01/06/21 17:30 Ur Random Sodium 11 mmol/L 01/06/21 17:30 Ur Random Potassium 74 mmol/L 12/25/20 14:00 Ur Random Chloride 10 mmol/L 01/06/21 17:30 Urine Creatinine 92 mg/dL (39-259) 01/06/21 17:30 Urine Creatinine 92 mg/dL (39-259) 01/06/21 17:30 Microalb/Creat Ratio 33 mg/dL (0-20) H 01/06/21 17:30 Vancomycin Trough 24.0 ug/mL (10-15) H 01/09/21 04:30 Impressions Chest CTA 12/23/20 16:32 IMPRESSION: 1. No visible evidence of pulmonary embolism/pulmonary arterial thrombus. 2. Advanced and extensive bilateral mixed ground-glass interstitial lung disease and patches of consolidated alveolar airspace disease of active pneumonitis/pneumonia. 3. Evidence also of air trapping of COPD/chronic bronchitis. 4. Prominent mediastinal and hilar lymph nodes believed reactive in nature. Radiation Dose CTDIVOL = (mGy): DLP = 617.12 (mGy-cm) Venous Duplex 12/25/20 07:58 IMPRESSION: 1. Partial thrombosis of bilateral greater saphenous veins. 2. Questionable thrombus seen within an unnamed intramuscular vein in the left calf. Renal Ultrasound 12/26/20 10:56 IMPRESSION: 1. No hydronephrosis. 2. Possible small echogenic lesion in the mid right kidney. This could represent a small angiomyolipoma. Recommend follow-up CT abdomen to further assess. This could be obtained on a nonemergent basis. Chest X-Ray 01/07/21 07:48 IMPRESSION: Persistent bilateral airspace opacities. Micro: Microbiology 01/03/21 15:05 Blood Culture - Final Blood NO GROWTH AFTER 5 DAYS 01/03/21 15:05 Blood Culture - Final Blood NO GROWTH AFTER 5 DAYS 01/03/21 21:40 Gram Stain - Final Sputum - Endotracheal Tube Aspirate Sputum Culture - Final Yeast 01/07/21 09:15 Sputum Culture - Preliminary Sputum - Endotracheal Tube Aspirate Yeast A&P Assessment and plan (1) Respiratory failure with hypoxia: Status: Acute Qualifiers: Chronicity: acute Qualified Code(s): J96.01 - Acute respiratory failure with hypoxia (2) Acute respiratory distress syndrome (ARDS) due to severe acute respiratory syndrome coronavirus 2 (SARS-CoV-2): Status: Acute (3) DVT (deep venous thrombosis): Status: Acute Qualifiers: DVT location: lower extremity Affected thrombotic vein of extremity: other lower extremity vein Chronicity: unspecified Laterality: bilateral Qualified Code(s): I82.493 - Acute embolism and thrombosis of other specified deep vein of lower extremity, bilateral (4) LORRAINE (acute kidney injury): Status: Acute (5) Aspiration pneumonitis: Status: Acute (6) Hematuria: Status: Acute Qualifiers: Hematuria type: unspecified type Qualified Code(s): R31.9 - Hematuria, unspecified (7) Thrombocytopenia: Status: Acute (8) Hypernatremia: Status: Acute #Acute hypoxic respiratory failure secondary to ARDS due to COVID-19 pneumonia #Event of aspiration 01/06/2021-?? Aspiration pneumonia #Partial thrombosis of bilateral great saphenous veins and questionable thrombus seen on unnamed intramuscular Vein in the left calf-on anticoagulation- complicated by hematuria and Endo tracheal bleeding- held anticoagulation #LORRAINE-worsening #Hypernatremia #Thrombocytopenia-? Heparin-induced #Hematuria -Symptoms started 12/15/2020: Rapid antigen 12/23/2020 -Intubated 12/27/2020- completed 4 sessions of proning -1 dose Actemra 12/24/2020; completed 5 doses of remdesivir and 10 days of dexamethasone 10 mg -On CMV 480/ 70%/12 ABG 7.3 ///88% -obtain ABG -On Precedex 0.8 and propofol gtt., fentanyl 25/hour opening eyes, -Currently requiring Levophed 2-to keep MAP>65 -[place] 5-325 1 tablet twice daily for pain and Dilaudid as needed for opiate withdrawal -Unfortunately patient has an episode of aspiration 01/06/2021 with tube feeds in ET tube -On DuoNeb and Pulmicort -So far all cultures negative except Endotracheal tube aspirate grew yeast-identification pending-added Diflucan 400 PO daily -Completed 7 days of empiric Levaquin and currently on vancomycin and imipenem -Due to worsening FiO2 requirements-which I think is predominantly due to fluid overload but also patient had aspiration few days ago -Patient is clinically volume overloaded with net + 8 L since admission and -400 cc in last 24 hours; currently on Lasix 40 mg twice daily-sodium gradually going up to 150, free water flushes through NG tube-renal function started worsening with creatinine 1.8/ BUN 86 -probably heading towards CRRT/hemodialysis in couple of days-recommended renal consult - -Albumin 3.1; -Patient was on Lovenox 120 units units twice daily for DVT-CTA negative for PE on admission; developed thrombocytopenia, discontinue Lovenox and started on argatroban, HIT antibody pending-currently held due to hematuria and gradual decline in CBC -Monitor H&H and transfuse to keep> 11/09 -Restarted tube feeding-target not more than 30 mL/h -bowel regimen senna/docusate; & lactulose 10 mg twice daily -Sugars well controlled-on scale coverage -DVT prophylaxis: Currently held argatroban due to hematuria -PPI for GI prophylaxis -Full code -Family updated by hospitalist and to discuss about further goals of care depending on how he does in the next couple of days -Continue to monitor for fluid balance, electrolytes, hemodynamics, secondary infections Recommendations conveyed to hospitalist, RN, taking care of the patient Patient admitted with acute hypoxic respiratory failure secondary to ARDS due to COVID-19 pneumonia-completed 4 proning sessions, 1 dose Tocilizumab, 5 days remdesivir and 10 days dexamethasone-FiO2 down to 50%-patient was tolerating awakening trial and opening eyes but then later gradually started going up to 90 % after an aspiration event as well as fluid overload-fluid overload being managed with Lasix at the expense of kidney function and patient becoming hypernatremic-in what looks like he might end up requiring dialysis; recommended renal consult. Possibility of aspiration pneumonia and related ARDS-currently covered with broad-spectrum antibiotics vancomycin and imipenem-in view of possible VAP as most of these patients do not mount fevers, leukocytosis. So far cultures negative except tracheal aspirate is growing yeast with identification pending. Attestations Medical Necessity Statement*: acute hypoxic respiratory failure secondary to ARDS due to COVID-19 pneumonia requiring mechanical ventilation coexisting DVT on therapeutic anticoagulation Time Spent in Patient Care: Greater than 35 minutes (>than 50% of time spent in counselling and/or direct pt care on unit) . Critical Care Time: The high probability of a clinically significant, sudden or life threatening deterioration of the patient's [pulmonary, renal, vascular] system(s) required my full and direct attention, intervention and personal management. The critical care time is as shown. This time is in addition to time spent performing any reported procedures but includes the following: [x] Data and vital sign review and interpretation [x] Patient assessment, examination and intervention [x] Documentation [x] Medication orders and management Critical Care Time (min): 45 Coding Level of Care Code Established Pt Acute Funeral Car Driver for Chg Fwd Patient Type Established History Comprehensive Exam Comprehensive Medical Decision Making High Complexity Diagnoses Respiratory failure with hypoxia J96.01 Chronicity: acute Acute respiratory distress syndrome (ARDS) due to severe acute respiratory syndrome coronavirus 2 (SARS-CoV-2) U07.1; J80 DVT (deep venous thrombosis) I82.493 DVT location: lower extremity Affected thrombotic vein of extremity: other lower extremity vein Chronicity: unspecified Laterality: bilateral LORRAINE (acute kidney injury) N17.9 Aspiration pneumonitis J69.0 Hematuria R31.9 Hematuria type: unspecified type Thrombocytopenia D69.6 Hypernatremia E87.0 Time Spent (min) 45
[2021-01-09] MEDS: acetylcysteine 200 mg/mL SDV 4 mL 100 MG INHALATION ×2 (08:06→19:54)
[2021-01-09] MEDS: budesonide 0.5 mg/2 mL Neb INHALATION ×2 (08:06→19:55)
[2021-01-09] MEDS: fluconazole 100 mg Tablet 200 MG PO (08:36)
[2021-01-09] MEDS: folic acid 1 mg Tablet PO (08:36)
[2021-01-09] MEDS: cholecalciferol (vitamin D3) 1,000 unit Tablet 2000 UNIT PO (08:36)
[2021-01-09] MEDS: multivitamin therapeutic Tablet 1 TAB PO (08:36)
[2021-01-09] MEDS: sennosides-docusate Tablet 1 TAB PO (08:36)
[2021-01-09] MEDS: zinc gluconate 50 mg Tablet PO (08:36)
[2021-01-09] MEDS: pantoprazole 40 mg SDV IVP (08:37)
[2021-01-09] MEDS: ascorbic acid 500 mg Tablet 1000 MG PO ×2 (08:37→21:37)
[2021-01-09] MEDS: lactulose oral liq 20 gm/30 mL UDC 10 GM PO ×2 (08:37→21:38)
[2021-01-09] MEDS: HYDROcodone-acetaminophen 5-325 mg Tablet 1 TAB PO ×2 (08:38→21:37)
--- NOTE | 2021-01-09 09:28 | PC.CHAP ---
Pastoral Care Encounter/Spiritual Assessment Type of Contact [] Declined piccolo mechanic visit [] Patient/Family/Request visit [] Outpatient visit [] Follow-up visit [] Physician referral [] Code/Alert [x] Routine visit [] Staff referral [] Actively dying [] Patient sleeping [] Family support [] [] Out of room [] Palliative care [] [] Receiving care in room [] Pre-surgical visit [] Trauma [] Long length of stay [x] ICU visit [] Other: Relational/Emotional Strength [] Patient feels connected with others/family/visitors/staff [] Distress [] Loneliness/isolation [] Abandonment Spirituality of Patient [] Person of Katharine [] Attends Restorationism of their Katharine [] Believes in Prayer [] Reads Bible or Evangelical materials [] There are Spiritual issues to be addressed Four Slide Machine Setter Interventions [x] Prayer [] Active listening [] Non-anxious presence [] Spiritual/emotional support [] Crisis/trauma care [] Spiritual counseling [] Bereavement support [] Provided bereavement packet [] Provided Bible/devotional materials [] Provided toy/stuffed animal, coloring book to patient or family member [] Provided Communion [] Anointing/[place] [] Salvation [x] Completed spiritual assessment [] Other: Impact on Illness or Injury [] Angry [] Fearful [] Anxious [] Often cries [] Exhaustion [] Unable to work [] Unable to attend rastafari [] Unable to walk/stand [] Unable to read [] Unable to drive [] Unable to eat/drink [] Unable to sleep [] Unable to be with family [] Patient intubated [] Other: Summary Time spent with patient
[2021-01-09 11:43] LABS: Glucose Point of Care 119 mg/dL (70-110)
[2021-01-09] MEDS: propofol 1,000 MG/100 ML INJ 26.7 MG IV (12:00)
--- NOTE | 2021-01-09 13:24 | P.PN_ITS ---
Subjective Subjective: Interval history: We are asked to weigh in on Mr Ramires for evaluation of increasing serum creatinine and sodium. We did follow his care earlier during his hospitalizat ion, we signed off his renal function had recovered. He still remains on high dose ventilator settings his FiO2 is 70% and he is reliant upon Bumex to help to keep this down. Sodium levels now up to 150, free water deficit is 4.8 L and creatinine is now trending up to 1.8. Urine output remains robust. Hemodynamics reviewed and remained stable. Vitals/I&O/Wt Last Vital Signs Temp 97.8 F 01/09/21 04:00 Pulse 90 01/09/21 11:19 Resp 20 H 01/09/21 11:08 BP 108/54 01/09/21 07:00 Pulse Ox 92 01/09/21 11:08 01/08/21 01/09/21 01/09/21 22:59 06:59 14:59 Intake Total 598.493 / 1248.493 719.389 / 1967.882 300 / 300 Output Total 750 / 1200 1175 / 2375 Balance -151.507 / 48.493 -455.611 / -407.118 300 / 300 Weight last 48 hrs Weight 133.47 kg Weight 133.47 kg Physical Exam Narrative: EXAM NARRATIVE: Constitutional: Sedated and vented HEENT: Wet mucosa, no jvp, non icteric Lungs: Bilaterally poor entry bilaterally CVS: S1 S2, no murmurs Abdo: Soft, BS ok Ext 4: Minimal edema, peripheral perfusion with no cyanosis Neurological: Grossly non-focal Urinary Catheter Management^: Espinosa: Cath Placed During This Visit: yes Reason for Continuing Indwelling Catheter: Accurate Measurement of Urinary Output in Critically Ill Patients Urinary Catheter Date of Insertion: 01/05/21 Urinary Catheter Time of Insertion: 10:16 Data : 01/09/21 04:17 01/09/21 04:17 Micro: Microbiology 01/07/21 09:15 Sputum Culture - Final Sputum - Endotracheal Tube Aspirate Yeast 01/03/21 15:05 Blood Culture - Final Blood NO GROWTH AFTER 5 DAYS 01/03/21 15:05 Blood Culture - Final Blood NO GROWTH AFTER 5 DAYS 01/03/21 21:40 Gram Stain - Final Sputum - Endotracheal Tube Aspirate Sputum Culture - Final Yeast A&P Additional A&P Information 1. Acute kidney injury Creatinine up-trending, likely to be due to IVVD from diuretics Will check urine sodium levels Leave Espinosa catheter for the time being Avoid usual nephrotoxic agents Strict I's and O's 2. Covid pneumonitis BiPAP, status post IL-6 antibody, remdesivir, dexamethasone, broad-spectrum antibiotics. VDRF with high FiO2 Continue diuretics (see below) 3. Chemistry sodium 150, FWD 4.8L Change Lasix BID to daily with addition of Metolazone at night to help stimulate endogenous ADH Add D5w at 100mL/hr Will check urine chemistry for electrolyte free water losses Cas Noriega MD Nephrology [phone] Patient seen and examined via telemedicine, with the assistance of the bedside RN > 25 min spent in evaluation and mgmt of patient Attestations Medical Necessity Statement*: Eval for LORRAINE Coding Level of Care Code Acute Link Wire Fabric Machine Tender for Tomaszg Fwd
[2021-01-09] MEDS: dexamethasone 10 mg/mL INJ 6 MG IVP (13:45)
--- NOTE | 2021-01-09 14:12 | P.PN_ITS ---
Subjective Subjective: Interval history: FiO2 weaned down from 90% to 70%, sedation vacation awakening trials today Propofol running at 40 fentanyl at 25 overnight required Levophed this morning it was discontinued Nephro consulted for worsening creatinine 4 L water deficit with hyponatremia Lasix on hold Tube feeds were on hold over the weekend, without tube feeds residual gastric contents 170 mL H&H trending down no active bleeding, hematuria improved HIT panel pending Vitals/I&O/Wt Last Vital Signs Temp 97.8 F 01/09/21 04:00 Pulse 90 01/09/21 11:19 Resp 20 H 01/09/21 13:31 BP 108/54 01/09/21 07:00 Pulse Ox 92 01/09/21 13:31 01/08/21 01/09/21 01/09/21 22:59 06:59 14:59 Intake Total 598.493 / 1248.493 719.389 / 1967.882 348.06 / 348.06 Output Total 750 / 1200 1175 / 2375 Balance -151.507 / 48.493 -455.611 / -407.118 348.06 / 348.06 Weight last 48 hrs Weight 133.47 kg Weight 133.47 kg Physical Exam Narrative: EXAM NARRATIVE: Patient intubated and sedated Propofol and fentanyl at bedside Current FiO2 70% Urine color has improved no hematuria No further bleeding episodes Bilateral assisted breath sounds Soft abdomen Bowel sounds present Neuro exam limited Extremities without cyanosis or gangrene Urinary Catheter Management^: Espinosa: Cath Placed During This Visit: yes Reason for Continuing Indwelling Catheter: Accurate Measurement of Urinary Output in Critically Ill Patients Urinary Catheter Date of Insertion: 01/05/21 Urinary Catheter Time of Insertion: 10:16 Data : 01/09/21 04:17 01/09/21 04:17 Micro: Microbiology 01/07/21 09:15 Sputum Culture - Final Sputum - Endotracheal Tube Aspirate Yeast 01/03/21 15:05 Blood Culture - Final Blood NO GROWTH AFTER 5 DAYS 01/03/21 15:05 Blood Culture - Final Blood NO GROWTH AFTER 5 DAYS 01/03/21 21:40 Gram Stain - Final Sputum - Endotracheal Tube Aspirate Sputum Culture - Final Yeast A&P Assessment and plan (1) Aspiration pneumonitis: Status: Acute (2) Hematuria: Status: Acute Qualifiers: Hematuria type: unspecified type Qualified Code(s): R31.9 - Hematuria, unspecified (3) Thrombocytopenia: Status: Acute (4) Hypernatremia: Status: Acute (5) Uremia: Status: Acute (6) Hyperkalemia: Status: Acute (7) Rhabdomyolysis: Status: Acute (8) Goals of care, counseling/discussion: Status: Acute (9) Acute respiratory distress syndrome (ARDS) due to severe acute respiratory syndrome coronavirus 2 (SARS-CoV-2): Status: Acute (10) DVT (deep venous thrombosis): Status: Acute Qualifiers: DVT location: lower extremity Affected thrombotic vein of extremity: other lower extremity vein Chronicity: unspecified Laterality: bilateral Qualified Code(s): I82.493 - Acute embolism and thrombosis of other specified deep vein of lower extremity, bilateral (11) LORRAINE (acute kidney injury): Status: Acute (12) Pneumonia due to severe acute respiratory syndrome coronavirus 2 (SARS-CoV-2): Status: Acute (13) Respiratory failure with hypoxia: Status: Acute Qualifiers: Chronicity: acute Qualified Code(s): J96.01 - Acute respiratory failure with hypoxia Additional A&P Information Persistent hypoxia related to COVID-19 Severe ARDS FiO2 70% Failed extubation trials Decrease sedation, awakening trials Status post Actemra, remdesivir and Decadron, Antibiotics coverage broadened over the weekend including antifungal and Decadron was restarted Family meeting over the weekend conducted by Dr. Fernandes will touch base with family 1 more time today LTAC screening being done, project manager retail updated Hyper natremia: More than 4 L of water deficit however patient seems to be in positive fluid balance, Lasix has been held over the weekend, nephrology consulted who recommended D5 water at 100 mL/h, we have started tube feeding with water flushes as well on 150 mL every 6 hours LORRAINE worsening creatinine Secondary to intravascular depletion, nephro consulted appreciate their recommendations Blood loss anemia: Patient did experience hemoptysis, epistaxis, persistent hematuria which has resolved HIT panel is pending, argatroban is currently on hold hemoglobin slightly trickled down Will transfuse if less than 7 Not requiring any vasopressors DIC ruled out This seems to be Covid related coagulopathy Hyperkalemia: Calcium gluconate, insulin, Kayexalate Aspiration pneumonitis has been afebrile no severe worsening of leukocytosis, antibiotics broadened currently on antifungal as well Tracheal aspirate showing yeast DVT chronic: Currently argatroban on hold Full code DVT prophylaxis: SCDs Tube feed diet Guarded prognosis With family meeting I would like to discuss whether they would lean towards tracheostomy and PEG tube placement if they are agreeable for tracheostomy we will discuss further whether they want it here while he is in the hospital versus LTAC, Guarded prognosis Attestations Medical Necessity Statement*: Continue ICU managed Time Spent in Patient Care: 16 - 35 minutes Coding Level of Care Code Acute Doorperson Or Luggage Porter for Chg Fwd Diagnoses Aspiration pneumonitis J69.0 Hematuria R31.9 Hematuria type: unspecified type Thrombocytopenia D69.6 Hypernatremia E87.0 Uremia N19 Hyperkalemia E87.5 Rhabdomyolysis M62.82 Goals of care, counseling/discussion Z71.89 Acute respiratory distress syndrome (ARDS) due to severe acute respiratory syndrome coronavirus 2 (SARS-CoV-2) U07.1; J80 DVT (deep venous thrombosis) I82.493 DVT location: lower extremity Affected thrombotic vein of extremity: other lower extremity vein Chronicity: unspecified Laterality: bilateral LORRAINE (acute kidney injury) N17.9 Pneumonia due to severe acute respiratory syndrome coronavirus 2 (SARS-CoV-2) U07.1; J12.82 Respiratory failure with hypoxia J96.01 Chronicity: acute
--- NOTE | 2021-01-09 14:53 | PC.SOCIAL ---
IMM Update pg 2 of IMM not updated. Patient remains intubated and not anticipating discharge.
--- NOTE | 2021-01-09 14:59 | XRR_ITS ---
PROCEDURE INFORMATION: Exam: XR Chest Exam date and time: 01/09/2021 2:59 PM Age: 60 years old Clinical indication: Device placement; Patient HX: History-- ng tube check, PT unable to provide history; Additional info: Ng tube verification TECHNIQUE: Imaging protocol: XR of the chest. Views: 1 view. COMPARISON: CR XR chest 1V portable [id number] 01/09/2021 7:33 AM FINDINGS: Tubes, catheters and devices: NG tube tip in the stomach. Endotracheal tube tip approximately 5 cm above the kana. Lungs: Bilateral opacities and consolidation most prominent in the left lower lung. Pleural spaces: No definite pleural effusion. No pneumothorax. Heart/Mediastinum: Borderline minimal cardiomegaly. Bones/joints: No acute findings. XR/XR chest 1V portable [id number] IMPRESSION: NG tube tip in the stomach. Bilateral pneumonia.
--- NOTE | 2021-01-09 15:19 | PC.NURSE ---
Metolazone administration delay. Waiting on verification of new OG tube insertion.
[2021-01-09 15:47] LABS: Osmolality Serum 327 mOsm/kg (278-305)
[2021-01-09 15:47] LABS: Osmolality Urine 537 mOsm/kg (50-1200)
[2021-01-09 16:45] LABS: Potassium, Radom Urine 27 mmol/L; Urine Random Sodium 28 mmol/L
[2021-01-09 16:46] LABS: Urine Random Chloride 15 mmol/L
[2021-01-09] MEDS: propofol 1,000 MG/100 ML INJ 44.5 MG IV ×3 (16:46→22:21)
[2021-01-09] MEDS: midazolam 1 mg/mL INJ 2 mL 2 MG IVP (16:58)
[2021-01-09] MEDS: rocuronium 10 mg/mL INJ 5mL 100 MG IVP (16:59)
--- NOTE | 2021-01-09 17:07 | XRR_ITS ---
PROCEDURE INFORMATION: Exam: XR Chest Exam date and time: 01/09/2021 5:07 PM Age: 60 years old Clinical indication: Device placement; Ett placement (vent status); Prior surgery; Surgery date: 1-6 months; Additional info: Intubation TECHNIQUE: Imaging protocol: XR of the chest. Views: 1 view. COMPARISON: CR XR chest 1V portable [id number] 01/09/2021 3:01 PM FINDINGS: Tubes, catheters and devices: There is a new endotracheal tube present, with distal tip 5 cm above the kana. Left jugular central line is unchanged. Previously noted nasogastric tube is been removed. Lungs: Nonspecific bilateral pulmonary infiltrates, unchanged. Pleural spaces: Small left pleural effusion. No pneumothorax. Heart/Mediastinum: Mild cardiomegaly is noted. Bones/joints: Degenerative spine changes are noted. XR/XR chest 1V portable [id number] IMPRESSION: 1. There is a new endotracheal tube present, with distal tip 5 cm above the kana. 2. Mild cardiomegaly is noted. 3. Nonspecific bilateral pulmonary infiltrates, unchanged. 4. Small left pleural effusion, unchanged.
[2021-01-09] MEDS: cisatracurium 100 MG in sodium chloride 0.9% 50 ML IV (17:58)
[2021-01-09 18:11] LABS: Heparin-Induced Platelet AB Negative (Negative)
[2021-01-09 18:41] LABS: Glucose Point of Care 175 mg/dL (70-110)
[2021-01-09 18:51] LABS: ABG PH Result 7.23 (7.35-7.45); Alveolar-Arterial Oxygen Gradi 70.4 mmHg (5-10); Base Excess ABG -0.1 mmol/L (-2.0-2.0); Blood Gas Operator Identificat glc; Blood Gas Sample Site Brachial, right; Blood Gas Sample Type Arterial; Blood Gas Tidal Volume 0.48; Carboxyhemoglobin 1.4 %THgb (0.4-20.1); HCO3 ABG 28.5 mmol/L (22-26); HGB O2 Sat 93.4 % (95-100); Ionized Calcium Level - ABG 1.2 mmol/L (1.1-1.4); Methemoglobin 1.2 % (0.4-1.5); Oxygen Device VENT; Oxygen Saturation ABG 95.9; PO2 ABG 87.6 mmHg (80.0-100.0); Potassium Level - ABG 4.4 mmol/L (3.5-5.0); Total Hemoglobin 10.1 g/dL (14-18)
[2021-01-09 18:54] LABS: ABG PCO2 68.4 mmHg (35-45)
--- NOTE | 2021-01-09 19:15 | XRR_ITS ---
PROCEDURE INFORMATION: Exam: XR Chest Exam date and time: 01/09/2021 7:15 PM Age: 60 years old Clinical indication: Device placement; Other: Og placemernt; Additional info: Confirm og placement TECHNIQUE: Imaging protocol: XR of the chest. Views: 1 view. COMPARISON: CR (CHEST, ) 01/09/2021 5:05 PM FINDINGS: Tubes, catheters and devices: There is a new enteric tube present with distal tip in the stomach. Endotracheal tube and left central line are unchanged. Lungs: Nonspecific bilateral pulmonary infiltrates, unchanged. Pleural spaces: Small left pleural effusion. No pneumothorax. Heart/Mediastinum: Mild cardiomegaly is noted. Bones/joints: Unremarkable. XR/XR chest 1V portable [id number] IMPRESSION: 1. There is a new enteric tube present with distal tip in the stomach. 2. No additional change noted when compared to 01/09/2021 at 5:06 p.m.
--- NOTE | 2021-01-09 19:30 | PC.NURSE ---
COnnections between ET tube and vent tubing are loose and frequently are , which disconnects patient form ventalation. unable to secure them with other measures. Nurse, along with RT, Dr dorsey, and Dr flores replaced ET tube. 100mg of Rocuronium were given during intubation. Patient already on fentanyl, propofol, and precedex for sedation.
--- NOTE | 2021-01-09 19:32 | PC.NURSE ---
4mg of versed and 100mcg of fentanyl were pulled form the pyxis and drawn up into syringes to be administered during intubation. THey were not given. Nurse wasted fentanyl in pyxis, unable to waste versed in the pyxis. Nurse Ignacio moon witnessed wasting of 4 mg of versed.
--- NOTE | 2021-01-09 19:33 | PC.NURSE ---
Patient is off of isolation per Dr dorsey
--- NOTE | 2021-01-09 19:35 | PC.NURSE ---
1330 and 1800 PO meds not given due to no OG access at the time and unable to get access due to other procedures. OG tube is now in place, currently waiting on Xray verification before meds can be given.
--- NOTE | 2021-01-09 19:37 | PC.NURSE ---
NUrse attempted to call erma to update her to changing ET tubes and he is now off of sedation. no answer.
[2021-01-09 20:28] LABS: Basophils % 0.2 %; Eosinophils % 0.5 %; Hematocrit 30.1 % (42.0-52.0); Hemoglobin 9.3 g/dL (11.7-16.6); Lymphocytes # 0.2 10^3/uL (0.8-4.8); Lymphocytes % 2.1 %; Mean Corpuscular HGB Conc 30.9 g/dL (30.0-36.0); Mean Corpuscular Hemoglobin 31.6 pg (28.0-34.0); Mean Corpuscular Volume 102.4 fl (80-94); Monocytes # 0.7 10^3/uL (0.2-0.9); Monocytes % 8.6 %; Neutrophils # 7.09 10^3/uL (1.8-7.7); Neutrophils % 87.2 %; Nucleated Red Blood Cells % 0 %; Platelet Count 147 10^3/cmm (130-400); Red Blood Count 2.94 10^6/uL (4.1-5.3); Red Cell Distribution Width 15.2 % (12.1-15.1); White Blood Count 8.1 10^3/uL (4.0-10.0)
--- NOTE | 2021-01-09 20:50 | P.PCN_ITS ---
Procedure/Consent Time out: Time Out Performed: Yes Consent: Consent for Procedure: Emergency procedure and Risks & Benefits reviewed Procedure Narrative: Endotracheal tube exchange Procedure Note Indication for endotracheal tube exchange: tube leak and frequently disconnecting from exisiting ET tube due to dilated distal end Consent: There was not time to obtain consent. The patient was in immediate danger, and required the procedure emergently. Sedation: already on fentanyl 100 mcg/hr, precedex 0.8 mcg/hr, Paralytic: Rocuronium 100 cc Equipment: Bougie Number of attempts: 1 ETT location confirmed by Chest x ray Immediately post ET tube exchange, fogging noted in the endotracheal tube, end- tidal CO2 noted 40 on the monitor and saturations were around 83-85 with 100% FiO2 and PEEP of 16, but could not appreciate bilateral breath sounds and patient tidal volumes were < 200 cc while ET tube was 25 cm at the lip. ET CO2 Steadily started increasing to 70s while patient was saturating around 91 to 92%; patient went into transient V. tach-but never lost pulse or became hypotensive. ET tube advanced to 27 cm, tidal volumes started picking up into mid 200s with ET CO2 down to 50; saturation improved to 96 and patient reverted to sinus rhythm and we were able to hear bilateral breath sounds. Chest x-ray confirmed ET tube at least 5 cm above kana and so ET tube advanced towards main kana with 29 cm at lip. At that point ventilator was changed and tidal volumes improved to 500 and saturations 99%. Apparently there was some technical issue with previous ventilator. Kishore DatarMD Pulm/Critical Care Medicine Acute Procedures Epistaxis Control: Time out performed: Yes
[2021-01-09 21:18] LABS: Glucose Point of Care 152 mg/dL (70-110)
[2021-01-09] MEDS: metOLazone 5 MG Tablet 10 MG PO (21:36)
[2021-01-09] MEDS: quetiapine 25 mg Tablet PO (21:39)
[2021-01-10] VITALS (44 sets, daily range): BP systolic 88–135; BP diastolic 51–73; PULSE 75–120; RESP 16–26; TEMP 37.2–38.1; O2SAT 86–97
[2021-01-10] MEDS: propofol 1,000 MG/100 ML INJ 44.5 MG IV ×7 (01:02→21:06)
[2021-01-10] MEDS: dexmedeTOMIDine 0.9 % NaCL 400 MCG/100 ML PREMIX 16.25 MCG IV ×2 (03:10→09:08)
[2021-01-10] MEDS: ipratropium-albuterol 3 mL Neb INHALATION ×6 (03:23→23:39)
[2021-01-10 04:47] LABS: Basophils % 0.1 %; Eosinophils # 0.1 10^3/uL (0.0-0.8); Eosinophils % 1.6 %; Hematocrit 30.4 % (42.0-52.0); Hemoglobin 9.3 g/dL (11.7-16.6); Lymphocytes # 0.5 10^3/uL (0.8-4.8); Lymphocytes % 6.8 %; Mean Corpuscular HGB Conc 30.6 g/dL (30.0-36.0); Mean Corpuscular Hemoglobin 32.1 pg (28.0-34.0); Mean Corpuscular Volume 104.8 fl (80-94); Mean Platelet Volume 9.9 fL (7.4-10.4); Monocytes # 0.9 10^3/uL (0.2-0.9); Monocytes % 13.7 %; Neutrophils # 5.24 10^3/uL (1.8-7.7); Neutrophils % 76.3 %; Nucleated Red Blood Cells % 0 %; Platelet Count 160 10^3/cmm (130-400); Red Cell Distribution Width 15.7 % (12.1-15.1); White Blood Count 6.9 10^3/uL (4.0-10.0)
[2021-01-10 05:08] LABS: Alanine Aminotransferase 67 U/L (0-41); Albumin Level 2.9 g/dL (3.5-5.2); Alkaline Phosphatase 107 IU/L (40-130); Anion Gap 12.9 (5-19); Aspartate Amino Transferase 59 U/L (0-40); Blood Urea Nitrogen 74 mg/dL (8-23); C Reactive Protein 66.5 mg/L (0.0-4.9); Calcium 8.4 mg/dL (8.5-10.5); Carbon Dioxide 28 mmol/L (22-29); Chloride 116 mmol/L (98-107); Globulin 2.3 g/dL (1.3-4.6); Glomerular Filtration Rate 47.4 mL/min (90-130); Glucose 122 mg/dL (65-115); Osmolality Calculated 339 mOsm/kg (285-295); Potassium 3.9 mmol/L (3.5-5.1); Sodium 153 mmol/L (136-145); Total Bilirubin 0.6 mg/dL (0.15-1.2); Total Protein 5.2 g/dL (6.6-8.7)
[2021-01-10 05:12] LABS: Procalcitonin 0.45 ng/mL (0-0.5)
[2021-01-10] MEDS: cisatracurium 100 MG in sodium chloride 0.9% 50 ML 14.42 MG IV (05:21)
[2021-01-10 06:25] LABS: ABG PCO2 55.3 mmHg (35-45); ABG PH Result 7.34 (7.35-7.45); Alveolar-Arterial Oxygen Gradi 57.7 mmHg (5-10); Arterial Blood Gas Hematocrit 27.7 % (42-52); Base Excess ABG 2.9 mmol/L (-2.0-2.0); Blood Gas Operator Identificat JB; Blood Gas Sample Site Brachial, left; Blood Gas Sample Type Arterial; Blood Gas Tidal Volume 0.48; Carboxyhemoglobin 1.5 %THgb (0.4-20.1); HCO3 ABG 29.5 mmol/L (22-26); HGB O2 Sat 88.3 % (95-100); Ionized Calcium Level - ABG 1.2 mmol/L (1.1-1.4); Methemoglobin 1.1 % (0.4-1.5); Oxygen Device VENT; Oxygen Saturation ABG 90.6; PO2 ABG 60.3 mmHg (80.0-100.0); Potassium Level - ABG 3.8 mmol/L (3.5-5.0)
--- NOTE | 2021-01-10 06:30 | PC.NURSE ---
Shift Note Frequent safety and comfort rounds continue. Orders and/or nursing care completed as indicated. Patient monitored for response to intervention and treatment(s). Education provided includes[]. Patient and/or floor representative [ResponseToTeaching]. Will continue to monitor. There were no changes with the patient. The paralytic is on, along with versed, fentanyl, precedex, and propofol. There is also D5W running. Ventilator synchrony was achieved the entire shift despite getting 4/4 for the train of four test. Time TOF BIS 07/24 46 2200 07/24 33 0000 07/24 39 0200 07/24 39 0400 07/24 44 0600 07/24 34
[2021-01-10] MEDS: acetylcysteine 200 mg/mL SDV 4 mL 100 MG INHALATION (08:02)
[2021-01-10] MEDS: budesonide 0.5 mg/2 mL Neb INHALATION ×2 (08:02→20:10)
[2021-01-10 08:25] LABS: Glucose Point of Care 151 mg/dL (70-110)
[2021-01-10] MEDS: vancomycin 1,500 MG/300 ML PIGGYBACK 150 MG IV (08:42)
[2021-01-10] MEDS: sennosides-docusate Tablet 1 TAB PO (08:42)
[2021-01-10] MEDS: fluconazole 100 mg Tablet 200 MG PO (08:42)
[2021-01-10] MEDS: metOLazone 5 MG Tablet 10 MG PO (08:42)
[2021-01-10] MEDS: multivitamin therapeutic Tablet 1 TAB PO (08:42)
[2021-01-10] MEDS: folic acid 1 mg Tablet PO (08:42)
[2021-01-10] MEDS: cholecalciferol (vitamin D3) 1,000 unit Tablet 2000 UNIT PO (08:43)
[2021-01-10] MEDS: zinc gluconate 50 mg Tablet PO (08:43)
[2021-01-10] MEDS: lactulose oral liq 20 gm/30 mL UDC 10 GM PO (08:43)
[2021-01-10] MEDS: ascorbic acid 500 mg Tablet 1000 MG PO (08:43)
[2021-01-10] MEDS: pantoprazole 40 mg SDV IVP (08:44)
--- NOTE | 2021-01-10 10:00 | PC.NURSE ---
Nimbex was titrated off this shift.
[2021-01-10] MEDS: dextrose 5% 1,000 ML 100 ML IV ×3 (10:41→21:42)
[2021-01-10 12:16] LABS: Glucose Point of Care 138 mg/dL (70-110)
[2021-01-10] MEDS: dexamethasone 10 mg/mL INJ 6 MG IVP (13:32)
--- NOTE | 2021-01-10 13:32 | P.PN_ITS ---
Subjective Subjective: Interval history: Events of the last 24hrs noted. Reintubated and arrested responding to precordial thump. Remains critically sick in the icu. Tube feeds currently off since last night. Currently receiving D5w at 100mL/hr. Continues to have global ansarca. Remains in negative balance from diuretic therapy Medications: Reviewed: Yes Vitals/I&O/Wt Last Vital Signs Temp 99.9 F H 01/10/21 12:00 Pulse 113 H 01/10/21 12:00 Resp 19 H 01/10/21 11:23 BP 113/58 01/10/21 12:00 Pulse Ox 93 01/10/21 12:00 01/09/21 01/10/21 01/10/21 22:59 06:59 14:59 Intake Total 738.698 / 1186.758 568.836 / 6252.819 5474.185 / 1600.185 Output Total 1700 / 1700 1350 / 3050 500 / 500 Balance -961.302 / -513.242 -781.164 / -0036.015 6765.185 / 1100.185 Weight last 48 hrs Weight 133.47 kg Physical Exam Narrative: EXAM NARRATIVE: Constitutional: Sedated and vented HEENT: Wet mucosa, no jvp, non icteric Lungs: Bilaterally poor entry bilaterally CVS: S1 S2, no murmurs Abdo: Soft, BS ok Ext 4: Minimal edema, peripheral perfusion with no cyanosis Neurological: Grossly non-focal Urinary Catheter Management^: Espinosa: Cath Placed During This Visit: yes Reason for Continuing Indwelling Catheter: Accurate Measurement of Urinary Output in Critically Ill Patients Urinary Catheter Date of Insertion: 01/05/21 Urinary Catheter Time of Insertion: 10:16 Data : 01/10/21 04:21 01/10/21 04:21 Micro: Microbiology 01/07/21 09:15 Sputum Culture - Final Sputum - Endotracheal Tube Aspirate Yeast A&P Additional A&P Information 1. Acute kidney injury Creatinine a little improved since yesterday Continue D5w in the setting of diuretics (metolazone) Leave Espinosa catheter for the time being Avoid usual nephrotoxic agents Strict I's and O's 2. Covid pneumonitis BiPAP, status post IL-6 antibody, remdesivir, dexamethasone, broad-spectrum antibiotics. VDRF with high FiO2 Continue diuretics (see below) 3. Chemistry sodium 153 FWD 6.2L electrolyte free water losses = Vol x (1- Yi+k/SNa) = 1.85L x (1-28+27/150) = 1.17L ie free water loss yesterday of 1.17L, in part due to diuretics Lasix now held, meolazone on board, D5w on board, will continue to trend - very gaurded prognosis at this time Cas Noriega MD Nephrology [phone] Patient seen and examined via telemedicine, with the assistance of the bedside RN > 25 min spent in evaluation and mgmt of patient Attestations Medical Necessity Statement*: Eval for LORRAINE Coding Level of Care Code Acute Tutoring Assistant for Chg Fwd
--- NOTE | 2021-01-10 14:48 | PC.NUTR ---
Nutrition Recommendation: No TF provided since 01/07. Propofol providing 1175kcal/day and D5W providing 408kcal/day. If/when medically appropriate, recommend Beneprotein with water flushes Q4H: 1 scoop Q4H with H20 flush of 90mL (60mL mixed with powder + 30mL flush after); Beneprotein will provide 144 kcal and 36g protein/day. Could consider trickle feeds of TF for gut stimulation, but not over 10-15 ml/hr at this time. If unable to tolerate Beneprotein/trickle feeds, suggest TPN to meet nutritional needs. See full assessment for more details.
--- NOTE | 2021-01-10 15:20 | PC.NURSE ---
Frequent PVC's have been noted along with episodes of trigemeny. Dr. Ashley was informed. Order for mag level was entered.
--- NOTE | 2021-01-10 15:42 | P.PN_ITS ---
Subjective Subjective: Interval history: Patient was seen and examined this morning, overnight events noted, his endotracheal tube was passed over the bougie and was advanced up to 29 cm, his rhythm did convert to PVCs with V. tach and as per the conversation with the nursing staff and scroll assembler, cardiac punch did improve his rhythm, he was started on Versed and paralytics overnight -1.2 L fluid balance Nephro did try Lasix with metolazone yesterday Hemoglobin 9.3 Sodium 153, creatinine 1.5 BUN 74 Glucose 122 Potassium 3.9 Requested magnesium level, multiple PVCs on telemetry Did talk with scroll assembler and Dr. Calloway today, nephrology is not recommending any diuretics today We will start tube feeding from tomorrow Did talk with the nurse to turn off paralytics and decrease sedation, turn off Versed Propofol at 45 fentanyl at 100 Did notice multiple PVCs and tachyarrhythmia, opiate withdrawal?, Added Precedex at low-dose at the bedside, updated Discussed goals of care, patient will remain full code, she does not want to prolong resuscitative measures more than 15 minutes and if he requires cardioversion or defibrillation she would only allow once Vitals/I&O/Wt Last Vital Signs Temp 99.9 F H 01/10/21 12:00 Pulse 104 H 01/10/21 15:25 Resp 20 H 01/10/21 15:20 BP 113/58 01/10/21 12:00 Pulse Ox 93 01/10/21 15:20 01/10/21 01/10/21 01/10/21 06:59 14:59 22:59 Intake Total 568.836 / 6033.351 7609.185 / 1999.185 Output Total 1350 / 3050 500 / 500 Balance -781.164 / -4813.949 5656.185 / 1500.185 Weight last 48 hrs Weight 133.47 kg Physical Exam Narrative: EXAM NARRATIVE: Patient intubated sedated and was paralyzed in the morning, paralytics were discontinued Clinically his extremities does look fluid overloaded Blood-tinged secretions noted from endotracheal tube Patient heavily sedated No signs of ischemia gangrene or ulcer of lower extremities Abdomen with bowel sounds present nondistended S1, S2 sinus tachycardia Neuro exam limited Bilateral assisted breath sounds with rhonchi, coarse bilateral Urinary Catheter Management^: Espinosa: Cath Placed During This Visit: yes Reason for Continuing Indwelling Catheter: Accurate Measurement of Urinary Output in Critically Ill Patients Urinary Catheter Date of Insertion: 01/05/21 Urinary Catheter Time of Insertion: 10:16 Data : 01/10/21 04:21 01/10/21 04:21 A&P Assessment and plan (1) Aspiration pneumonitis: Status: Acute (2) Hematuria: Status: Acute Qualifiers: Hematuria type: unspecified type Qualified Code(s): R31.9 - Hematuria, unspecified (3) Thrombocytopenia: Status: Acute (4) Hypernatremia: Status: Acute (5) Uremia: Status: Acute (6) Rhabdomyolysis: Status: Acute (7) Goals of care, counseling/discussion: Status: Acute (8) Acute respiratory distress syndrome (ARDS) due to severe acute respiratory syndrome coronavirus 2 (SARS-CoV-2): Status: Acute (9) DVT (deep venous thrombosis): Status: Acute Qualifiers: DVT location: lower extremity Affected thrombotic vein of extremity: other lower extremity vein Chronicity: unspecified Laterality: bilateral Qualified Code(s): I82.493 - Acute embolism and thrombosis of other specified deep vein of lower extremity, bilateral (10) LORRAINE (acute kidney injury): Status: Acute (11) Pneumonia due to severe acute respiratory syndrome coronavirus 2 (SARS-CoV-2): Status: Acute (12) Respiratory failure with hypoxia: Status: Acute Qualifiers: Chronicity: acute Qualified Code(s): J96.01 - Acute respiratory failure with hypoxia Additional A&P Information COVID-19 related ARDS Persistent hypoxia FiO2 fluctuating between 70 to 75% after I discontinued paralytics Patient does respond to stimuli when we tried to wean him off sedation Positive fluid balance with third spacing status post albumin We did diurese him extensively that resulted in LORRAINE, hypernatremia, nephro on board, will start tube feeding diet from tomorrow, Lasix and metolazone were t ried on 01/10 L fluid balance today, Endotracheal culture growing yeast, discontinue vancomycin Continue Decadron 6 mg IV De-escalate Primaxin to Augmentin if he stays afebrile without worsening of odin kocytosis in next 48 hours Continue fluconazole p.o. regimen Plan to restart argatroban Did talk with scroll assembler, he is high risk to be transferred to LTAC, can do tracheostomy inpatient if FiO2 below 60% Today after family meeting has requested that we only do cardioversion or defibrillation once and if he codes we can start chest compressions but do not prolong more than 15 minutes if there is no meaningful recovery, in case of further decline family might lean towards comfort care but for now he will be full code LORRAINE: Hypernatremia, currently on D5, gastric residual noticed yesterday, plan to start his tube feeds from tomorrow, follow-up with nephro recommendations from today DVT: Start argatroban Thrombocytopenia: Platelet count 160, Covid related coagulopathy, hemoglobin 9.3, HIT panel is pending Sinus tachycardia: Opiate withdrawal versus underlying PE, start anticoagulation , start low-dose Precedex, if he stays tachycardic can try low-dose clonidine Multiple PVCs: Potassium 3.9, check magnesium level. Blood pressure stable, low-dose metoprolol Rhabdomyolysis: Improved Hypoalbuminemia: Status post albumin Patient: We will try enema along stool softeners and lactulose Full code Guarded prognosis Attestations Medical Necessity Statement*: Continue ICU management, Time Spent in Patient Care: Greater than 35 minutes Coding Level of Care Code Acute Printed Circuit Designer for [facility] Fwd Diagnoses Aspiration pneumonitis J69.0 Hematuria R31.9 Hematuria type: unspecified type Thrombocytopenia D69.6 Hypernatremia E87.0 Uremia N19 Rhabdomyolysis M62.82 Goals of care, counseling/discussion Z71.89 Acute respiratory distress syndrome (ARDS) due to severe acute respiratory syndrome coronavirus 2 (SARS-CoV-2) U07.1; J80 DVT (deep venous thrombosis) I82.493 DVT location: lower extremity Affected thrombotic vein of extremity: other lower extremity vein Chronicity: unspecified Laterality: bilateral LORRAINE (acute kidney injury) N17.9 Pneumonia due to severe acute respiratory syndrome coronavirus 2 (SARS-CoV-2) U07.1; J12.82 Respiratory failure with hypoxia J96.01 Chronicity: acute
[2021-01-10 16:19] LABS: Magnesium 3.2 mg/dL (1.7-2.3)
[2021-01-10 16:47] LABS: Glucose Point of Care 177 mg/dL (70-110)
[2021-01-10 17:31] LABS: ABG PCO2 58.9 mmHg (35-45); ABG PH Result 7.29 (7.35-7.45); Alveolar-Arterial Oxygen Gradi 50.8 mmHg (5-10); Arterial Blood Gas Hematocrit 30.2 % (42-52); Base Excess ABG 0.8 mmol/L (-2.0-2.0); Blood Gas Allen Test Pos; Blood Gas Sample Site Radial, left; Blood Gas Sample Type Arterial; Blood Gas Tidal Volume 0.48; Carboxyhemoglobin 1.7 %THgb (0.4-20.1); HCO3 ABG 28.2 mmol/L (22-26); HGB O2 Sat 92.2 % (95-100); Ionized Calcium Level - ABG 1.2 mmol/L (1.1-1.4); Methemoglobin 1.2 % (0.4-1.5); Oxygen Device VENT; Oxygen Saturation ABG 94.9; PO2 ABG 75.6 mmHg (80.0-100.0); Potassium Level - ABG 3.9 mmol/L (3.5-5.0); Total Hemoglobin 9.9 g/dL (14-18)
[2021-01-10 17:33] LABS: Blood Gas Operator Identificat CAK
--- NOTE | 2021-01-10 17:44 | PC.NURSE ---
An episode of wide ventricular tachycardia was noted on monitor. Staff entered patients room and pulse was noted. Pads were placed on patient and bed was placed in CPR position. After about two minuets SR was seen on monitor. Dr. Ashley gave order for 10mg push of cardizem. Patient continues to have frequent PAC's and PVC's.
[2021-01-10] MEDS: dexmedeTOMIDine 0.9 % NaCL 400 MCG/100 ML PREMIX 22.75 MCG IV ×2 (19:13→23:37)
[2021-01-10] MEDS: quetiapine 25 mg Tablet PO (21:42)
[2021-01-10 22:34] LABS: Glucose Point of Care 200 mg/dL (70-110)
[2021-01-11] VITALS (39 sets, daily range): BP systolic 85–147; BP diastolic 47–84; PULSE 59–115; RESP 19–25; TEMP 36.3–36.9; O2SAT 87–96; BMI 34.9
[2021-01-11] MEDS: propofol 1,000 MG/100 ML INJ 44.5 MG IV ×2 (00:15→02:47)
[2021-01-11] MEDS: ipratropium-albuterol 3 mL Neb INHALATION ×5 (03:17→20:08)
[2021-01-11] MEDS: dexmedeTOMIDine 0.9 % NaCL 400 MCG/100 ML PREMIX 22.75 MCG IV ×2 (04:03→11:01)
[2021-01-11 04:25] LABS: Basophils % 0.4 %; Eosinophils # 0.2 10^3/uL (0.0-0.8); Eosinophils % 3.7 %; Hematocrit 28.9 % (42.0-52.0); Hemoglobin 8.7 g/dL (11.7-16.6); Lymphocytes # 0.4 10^3/uL (0.8-4.8); Lymphocytes % 7.5 %; Mean Corpuscular HGB Conc 30.1 g/dL (30.0-36.0); Mean Corpuscular Hemoglobin 31.2 pg (28.0-34.0); Mean Corpuscular Volume 103.6 fl (80-94); Mean Platelet Volume 9.6 fL (7.4-10.4); Monocytes # 0.5 10^3/uL (0.2-0.9); Monocytes % 9.8 %; Neutrophils % 77.1 %; Nucleated Red Blood Cells % 0.4 %; Platelet Count 135 10^3/cmm (130-400); Red Blood Count 2.79 10^6/uL (4.1-5.3); White Blood Count 5.2 10^3/uL (4.0-10.0)
[2021-01-11 04:42] LABS: Anion Gap 10.7 (5-19); Blood Urea Nitrogen 75 mg/dL (8-23); C Reactive Protein 78.9 mg/L (0.0-4.9); Calcium 8.3 mg/dL (8.5-10.5); Carbon Dioxide 28 mmol/L (22-29); Chloride 113 mmol/L (98-107); Glomerular Filtration Rate 67.8 mL/min (90-130); Glucose 131 mg/dL (65-115); Lactate Dehydrogenase 442 U/L (135-225); Magnesium 3.3 mg/dL (1.7-2.3); Osmolality Calculated 330 mOsm/kg (285-295); Potassium 3.7 mmol/L (3.5-5.1); Sodium 148 mmol/L (136-145)
[2021-01-11 04:45] LABS: D Dimer 8.31 ug/mIFEU (0-0.59)
[2021-01-11] MEDS: propofol 1,000 MG/100 ML INJ 35.6 MG IV (06:13)
--- NOTE | 2021-01-11 06:24 | PC.NURSE ---
Shift Note Frequent safety and comfort rounds continue. Orders and/or nursing care completed as indicated. Patient monitored for response to intervention and treatment(s). Education provided Samira (Spouse)]. Patient and/or patient access representative [ResponseToTeaching]. Will continue to monitor. There were no significant changes with the patient during the shift. The patient remains sedated on propofol, fentanyl, and precedex. Samira, the spouse, was updated this morning. Patient's temperature remains around 98. Blood pressure has been a little soft this morning with a MAP of 62, therefore the propofol was back up a bit, titrated to 40 mcg. The patient had ventilator synchrony the entire shift, with an oxygen saturation around 92%.
[2021-01-11 07:22] LABS: Glucose Point of Care 132 mg/dL (70-110)
[2021-01-11] MEDS: budesonide 0.5 mg/2 mL Neb INHALATION ×2 (07:57→20:08)
[2021-01-11] MEDS: acetylcysteine 200 mg/mL SDV 4 mL 100 MG INHALATION ×2 (08:09→20:08)
--- NOTE | 2021-01-11 08:11 | XR_ITS ---
WS: [id number] Portable AP semiupright chest, 01/11/2021 Clinical Data: pneumonia Comparison: Portable chest, 01/09/2021. Findings: The endotracheal tube, left internal jugular venous catheter, nasogastric tube and monitor leads remain in the same position. Bilateral diffuse pulmonary opacities have not changed. The heart size remains the same. XR/XR chest 1V portable [id number] Impression: No change in bilateral pulmonary opacities.
--- NOTE | 2021-01-11 09:03 | PC.NUTR ---
Addendum entered by Lovely Glynn 01/11/21 15:47: Noted TF/Beneprotein not yet initiated when on floor. Discussed below orders with nurse (Eliot) who then clarified them with curtain cutter as well, who states wants to follow below orders with additional 200 ml flushes q6. Total fluid would be 1533 ml H2O. Original Note: Tube feeding recommendation: Received order from Dr. Ashley to enter RD recommendation as follows, Glucerna 1.2 at 10 ml/hr, with Beneprotein 1 scoop q 4 hrs. (Note each scoop Beneprotein (7 grams) to be mixed with 60 ml H2O then flushed with 30 ml H2O for total of 540 ml per day). This will provide 438 kcal, 51 g protein, and 733 ml H2O. TF not to be increased above 10 ml/hr at this time due to hx of poor tolerance, but minimal feeding as tolerated to provide gut stimulation. See previous RD assessments for further details. Will follow up 01/12/21.
[2021-01-11] MEDS: dextrose 5% 1,000 ML 100 ML IV (09:16)
[2021-01-11] MEDS: zinc gluconate 50 mg Tablet PO (09:17)
[2021-01-11] MEDS: ascorbic acid 500 mg Tablet 1000 MG PO ×2 (09:17→17:52)
[2021-01-11] MEDS: fluconazole 100 mg Tablet 200 MG PO (09:17)
[2021-01-11] MEDS: metOLazone 5 MG Tablet 10 MG PO (09:18)
[2021-01-11] MEDS: multivitamin therapeutic Tablet 1 TAB PO (09:18)
[2021-01-11] MEDS: lactulose oral liq 20 gm/30 mL UDC 10 GM PO ×2 (09:18→17:52)
[2021-01-11] MEDS: sennosides-docusate Tablet 1 TAB PO (09:18)
[2021-01-11] MEDS: cholecalciferol (vitamin D3) 1,000 unit Tablet 2000 UNIT PO (09:18)
[2021-01-11] MEDS: pantoprazole 40 mg SDV IVP (09:19)
[2021-01-11] MEDS: folic acid 1 mg Tablet PO (09:19)
--- NOTE | 2021-01-11 10:08 | PC.CHAP ---
Pastoral Care Encounter/Spiritual Assessment Type of Contact [] Declined health plan advisor visit [] Patient/Family/Request visit [] Outpatient visit [] Follow-up visit [] Physician referral [] Code/Alert [x] Routine visit [] Staff referral [] Actively dying [] Patient sleeping [] Family support [] [] Out of room [] Palliative care [] [x] Receiving care in room [] Pre-surgical visit [] Trauma [] Long length of stay [x] ICU visit [x] Other: off quarantine.. allowed to enter room now.. still on vent Relational/Emotional Strength [] Patient feels connected with others/family/visitors/staff [] Distress [] Loneliness/isolation [] Abandonment Spirituality of Patient [] Person of Katharine [] Attends Ep[employer] of their Katharine [] Believes in Prayer [] Reads Bible or Hoahaoism materials [] There are Spiritual issues to be addressed Pond Scaler Interventions [x] Prayer [] Active listening [] Non-anxious presence [] Spiritual/emotional support [] Crisis/trauma care [] Spiritual counseling [] Bereavement support [] Provided bereavement packet [] Provided Bible/devotional materials [] Provided toy/stuffed animal, coloring book to patient or family member [] Provided Communion [] Anointing/[place] [] Salvation [x] Completed spiritual assessment [] Other: Impact on Illness or Injury [] Angry [] Fearful [] Anxious [] Often cries [] Exhaustion [] Unable to work [] Unable to attend latter day [] Unable to walk/stand [] Unable to read [] Unable to drive [] Unable to eat/drink [] Unable to sleep [] Unable to be with family [] Patient intubated [] Other: Summary Time spent with patient
[2021-01-11] MEDS: argatroban 250 MG in sodium chloride 0.9% 250 ML 11.82 MG IV (10:55)
[2021-01-11] MEDS: propofol 1,000 MG/100 ML INJ 26.7 MG IV ×3 (11:02→17:42)
[2021-01-11 11:47] LABS: Glucose Point of Care 135 mg/dL (70-110)
--- NOTE | 2021-01-11 12:10 | PM.PN ---
Subjective Subjective: Interval history: Remains relatively stable over the last 24 hours since reintubation. He has been on D5W at 100 mL an hour overnight, double feeding she was now replaced. Ventilator and hemodynamic parameters are reviewed. Medications: Reviewed: Yes Vitals/I&O/Wt Last Vital Signs Temp 98.2 F 01/11/21 09:00 Pulse 76 01/11/21 11:31 Resp 22 H 01/11/21 11:31 BP 112/60 01/11/21 10:00 Pulse Ox 92 01/11/21 11:31 01/10/21 01/11/21 01/11/21 22:59 06:59 14:59 Intake Total 1600 / 3668.388 700.000 / 4368.388 1300 / 1300 Output Total 1650 / 2150 1650 / 3800 Balance -50 / 1518.388 -950.000 / 485.314 6030 / 1300 Weight last 48 hrs Weight 130.379 kg Physical Exam Narrative: EXAM NARRATIVE: Constitutional: Sedated and vented HEENT: Wet mucosa, no jvp, non icteric Lungs: Bilaterally poor entry bilaterally CVS: S1 S2, no murmurs Abdo: Soft, BS ok Ext 4: Minimal edema, peripheral perfusion with no cyanosis Neurological: Grossly non-focal Urinary Catheter Management^: Espinosa: Cath Placed During This Visit: yes Reason for Continuing Indwelling Catheter: Accurate Measurement of Urinary Output in Critically Ill Patients Urinary Catheter Date of Insertion: 01/05/21 Urinary Catheter Time of Insertion: 10:16 Data : 01/11/21 04:00 01/11/21 04:00 A&P Additional A&P Information 1. Acute kidney injury Creatinine coming down nicely Leave Espinosa catheter for the time being Avoid usual nephrotoxic agents Strict I's and O's 2. Covid pneumonitis BiPAP, status post IL-6 antibody, remdesivir, dexamethasone, broad-spectrum antibiotics. VDRF with high FiO2 Continue diuretics (see below) 3. Chemistry Sodium coming down nicely Lasix now held, meolazone on board, D5w on board, will continue to trend Once he has resumed feeding would give FWF 200mL Q6 and DC if Renal issues have now become quiescent and I will step back from the case at this time. Please not hesitate to contact our team should we be of further assistance in his care. 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
[2021-01-11] MEDS: dexamethasone 10 mg/mL INJ 6 MG IVP (12:54)
[2021-01-11 13:31] LABS: Partial Thromboplastin Time 67.1 SECONDS (23.9-36.7)
--- NOTE | 2021-01-11 13:46 | P.PN_ITS ---
Subjective Subjective: Interval history: Good urine output with metolazone 3 L output Negative balance of 300 Sodium 148 Creatinine 1.1 Advance tube feeds today appreciate dietary recommendations D5 at the bedside FiO2 65% Chest x-ray showing bilateral opacities no recent fever, vancomycin discontinued yesterday Currently on Primaxin Constipation, will try enema today Yeast endotracheal culture continue fluconazole: Marcie lusitaniae Chemical Dependency Professional notified by the RT regarding endotracheal tube troubleshooting Is a 29 cm, he does try to cough with adequate gag reflex Urine color yellow HIT panel: Negative Platelet count 135 will go ahead and start him on therapeutic Lovenox dose Hemoglobin 8.7 Sinus bradycardia, decrease Precedex dose Vitals/I&O/Wt Last Vital Signs Temp 98.2 F 01/11/21 09:00 Pulse 76 01/11/21 11:31 Resp 22 H 01/11/21 11:31 BP 112/60 01/11/21 10:00 Pulse Ox 92 01/11/21 11:31 01/10/21 01/11/21 01/11/21 22:59 06:59 14:59 Intake Total 1600 / 3668.388 700.000 / 4368.388 1300 / 1300 Output Total 1650 / 2150 1650 / 3800 Balance -50 / 1518.388 -950.000 / 072.517 3014 / 1300 Weight last 48 hrs Weight 130.379 kg Physical Exam Narrative: EXAM NARRATIVE: Patient intubated and sedated Edema of extremities has slightly improved Yellow color urine Bowel sound present Nondistended abdomen No active bleeding around central line Stage II sacral ulcer reported by the nursing staff Lower extremity no vascular compromise No active signs of ischemia or gangrene or cyanosis Assisted bilateral breath sounds current FiO2 65% with coarse rhonchi S1, S2, sinus bradycardia PVCs Neuro Exam limited Urinary Catheter Management^: Espinosa: Cath Placed During This Visit: yes Reason for Continuing Indwelling Catheter: Accurate Measurement of Urinary Output in Critically Ill Patients Urinary Catheter Date of Insertion: 01/05/21 Urinary Catheter Time of Insertion: 10:16 Data : 01/11/21 04:00 01/11/21 04:00 A&P Assessment and plan (1) Aspiration pneumonitis: Status: Acute (2) Hematuria: Status: Acute Qualifiers: Hematuria type: unspecified type Qualified Code(s): R31.9 - Hematuria, unspecified (3) Thrombocytopenia: Status: Acute (4) Hypernatremia: Status: Acute (5) Uremia: Status: Acute (6) Rhabdomyolysis: Status: Acute (7) Goals of care, counseling/discussion: Status: Acute (8) Acute respiratory distress syndrome (ARDS) due to severe acute respiratory syndrome coronavirus 2 (SARS-CoV-2): Status: Acute (9) DVT (deep venous thrombosis): Status: Acute Qualifiers: DVT location: lower extremity Affected thrombotic vein of extremity: other lower extremity vein Chronicity: unspecified Laterality: bilateral Qualified Code(s): I82.493 - Acute embolism and thrombosis of other specified deep vein of lower extremity, bilateral (10) LORRAINE (acute kidney injury): Status: Acute (11) Pneumonia due to severe acute respiratory syndrome coronavirus 2 (SARS-CoV-2): Status: Acute (12) Coagulopathy: Status: Acute (13) Hypocalcemia: Status: Acute (14) Hypoalbuminemia: Status: Acute Additional A&P Information Active issues COVID-19 related ARDS Current FiO2 65% Hypernatremia Uremia DVT Thrombocytopenia: HIT panel negative Covid related coagulopathy Failed weaning trial Polyuria Hypoalbuminemia Tube feeding Endotracheal tube troubleshooting LORRAINE Rhabdomyolysis Hypocalcemia Hematuria Blood loss anemia Constipation Plan Weaned oxygen down to 65% today, awakening trials, sedation vacation, off paralytics, does not require vasopressors, Failed previous weaning trial Chemical Dependency Professional to talk with the family if they would allow inpatient tracheostomy once FiO2 less than 60% Negative fluid balance with metolazone creatinine improved, LORRAINE resolved Hypernatremia: Resolving with D5 starting tube feeds today appreciate dietary recommendations Urine osmolarity is greater than serum osmolarity does not fit criteria of diabetes insipidus however he has been getting diuretics which would explain urine electrolyte levels Covid related coagulopathy, thrombocytopenia improved, HIT panel negative, start full dose Lovenox back on today Monitor hemoglobin, H&H 8.7 most likely related to blood loss anemia, he had hematuria for almost 7 days which has resolved epistaxis, hemoptysis, bleeding around central line resolved Hypoalbuminemia: Status post dose of albumin blood pressure stable Secondary to prolonged intubation and catabolic state with active steroid Aspiration pneumonitis had 2 isolated episode of fever continue Primaxin, vancomycin discontinued, endotracheal tube culture growing yeast Marcie lusitaniae, continue fluconazole Plan to de-escalate antibiotics if he stays clinically stable and next 48 hours however he is high risk because of endotracheal tube troubleshooting Dr. Lynn to replace endotracheal tube this evening Hypocalcemia: Calcium gluconate 1 g given today Constipation: He did respond to milk of molasses enema which I would repeat today Full code: stated that she would only allow cardioversion or defibrillation once, in case of cardiac arrest no resuscitative measures beyond 15 minutes Reevaluate with family today Attestations Medical Necessity Statement*: Continue ICU management Time Spent in Patient Care: 16 - 35 minutes Coding Level of Care Code Acute Residential Building Inspector for Chg Fwd Diagnoses Aspiration pneumonitis J69.0 Hematuria R31.9 Hematuria type: unspecified type Thrombocytopenia D69.6 Hypernatremia E87.0 Uremia N19 Rhabdomyolysis M62.82 Goals of care, counseling/discussion Z71.89 Acute respiratory distress syndrome (ARDS) due to severe acute respiratory syndrome coronavirus 2 (SARS-CoV-2) U07.1; J80 DVT (deep venous thrombosis) I82.493 DVT location: lower extremity Affected thrombotic vein of extremity: other lower extremity vein Chronicity: unspecified Laterality: bilateral LORRAINE (acute kidney injury) N17.9 Pneumonia due to severe acute respiratory syndrome coronavirus 2 (SARS-CoV-2) U07.1; J12.82 Coagulopathy D68.9 Hypocalcemia E83.51 Hypoalbuminemia E88.09
--- NOTE | 2021-01-11 14:11 | P.PN_ITS ---
Subjective Subjective: Interval history: -Patient seen at bedside multiple times today -He is still on sedated and on 70% FiO2 -ET tube started to leak and has to change to 8.5 cm ET tube -Still on D5 100 mL/h and on metolazone-sodium down to 149; renal functions improving with good urine output -Labs and imaging reviewed Medications: Reviewed: Yes Vitals/I&O/Wt Last Vital Signs Temp 98.2 F 01/11/21 09:00 Pulse 76 01/11/21 11:31 Resp 22 H 01/11/21 14:01 BP 112/60 01/11/21 10:00 Pulse Ox 92 01/11/21 14:01 01/10/21 01/11/21 01/11/21 22:59 06:59 14:59 Intake Total 1600 / 3668.388 700.000 / 4368.388 1374.76 / 1374.76 Output Total 1650 / 2150 1650 / 3800 Balance -50 / 1518.388 -950.000 / 834.007 1461.76 / 1374.76 Weight last 48 hrs Weight 287 lb 7 oz Physical Exam Narrative: EXAM NARRATIVE: General: Lying in bed, sedated and intubated. HEENT:NCAT, PERRLA, EOMI Neck: Supple Lungs: Bilateral coarse crepitations Heart: s1/s2, RRR Abd: soft, NT, ND, BS + Normoactive Extremities: 1+ pitting pedal edema; healing subcutaneous hematoma on right deltoid ENVIRONMENTAL SERVICES COORDINATOR: sedated and limited ENVIRONMENTAL SERVICES COORDINATOR exam possible. SKIN: no rash; stage II decubitus ulcer on sacrum LDA: # CVC: Left internal jugular vein 12/28/2020 # Espinosa: 12/24/2020 Urinary Catheter Management^: Espinosa: Cath Placed During This Visit: yes Reason for Continuing Indwelling Catheter: Accurate Measurement of Urinary Output in Critically Ill Patients Urinary Catheter Date of Insertion: 01/05/21 Urinary Catheter Time of Insertion: 10:16 Data : 01/12/21 16:20 01/12/21 04:45 A&P Assessment and plan (1) Respiratory failure with hypoxia: Status: Acute Qualifiers: Chronicity: acute Qualified Code(s): J96.01 - Acute respiratory failure with hypoxia (2) Acute respiratory distress syndrome (ARDS) due to severe acute respiratory syndrome coronavirus 2 (SARS-CoV-2): Status: Acute (3) DVT (deep venous thrombosis): Status: Acute Qualifiers: DVT location: lower extremity Affected thrombotic vein of extremity: other lower extremity vein Chronicity: unspecified Laterality: bilateral Qualified Code(s): I82.493 - Acute embolism and thrombosis of other specified deep vein of lower extremity, bilateral (4) LORRAINE (acute kidney injury): Status: Acute (5) Aspiration pneumonitis: Status: Acute (6) Hematuria: Status: Acute Qualifiers: Hematuria type: unspecified type Qualified Code(s): R31.9 - Hematuria, unspecified (7) Thrombocytopenia: Status: Acute (8) Hypernatremia: Status: Acute #Acute hypoxic respiratory failure secondary to ARDS due to COVID-19 pneumonia #Event of aspiration 01/06/2021-?? Aspiration pneumonia #Partial thrombosis of bilateral great saphenous veins and questionable thrombus seen on unnamed intramuscular Vein in the left calf-on anticoagulation- complicated by hematuria and Endo tracheal bleeding-currently no more bleeding episodes and started anticoagulation #LORRAINE--improving #Hypernatremia-improving #Thrombocytopenia-improved, HIT antibodies negative #Hematuria-resolved -Symptoms started 12/15/2020: Rapid antigen 12/23/2020 -Intubated 12/27/2020- completed 4 sessions of proning -1 dose Actemra 12/24/2020; completed 5 doses of remdesivir and 10 days of dexamethasone 10 mg -On CMV 480/ 75%/12 ABG 7.2 58/75/28 -On Precedex 0.8 and propofol gtt., fentanyl 25/hour opening eyes, -Off pressors -Cody 5-325 1 tablet twice daily for pain and Dilaudid as needed for opiate withdrawal -Unfortunately patient has an episode of aspiration 01/06/2021 with tube feeds in ET tube -On DuoNeb and Pulmicort -So far all cultures negative except Endotracheal tube aspirate grew yeast- Marcie lusitaniae patient is currently on fluconazole 200 mg p.o. daily -Completed 7 days of empiric Levaquin and currently on vancomycin and imipenem -Patient on a D5 100 mL/hour and and metolazone 10 mg p.o. daily currently +550 cc over the last 24 hours and sodium down to 148; appreciate renal recommendations -Patient was on Lovenox 120 units units twice daily for DVT-CTA negative for PE on admission; developed hematuria, bleeding through ET tube, bleeding IJ site- anticoagulation held for few days-Heparin antibodies negative; no more obvious bleeding noted and so restarted Lovenox -Monitor H&H and transfuse to keep> 7/21 -Restarted tube feeding-currently on 10 ml/hr and on beneprotein q 4hr -bowel regimen senna/docusate; & lactulose 10 mg twice daily -Sugars well controlled-on scale coverage -DVT prophylaxis: lovenox -PPI for GI prophylaxis -Full code -Medical condition and guarded prognosis explained to need for exchanging PEG. -Continue to monitor for fluid balance, electrolytes, hemodynamics, secondary infections Recommendations conveyed to hospitalist, RN, taking care of the patient -Once patient FiO2 requirements come down to 60%-we will plan to transfer patient to LTAC for trach and PEG Attestations Medical Necessity Statement*: acute hypoxic respiratory failure secondary to ARDS due to COVID-19 pneumonia requiring mechanical ventilation coexisting DVT on therapeutic anticoagulation Time Spent in Patient Care: Greater than 35 minutes (>than 50% of time spent in counselling and/or direct pt care on unit) . Critical Care Time: The high probability of a clinically significant, sudden or life threatening deterioration of the patient's [pulmonary, renal, vascular] system(s) required my full and direct attention, intervention and personal management. The critical care time is as shown. 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
[2021-01-11] MEDS: fentaNYL 50 mcg/mL INJ 2mL IVP (14:28)
[2021-01-11] MEDS: rocuronium 10 mg/mL INJ 5mL 100 MG IVP (14:31)
--- NOTE | 2021-01-11 14:35 | XR_ITS ---
WS: [id number] Portable AP upright chest, 01/11/2021, 1437 hours Clinical Data: for et tube placement Comparison: Portable chest, today, 0815 hours Findings: The endotracheal tube has been advanced and appears to and just at the origin of the right mainstem bronchus. The other tubes remain in the same position. Bilateral diffuse patchy pulmonary op acities remain same. XR/XR chest 1V portable [id number] Impression: 1. The endotracheal tube has been inserted and at the origin of the right ernesto tem bronchus. 2. No change in patchy pulmonary opacities. 3. The ICU was notified of the position of the endotracheal tube at 1530 hours.
--- NOTE | 2021-01-11 14:50 | PM.ACPR ---
Procedure/Consent Time out: Time Out Performed: Yes Consent: Consent for Procedure: Consent obtained from other (indicate) (Verbal consent taken from ), Emergency procedure, Risks & Benefits reviewed and Agrees to proceed with procedure Additional Consent Information: Indication for endotracheal Intubation: tube leak Consent: The patient was in immediate danger, and required the procedure emergently. Verbal consent taken from at bedside and she verbalized understanding of the risks and complications of the procedure and agreed with the procedure Sedation: already on fentanyl 100 mcg/hr, precedex 0.8 mcg/hr, propofol 30 mg gtt- given additonal stat dose of fentanyl 50 mcg, versed 2 mg and propofol 10 mg Paralytic: Rocuronium 100 cc Equipment: Glidoscope Number of attempts: 1 Procedure: Previous ET tube removed over bougie and attempted to introduce new 8.5 cm ET tube but could not advance over bougie. With the help of the glide scope 8.5 cm ET tube was passed through vocal cords uneventfully. Patient was hemodynamically stable with no arrhythmias. Least saturation achieved was 70% which immediately below 93% post intubation. ETT location confirmed by bilateral breath sounds, ETCO2, Chest x ray Kishore CairMD Pulm/Critical Care Medicine Acute Procedures Epistaxis Control: Time out performed: Yes
[2021-01-11] MEDS: potassium chloride ER 20 mEq Tablet 40 MEQ PO (15:55)
[2021-01-11] MEDS: enoxaparin 80 mg/0.8 mL Syringe 130 MG SUBCUT (15:56)
[2021-01-11] MEDS: calcium gluconate 0.1 gm/mL 10% SDV 10mL 1 GM IVP (15:56)
--- NOTE | 2021-01-11 17:25 | PC.SOCIAL ---
IMM update pg 2 of IMM updated w/ and copy provided.
[2021-01-11 17:48] LABS: Glucose Point of Care 163 mg/dL (70-110)
--- NOTE | 2021-01-11 19:22 | PC.NURSE ---
Shift Note Frequent safety and comfort rounds continue. Orders and/or nursing care completed as indicated. Patient monitored for response to intervention and treatment. Uneventful shift. Patient rested in bed throughout the day. Total urine output was 1300 mL during day shift 01/11/2021. Nurse titrated down precedex from 0.7 in the morning to 0.2 by evening after observing prolonged QT intervals when doing afternoon cardiac strips. The cuff on the ET tube developed a significant leak and needed to be replaced. DR datar, respiratory therapy, and nurse replaced ET tube. Intubation was uneventful. After patient was intubated, Tube feedings were restarted.
[2021-01-11] MEDS: propofol 1,000 MG/100 ML INJ 40.05 MG IV ×2 (21:21→23:59)
[2021-01-11 22:13] LABS: Glucose Point of Care 139 mg/dL (70-110)
[2021-01-11] MEDS: quetiapine 25 mg Tablet PO (22:30)
[2021-01-12] VITALS (52 sets, daily range): BP systolic 112–171; BP diastolic 65–88; PULSE 102–145; RESP 20–28; TEMP 36.7–37.1; O2SAT 89–96; BMI 35.6
[2021-01-12] MEDS: ipratropium-albuterol 3 mL Neb INHALATION ×6 (00:39→19:54)
[2021-01-12] MEDS: propofol 1,000 MG/100 ML INJ 40.05 MG IV ×2 (03:02→05:41)
[2021-01-12] MEDS: enoxaparin 80 mg/0.8 mL Syringe 130 MG SUBCUT ×2 (03:07→14:35)
[2021-01-12] MEDS: metoprolol tartrate 1 mg/1 mL SDV 5 mL 5 MG IVP (05:15)
[2021-01-12 05:16] LABS: Basophils % 0.3 %; Eosinophils # 0.5 10^3/uL (0.0-0.8); Eosinophils % 4.6 %; Hematocrit 32.1 % (42.0-52.0); Lymphocytes # 0.7 10^3/uL (0.8-4.8); Lymphocytes % 6.8 %; Mean Corpuscular HGB Conc 31.2 g/dL (30.0-36.0); Mean Corpuscular Hemoglobin 31.9 pg (28.0-34.0); Mean Corpuscular Volume 102.6 fl (80-94); Mean Platelet Volume 9.5 fL (7.4-10.4); Monocytes # 0.8 10^3/uL (0.2-0.9); Monocytes % 7.5 %; Neutrophils # 7.79 10^3/uL (1.8-7.7); Neutrophils % 77.2 %; Nucleated Red Blood Cells % 0.3 %; Platelet Count 175 10^3/cmm (130-400); Red Blood Count 3.13 10^6/uL (4.1-5.3); Red Cell Distribution Width 15.2 % (12.1-15.1); White Blood Count 10.1 10^3/uL (4.0-10.0)
[2021-01-12 05:29] LABS: ABG PCO2 55.4 mmHg (35-45); ABG PH Result 7.33 (7.35-7.45); Arterial Blood Gas Hematocrit 31.5 % (42-52); Base Excess ABG 2.4 mmol/L (-2.0-2.0); Blood Gas Allen Test Pos; Blood Gas Sample Site Brachial, right; Blood Gas Sample Type Arterial; Blood Gas Tidal Volume 0.48; HCO3 ABG 29.2 mmol/L (22-26); Oxygen Device VENT; PO2 ABG 81.5 mmHg (80.0-100.0)
[2021-01-12 05:37] LABS: Anion Gap 13.8 (5-19); Blood Urea Nitrogen 62 mg/dL (8-23); Calcium 8.9 mg/dL (8.5-10.5); Carbon Dioxide 28 mmol/L (22-29); Chloride 111 mmol/L (98-107); Glomerular Filtration Rate 67.8 mL/min (90-130); Glucose 111 mg/dL (65-115); Osmolality Calculated 326 mOsm/kg (285-295); Potassium 3.8 mmol/L (3.5-5.1); Sodium 149 mmol/L (136-145)
--- NOTE | 2021-01-12 07:16 | PC.NURSE ---
Shift Note Frequent safety and comfort rounds continue. Orders and/or nursing care completed as indicated. Patient monitored for response to intervention and treatment(s). Education provided includes[]. Patient and/or client account representative [ResponseToTeaching]. Will continue to monitor. There was one change that took place during the shift that is worth sharing. In between 7013-5013 the patient's heart rate increased to 130 bpm. Previously the patient had been running in the low 100's most of the shift, but never as high as 130. There was 5 mg of metoprolol that was administered, which brought the patient's heart rate back down to the low 100's. No ventilator changes were made.
[2021-01-12] MEDS: budesonide 0.5 mg/2 mL Neb INHALATION ×4 (07:59→23:38)
[2021-01-12] MEDS: acetylcysteine 200 mg/mL SDV 4 mL 100 MG INHALATION ×2 (08:00→19:55)
[2021-01-12 08:18] LABS: Glucose Point of Care 117 mg/dL (70-110)
[2021-01-12] MEDS: propofol 1,000 MG/100 ML INJ 44.5 MG IV ×6 (08:32→22:00)
[2021-01-12] MEDS: ascorbic acid 500 mg Tablet 1000 MG PO (09:13)
[2021-01-12] MEDS: fluconazole 100 mg Tablet 200 MG PO (09:13)
[2021-01-12] MEDS: cholecalciferol (vitamin D3) 1,000 unit Tablet 2000 UNIT PO (09:13)
[2021-01-12] MEDS: metoprolol tartrate 25 mg Tablet PO ×2 (09:14→19:33)
[2021-01-12] MEDS: sennosides-docusate Tablet 1 TAB PO (09:14)
[2021-01-12] MEDS: zinc gluconate 50 mg Tablet PO (09:14)
[2021-01-12] MEDS: multivitamin therapeutic Tablet 1 TAB PO (09:14)
[2021-01-12] MEDS: lactulose oral liq 20 gm/30 mL UDC 10 GM PO ×2 (09:14→18:16)
[2021-01-12] MEDS: pantoprazole 40 mg SDV IVP (09:14)
[2021-01-12] MEDS: metOLazone 5 MG Tablet 10 MG PO (09:14)
[2021-01-12] MEDS: folic acid 1 mg Tablet PO (09:14)
--- NOTE | 2021-01-12 10:26 | PC.NURSE ---
[address] Vo. Reviewed labs, ABG, avelino, medications, vent settings, vital signs, tube feeding, skin ulcer, and heart rhythm. Plan to wean FiO2 and sedation as tolerated in preparation for transfer to LTAC. Tube feeding goal 30ml/hr. [address] Ashley. Reviewed vital signs, heart rhythm, and plan of care. Orders for metoporolol. Plan for transfer to LTAC.
[2021-01-12] MEDS: artificial tears Op Oint 3.5 gm 1 APPLIC EYE-BOTH (11:21)
[2021-01-12 11:27] LABS: Glucose Point of Care 137 mg/dL (70-110)
[2021-01-12] MEDS: dexamethasone 10 mg/mL INJ 6 MG IVP (13:04)
--- NOTE | 2021-01-12 14:02 | PC.NUTR ---
Nutrition note: TF running at 20 ml/hr with goal of 30 ml/hr, based upon verbal order from Dr. Vo (per nurse). Glucerna 1.2 @ 30 ml/hr will provide 864 kcal, 43 g protein, 580 ml H2O. Propofol providing 1175kcal/day. Also receiving 1 scoop Beneprotein q4 hrs with 90 ml H2O (60mL mixed with powder + 30mL flush after providing 150 kcal and 36g protein/day. Total of 2189 kcal, 79 g protein, and 1120 ml H2O from propofol, TF, and Beneprotein flushes. Noted additional order for 100 ml H2O q 3 hrs but unsure if being provided in addition to other orders. Recommend clarification of all orders to ensure provision matches orders. See full RD assessments for further details.
--- NOTE | 2021-01-12 15:31 | P.PN_ITS ---
Subjective Subjective: Interval history: Endotracheal tube was changed yesterday Leukocytosis slightly worsened, has been afebrile No bowel movement as ICU nurse for enema today Increase tube feeding to 30 cc/h did talk with Dr. Lynn and dietitian This morning gastric residuals 0 mL Sprinkling System Irrigator did give instructions to the ICU nurse to wean off sedation, I have requested RT to bring his FiO2 down below 65 today No active hemoptysis epistaxis or hematuria Adequate urine output on metolazone Metoprolol added for tachycardia Stage II sacral ulcer Vitals/I&O/Wt Last Vital Signs Temp 98.8 F 01/12/21 11:00 Pulse 115 H 01/12/21 14:30 Resp 25 H 01/12/21 11:03 BP 141/70 01/12/21 14:30 Pulse Ox 90 01/12/21 14:30 01/12/21 01/12/21 01/12/21 06:59 14:59 22:59 Intake Total 1020 / 3573.493 542.383 / 542.383 Output Total 1800 / 3100 Balance -780 / 473.493 542.383 / 542.383 Weight last 48 hrs Weight 132.959 kg Weight 130.379 kg Physical Exam Narrative: EXAM NARRATIVE: Patient intubated and sedated Yellow color yellow in bag Left-sided central line without any bleeding around the site Soft abdomen Bowel sound present Neuro exam limited Bilateral assisted breath sounds Rhonchi at the bases No signs of cyanosis or gangrene of lower extremities Stage II sacral ulcer Urinary Catheter Management^: Espinosa: Cath Placed During This Visit: yes Reason for Continuing Indwelling Catheter: Accurate Measurement of Urinary Output in Critically Ill Patients Urinary Catheter Date of Insertion: 01/05/21 Urinary Catheter Time of Insertion: 10:16 Data : 01/12/21 16:20 01/12/21 04:45 A&P Assessment and plan (1) Hypoalbuminemia: Status: Acute (2) Hypocalcemia: Status: Acute (3) Coagulopathy: Status: Acute (4) Aspiration pneumonitis: Status: Acute (5) Hematuria: Status: Acute Qualifiers: Hematuria type: unspecified type Qualified Code(s): R31.9 - Hematuria, unspecified (6) Thrombocytopenia: Status: Acute (7) Hypernatremia: Status: Acute (8) Uremia: Status: Acute (9) Rhabdomyolysis: Status: Acute (10) Acute respiratory distress syndrome (ARDS) due to severe acute respiratory syndrome coronavirus 2 (SARS-CoV-2): Status: Acute (11) LORRAINE (acute kidney injury): Status: Acute (12) Pneumonia due to severe acute respiratory syndrome coronavirus 2 (SARS-CoV-2): Status: Acute (13) Stage II decubitus ulcer: Status: Acute (14) Constipation: Status: Acute Additional A&P Information Active issues Persistent hypoxia ARDS Failed weaning trial Tachyarrhythmia Worsening leukocytosis Sacral stage II ulcer developed during hospitalization Hematuria Marcie sputum culture positive Hyper natremia Tube feeding DVT Uremia Coagulopathy Hypocalcemia Constipation Plan FiO2 70% asked RT to bring it down to 65 and then 60 to see if he would maintain O2 saturation above 89 Candidate for LTAC once FiO2 less than 60, window caser updated LTAC to do tracheostomy we do not have Dr. Dee over the weekend Continue multivitamins, steroids and antibiotics Hypernatremia Adequate urine output with metolazone 100 mL water flushes every 3 hours with advancement of tube feeding to 30 cc/h check gastric residuals not to exceed above 200 Aspiration pneumonitis: Marcie positive continue fluconazole, de-escalate Primaxin to Zosyn Stage II sacral ulcer developed during hospitalization: Will add doxycycline for MRSA coverage DVT: Currently on therapeutic dose of Lovenox Coagulopathy: Hemoglobin stable Thrombocytopenia: Improved HIT panel negative LORRAINE: Improved Uremia improved, no signs of acidosis, potassium 3.8, rhabdomyolysis improved Appreciate nephro recommendations Tachyarrhythmia Calcium repleted yesterday, magnesium normal, added metoprolol Concern for underlying Covid related myocarditis Constipation: We will do enema today Hypocalcemia: Repleted calcium 8.9 Full code Euglycemic Attestations Medical Necessity Statement*: Placement to LTAC once FiO2 below 65% Time Spent in Patient Care: 16 - 35 minutes Coding Level of Care Code Acute Supervisor [employer] for [facility] Fwd Diagnoses Hypoalbuminemia E88.09 Hypocalcemia E83.51 Coagulopathy D68.9 Aspiration pneumonitis J69.0 Hematuria R31.9 Hematuria type: unspecified type Thrombocytopenia D69.6 Hypernatremia E87.0 Uremia N19 Rhabdomyolysis M62.82 Acute respiratory distress syndrome (ARDS) due to severe acute respiratory syndrome coronavirus 2 (SARS-CoV-2) U07.1; J80 LORRAINE (acute kidney injury) N17.9 Pneumonia due to severe acute respiratory syndrome coronavirus 2 (SARS-CoV-2) U07.1; J12.82 Stage II decubitus ulcer L89.92 Constipation K59.00
[2021-01-12 16:27] LABS: Basophils # 0.1 10^3/uL (0.0-0.1); Basophils % 0.6 %; Eosinophils # 0.8 10^3/uL (0.0-0.8); Hematocrit 31.9 % (42.0-52.0); Hemoglobin 9.7 g/dL (11.7-16.6); Lymphocytes # 0.5 10^3/uL (0.8-4.8); Lymphocytes % 4.7 %; Mean Corpuscular HGB Conc 30.4 g/dL (30.0-36.0); Mean Corpuscular Hemoglobin 31.5 pg (28.0-34.0); Mean Corpuscular Volume 103.6 fl (80-94); Mean Platelet Volume 9.5 fL (7.4-10.4); Monocytes # 0.6 10^3/uL (0.2-0.9); Monocytes % 5.4 %; Neutrophils % 77.7 %; Nucleated Red Blood Cells # 0.1 /100WBC; Nucleated Red Blood Cells % 0.4 %; Platelet Count 191 10^3/cmm (130-400); Red Blood Count 3.08 10^6/uL (4.1-5.3); Red Cell Distribution Width 15.6 % (12.1-15.1); White Blood Count 11.2 10^3/uL (4.0-10.0)
[2021-01-12 17:56] LABS: Glucose Point of Care 172 mg/dL (70-110)
[2021-01-12] MEDS: doxycycline 100 mg Tablet PO (18:15)
[2021-01-12] MEDS: piperacillin-tazobactam 3.375 GM in sodium chloride 0.9% (plus) 50 ML IV (18:16)
--- NOTE | 2021-01-12 19:11 | PC.NURSE ---
[address] Ashley. Orders for tube feeding updated. Orders to hold tube feeding for residual of 250 ml or greater.
--- NOTE | 2021-01-12 19:13 | P.PN_ITS ---
Subjective Subjective: Interval history: -Patient seen at bedside today - Currently on fentanyl 100 CG/hour and propofol MG/hour -Plan yesterday: Fentanyl drip 50 -Saturating 94% on FiO2 70% on ventilator CMV mode-titrate down FiO2 -Renal functions improving -Other labs and imaging reviewed Medications: Reviewed: Yes Vitals/I&O/Wt Last Vital Signs Temp 98.7 F 01/12/21 15:00 Pulse 127 H 01/12/21 19:00 Resp 26 H 01/12/21 18:26 BP 144/85 01/12/21 19:00 Pulse Ox 92 01/12/21 19:00 01/12/21 01/12/21 01/12/21 06:59 14:59 22:59 Intake Total 1020 / 3573.493 542.383 / 542.383 234.625 / 777.008 Output Total 1800 / 3100 250 / 250 Balance -780 / 473.493 542.383 / 542.383 -15.375 / 527.008 Weight last 48 hrs Weight 293 lb 2 oz Weight 287 lb 7 oz Physical Exam Narrative: EXAM NARRATIVE: General: Lying in bed, sedated and intubated. HEENT:NCAT, PERRLA, EOMI Neck: Supple Lungs: Bilateral coarse crepitations Heart: s1/s2, RRR Abd: soft, NT, ND, BS + Normoactive Extremities: 1+ pitting pedal edema; healing subcutaneous hematoma on right deltoid DIRECTOR OF MUSIC THERAPY: sedated and limited DIRECTOR OF MUSIC THERAPY exam possible. SKIN: no rash; stage II decubitus ulcer on sacrum LDA: # CVC: Left internal jugular vein 12/28/2020 # Espinosa: 12/24/2020 Urinary Catheter Management^: Espinosa: Cath Placed During This Visit: yes Reason for Continuing Indwelling Catheter: Accurate Measurement of Urinary Output in Critically Ill Patients Urinary Catheter Date of Insertion: 01/05/21 Urinary Catheter Time of Insertion: 10:16 Data : 01/12/21 16:20 01/12/21 04:45 Other Labs: Laboratory Results WBC 11.2 10^3/uL (4.0-10.0) H 01/12/21 16:20 Corrected WBC Cancelled 12/30/20 03:40 RBC 3.08 10^6/uL (4.1-5.3) L 01/12/21 16:20 Hgb 9.7 g/dL (11.7-16.6) L 01/12/21 16:20 Hct 31.9 % (42.0-52.0) L 01/12/21 16:20 MCV 103.6 fl (80-94) H 01/12/21 16:20 MCH 31.5 pg (28.0-34.0) 01/12/21 16:20 MCHC 30.4 g/dL (30.0-36.0) 01/12/21 16:20 RDW 15.6 % (12.1-15.1) H 01/12/21 16:20 Plt Count 191 10^3/cmm (130-400) 01/12/21 16:20 MPV 9.5 fL (7.4-10.4) 01/12/21 16:20 Gran % Cancelled 12/30/20 03:40 Neut % (Auto) 77.7 % 01/12/21 16:20 Lymph % (Auto) 4.7 % 01/12/21 16:20 Sawyer % (Auto) 5.4 % 01/12/21 16:20 Eos % (Auto) 7.0 % 01/12/21 16:20 Baso % (Auto) 0.6 % 01/12/21 16:20 Neut # (Auto) 8.70 10^3/uL (1.8-7.7) H 01/12/21 16:20 Lymph # (Auto) 0.5 10^3/uL (0.8-4.8) L 01/12/21 16:20 Sawyer # (Auto) 0.6 10^3/uL (0.2-0.9) 01/12/21 16:20 Eos # (Auto) 0.8 10^3/uL (0.0-0.8) 01/12/21 16:20 Baso # (Auto) 0.1 10^3/uL (0.0-0.1) 01/12/21 16:20 Absolute Gran (auto) Cancelled 12/30/20 03:40 Nucleated RBC % (auto) 0.4 % 01/12/21 16:20 Nucleated RBCs # 0.1 /100WBC 01/12/21 16:20 ESR 13 mm/hr (0-10) H 12/27/20 05:30 Haptoglobin 55.0 mg/L (30-200) 01/07/21 03:20 Heparin Require Pat 0.082 OD UNITS 01/05/21 11:40 PT 14.50 SECONDS (12.1-14.9) 01/05/21 15:10 INR 1.09 (0.8-1.2) 01/05/21 15:10 APTT 67.1 SECONDS (23.9-36.7) H 01/11/21 12:49 Fibrinogen 397 mg/dL (174-498) 01/05/21 15:10 Fibrin Degrad Products Pos, 10-40 ug/mL (NEG) H 01/05/21 15:10 D-Dimer 8.31 ug/mIFEU (0-0.59) H 01/11/21 04:00 Specimen Type Arterial 01/12/21 05:17 Sample Site Brachial, right 01/12/21 05:17 ABG pH 7.33 (7.35-7.45) L 01/12/21 05:17 ABG pCO2 55.4 mmHg (35-45) H 01/12/21 05:17 ABG pO2 81.5 mmHg (80.0-100.0) 01/12/21 05:17 ABG HCO3 29.2 mmol/L (22-26) H 01/12/21 05:17 ABG O2 Saturation 94.9 01/10/21 17:19 ABG Base Excess 2.4 mmol/L (-2.0-2.0) H 01/12/21 05:17 Luke Test Pos 01/12/21 05:17 A-a O2 Gradient 50.8 mmHg (5-10) H 01/10/21 17:19 Hematocrit 31.5 % (42-52) L 01/12/21 05:17 Hgb O2 Saturation 92.2 % (95-100) L 01/10/21 17:19 Carboxyhemoglobin 1.7 %THgb (0.4-20.1) 01/10/21 17:19 Methemoglobin 1.2 % (0.4-1.5) 01/10/21 17:19 Total Hemoglobin 9.9 g/dL (14-18) L 01/10/21 17:19 Sodium 153.0 mmol/L (131-143) H 01/10/21 17:19 Potassium 3.9 mmol/L (3.5-5.0) 01/10/21 17:19 Glucose 184.0 mg/dL (70-115) H 01/10/21 17:19 Ionized Calcium 1.2 mmol/L (1.1-1.4) 01/10/21 17:19 Respiration Rate 20.0 % 01/04/21 04:20 O2 Delivery Device Vent 01/12/21 05:17 O2 Liters/Min 50.0 % 12/23/20 11:23 Mechanical Rate 12.0 01/07/21 06:10 FiO2 70.0 % 01/12/21 05:17 Tidal Volume 0.48 01/12/21 05:17 PEEP 12.0 cmH20 01/12/21 05:17 Shipyard Painter Apprentice ID Buttr 01/12/21 05:17 Sodium 149 mmol/L (136-145) H 01/12/21 04:45 Potassium 3.8 mmol/L (3.5-5.1) 01/12/21 04:45 Chloride 111 mmol/L (98-107) H 01/12/21 04:45 Carbon Dioxide 28 mmol/L (22-29) 01/12/21 04:45 Anion Gap 13.8 (5-19) 01/12/21 04:45 BUN 62 mg/dL (8-23) H 01/12/21 04:45 Creatinine 1.1 mg/dL (0.7-1.2) 01/12/21 04:45 GFR Calculation 67.8 mL/min (90-130) L 01/12/21 04:45 Glucose 111 mg/dL (65-115) 01/12/21 04:45 POC Glucose 172 mg/dL (70-110) H 01/12/21 17:51 Serum Osmolality 327 mOsm/kg (278-305) H 01/06/21 05:00 Calculated Osmolality 326 mOsm/kg (285-295) H 01/12/21 04:45 Lactic Acid 1.7 mmol/L (0.5-2.2) 12/23/20 11:05 Uric Acid 7.0 mg/dL (3.4-7.0) 12/25/20 14:00 Calcium 8.9 mg/dL (8.5-10.5) 01/12/21 04:45 Phosphorus 4.4 mg/dL (2.5-4.5) 01/02/21 04:27 Magnesium 3.3 mg/dL (1.7-2.3) H 01/11/21 04:00 Ferritin 5395 ng/mL (30-400) H 12/27/20 05:30 Total Bilirubin 0.6 mg/dL (0.15-1.2) 01/10/21 04:21 AST 59 U/L (0-40) H 01/10/21 04:21 ALT 67 U/L (0-41) H 01/10/21 04:21 Alkaline Phosphatase 107 IU/L (40-130) 01/10/21 04:21 Lactate Dehydrogenase 442 U/L (135-225) H 01/11/21 04:00 Creatine Kinase 656 U/L (39-308) H* 01/02/21 04:27 Troponin T Baseline 14 ng/L (0-15) 12/23/20 11:05 Troponin T 120 Minute 12.13 ng/L (0-15) 12/23/20 15:04 Delta Troponin T -1.87 ABS# (0-10) L 12/23/20 15:04 Troponin T Hi Sens 6Hr 12.32 ng/L (0-15) 12/23/20 17:00 Troponin T Hi Sens 6Hr Delta -1.68 ng/L (0-12) L 12/23/20 17:00 C-Reactive Protein 78.9 mg/L (0.0-4.9) H 01/11/21 04:00 NT-Pro-B Natriuret Pep 553 pg/mL (0-125) H 01/08/21 03:48 Total Protein 5.2 g/dL (6.6-8.7) L 01/10/21 04:21 Albumin 2.9 g/dL (3.5-5.2) L 01/10/21 04:21 Globulin 2.3 g/dL (1.3-4.6) 01/10/21 04:21 Procalcitonin 0.45 ng/mL (0-0.5) 01/10/21 04:21 TSH 1.82 uIU/mL (0.27-4.20) 12/25/20 14:00 Urine Color Red (Yellow) 01/03/21 15:25 Urine Appearance Bloody (CLEAR) A 01/03/21 15:25 Urine pH 5 (5-7) 01/03/21 15:25 Ur Specific [place] 1.015 (1.005-1.030) 01/03/21 15:25 Urine Protein 2+ (Negative) H 01/03/21 15:25 Urine Glucose (UA) Norm (Normal) 01/03/21 15:25 Urine Ketones Negative (Negative) 01/03/21 15:25 Urine Blood 3+ (Negative) H 01/03/21 15:25 Urine Nitrate Negative (Negative) 01/03/21 15:25 Urine Bilirubin Neg (Negative) 01/03/21 15:25 Urine Urobilinogen 1 mg/dL (Negative) H 01/03/21 15:25 Ur Leukocyte Esterase Trace (Negative) H 01/03/21 15:25 Urine RBC >100 /hpf (0-2) H 01/03/21 15:25 Urine WBC 0-4 /hpf (0-5) H 01/03/21 15:25 Ur Squamous Epith Cells 0-4 /hpf (0-5) H 01/03/21 15:25 Amorphous Sediment Not Reportable 01/03/21 15:25 Urine Bacteria Trace /hpf (NONE) 01/03/21 15:25 Coarse Granular Casts 10-15 /lpf H 12/25/20 14:00 Urine Mucus 1+ /hpf 12/25/20 14:00 Urine Osmolality 537 mOsm/kg (50-1200) 01/06/21 17:30 Ur Random Microalbumin 3 ug/dL (0-20) 01/06/21 17:30 Ur Random Sodium 28 mmol/L 01/09/21 16:15 Ur Random Potassium 27 mmol/L 01/09/21 16:15 Ur Random Chloride 15 mmol/L 01/09/21 16:15 Urine Creatinine 92 mg/dL (39-259) 01/06/21 17:30 Urine Creatinine 92 mg/dL (39-259) 01/06/21 17:30 Microalb/Creat Ratio 33 mg/dL (0-20) H 01/06/21 17:30 Vancomycin Trough 24.0 ug/mL (10-15) H 01/09/21 04:30 Heparin-induced Plt Ab Negative (Negative) 01/05/21 11:40 [facility] [place] See comment 01/03/21 21:40 Impressions Chest CTA 12/23/20 16:32 IMPRESSION: 1. No visible evidence of pulmonary embolism/pulmonary arterial thrombus. 2. Advanced and extensive bilateral mixed ground-glass interstitial lung disease and patches of consolidated alveolar airspace disease of active pneumonitis/pneumonia. 3. Evidence also of air trapping of COPD/chronic bronchitis. 4. Prominent mediastinal and hilar lymph nodes believed reactive in nature. Radiation Dose CTDIVOL = (mGy): DLP = 617.12 (mGy-cm) Venous Duplex 12/25/20 07:58 IMPRESSION: 1. Partial thrombosis of bilateral greater saphenous veins. 2. Questionable thrombus seen within an unnamed intramuscular vein in the left calf. Renal Ultrasound 12/26/20 10:56 IMPRESSION: 1. No hydronephrosis. 2. Possible small echogenic lesion in the mid right kidney. This could represent a small angiomyolipoma. Recommend follow-up CT abdomen to further assess. This could be obtained on a nonemergent basis. Chest X-Ray 01/11/21 14:35 Impression: 1. The endotracheal tube has been inserted and at the origin of the right mainstem bronchus. 2. No change in patchy pulmonary opacities. 3. The ICU was notified of the position of the endotracheal tube at 1530 hours. A&P Assessment and plan (1) Respiratory failure with hypoxia: Status: Acute Qualifiers: Chronicity: acute Qualified Code(s): J96.01 - Acute respiratory failure with hypoxia (2) Acute respiratory distress syndrome (ARDS) due to severe acute respiratory syndrome coronavirus 2 (SARS-CoV-2): Status: Acute (3) DVT (deep venous thrombosis): Status: Acute Qualifiers: DVT location: lower extremity Affected thrombotic vein of extremity: other lower extremity vein Chronicity: unspecified Laterality: bilateral Qualified Code(s): I82.493 - Acute embolism and thrombosis of other specified deep vein of lower extremity, bilateral (4) LORRAINE (acute kidney injury): Status: Acute (5) Aspiration pneumonitis: Status: Acute (6) Hematuria: Status: Acute Qualifiers: Hematuria type: unspecified type Qualified Code(s): R31.9 - Hematuria, unspecified (7) Thrombocytopenia: Status: Acute (8) Hypernatremia: Status: Acute #Acute hypoxic respiratory failure secondary to ARDS due to COVID-19 pneumonia #Event of aspiration 01/06/2021-?? Aspiration pneumonia #Partial thrombosis of bilateral great saphenous veins and questionable thrombus seen on unnamed intramuscular Vein in the left calf-on anticoagulation- complicated by hematuria and Endo tracheal bleeding-currently no more bleeding episodes and started anticoagulation #LORRAINE--improving #Hypernatremia-improving #Thrombocytopenia-improved, HIT antibodies negative #Hematuria-resolved -Symptoms started 12/15/2020: Rapid antigen 12/23/2020 -Intubated 12/27/2020- completed 4 sessions of proning -1 dose Actemra 12/24/2020; completed 5 doses of remdesivir and 10 days of dexamethasone 10 mg -On CMV 480/ 70%/12 ABG 7.33/55/81/29 -On propofol gtt., fentanyl 100/hour opening eyes, taper down fentanyl and start Precedex if needed -Off pressors -Patient has episodes of tachycardia-started on metoprolol 25 mg p.o. twice daily -Clymer 5-325 1 tablet twice daily for pain and Dilaudid as needed for opiate withdrawal -Unfortunately patient has an episode of aspiration 01/06/2021 with tube feeds in ET tube -On DuoNeb and Pulmicort -So far all cultures negative except Endotracheal tube aspirate grew yeast- Marcie lusitaniae patient is currently on fluconazole 200 mg p.o. daily -Recommended to discontinue vancomycin and imipenem and start on Zosyn for sacral decubitus and aspiration pneumonia few days ago -Off D5W currently on metolazone 10 mg p.o. daily currently +450 cc over the last 24 hours and sodium 149; appreciate renal recommendations -Patient was on Lovenox 120 units units twice daily for DVT-CTA negative for PE on admission; developed hematuria, bleeding through ET tube, bleeding IJ site- anticoagulation held for few days-Heparin antibodies negative; no more obvious bleeding noted and so restarted Lovenox -Monitor H&H and transfuse to keep> 7/21 -Restarted tube feeding-currently on 10 ml/hr and on beneprotein q 4hr -bowel regimen senna/docusate; & lactulose 10 mg twice daily -Sugars well controlled-on scale coverage -DVT prophylaxis: lovenox -PPI for GI prophylaxis -Full code -Medical condition and guarded prognosis explained to -Continue to monitor for fluid balance, electrolytes, hemodynamics, secondary in fections Recommendations conveyed to hospitalist, RN, taking care of the patient -Once patient FiO2 requirements come down to 60%-we will plan to transfer patient to LTAC for trach and PEG Attestations Medical Necessity Statement*: acute hypoxic respiratory failure secondary to ARDS due to COVID-19 pneumonia requiring mechanical ventilation coexisting DVT on therapeutic anticoagulation Time Spent in Patient Care: Greater than 35 minutes (>than 50% of time s pent in counselling and/or direct pt care on unit) . Critical Care Time: The high probability of a clinically significant, sudden or life threatening deterioration of the patient's [pulmonary, renal, vascular] system(s) required my full and direct attention, intervention and personal management. The critical care time is as shown. This time is in addition to time spent performing any reported procedures but includes the following: [x] Data and vital sign review and interpretation [x] Patient assessment, examination and intervention [x] Documentation [x] Medication orders and management Critical Care Time (min): 45 Coding Level of Care Code Established Pt Acute Soaker for Chg Fwd Patient Type Established History Comprehensive Exam Comprehensive Medical Decision Making High Complexity Diagnoses Respiratory failure with hypoxia J96.01 Chronicity: acute Acute respiratory distress syndrome (ARDS) due to severe acute respiratory syndrome coronavirus 2 (SARS-CoV-2) U07.1; J80 DVT (deep venous thrombosis) I82.493 DVT location: lower extremity Affected thrombotic vein of extremity: other lower extremity vein Chronicity: unspecified Laterality: bilateral LORRAINE (acute kidney injury) N17.9 Aspiration pneumonitis J69.0 Hematuria R31.9 Hematuria type: unspecified type Thrombocytopenia D69.6 Hypernatremia E87.0 Time Spent (min) 45
[2021-01-12 21:37] LABS: Glucose Point of Care 163 mg/dL (70-110)
[2021-01-12] MEDS: quetiapine 25 mg Tablet PO (21:59)
[2021-01-13] VITALS (38 sets, daily range): BP systolic 85–156; BP diastolic 52–76; PULSE 88–150; RESP 22–28; TEMP 36.6–38.5; O2SAT 88–98; BMI 35.1
[2021-01-13] MEDS: propofol 1,000 MG/100 ML INJ 44.5 MG IV ×8 (00:30→20:19)
[2021-01-13] MEDS: acetaminophen 325 mg Tablet 650 MG PO (00:51)
[2021-01-13] MEDS: metoprolol tartrate 1 mg/1 mL SDV 5 mL 5 MG IVP ×2 (00:51→18:38)
[2021-01-13] MEDS: enoxaparin 80 mg/0.8 mL Syringe 130 MG SUBCUT ×2 (02:31→15:16)
[2021-01-13] MEDS: piperacillin-tazobactam 3.375 GM in sodium chloride 0.9% (plus) 50 ML IV ×3 (02:31→17:35)
[2021-01-13] MEDS: ipratropium-albuterol 3 mL Neb INHALATION ×4 (03:40→15:15)
--- NOTE | 2021-01-13 03:44 | PC.NURSE ---
Addendum entered by Alexandra Langley RN 01/13/21 03:46: Witnessed waste of versed. Original Note: I wasted 68 mL of a Versed drip with Alexandra, my charge for the shift.
[2021-01-13 04:02] LABS: Basophils % 0.5 %; Eosinophils # 0.3 10^3/uL (0.0-0.8); Eosinophils % 4.5 %; Hematocrit 29.7 % (42.0-52.0); Lymphocytes # 0.2 10^3/uL (0.8-4.8); Lymphocytes % 3.9 %; Mean Corpuscular HGB Conc 30.3 g/dL (30.0-36.0); Mean Corpuscular Hemoglobin 31.5 pg (28.0-34.0); Mean Corpuscular Volume 103.8 fl (80-94); Mean Platelet Volume 9.5 fL (7.4-10.4); Monocytes # 0.1 10^3/uL (0.2-0.9); Monocytes % 1.3 %; Neutrophils # 4.95 10^3/uL (1.8-7.7); Neutrophils % 82.9 %; Nucleated Red Blood Cells # 0.1 /100WBC; Nucleated Red Blood Cells % 1.7 %; Platelet Count 158 10^3/cmm (130-400); Red Blood Count 2.86 10^6/uL (4.1-5.3); Red Cell Distribution Width 16.1 % (12.1-15.1)
[2021-01-13 04:23] LABS: Anion Gap 12.7 (5-19); Blood Urea Nitrogen 70 mg/dL (8-23); Calcium 8.9 mg/dL (8.5-10.5); Carbon Dioxide 28 mmol/L (22-29); Chloride 113 mmol/L (98-107); Glomerular Filtration Rate 47.4 mL/min (90-130); Glucose 121 mg/dL (65-115); Osmolality Calculated 332 mOsm/kg (285-295); Potassium 3.7 mmol/L (3.5-5.1); Sodium 150 mmol/L (136-145)
[2021-01-13 04:36] LABS: Slide Review Slide Review Perform
[2021-01-13 05:11] LABS: ABG PCO2 54.2 mmHg (35-45); ABG PH Result 7.33 (7.35-7.45); Arterial Blood Gas Hematocrit 33.4 % (42-52); Blood Gas Allen Test Pos; Blood Gas Sample Site Brachial, right; Blood Gas Sample Type Arterial; Blood Gas Tidal Volume 0.48; HCO3 ABG 28.7 mmol/L (22-26); Oxygen Device VENT; PO2 ABG 58.2 mmHg (80.0-100.0)
--- NOTE | 2021-01-13 06:57 | PC.NURSE ---
Shift Note Frequent safety and comfort rounds continue. Orders and/or nursing care completed as indicated. Patient monitored for response to intervention and treatment(s). Education provided includes[]. Patient and/or sales representative groceries [ResponseToTeaching]. Will continue to monitor. During the shift the patient received a bath and the pressure injury on the buttocks was photographed and documented. The patient's FiO2 went up from 60 to 65. The patient's sedation increased from 50 mcg of fentanyl to 100 mcg. The patient's temperature was up in the 100's and the patient received acetaminophen once. The last temperature measured was 99.2.
[2021-01-13 07:29] LABS: Glucose Point of Care 127 mg/dL (70-110)
[2021-01-13] MEDS: budesonide 0.5 mg/2 mL Neb INHALATION (08:09)
[2021-01-13] MEDS: acetylcysteine 200 mg/mL SDV 4 mL 100 MG INHALATION (08:10)
--- NOTE | 2021-01-13 08:56 | XR_ITS ---
WS: [id number] Portable AP supine chest, 01/13/2021 Clinical Data: pneumonia Comparison: Portable chest, 01/11/2021. Findings: The endotracheal tube ends at the kana. The nasogastric tube and left internal jugular ve nous catheter remain in good position. The patchy bilateral opacities are not changed. The heart is e nlarged. Monitor leads are at the chest wall. XR/XR chest 1V portable [id number] Impression: 1. Endotracheal tube and kana and needs to be retreated 4 centimeters. 2. No change in bilateral patchy pulmonary opacities. 3. The ICU was notified at 0925 hours.
[2021-01-13] MEDS: cholecalciferol (vitamin D3) 1,000 unit Tablet 2000 UNIT PO (08:58)
[2021-01-13] MEDS: sennosides-docusate Tablet 1 TAB PO (08:59)
[2021-01-13] MEDS: metoprolol tartrate 25 mg Tablet PO ×2 (08:59→19:10)
[2021-01-13] MEDS: folic acid 1 mg Tablet PO (08:59)
[2021-01-13] MEDS: fluconazole 100 mg Tablet 200 MG PO (08:59)
[2021-01-13] MEDS: zinc gluconate 50 mg Tablet PO (08:59)
[2021-01-13] MEDS: metOLazone 5 MG Tablet 10 MG PO (08:59)
[2021-01-13] MEDS: multivitamin therapeutic Tablet 1 TAB PO (08:59)
[2021-01-13] MEDS: pantoprazole 40 mg SDV IVP (09:00)
[2021-01-13] MEDS: lactulose oral liq 20 gm/30 mL UDC 10 GM PO ×2 (09:00→17:36)
[2021-01-13] MEDS: dextrose 5% 1,000 ML 100 ML IV (09:01)
[2021-01-13 09:36] LABS: Add Urine Microscopic? YES; Bilirubin Urine Neg (Negative); Blood Urine 2+ (Negative); Glucose Urine UA Norm (Normal); Ketones Urine Negative (Negative); Leukocyte Esterase Urine Negative (Negative); Nitrate Urine Negative (Negative); Protein Urine Trace (Negative); Specific Gravity, Urine 1.015 (1.005-1.030); Urine Appearance SL Hazy (CLEAR); Urine Color Yellow (Yellow); Urobilinogen Urine 1 mg/dL (Negative); pH Urine 5 (5-7)
[2021-01-13 09:37] LABS: Add Urine Culture? No; Bacteria Urine 1+ /hpf; Mucus Urine 1+ /hpf
--- NOTE | 2021-01-13 09:59 | P.CONIM_ITS ---
Providers/Reason For Consult Consulting Physician/Specialty*: General Surgery Mat Astorga MD Reason for Consult*: Sacral wound. Attending Physician: Tim Ashley MD History of Present Illness History of Present Illness Eric Ramires is a 60 year old male who has apparently been on the hospital for several weeks intubated, initially diagnosed with COVID-19. I was asked to evaluate a sacral wound that has apparently developed in the interim. The patient has been running fevers of unknown origin but his white blood cell count remains normal. Review of Systems General: Reports: ROS unobtainable due to endotracheal tube Meds/Allergies Home Medications and Allergies Home Medications Medication Instructions Recorded Confirmed Last Taken Type acetaminophen [Tylenol Extra 1,000 mg PO Q4H PRN 12/23/20 12/23/20 Unknown History Strength] ascorbic acid (vitamin C) [Vitamin 500 mg PO EVERY OTHER DAY 12/23/20 12/23/20 12/21/20 History C] cholecalciferol (vitamin D3) 100 mcg PO EVERY OTHER DAY 12/23/20 12/23/20 12/21/20 History [Vitamin D3] nsaiqhkwy-EEM-UI-acetaminophen 30 ml PO BEDTIME 12/23/20 12/23/20 12/22/20 History [NyQuil] guaifenesin [Mucinex] 600 mg PO Q12H 12/23/20 12/23/20 12/22/20 History ibuprofen 200 - 400 mg PO Q4H PRN 12/23/20 12/23/20 Unknown History brrqxgjv-drl-CQ-lycopen-lutein 1 tab PO EVERY OTHER DAY 12/23/20 12/23/20 12/21/20 History [Centrum Silver Men] Allergies Allergy/AdvReac Type Severity Reaction Status Date / Time No Known Allergies Allergy Verified 12/23/20 12:19 Current Medications Current Medications Generic Name Dose Route Start Last Admin Trade Name Freq PRN Reason Stop Dose Admin Acetaminophen 650 mg 01/13/21 00:30 01/13/21 00:51 Acetaminophen 325 Mg Tablet PO 650 mg Q6H PRN Administration MILD PAIN Acetylcysteine 100 mg 01/05/21 16:00 01/13/21 08:10 Acetylcysteine 200 Mg/Ml Sdv 4 Ml INHALATION 100 mg BID JOHNATHON Administration Al Hydrox/Mg Hydrox/Simethicone 30 ml 12/24/20 15:52 01/01/21 17:04 Dgsr-Uvm-Pvbjlbdei-Kenn 30 Ml Udc PO 30 ml Q4H PRN Administration INDIGESTION Albuterol/Ipratropium 3 ml 12/24/20 16:00 01/13/21 08:10 Ipratropium-Albuterol 3 Ml Neb INHALATION 3 ml Q4H.RESPIRATORY JOHNATHON Administration Artificial Tears 1 applic 12/28/20 08:40 01/12/21 11:21 Artificial Tears Op Oint 3.5 Gm EYE-BOTH 1 applic PRN PRN Administration DRY EYE(S) Budesonide 0.5 mg 12/24/20 20:00 01/13/21 08:09 Budesonide 0.5 Mg/2 Ml Neb INHALATION 0.5 mg BID.RESPIRATORY JOHNATHON Administration Budesonide 0.5 mg 01/11/21 20:00 01/13/21 08:10 Budesonide 0.5 Mg/2 Ml Neb INHALATION Not Given BID.RESPIRATORY JOHNATHON Dexamethasone 6 mg 01/08/21 13:00 01/12/21 13:04 Dexamethasone 10 Mg/Ml Inj IVP 6 mg Q24H JOHNATHON Administration Enoxaparin Sodium 130 mg 01/11/21 15:00 01/13/21 02:31 Enoxaparin 80 Mg/0.8 Ml Syringe SUBCUT 130 mg Q12H JOHNATHON Administration Fluconazole 200 mg 01/09/21 09:00 01/13/21 08:59 Fluconazole 100 Mg Tablet PO 200 mg DAILY JOHNATHON Administration Folic Acid 1 mg 01/09/21 09:00 01/13/21 08:59 Folic Acid 1 Mg Tablet PO 1 mg DAILY JOHNATHON Administration Propofol 1,000 mg in 100 mls @ 0 mls/hr 12/27/20 23:30 01/13/21 08:57 Diprivan IV 50 mcg/kg/min .Q0M JOHNATHON 44.5 mls/hr Administration Protocol Per Protocol dexmedeTOMIDine 0.9 % NaCL 400 mcg in 100 mls @ 0 mls/hr 01/03/21 10:00 01/11/21 19:00 Dexmedetomidine-Ns IV 0 mcg/kg/hr .Q0M JOHNATHON 0 mls/hr Titration Protocol Per Protocol Norepinephrine Bitartrate 4 mg 254 mls @ 0 mls/hr 01/08/21 08:00 01/10/21 08:30 / Dextrose IV 0 mcg/min .Q0M JOHNATHON 0 mls/hr Titration Protocol Per Protocol Midazolam HCl 100 mg/ Sodium 100 mls @ 0 mls/hr 01/09/21 17:30 01/09/21 17:55 Chloride IV 2 mg/hr .Q0M JOHNATHON 2 mls/hr Administration Protocol Per Protocol Cisatracurium Besylate 100 mg/ 100 mls @ 0 mls/hr 01/09/21 17:45 01/10/21 09:55 Sodium Chloride IV 0 mcg/kg/min .Q0M JOHNATHON 0 mls/hr Titration Protocol Per Protocol Fentanyl 1,000 mcg/ Sodium 100 mls @ 0 mls/hr 01/11/21 20:30 01/13/21 07:49 Chloride IV 100 mcg/hr .Q0M JOHNATHON 10 mls/hr Titration Protocol Per Protocol Piperacillin Sod/Tazobactam 50 mls @ 12.5 mls/hr 01/12/21 18:00 01/13/21 07: 47 Sod 3.375 gm/ Sodium Chloride IV Infused Q8H JOHNATHON Infusion Dextrose 1,000 mls @ 100 mls/hr 01/13/21 08:15 01/13/21 09:01 D5w IV 100 mls/hr .Q10H JOHNATHON Administration Insulin Aspart 0 unit 12/26/20 18:00 01/13/21 07:50 Insulin Aspart 100 Unit/1 Ml SUBCUT Not Given WM&BEDTIME [facility] Protocol Lactulose 10 gm 01/02/21 18:00 01/13/21 09:00 Lactulose Oral Liq 20 Gm/30 Ml Udc PO 10 gm BID JOHNATHON Administration Metolazone 10 mg 01/09/21 13:30 01/13/21 08:59 Metolazone 5 Mg Tablet PO 10 mg DAILY JOHNATHON Administration Metoprolol Tartrate 25 mg 01/12/21 09:00 01/13/21 08:59 Metoprolol Tartrate 25 Mg Tablet PO 25 mg BID@0900,2100 JOHNATHON Administration Metoprolol Tartrate 5 mg 01/13/21 00:30 01/13/21 00:51 Metoprolol Tartrate 1 Mg/1 Ml Sdv 5 Ml IVP 5 mg Q4H PRN Administration HR>120 Multivitamins Therapeutic 1 tab 01/09/21 09:00 01/13/21 08:59 Multivitamin Therapeutic Tablet PO 1 tab DAILY JOHNATHON Administration Pantoprazole Sodium 40 mg 01/08/21 09:30 01/13/21 09:00 Pantoprazole 40 Mg Sdv IVP 40 mg DAILY JOHNATHON Administration Quetiapine Fumarate 25 mg 01/05/21 21:00 01/12/21 21:59 Quetiapine 25 Mg Tablet PO 25 mg BEDTIME JOHNATHON Administration Senna/Docusate Sodium 1 tab 12/28/20 09:00 01/13/21 08:59 Sennosides-Docusate Tablet PO 1 tab DAILY JOHNATHON Administration Vitamin D 2,000 unit 12/24/20 09:00 01/13/21 08:58 Cholecalciferol (Vitamin D3) 1,000 Unit Tablet PO 2,000 unit DAILY JOHNATHON Administration Zinc Gluconate 50 mg 12/24/20 09:00 01/13/21 08:59 Zinc Gluconate 50 Mg Tablet PO 50 mg DAILY JOHNATHON Administration PFSH Acute PFSH: Medical History (Updated 01/13/21 @ 10:09 by Mat Astorga MD) Arthritis Hypertension Pneumonia due to severe acute respiratory syndrome coronavirus 2 (SARS-CoV-2) Surgical History (Updated 01/13/21 @ 10:09 by Mat Astorga MD) No significant past surgical history Social History Smoking and tobacco status: never smoked Alcohol intake: never Vitals/I&O/Wt Last Vital Signs Temp 99.2 F 01/13/21 04:00 Pulse 110 H 01/13/21 08:15 Resp 24 H 01/13/21 09:53 BP 87/62 01/13/21 06:00 Pulse Ox 90 01/13/21 09:53 01/12/21 01/13/21 01/13/21 22:59 06:59 14:59 Intake Total 384.625 / 1216.750 289.742 / 1216.750 217.750 / 217.750 Output Total 250 / 1250 1000 / 1250 Balance 134.625 / -33.250 -710.258 / -33.250 217.750 / 217.750 Weight last 48 hrs Weight 288 lb 8 oz Weight 293 lb 2 oz Physical Exam Narrative: EXAM NARRATIVE: You intubated. He is moderately obese. With the assistance of nursing, he was turned on his left side to visualize the sacral area. He has an area measuring perhaps 8 cm in greatest diameter over the sacral region involving the superior aspect of the intergluteal crease. The epidermis is dark and sloughing but the underlying dermis in all of the areas I can see is pink and viable. Urinary Catheter Management^: Espinosa: Cath Placed During This Visit: yes Reason for Continuing Indwelling Catheter: Accurate Measurement of Urinary Output in Critically Ill Patients Urinary Catheter Date of Insertion: 01/05/21 Urinary Catheter Time of Insertion: 10:16 Data Micro: Micro: Microbiology 01/13/21 08:30 Blood Culture - Pr eliminary Blood SPECIMEN COLLE KASSI 01/13/21 08:35 Blood Culture - Pr eliminary Blood SPECIMEN [facility] A&P Assessment and plan (1) Stage II decubitus ulcer: The patient appears to have a stage II sacral wound, but only has some sloughing of the epidermis at this point. I would expect this to basically debride itself with routine dressing changes. I do not think a more involved procedure is necessary at this time, and doubt it has anything to do with any fevers the patient may be exhibiting. Status: Acute Consult Attestations Medical Necessity Statement: See admitting service's notation. Coding Level of Care Code Acute Barrel Leveler for Alli Soni Diagnoses Stage II decubitus ulcer L89.92
--- NOTE | 2021-01-13 10:32 | PC.NURSE ---
called unit, given update. No significant change.
[2021-01-13] MEDS: linezolid premix 600 MG/300 ML PREMIX 300 MG IV ×2 (10:35→20:20)
--- NOTE | 2021-01-13 11:01 | P.PN_ITS ---
Subjective Subjective: Interval history: -Patient seen at bedside today -Still sedated with fentanyl 100 MCG/hour and propofol 30 mg/hour -Saturating 92% on 65% FiO2 -Overnight had fever spikes with T-max 1041.3-blood cultures sent-added Zyvox to Zosyn -As gastric residual 250 mL-12 tube feeding -Sacral decubiti looks anterior unstageable-surgery consulted -Other labs and imaging reviewed Medications: Reviewed: Yes Vitals/I&O/Wt Last Vital Signs Temp 99.0 F 01/13/21 10:00 Pulse 108 H 01/13/21 10:00 Resp 23 H 01/13/21 10:00 BP 107/67 01/13/21 10:00 Pulse Ox 88 L 01/13/21 10:00 01/12/21 01/13/21 01/13/21 22:59 06:59 14:59 Intake Total 384.625 / 927.008 289.742 / 1216.750 217.750 / 217.750 Output Total 250 / 250 1000 / 1250 Balance 134.625 / 677.008 -710.258 / -33.250 217.750 / 217.750 Weight last 48 hrs Weight 288 lb 8 oz Weight 293 lb 2 oz Physical Exam Narrative: EXAM NARRATIVE: General: Lying in bed, sedated and intubated. HEENT:NCAT, PERRLA, EOMI Neck: Supple Lungs: Bilateral coarse crepitations Heart: s1/s2, RRR Abd: soft, NT, ND, BS + Normoactive Extremities: 1+ pitting pedal edema; healing subcutaneous hematoma on right deltoid LAMINATION ASSEMBLER: sedated and limited LAMINATION ASSEMBLER exam possible. SKIN: no rash; unstageable decubitus ulcer on sacrum LDA: # CVC: Left internal jugular vein 12/28/2020 # Espinosa: 12/24/2020 Urinary Catheter Management^: Espinosa: Cath Placed During This Visit: yes Reason for Continuing Indwelling Catheter: Accurate Measurement of Urinary Output in Critically Ill Patients Urinary Catheter Date of Insertion: 01/05/21 Urinary Catheter Time of Insertion: 10:16 Data : 01/13/21 03:51 01/13/21 03:51 Other Labs: Laboratory Results WBC 6.0 10^3/uL (4.0-10.0) 01/13/21 03:51 Corrected WBC Cancelled 12/30/20 03:40 RBC 2.86 10^6/uL (4.1-5.3) L 01/13/21 03:51 Hgb 9.0 g/dL (11.7-16.6) L 01/13/21 03:51 Hct 29.7 % (42.0-52.0) L 01/13/21 03:51 MCV 103.8 fl (80-94) H 01/13/21 03:51 MCH 31.5 pg (28.0-34.0) 01/13/21 03:51 MCHC 30.3 g/dL (30.0-36.0) 01/13/21 03:51 RDW 16.1 % (12.1-15.1) H 01/13/21 03:51 Plt Count 158 10^3/cmm (130-400) 01/13/21 03:51 MPV 9.5 fL (7.4-10.4) 01/13/21 03:51 Gran % Cancelled 12/30/20 03:40 Neut % (Auto) 82.9 % 01/13/21 03:51 Lymph % (Auto) 3.9 % 01/13/21 03:51 Archer % (Auto) 1.3 % 01/13/21 03:51 Eos % (Auto) 4.5 % 01/13/21 03:51 Baso % (Auto) 0.5 % 01/13/21 03:51 Neut # (Auto) 4.95 10^3/uL (1.8-7.7) 01/13/21 03:51 Lymph # (Auto) 0.2 10^3/uL (0.8-4.8) L 01/13/21 03:51 Archer # (Auto) 0.1 10^3/uL (0.2-0.9) L 01/13/21 03:51 Eos # (Auto) 0.3 10^3/uL (0.0-0.8) 01/13/21 03:51 Baso # (Auto) 0.0 10^3/uL (0.0-0.1) 01/13/21 03:51 Absolute Gran (auto) Cancelled 12/30/20 03:40 Nucleated RBC % (auto) 1.7 % 01/13/21 03:51 Nucleated RBCs # 0.1 /100WBC 01/13/21 03:51 ESR 13 mm/hr (0-10) H 12/27/20 05:30 Haptoglobin 55.0 mg/L (30-200) 01/07/21 03:20 Heparin Require Pat 0.082 OD UNITS 01/05/21 11:40 PT 14.50 SECONDS (12.1-14.9) 01/05/21 15:10 INR 1.09 (0.8-1.2) 01/05/21 15:10 APTT 67.1 SECONDS (23.9-36.7) H 01/11/21 12:49 Fibrinogen 397 mg/dL (174-498) 01/05/21 15:10 Fibrin Degrad Products Pos, 10-40 ug/mL (NEG) H 01/05/21 15:10 D-Dimer 8.31 ug/mIFEU (0-0.59) H 01/11/21 04:00 Specimen Type Arterial 01/13/21 04:58 Sample Site Brachial, right 01/13/21 04:58 ABG pH 7.33 (7.35-7.45) L 01/13/21 04:58 ABG pCO2 54.2 mmHg (35-45) H 01/13/21 04:58 ABG pO2 58.2 mmHg (80.0-100.0) L 01/13/21 04:58 ABG HCO3 28.7 mmol/L (22-26) H 01/13/21 04:58 ABG O2 Saturation 94.9 01/10/21 17:19 ABG Base Excess 2.0 mmol/L (-2.0-2.0) 01/13/21 04:58 Luke Test Pos 01/13/21 04:58 A-a O2 Gradient 50.8 mmHg (5-10) H 01/10/21 17:19 Hematocrit 33.4 % (42-52) L 01/13/21 04:58 Hgb O2 Saturation 92.2 % (95-100) L 01/10/21 17:19 Carboxyhemoglobin 1.7 %THgb (0.4-20.1) 01/10/21 17:19 Methemoglobin 1.2 % (0.4-1.5) 01/10/21 17:19 Total Hemoglobin 9.9 g/dL (14-18) L 01/10/21 17:19 Sodium 153.0 mmol/L (131-143) H 01/10/21 17:19 Potassium 3.9 mmol/L (3.5-5.0) 01/10/21 17:19 Glucose 184.0 mg/dL (70-115) H 01/10/21 17:19 Ionized Calcium 1.2 mmol/L (1.1-1.4) 01/10/21 17:19 Respiration Rate 20.0 % 01/04/21 04:20 O2 Delivery Device Vent 01/13/21 04:58 O2 Liters/Min 50.0 % 12/23/20 11:23 Mechanical Rate 12.0 01/07/21 06:10 FiO2 60.0 % 01/13/21 04:58 Tidal Volume 0.48 01/13/21 04:58 PEEP 12.0 cmH20 01/13/21 04:58 Aerodynamics Engineer ID Hinja 01/13/21 04:58 Sodium 150 mmol/L (136-145) H 01/13/21 03:51 Potassium 3.7 mmol/L (3.5-5.1) 01/13/21 03:51 Chloride 113 mmol/L (98-107) H 01/13/21 03:51 Carbon Dioxide 28 mmol/L (22-29) 01/13/21 03:51 Anion Gap 12.7 (5-19) 01/13/21 03:51 BUN 70 mg/dL (8-23) H 01/13/21 03:51 Creatinine 1.5 mg/dL (0.7-1.2) H 01/13/21 03:51 GFR Calculation 47.4 mL/min (90-130) L 01/13/21 03:51 Glucose 121 mg/dL (65-115) H 01/13/21 03:51 POC Glucose 177 mg/dL (70-110) H 01/13/21 12:35 Serum Osmolality 327 mOsm/kg (278-305) H 01/06/21 05:00 Calculated Osmolality 332 mOsm/kg (285-295) H 01/13/21 03:51 Lactic Acid 1.7 mmol/L (0.5-2.2) 12/23/20 11:05 Uric Acid 7.0 mg/dL (3.4-7.0) 12/25/20 14:00 Calcium 8.9 mg/dL (8.5-10.5) 01/13/21 03:51 Phosphorus 4.4 mg/dL (2.5-4.5) 01/02/21 04:27 Magnesium 3.3 mg/dL (1.7-2.3) H 01/11/21 04:00 Ferritin 5395 ng/mL (30-400) H 12/27/20 05:30 Total Bilirubin 0.6 mg/dL (0.15-1.2) 01/10/21 04:21 AST 59 U/L (0-40) H 01/10/21 04:21 ALT 67 U/L (0-41) H 01/10/21 04:21 Alkaline Phosphatase 107 IU/L (40-130) 01/10/21 04:21 Lactate Dehydrogenase 442 U/L (135-225) H 01/11/21 04:00 Creatine Kinase 656 U/L (39-308) H* 01/02/21 04:27 Troponin T Baseline 14 ng/L (0-15) 12/23/20 11:05 Troponin T 120 Minute 12.13 ng/L (0-15) 12/23/20 15:04 Delta Troponin T -1.87 ABS# (0-10) L 12/23/20 15:04 Troponin T Hi Sens 6Hr 12.32 ng/L (0-15) 12/23/20 17:00 Troponin T Hi Sens 6Hr Delta -1.68 ng/L (0-12) L 12/23/20 17:00 C-Reactive Protein 78.9 mg/L (0.0-4.9) H 01/11/21 04:00 NT-Pro-B Natriuret Pep 553 pg/mL (0-125) H 01/08/21 03:48 Total Protein 5.2 g/dL (6.6-8.7) L 01/10/21 04:21 Albumin 2.9 g/dL (3.5-5.2) L 01/10/21 04:21 Globulin 2.3 g/dL (1.3-4.6) 01/10/21 04:21 Procalcitonin 0.45 ng/mL (0-0.5) 01/10/21 04:21 TSH 1.82 uIU/mL (0.27-4.20) 12/25/20 14:00 Urine Color Yellow (Yellow) 01/13/21 08:28 Urine Appearance Sl hazy (CLEAR) 01/13/21 08:28 Urine pH 5 (5-7) 01/13/21 08:28 Ur Specific [place] 1.015 (1.005-1.030) 01/13/21 08:28 Urine Protein Trace (Negative) 01/13/21 08:28 Urine Glucose (UA) Norm (Normal) 01/13/21 08:28 Urine Ketones Negative (Negative) 01/13/21 08:28 Urine Blood 2+ (Negative) H 01/13/21 08:28 Urine Nitrate Negative (Negative) 01/13/21 08:28 Urine Bilirubin Neg (Negative) 01/13/21 08:28 Urine Urobilinogen 1 mg/dL (Negative) H 01/13/21 08:28 Ur Leukocyte Esterase Negative (Negative) 01/13/21 08:28 Urine RBC 10-15 /hpf (0-2) H 01/13/21 08:28 Urine WBC None /hpf (0-5) 01/13/21 08:28 Ur Squamous Epith Cells 10-15 /hpf (0-5) H 01/13/21 08:28 Amorphous Sediment Not Reportable 01/13/21 08:28 Urine Bacteria 1+ /hpf (NONE) H 01/13/21 08:28 Coarse Granular Casts 10-15 /lpf H 01/13/21 08:28 Urine Mucus 1+ /hpf 01/13/21 08:28 Urine Osmolality 537 mOsm/kg (50-1200) 01/06/21 17:30 Ur Random Microalbumin 3 ug/dL (0-20) 01/06/21 17:30 Ur Random Sodium 28 mmol/L 01/09/21 16:15 Ur Random Potassium 27 mmol/L 01/09/21 16:15 Ur Random Chloride 15 mmol/L 01/09/21 16:15 Urine Creatinine 92 mg/dL (39-259) 01/06/21 17:30 Urine Creatinine 92 mg/dL (39-259) 01/06/21 17:30 Microalb/Creat Ratio 33 mg/dL (0-20) H 01/06/21 17:30 Vancomycin Trough 24.0 ug/mL (10-15) H 01/09/21 04:30 Heparin-induced Plt Ab Negative (Negative) 01/05/21 11:40 [facility] [place] See comment 01/03/21 21:40 Impressions Chest CTA 12/23/20 16:32 IMPRESSION: 1. No visible evidence of pulmonary embolism/pulmonary arterial thrombus. 2. Advanced and extensive bilateral mixed ground-glass interstitial lung disease and patches of consolidated alveolar airspace disease of active pneumonitis/pneumonia. 3. Evidence also of air trapping of COPD/chronic bronchitis. 4. Prominent mediastinal and hilar lymph nodes believed reactive in nature. Radiation Dose CTDIVOL = (mGy): DLP = 617.12 (mGy-cm) Venous Duplex 12/25/20 07:58 IMPRESSION: 1. Partial thrombosis of bilateral greater saphenous veins. 2. Questionable thrombus seen within an unnamed intramuscular vein in the left calf. Renal Ultrasound 12/26/20 10:56 IMPRESSION: 1. No hydronephrosis. 2. Possible small echogenic lesion in the mid right kidney. This could represent a small angiomyolipoma. Recommend follow-up CT abdomen to further assess. This could be obtained on a nonemergent basis. Chest X-Ray 01/13/21 08:56 Impression: 1. Endotracheal tube and kana and needs to be retreated 4 centimeters. 2. No change in bilateral patchy pulmonary opacities. 3. The ICU was notified at 0925 hours. Micro: Microbiology 01/13/21 08:30 Blood Culture - Preliminary Blood SPECIMEN COLLECTED 01/13/21 08:35 Blood Culture - Preliminary Blood SPECIMEN COLLECTED A&P Assessment and plan (1) Respiratory failure with hypoxia: Status: Acute Qualifiers: Chronicity: acute Qualified Code(s): J96.01 - Acute respiratory failure with hypoxia (2) Acute respiratory distress syndrome (ARDS) due to severe acute respiratory syndrome coronavirus 2 (SARS-CoV-2): Status: Acute (3) DVT (deep venous thrombosis): Status: Acute Qualifiers: DVT location: lower extremity Affected thrombotic vein of extremity: other lower extremity vein Chronicity: unspecified Laterality: bilateral Qualified Code(s): I82.493 - Acute embolism and thrombosis of other specified deep vein of lower extremity, bilateral (4) LORRAINE (acute kidney injury): Status: Acute (5) Aspiration pneumonitis: Status: Acute (6) Hematuria: Status: Acute Qualifiers: Hematuria type: unspecified type Qualified Code(s): R31.9 - Hematuria, unspecified (7) Thrombocytopenia: Status: Acute (8) Hypernatremia: Status: Acute #Acute hypoxic respiratory failure secondary to ARDS due to COVID-19 pneumonia #Event of aspiration 01/06/2021-?? Aspiration pneumonia #Partial thrombosis of bilateral great saphenous veins and questionable thrombus seen on unnamed intramuscular Vein in the left calf-on anticoagulation- complicated by hematuria and Endo tracheal bleeding-currently no more bleeding episodes and started anticoagulation #LORRAINE--improving #Hypernatremia-improving #Thrombocytopenia-improved, HIT antibodies negative #Hematuria-resolved -Symptoms started 12/15/2020: Rapid antigen 12/23/2020 -Intubated 12/27/2020- completed 4 sessions of proning -1 dose Actemra 12/24/2020; completed 5 doses of remdesivir and 10 days of dexamethasone 10 mg -On CMV 480/ 60%/12 ABG 7.3 54/58/28 -increased FiO2 to 65% -On propofol gtt., fentanyl 100/hour taper down fentanyl and start Precedex if needed -Off pressors -Patient has episodes of tachycardia- on metoprolol 25 mg p.o. twice daily -[place] 5-325 1 tablet twice daily for pain and Dilaudid as needed for opiate withdrawal -Unfortunately patient has an episode of aspiration 01/06/2021 with tube feeds in ET tube -On DuoNeb and Pulmicort -So far all cultures negative except Endotracheal tube aspirate grew yeast- Marcie lusitaniae patient is currently on fluconazole 200 mg p.o. daily -on Zosyn for sacral decubitus and aspiration pneumonia few days ago; had fever spikes on a 1.5 overnight-new set of blood culture sent-added Zyvox -Sodium gradually increased to 150, started on D5W at 75 mL/hour; currently on metolazone 10 mg p.o. daily repeat BMP in 12 hours -Patient was on Lovenox 130 units units twice daily for DVT-CTA negative for PE on admission; developed hematuria, bleeding through ET tube, bleeding IJ site- anticoagulation held for few days-Heparin antibodies negative; no more obvious bleeding noted and so restarted Lovenox -Monitor H&H and transfuse to keep> 7/21 -currently on 30 ml/hr and on beneprotein q 4hr; held the tube feeding as patient residual today morning was 250-recheck gastric residual and restart feeding at 10 mL/h and gradually increase to 30 mL/h -bowel regimen senna/docusate; & lactulose 10 mg twice daily -Sugars well controlled-on scale coverage -DVT prophylaxis: lovenox -PPI for GI prophylaxis -Full code -Medical condition and guarded prognosis explained to -Continue to monitor for fluid balance, electrolytes, hemodynamics, secondary infections Recommendations conveyed to hospitalist, RN, taking care of the patient -Once patient FiO2 requirements come down to 60%-awaiting transfer to LTAC for trach and PEG Attestations Medical Necessity Statement*: acute hypoxic respiratory failure secondary to ARDS due to COVID-19 pneumonia requiring mechanical ventilation coexisting DVT on therapeutic anticoagulation Time Spent in Patient Care: Greater than 35 minutes (>than 50% of time spent in counselling and/or direct pt care on unit) . Critical Care Time: The high probability of a clinically significant, sudden or life threatening deterioration of the patient's [pulmonary, renal, vascular] system(s) required my full and direct attention, intervention and personal ma nagement. The critical care time is as shown. This time is in addition to time spent performing any reported procedures but includes the following: [x] Data and vital sign review and interpretation [x] Patient assessment, examination and intervention [x] Documentation [x] Medication orders and management Critical Care Time (min): 45 Coding Level of Care Code Acute Urban Gardening Specialist for [facility] Fwd Diagnoses Respiratory failure with hypoxia J96.01 Chronicity: acute Acute respiratory distress syndrome (ARDS) due to severe acute respiratory syndrome coronavirus 2 (SARS-CoV-2) U07.1; J80 DVT (deep venous thrombosis) I82.493 DVT location: lower extremity Affected thrombotic vein of extremity: other lower extremity vein Chronicity: unspecified Laterality: bilateral LORRAINE (acute kidney injury) N17.9 Aspiration pneumonitis J69.0 Hematuria R31.9 Hematuria type: unspecified type Thrombocytopenia D69.6 Hypernatremia E87.0
[2021-01-13 12:42] LABS: Glucose Point of Care 177 mg/dL (70-110)
[2021-01-13] MEDS: dexamethasone 10 mg/mL INJ 6 MG IVP (13:40)
--- NOTE | 2021-01-13 14:38 | PM.PN ---
Subjective Subjective: Interval history: Fever overnight Stage II decubitus ulcer requested general surgery consult if he would need debridement in the next few days Tube feeds were held yesterday for gastric residuals greater than 250 I have requested nurse Fred to start tube feeds from 10 and optimized up to 30 No bowel movement after enema Sodium 150 Creatinine 1.5 1.2 L output Requested urine analysis, escalated antibiotics to linezolid including Zosyn and fluconazole Vitals/I&O/Wt Last Vital Signs Temp 97.8 F 01/13/21 14:00 Pulse 88 01/13/21 14:00 Resp 22 H 01/13/21 14:00 BP 131/64 01/13/21 14:00 Pulse Ox 92 01/13/21 14:00 01/12/21 01/13/21 01/13/21 22:59 06:59 14:59 Intake Total 384.625 / 927.008 289.742 / 1216.750 617.750 / 617.750 Output Total 250 / 250 1000 / 1250 Balance 134.625 / 677.008 -710.258 / -33.250 617.750 / 617.750 Weight last 48 hrs Weight 130.861 kg Weight 132.959 kg Physical Exam Narrative: EXAM NARRATIVE: Patient intubated and sedated Stage II decubitus ulcer with hemorrhagic blisters No eschar or necrotic skin noted 7 cm in width Urine draining concentrated colored Bilateral assisted breath sounds coarse rhonchi Soft abdomen bowel sound present Neuro exam limited S1, S2 sinus tachycardia, intermittent A. fib rhythm noted Urinary Catheter Management^: Espinosa: Cath Placed During This Visit: yes Reason for Continuing Indwelling Catheter: Accurate Measurement of Urinary Output in Critically Ill Patients Urinary Catheter Date of Insertion: 01/05/21 Urinary Catheter Time of Insertion: 10:16 Data : 01/13/21 03:51 01/13/21 03:51 Micro: Microbiology 01/13/21 08:30 Blood Culture - Preliminary Blood SPECIMEN COLLECTED 01/13/21 08:35 Blood Culture - Preliminary Blood SPECIMEN COLLECTED A&P Assessment and plan (1) Pneumonia due to severe acute respiratory syndrome coronavirus 2 (SARS-CoV-2): Status: Acute (2) Constipation: Status: Acute (3) Stage II decubitus ulcer: Status: Acute (4) Hypoalbuminemia: Status: Acute (5) Hypocalcemia: Status: Acute (6) Coagulopathy: Status: Acute (7) Aspiration pneumonitis: Status: Acute (8) Hematuria: Status: Acute Qualifiers: Hematuria type: unspecified type Qualified Code(s): R31.9 - Hematuria, unspecified (9) Thrombocytopenia: Status: Acute (10) Hypernatremia: Status: Acute (11) Uremia: Status: Acute (12) Hyperkalemia: Status: Acute (13) Rhabdomyolysis: Status: Acute (14) Goals of care, counseling/discussion: Status: Acute (15) Acute respiratory distress syndrome (ARDS) due to severe acute respiratory syndrome coronavirus 2 (SARS-CoV-2): Status: Acute (16) DVT (deep venous thrombosis): Status: Acute Qualifiers: DVT location: lower extremity Affected thrombotic vein of extremity: other lower extremity vein Chronicity: unspecified Laterality: bilateral Qualified Code(s): I82.493 - Acute embolism and thrombosis of other specified deep vein of lower extremity, bilateral (17) LORRAINE (acute kidney injury): Status: Acute (18) Hypokalemia: Status: Acute (19) Respiratory failure with hypoxia: Status: Acute Qualifiers: Chronicity: acute Qualified Code(s): J96.01 - Acute respiratory failure with hypoxia (20) Fever: Status: Acute Additional A&P Information Fever noticed overnight No leukocytosis, He would not meet sepsis criteria, will check lactic acid Requested blood culture, urinalysis, Previous sputum culture growing Marcie Stage II sacral ulcer, aspiration pneumonia, ventilator associated pneumonia, antibiotics broadened with linezolid and Zosyn along fluconazole Stage II sacral ulcer: Dr. Astorga consulted Start tube feeding to provide nutrition started 10 and optimize up to 30 And hold if gastric residual greater than 250ml Blood sugar within normal range Nursing care Frequent turning Persistent hypoxia ARDS Covid: Titrate FiO2 down to 60% if is able to keep O2 saturation above 90% Trach and PEG can be done at LTAC Wean off steroids Continue multivitamins Thrombocytopenia: Improved HIT panel negative Continue DVT therapeutic regimen, hemoglobin stable LORRAINE 6 L water deficit, his creatinine does improve with improvement in water flushes Start D5 which was stopped yesterday Hypocalcemia: Repleted Hypoalbuminemia he was given dose of albumin as well Constipation: Did not respond to enema yesterday Plan to send him to LTAC where tracheostomy and PEG tube can be placed Attestations Medical Necessity Statement*: Plan to transfer to LTAC Time Spent in Patient Care: 16 - 35 minutes Coding Level of Care Code Acute Weight Loss Consultant for Chg Fwd Diagnoses Pneumonia due to severe acute respiratory syndrome coronavirus 2 (SARS-CoV-2) U07.1; J12.82 Constipation K59.00 Stage II decubitus ulcer L89.92 Hypoalbuminemia E88.09 Hypocalcemia E83.51 Coagulopathy D68.9 Aspiration pneumonitis J69.0 Hematuria R31.9 Hematuria type: unspecified type Thrombocytopenia D69.6 Hypernatremia E87.0 Uremia N19 Hyperkalemia E87.5 Rhabdomyolysis M62.82 Goals of care, counseling/discussion Z71.89 Acute respiratory distress syndrome (ARDS) due to severe acute respiratory syndrome coronavirus 2 (SARS-CoV-2) U07.1; J80 DVT (deep venous thrombosis) I82.493 DVT location: lower extremity Affected thrombotic vein of extremity: other lower extremity vein Chronicity: unspecified Laterality: bilateral LORRAINE (acute kidney injury) N17.9 Hypokalemia E87.6 Respiratory failure with hypoxia J96.01 Chronicity: acute Fever R50.9
--- NOTE | 2021-01-13 15:19 | PC.RESP ---
RT Shift Note Frequent safety and respiratory rounds continue. Orders completed as indicated. Patient monitored pre and post treatments throughout shift. Patient [Did.] tolerate treatments appropriately. Condition [.DidNotChange]. Patient and/or employment representative educated on respiratory treatment and medications. Patient and/or employment representative [unable to comprehend]. Will continue to monitor patient progress.
--- NOTE | 2021-01-13 15:21 | PC.CHAP ---
Pastoral Care Encounter/Spiritual Assessment Type of Contact [] Declined curriculum consultant visit [] Patient/Family/Request visit [] Outpatient visit [] Follow-up visit [] Physician referral [] Code/Alert [] Routine visit [] Staff referral [] Actively dying [] Patient sleeping [] Family support [] [] Out of room [] Palliative care [] [] Receiving care in room [] Pre-surgical visit [] Trauma [xx] Long length of stay [xx] ICU visit [] Other: Relational/Emotional Strength [] Patient feels connected with others/family/visitors/staff [] Distress [] Loneliness/isolation [] Abandonment Spirituality of Patient [] Person of Katharine [] Attends Sabianism of their Katharine [] Believes in Prayer [] Reads Bible or Church materials [] There are Spiritual issues to be addressed Item Repair Manager Interventions [xx] Prayer [] Active listening [] Non-anxious presence [] Spiritual/emotional support [] Crisis/trauma care [] Spiritual counseling [] Bereavement support [] Provided bereavement packet [] Provided Bible/devotional materials [] Provided toy/stuffed animal, coloring book to patient or family member [] Provided Communion [] Anointing/Mayo [] Salvation [] Completed spiritual assessment [] Other: Impact on Illness or Injury [] Angry [] Fearful [] Anxious [] Often cries [] Exhaustion [] Unable to work [] Unable to attend religious [] Unable to walk/stand [] Unable to read [] Unable to drive [] Unable to eat/drink [] Unable to sleep [] Unable to be with family [] Patient intubated [] Other: Summary Patient in isolation so curriculum consultant could not visit. Item Repair Manager prayed outside room. Time spent with patient 2 minutes
[2021-01-13] MEDS: dextrose 5% 1,000 ML 75 ML IV (15:51)
[2021-01-13 17:53] LABS: Glucose Point of Care 177 mg/dL (70-110)
[2021-01-13 18:58] LABS: Anion Gap 11.7 (5-19); Blood Urea Nitrogen 63 mg/dL (8-23); Calcium 8.3 mg/dL (8.5-10.5); Carbon Dioxide 28 mmol/L (22-29); Chloride 110 mmol/L (98-107); Glomerular Filtration Rate 55.9 mL/min (90-130); Glucose 177 mg/dL (65-115); Osmolality Calculated 324 mOsm/kg (285-295); Potassium 3.7 mmol/L (3.5-5.1); Sodium 146 mmol/L (136-145)
[2021-01-13] MEDS: metoprolol tartrate 1 mg/1 mL SDV 5 mL 2.5 MG IVP ×2 (19:28→20:00)
[2021-01-13 19:53] LABS: Glucose Point of Care 224 mg/dL (70-110)
--- NOTE | 2021-01-13 20:15 | PC.NURSE ---
Talked with Dr. Aguila, and she okayed the fentanyl drip being increased to 150 mcg.
[2021-01-13] MEDS: quetiapine 25 mg Tablet PO (20:21)
--- NOTE | 2021-01-13 21:39 | PM.EVENT ---
Event Note Event Note: was at bedside, requesting GOC discussion and change in code status. Tonight patient's HR has been difficult to control. He continues to have persistent sinus tachycardia with HR 150s-160s in spite of pushes of iv metoprolol and po metoprolol being given earlier. BP currently systolic 90-100. He continues to be mechanically ventilated since 12/27, Fi02 at 60% on vent, hospital course complicated ARDS from COVID 19 pneumonia, ventilator dependent respiratory failure, B/L saphenous vein thrombosis, anticoagulation complicated by hematuria and endotracheal bleeding, LORRAINE, hypernatremia, new fever source under evaluation, aspiration pneumonia and development of sacral decubitus ulcers. aware of all complications, states that patient would not have wanted to live like this. He had stated his wishes to his to not be on prolonged life support. She is in discussion with her children regarding his GOC, understanding not only the immediate complications but the very difficult and prolonged course of rehabilitation, trach/PEG and vent dependence that will follow should he survive this current admission. For now, she wishes to transition his code status to Allow natural , not to perform CPR or defibrillation in case of cardiac arrest but continue all medical management. We will start him on amiodarone infusion for HR control tonight. Above discussion performed in the presence of ICU nurse Ryland Wong. Event Notes Attestations Time Spent in Patient Care: 16 - 35 minutes
[2021-01-14] VITALS (47 sets, daily range): BP systolic 94–143; BP diastolic 51–72; PULSE 70–157; RESP 20–22; TEMP 36.2–36.8; O2SAT 88–95; BMI 35.8
[2021-01-14] MEDS: dextrose 5% 1,000 ML 75 ML IV (01:36)
[2021-01-14] MEDS: piperacillin-tazobactam 3.375 GM in sodium chloride 0.9% (plus) 50 ML IV ×3 (01:36→17:21)
[2021-01-14] MEDS: propofol 1,000 MG/100 ML INJ 35.6 MG IV ×7 (02:23→22:00)
[2021-01-14] MEDS: enoxaparin 80 mg/0.8 mL Syringe 130 MG SUBCUT ×2 (02:23→15:25)
[2021-01-14] MEDS: ipratropium-albuterol 3 mL Neb INHALATION ×6 (03:12→23:24)
--- NOTE | 2021-01-14 03:27 | PC.NURSE ---
At shift change the patient was struggling with increase tachycardia, in the 140's. Per previous RN this patient was NSR throughout previous shift. 5 mg of Metoprolol IVP given, then scheduled [address] PO given. Dr. Aguila updated on patient change in status and orders received for 2 one time doses of 2.5 mg Metoprolol IVP, and increase Fentanyl from 100 mcg. to 150 mcg. After reassessment, no change in patient condition. Dr. Aguila notified. Dr. Aguila to bedside, at approximately 2230, to discuss with Samira, spouse, changes in patient status. Dr. Aguila explained patient failed responses to interventions and poor prognosis. Dr. Aguila explained difference between full code, and AND. After consideration spouse changes patient status from full code to AND. Orders received for AND. Will continue to monitor patient and comfort family.
[2021-01-14 04:42] LABS: ABG PCO2 57.7 mmHg (35-45); Arterial Blood Gas Hematocrit 27.1 % (42-52); Blood Gas Allen Test Pos; Blood Gas Sample Site Radial, right; Blood Gas Sample Type Arterial; Blood Gas Tidal Volume 0.48; HCO3 ABG 28.1 mmol/L (22-26); Oxygen Device VENT; PO2 ABG 59.8 mmHg (80.0-100.0)
[2021-01-14 05:29] LABS: Basophils % 0.3 %; Eosinophils # 0.1 10^3/uL (0.0-0.8); Eosinophils % 2.9 %; Hematocrit 28.3 % (42.0-52.0); Hemoglobin 8.6 g/dL (11.7-16.6); Lymphocytes # 0.2 10^3/uL (0.8-4.8); Lymphocytes % 5.8 %; Mean Corpuscular HGB Conc 30.4 g/dL (30.0-36.0); Mean Corpuscular Hemoglobin 31.9 pg (28.0-34.0); Mean Corpuscular Volume 104.8 fl (80-94); Mean Platelet Volume 10.2 fL (7.4-10.4); Monocytes # 0.1 10^3/uL (0.2-0.9); Monocytes % 1.6 %; Neutrophils # 2.55 10^3/uL (1.8-7.7); Neutrophils % 81.4 %; Nucleated Red Blood Cells # 0.1 /100WBC; Nucleated Red Blood Cells % 2.2 %; Platelet Count 156 10^3/cmm (130-400); Red Cell Distribution Width 15.9 % (12.1-15.1); White Blood Count 3.1 10^3/uL (4.0-10.0)
[2021-01-14 05:55] LABS: Anion Gap 12.4 (5-19); Blood Urea Nitrogen 69 mg/dL (8-23); C Reactive Protein 114.4 mg/L (0.0-4.9); Calcium 8.4 mg/dL (8.5-10.5); Carbon Dioxide 28 mmol/L (22-29); Chloride 108 mmol/L (98-107); Glucose 119 mg/dL (65-115); Osmolality Calculated 321 mOsm/kg (285-295); Potassium 3.4 mmol/L (3.5-5.1); Sodium 145 mmol/L (136-145)
[2021-01-14 06:08] LABS: Slide Review Slide Review Perform
--- NOTE | 2021-01-14 07:19 | PC.NURSE ---
Shift Note Frequent safety and comfort rounds continue. Orders and/or nursing care completed as indicated. Patient monitored for response to intervention and treatment(s). Education provided includes[]. Patient and/or litigation claim representative [ResponseToTeaching]. Will continue to monitor. The patient converted from a heart rate of 138 at 0050 to a heart rate of 77 at 0055. Please see nursing note from 0327 for the rest of the shift report.
[2021-01-14 07:23] LABS: Glucose Point of Care 135 mg/dL (70-110)
[2021-01-14] MEDS: linezolid premix 600 MG/300 ML PREMIX 300 MG IV ×2 (07:38→20:03)
--- NOTE | 2021-01-14 08:20 | ECG_ITS ---
[facility] Test Date: 2021-01-14 Pat Name: Eric Ramires Department: Room: ICU11 Gender: Male Physical Director: : 1960 Requested By: Tim Ashley Order Number: [id number] Reading MD: Jeremiah Correa M.D. Measurements Intervals [place] Rate: 81 P: 44 MN: 163 QRS: 45 QRSD: 99 T: 16 QT: 393 QTc: 458 Interpretive Statements SINUS RHYTHM WITH OCCASIONAL VENTRICULAR PREMATURE COMPLEXES NONSPECIFIC T-WAVE ABNORMALITY Compared to ECG 01/03/2021 09:42:56 Ventricular premature complex(es) now present Sinus tachycardia no longer present Possible ischemia no longer present T-wave abnormality still present Electronically Signed On 01-14-2021 21:09:22 CDT by Jeremiah Correa M.D. [id number]
[2021-01-14 08:23] LABS: Vitamin B12 1547 pg/mL (232-1245)
[2021-01-14] MEDS: acetylcysteine 200 mg/mL SDV 4 mL 100 MG INHALATION ×2 (08:25→20:22)
[2021-01-14] MEDS: budesonide 0.5 mg/2 mL Neb INHALATION ×2 (08:25→20:23)
[2021-01-14] MEDS: zinc gluconate 50 mg Tablet PO (08:44)
[2021-01-14] MEDS: multivitamin therapeutic Tablet 1 TAB PO (08:44)
[2021-01-14] MEDS: metOLazone 5 MG Tablet 10 MG PO (08:44)
[2021-01-14] MEDS: cholecalciferol (vitamin D3) 1,000 unit Tablet 2000 UNIT PO (08:44)
[2021-01-14] MEDS: sennosides-docusate Tablet 1 TAB PO (08:44)
[2021-01-14] MEDS: lactulose oral liq 20 gm/30 mL UDC 10 GM PO ×2 (08:45→17:21)
[2021-01-14] MEDS: folic acid 1 mg Tablet PO (08:45)
[2021-01-14] MEDS: fluconazole 100 mg Tablet 200 MG PO (08:45)
[2021-01-14] MEDS: FUROsemide 10 mg/mL SDV 2mL 20 MG IVP (08:45)
[2021-01-14] MEDS: metoprolol tartrate 25 mg Tablet PO (08:47)
[2021-01-14] MEDS: pantoprazole 40 mg SDV IVP (10:00)
[2021-01-14 11:57] LABS: Glucose Point of Care 175 mg/dL (70-110)
--- NOTE | 2021-01-14 12:30 | P.PN_ITS ---
Subjective Subjective: Interval history: Overnight events noted This morning leukopenia noted however platelet count and hemoglobin stable Has stayed afebrile Still no bowel movement Creatinine worsened Positive fluid balance 1 L overnight 60% PO2 60 Potassium 3.4 Tube feeds were put on hold Endotracheal tube was retracted 2 cm currently at 26 cm endotracheal tube size 8.5 Propofol at 40 fentanyl 150 Currently on amiodarone 0.5 overnight was started on amnio for tachyarrhythmia, as per the nursing report he became hypotensive first and then went into atrial flutter/A. fib decided to pursue DNR/DNI, no cardioversion status Amiodarone will be turned off after 4:00 He will only have 2 IVs for propofol and fentanyl, levo has been turned off Vitals/I&O/Wt Last Vital Signs Temp 97.2 F L 01/14/21 10:24 Pulse 74 01/14/21 11:58 Resp 22 H 01/14/21 11:59 BP 125/62 01/14/21 10:00 Pulse Ox 91 01/14/21 11:59 01/13/21 01/14/21 01/14/21 22:59 06:59 14:59 Intake Total 2112.250 / 2830.000 994.847 / 3824.847 1156.25 / 1156.25 Output Total 1600 / 1600 1050 / 2650 1325 / 1325 Balance 512.250 / 1230.000 -55.153 / 1174.847 -168.75 / -168.75 Weight last 48 hrs Weight 133.441 kg Weight 130.861 kg Physical Exam Narrative: EXAM NARRATIVE: Patient intubated and sedated Propofol and fentanyl had to be increased Currently on amio drip which will be turned off at 4:00 Bowel sounds present Abdomen soft Lower extremity warm no sign of cyanosis or gangrene Sacral stage II ulcer Espinosa catheter draining yellow-colored urine Bilateral assisted breath sounds with rhonchi, I do appreciate bilateral adequate breath sounds, Neuro exam limited Pinpoint pupils Left IJ dry dressing Endotracheal tube 8.5, 26 cm at teeth Urinary Catheter Management^: Espinosa: Cath Placed During This Visit: yes Reason for Continuing Indwelling Catheter: Accurate Measurement of Urinary Output in Critically Ill Patients Urinary Catheter Date of Insertion: 01/05/21 Urinary Catheter Time of Insertion: 10:16 Data : 01/14/21 04:30 01/14/21 04:30 Micro: Microbiology 01/13/21 08:30 Blood Culture - Preliminary Blood NEGATIVE TO DATE 01/13/21 08:35 Blood Culture - Preliminary Blood NEGATIVE TO DATE A&P Assessment and plan (1) Fever: Status: Acute (2) Pneumonia due to severe acute respiratory syndrome coronavirus 2 (SARS-CoV- 2): Status: Acute (3) Constipation: Status: Acute (4) Stage II decubitus ulcer: Status: Acute (5) Hypoalbuminemia: Status: Acute (6) Hypocalcemia: Status: Acute (7) Coagulopathy: Status: Acute (8) Aspiration pneumonitis: Status: Acute (9) Hematuria: Status: Acute Qualifiers: Hematuria type: unspecified type Qualified Code(s): R31.9 - Hematuria, unspecified (10) Thrombocytopenia: Status: Acute (11) Hypernatremia: Status: Acute (12) Uremia: Status: Acute (13) Hyperkalemia: Status: Acute (14) Rhabdomyolysis: Status: Acute (15) Goals of care, counseling/discussion: Status: Acute (16) Acute respiratory distress syndrome (ARDS) due to severe acute respiratory syndrome coronavirus 2 (SARS-CoV-2): Status: Acute (17) DVT (deep venous thrombosis): Status: Acute Qualifiers: DVT location: lower extremity Affected thrombotic vein of extremity: other lower extremity vein Chronicity: unspecified Laterality: bilateral Joaquin lified Code(s): I82.493 - Acute embolism and thrombosis of other specified deep vein of lower extremity, bilateral (18) LORRAINE (acute kidney injury): Status: Acute Additional A&P Information Plan Changes made today Turn off amio at 4:00 Lasix 20 mg IV push Turndown D5 rate Start trickle feed Replenish potassium Persistent hypoxia severe ARDS, COVID-19, FiO2 65%, PO2 60 Status post Actemra 12/24 Status post remdesivir currently on IV Decadron For concern of aspiration pneumonia versus ventilator associated pneumonia he is on broad-spectrum antibiotics along fluconazole Repeat blood cultures negative to date Has been afebrile in last 24 hours Stage II sacral ulcer: Nursing care, dressing change, appreciate Dr. Astorga's recommendations, Nutrition has been a challenge because of increased gastric residuals Constipation: not responding to enema however bowel sound positive abdomen is soft continue lactulose LORRAINE: Creatinine worsened, Positive fluid balance today we will give Lasix 20 mg IV push Patient clinically does look fluid overloaded I will continue metolazone as well Decrease rate of D5 Hypernatremia: Sodium 145 Decrease the rate of D5 today Off tube feeding because of increased gastric residual A. fib RVR currently on amnio drip blood pressure stable off levo DVT currently on therapeutic dose of Lovenox Thrombocytopenia HIT panel negative, platelet improved likely Covid related c oagulopathy DNR/DNI transfer to LTAC likely tomorrow Hematuria improved Hypocalcemia repleted Hypoalbuminemia: Status post albumin Uremia: Improving with D5 Attestations Medical Necessity Statement*: Awaiting transfer to LTAC Time Spent in Patient Care: 16 - 35 minutes Coding Level of Care Code Acute Service Director for [facility] Fwd Diagnoses Fever R50.9 Pneumonia due to severe acute respiratory syndrome coronavirus 2 (SARS-CoV-2) U07.1; J12.82 Constipation K59.00 Stage II decubitus ulcer L89.92 Hypoalbuminemia E88.09 Hypocalcemia E83.51 Coagulopathy D68.9 Aspiration pneumonitis J69.0 Hematuria R31.9 Hematuria type: unspecified type Thrombocytopenia D69.6 Hypernatremia E87.0 Uremia N19 Hyperkalemia E87.5 Rhabdomyolysis M62.82 Goals of care, counseling/discussion Z71.89 Acute respiratory distress syndrome (ARDS) due to severe acute respiratory syndrome coronavirus 2 (SARS-CoV-2) U07.1; J80 DVT (deep venous thrombosis) I82.493 DVT location: lower extremity Affected thrombotic vein of extremity: other lower extremity vein Chronicity: unspecified Laterality: bilateral LORRAINE (acute kidney injury) N17.9
[2021-01-14] MEDS: dexamethasone 4 mg/mL INJ IVP (13:01)
[2021-01-14] MEDS: amiodarone 200 mg Tablet 400 MG PO ×2 (13:09→17:21)
[2021-01-14] MEDS: potassium chloride oral liq 20 mEq/15 mL UDC 40 MEQ PO (13:20)
[2021-01-14 14:44] LABS: Procalcitonin 1.92 ng/mL (0-0.5)
--- NOTE | 2021-01-14 15:43 | PC.RESP ---
RT Shift Note Frequent safety and respiratory rounds continue. Orders completed as indicated. Patient monitored pre and post treatments throughout shift. Patient [Did. tolerate treatments appropriately. Condition [I.DidNotChange]. Patient and/or warehouse representative educated on respiratory treatment and medications. Patient and/or warehouse representative [unable to comprehend]. Will continue to monitor patient progress.
[2021-01-14 17:11] LABS: Glucose Point of Care 156 mg/dL (70-110)
--- NOTE | 2021-01-14 18:40 | PC.NURSE ---
I agree with documentation of student nurse. no other changes
[2021-01-14 19:56] LABS: Glucose Point of Care 157 mg/dL (70-110)
[2021-01-14] MEDS: quetiapine 25 mg Tablet PO (20:04)
[2021-01-15] VITALS (24 sets, daily range): BP systolic 110–161; BP diastolic 58–86; PULSE 73–112; RESP 22–25; TEMP 36.6; O2SAT 88–95
[2021-01-15] MEDS: propofol 1,000 MG/100 ML INJ 35.6 MG IV ×3 (01:21→05:26)
[2021-01-15] MEDS: piperacillin-tazobactam 3.375 GM in sodium chloride 0.9% (plus) 50 ML IV ×2 (02:20→09:34)
[2021-01-15] MEDS: ipratropium-albuterol 3 mL Neb INHALATION ×4 (03:13→15:27)
[2021-01-15 03:59] LABS: Basophils % 0.3 %; Eosinophils # 0.3 10^3/uL (0.0-0.8); Eosinophils % 9.9 %; Hematocrit 25.8 % (42.0-52.0); Lymphocytes # 0.3 10^3/uL (0.8-4.8); Lymphocytes % 11.3 %; Mean Corpuscular Hemoglobin 31.9 pg (28.0-34.0); Mean Corpuscular Volume 102.8 fl (80-94); Mean Platelet Volume 10.6 fL (7.4-10.4); Monocytes % 1.4 %; Neutrophils # 2.09 10^3/uL (1.8-7.7); Neutrophils % 71.3 %; Nucleated Red Blood Cells # 0.1 /100WBC; Nucleated Red Blood Cells % 2.4 %; Platelet Count 142 10^3/cmm (130-400); Red Blood Count 2.51 10^6/uL (4.1-5.3); Red Cell Distribution Width 15.9 % (12.1-15.1); White Blood Count 2.9 10^3/uL (4.0-10.0)
[2021-01-15] MEDS: enoxaparin 80 mg/0.8 mL Syringe 130 MG SUBCUT ×2 (04:12→14:34)
[2021-01-15 04:24] LABS: Alanine Aminotransferase 46 U/L (0-41); Albumin Level 2.4 g/dL (3.5-5.2); Alkaline Phosphatase 91 IU/L (40-130); Anion Gap 12.2 (5-19); Aspartate Amino Transferase 29 U/L (0-40); Blood Urea Nitrogen 65 mg/dL (8-23); C Reactive Protein 58.8 mg/L (0.0-4.9); Calcium 8.3 mg/dL (8.5-10.5); Carbon Dioxide 29 mmol/L (22-29); Chloride 108 mmol/L (98-107); Globulin 2.9 g/dL (1.3-4.6); Glomerular Filtration Rate 55.9 mL/min (90-130); Glucose 118 mg/dL (65-115); Magnesium 2.5 mg/dL (1.7-2.3); Osmolality Calculated 322 mOsm/kg (285-295); Potassium 3.2 mmol/L (3.5-5.1); Sodium 146 mmol/L (136-145); Total Bilirubin 0.8 mg/dL (0.15-1.2); Total Protein 5.3 g/dL (6.6-8.7)
[2021-01-15 04:27] LABS: Slide Review Slide Review Perform
[2021-01-15 06:10] LABS: ABG PH Result 7.38 (7.35-7.45); Arterial Blood Gas Hematocrit 26.2 % (42-52); Base Excess ABG 5.6 mmol/L (-2.0-2.0); Blood Gas Allen Test Pos; Blood Gas Operator Identificat JB; Blood Gas Sample Site Brachial, right; Blood Gas Sample Type Arterial; HCO3 ABG 31.5 mmol/L (22-26); Oxygen Device VENT; PO2 ABG 76.6 mmHg (80.0-100.0)
--- NOTE | 2021-01-15 06:31 | PC.NURSE ---
[facility] called, updated on patient condition, this nurse was informed if patient continues current status transport would be set up later today
--- NOTE | 2021-01-15 06:48 | PC.NURSE ---
Family notified of possible [facility] placement later today
[2021-01-15] MEDS: linezolid premix 600 MG/300 ML PREMIX 300 MG IV (08:17)
[2021-01-15] MEDS: budesonide 0.5 mg/2 mL Neb INHALATION (08:17)
[2021-01-15] MEDS: acetylcysteine 200 mg/mL SDV 4 mL 100 MG INHALATION (08:17)
--- NOTE | 2021-01-15 08:47 | PC.NURSE ---
residuals for tube feeding 3cc after off for 30 min. tube feeding rate to 30cc hr per dr. salvador
[2021-01-15] MEDS: lactulose oral liq 20 gm/30 mL UDC 10 GM PO (09:07)
[2021-01-15] MEDS: fluconazole 100 mg Tablet 200 MG PO (09:18)
[2021-01-15] MEDS: folic acid 1 mg Tablet PO (09:19)
[2021-01-15] MEDS: amiodarone 200 mg Tablet 400 MG PO (09:19)
[2021-01-15] MEDS: zinc gluconate 50 mg Tablet PO (09:19)
[2021-01-15] MEDS: cholecalciferol (vitamin D3) 1,000 unit Tablet 2000 UNIT PO (09:20)
[2021-01-15] MEDS: multivitamin therapeutic Tablet 1 TAB PO (09:20)
[2021-01-15] MEDS: pantoprazole 40 mg SDV IVP (09:21)
[2021-01-15] MEDS: potassium chloride oral liq 20 mEq/15 mL UDC 40 MEQ PO (09:21)
[2021-01-15] MEDS: sennosides-docusate Tablet 1 TAB PO (09:24)
[2021-01-15] MEDS: metOLazone 5 MG Tablet 10 MG PO (09:24)
--- NOTE | 2021-01-15 10:09 | PC.SOCIAL ---
IMM update IMM updated with patient's . Verbalized an understanding. Initialled, dated, timed, and placed in chart.
[2021-01-15] MEDS: propofol 1,000 MG/100 ML INJ 26.7 MG IV ×2 (10:45→14:22)
--- NOTE | 2021-01-15 10:47 | PC.NURSE ---
beneprotien via og tube. 1 scoop with 60 cc h20.
--- NOTE | 2021-01-15 10:53 | PC.NURSE ---
complete bed bath, shampoo this am. completed shave from yesterday. eyes open doesnt track, but has startle effect. bilateral scleral edema, sclera jaundiced appearing, does blink w/o startle.
[2021-01-15 11:46] LABS: Glucose Point of Care 130 mg/dL (70-110)
--- NOTE | 2021-01-15 12:08 | PM.TDS ---
Transfer Summary Providers Date of Admission: 12/23/20 15:19 Date of Discharge: 01/15/21 Attending Provider at Admission: Joe Fernandes MD Attending Provider at Transfer: Tim Ashley MD Anticipated Date of Transfer: Anticipated date of transfer: 01/15/21 Receiving Facility & Provider: Receiving Provider: [] Receiving facility: [] Diagnoses at Discharge Discharge Diagnosis (1) Fever: Status: Acute (2) Pneumonia due to severe acute respiratory syndrome coronavirus 2 (SARS-CoV-2): Status: Acute (3) Constipation: Status: Acute (4) Stage II decubitus ulcer: Status: Acute (5) Hypoalbuminemia: Status: Acute (6) Hypocalcemia: Status: Acute (7) Coagulopathy: Status: Acute (8) Aspiration pneumonitis: Status: Acute (9) Hematuria: Status: Acute Qualifiers: Hematuria type: unspecified type Qualified Code(s): R31.9 - Hematuria, unspecified (10) Thrombocytopenia: Status: Acute (11) Hypernatremia: Status: Acute (12) Uremia: Status: Acute (13) Hyperkalemia: Status: Acute (14) Rhabdomyolysis: Status: Acute (15) Goals of care, counseling/discussion: Status: Acute (16) Acute respiratory distress syndrome (ARDS) due to severe acute respiratory syndrome coronavirus 2 (SARS-CoV-2): Status: Acute (17) DVT (deep venous thrombosis): Status: Acute Qualifiers: DVT location: lower extremity Affected thrombotic vein of extremity: other lower extremity vein Chronicity: unspecified Laterality: bilateral Qualified Code(s): I82.493 - Acute embolism and thrombosis of other specified deep vein of lower extremity, bilateral (18) LORRAINE (acute kidney injury): Status: Acute Reason for Visit Reason for Visit: RESP DISTRESS Hospital Course Hospital Course 60-year-old male who was admitted to the hospital for worsening shortness of breath related to COVID-19 pneumonia. He spent 23 days in the hospital. He was intubated, sedated and, paralyzed. He finished four cycles of proning. He did response to proning with improvement in oxygenation. However he failed multiple weaning trials, his weaning trial failed because of his positive fluid balance, LORRAINE, tachypnea and we were not able to wean his oxygen down below 60%. During his hospitalization he was treated with steroids, remdesivir, 12/24 Actemra. He did receive multivitamins. His ICU course was notable for febrile episodes, aspiration pneumonitis, DVT, hypernatremia, LORRAINE, and development of stage II sacral ulcer. For his febrile episodes he was started on broad-spectrum antibiotics along fluconazole, sputum expectorated did grow yeast, Marcie, he was kept on fluconazole, blood culture remain sterile. For his DVT he was started on therapeutic dose of Lovenox, it was held secondary to drop in platelet count, HIT panel was negative this was most likely related to Covid related coagulopathy. He did develop hemoptysis epistaxis and hematuria which resolved with conservative management. DIC panel was negative. After his negative HIT panel he was started on therapeutic dose of Lovenox again and his platelet count improved. Dehydration, 5 to 6 L water deficit with hypernatremia, this was our biggest challenge. Nephrology was involved. Because of positive fluid balance he was diuresed which made him intravascular depleted, his hypernatremia improved with D5 and frequent water flushes. His uremia and LORRAINE did improve after improvement in his tube feeding. His endotracheal tube was changed multiple times secondary to troubleshooting, on third time endotracheal tube 8.5 was used it is secured at 26 cm. He has left-sided IJ triple-lumen catheter. Please note, on when endotracheal tube was replaced he did show multiple PVCs and nonsustained V. tach and required precordial thump by anesthesiologist. He was never cardioverted or required chest compressions. At the time of discharge he is requiring propofol at 30 fentanyl at 100 heart rate fluctuating between 95-1 01 fluctuating between sinus rhythm to atrial flutter, over the weekend he did become hypotensive went into A. fib, amiodarone drip was started which converted him back to sinus rhythm and blood pressure improved vasopressors were discontinued after 12 hours. decided to make him DNR/DNI. Family was updated on daily basis, they're agreeable for tracheostomy and PEG tube placement. General surgery was involved for evaluation of sacral ulcer and recommended nursing care no debridement was done during hospitalization. Because of sacral ulcer he was started on linezolid, for aspiration pneumonitis he was kept on Primaxin which was deescalated to Zosyn, and he is also getting fluconazole for Marcie infection. Today he is opening his eyes but not following commands however when we tried weaning trial a week ago he was following commands there are no focal deficits however neuro exam is limited. He only had one bowel movement throughout his hospitalization, and that bowel movement was after giving milk of molasses enema, I did give him lactulose, two doses of enema in last 2 days, he does have bowel sounds, no success with second and third dose of enema. Procedures during hospitalization: Endotracheal tube placement x3 Left IJ triple-lumen catheter Espinosa catheter placement consults during hospitalization: social services designee, machine sizer, general surgery, Physical Exam Narrative: EXAM NARRATIVE: Bated and sedated Opens his eyes but not able to follow commands Does have fluid overloaded state with edema noted on extremities Warm lower extremities Bowel sounds present in abdomen all quadrants Soft abdomen Bilateral assisted breath sounds with rhonchi Edema of left conjunctive however no rash Endotracheal tube size 8.5 secured at 26 cm teeth bite left IJ in place Espinosa catheter draining clear urine tube feeds at 20cc/hr Urinary Catheter Management^: Espinosa: Cath Placed During This Visit: yes Reason for Continuing Indwelling Catheter: Accurate Measurement of Urinary Output in Critically Ill Patients Urinary Catheter Date of Insertion: 01/05/21 Urinary Catheter Time of Insertion: 10:16 TS Data Data Completed and Pending: Completed Studies During Hospitalization Category Date Time Status CT angio chest PE protcl [id number] Rout ine Cat Scan 12/23/20 16:32 Completed CXRP [XR chest 1V portable 10051] S tat Exams 01/09/21 17:07 Completed XR chest 1V saundra ble [id number] AM LABS Exams 12/29/20 04:00 Completed XR chest 1V saundra ble [id number] AM LABS Exams 01/02/21 04:00 Completed XR chest 1V saundra ble [id number] AM LABS Exams 01/04/21 04:00 Completed XR chest 1V saundra ble [id number] Routine Exams 12/25/20 05:00 Completed XR chest 1V saundra ble [id number] Routine Exams 01/05/21 13:32 Completed XR chest 1V saundra ble [id number] Routine Exams 01/07/21 07:48 Completed XR chest 1V saundra ble [id number] Routine Exams 01/09/21 07:26 Completed XR chest 1V saundra ble [id number] Routine Exams 01/09/21 14:59 Completed XR chest 1V saundra ble [id number] Routine Exams 01/09/21 19:15 Completed XR chest 1V saundra ble [id number] Routine Exams 01/11/21 08:11 Completed XR chest 1V saundra ble [id number] Routine Exams 01/13/21 08:56 Completed XR chest 1V saundra ble [id number] Stat Exams 12/23/20 11:03 Completed XR chest 1V saundra ble [id number] Stat Exams 12/24/20 09:56 Completed XR chest 1V saundra ble [id number] Stat Exams 12/27/20 23:12 Completed XR chest 1V saundra ble [id number] Stat Exams 12/28/20 08:14 Completed XR chest 1V saundra ble [id number] Stat Exams 12/28/20 11:18 Completed XR chest 1V saundra ble [id number] Stat Exams 01/11/21 14:35 [place] [id number] Routin e Ultrasound 12/25/20 07:58 Completed CV. echo complete * [id number] Routine Ultrasound 12/25/20 08:03 Completed US renal BI* [id number] Routine Ultrasound 12/26/20 10:56 Completed Pending at discharge Category Date Time Status ABG ONLY [Arteria l Blood Gas W/O Co ox] Routine Lab 01/09/21 07:28 Ordered Blood Culture Sta t Lab 01/13/21 08:30 Results Labs from last 24 hours 01/15/21 01/15/21 01/15/21 11:43 05:56 03:00 WBC RBC Hgb Hct MCV MCH MCHC RDW Plt Count MPV Neut % (Auto) Lymph % (Auto) [place] % (Auto) Eos % (Auto) Baso % (Auto) Neut # (Auto) Lymph # (Auto) [place] # (Auto) Eos # (Auto) Baso # (Auto) Nucleated RBC % (a uto) Nucleated RBCs # Specimen Type Arterial Sample Site Brachial, right ABG pH 7.38 ABG pCO2 53.0 H ABG pO2 76.6 L ABG HCO3 31.5 H ABG Base Excess 5.6 H Luke Test Pos Hematocrit 26.2 L O2 Delivery Device Vent FiO2 65.0 Tidal Volume 0.50 PEEP 12.0 Clinical Resource Nurse ID Albert Sodium 146 H Potassium 3.2 L Chloride 108 H Carbon Dioxide 29 Anion Gap 12.2 BUN 65 H Creatinine 1.3 H GFR Calculation 55.9 L Glucose 118 H POC Glucose 130 H Calculated Osmolal ity 322 H Calcium 8.3 L Magnesium 2.5 H Total Bilirubin 0.8 AST 29 ALT 46 H Alkaline Phosphata se 91 C-Reactive Protein 58.8 H Total Protein 5.3 L Albumin 2.4 L Globulin 2.9 Procalcitonin 01/15/21 01/14/21 01/14/21 03:00 19:53 17:09 WBC 2.9 L RBC 2.51 L Hgb 8.0 L Hct 25.8 L MCV 102.8 H MCH 31.9 MCHC 31.0 RDW 15.9 H Plt Count 142 MPV 10.6 H Neut % (Auto) 71.3 Lymph % (Auto) 11.3 [place] % (Auto) 1.4 Eos % (Auto) 9.9 Baso % (Auto) 0.3 Neut # (Auto) 2.09 Lymph # (Auto) 0.3 L [place] # (Auto) 0.0 L Eos # (Auto) 0.3 Baso # (Auto) 0.0 Nucleated RBC % (a uto) 2.4 Nucleated RBCs # 0.1 Specimen Type Sample Site ABG pH ABG pCO2 ABG pO2 ABG HCO3 ABG Base Excess Luke Test Hematocrit O2 Delivery Device FiO2 Tidal Volume PEEP Clinical Resource Nurse ID Sodium Potassium Chloride Carbon Dioxide Anion Gap BUN Creatinine GFR Calculation Glucose POC Glucose 157 H 156 H Calculated Osmolal ity Calcium Magnesium Total Bilirubin AST ALT Alkaline Phosphata se C-Reactive Protein Total Protein Albumin Globulin Procalcitonin 01/14/21 04:30 WBC RBC Hgb Hct MCV MCH MCHC RDW Plt Count MPV Neut % (Auto) Lymph % (Auto) [place] % (Auto) Eos % (Auto) Baso % (Auto) Neut # (Auto) Lymph # (Auto) [place] # (Auto) Eos # (Auto) Baso # (Auto) Nucleated RBC % (a uto) Nucleated RBCs # Specimen Type Sample Site ABG pH ABG pCO2 ABG pO2 ABG HCO3 ABG Base Excess Luke Test Hematocrit O2 Delivery Device FiO2 Tidal Volume PEEP Clinical Resource Nurse ID Sodium Potassium Chloride Carbon Dioxide Anion Gap BUN Creatinine GFR Calculation Glucose POC Glucose Calculated Osmolal ity Calcium Magnesium Total Bilirubin AST ALT Alkaline Phosphata se C-Reactive Protein Total Protein Albumin Globulin Procalcitonin 1.92 H Vitals: Last Vital Signs Temp 97.7 F 01/14/21 17:23 Pulse 112 H 01/15/21 11:37 Resp 22 H 01/15/21 11:37 BP 143/79 01/15/21 10:00 Pulse Ox 93 01/15/21 11:37 TS Medications Medications Active Medications Acetaminophen (Acetaminophen 325 Mg Tablet) 650 mg PO Q6H PRN PRN Reason: MILD PAIN Last Admin: 01/13/21 00:51 Dose: 650 mg Documented by: Acetylcysteine (Acetylcysteine 200 Mg/Ml Sdv 4 Ml) 100 mg INHALATION BID [facility] Last Admin: 01/15/21 08:17 Dose: 100 mg Documented by: Al Hydrox/Mg Hydrox/Simethicone (Fett-Fws-Tpdprkthb-Kenn 30 Ml Udc) 30 ml PO Q4H PRN PRN Reason: INDIGESTION Last Admin: 01/01/21 17:04 Dose: 30 ml Documented by: Albuterol/Ipratropium (Ipratropium-Albuterol 3 Ml Neb) 3 ml INHALATION Q4H.RESPIRATORY [facility]ATHON Last Admin: 01/15/21 11:37 Dose: 3 ml Documented by: Albuterol/Ipratropium (Ipratropium-Albuterol 3 Ml Neb) 3 ml INHALATION Q4H PRN PRN Reason: SHORTNESS OF BREATH Amiodarone HCl (Amiodarone 200 Mg Tablet) 400 mg PO BID [facility] Last Admin: 01/15/21 09:19 Dose: 400 mg Documented by: Artificial Tears (Artificial Tears Op Oint 3.5 Gm) 1 applic EYE-BOTH PRN PRN PRN Reason: DRY EYE(S) Last Admin: 01/12/21 11:21 Dose: 1 applic Documented by: Artificial Tears (Artificial Tears Op Oint 3.5 Gm) 1 applic EYE-BOTH PRN PRN PRN Reason: DRY EYE(S) Budesonide (Budesonide 0.5 Mg/2 Ml Neb) 0.5 mg INHALATION BID.RESPIRATORY JOHNATHON Last Admin: 01/15/21 08:17 Dose: 0.5 mg Documented by: Dexamethasone (Dexamethasone 4 Mg/Ml Inj) 4 mg IVP Q24H [facility] Last Admin: 01/14/21 13:01 Dose: 4 mg Documented by: Dextrose (Dextrose 50% Syringe 50 Ml) 25 ml IVP ONCE PRN; Protocol PRN Reason: hypoglycemia protocol Dextrose (Dextrose 50% Syringe 50 Ml) 50 ml IVP PRN PRN; Protocol PRN Reason: hypoglycemia protocol Enoxaparin Sodium (Enoxaparin 80 Mg/0.8 Ml Syringe) 130 mg SUBCUT Q12H [facility] Last Admin: 01/15/21 04:12 Dose: 130 mg Documented by: Fluconazole (Fluconazole 100 Mg Tablet) 200 mg PO DAILY [facility] Last Admin: 01/15/21 09:18 Dose: 200 mg Documented by: Folic Acid (Folic Acid 1 Mg Tablet) 1 mg PO DAILY [facility] Last Admin: 01/15/21 09:19 Dose: 1 mg Documented by: Furosemide (Furosemide 10 Mg/Ml Sdv 4ml) 40 mg IVP DAILY [facility] Glucagon (Glucagon 1 Mg/Ml Inj 1 Ml) 1 mg IM ONCE PRN; Protocol PRN Reason: Adult Acute Hypoglycemia Prot. Propofol (Diprivan) 1,000 mg in 100 mls @ 0 mls/hr IV .Q0M [facility]ATH[facility]; Protocol Last Admin: 01/15/21 10:45 Dose: 30 mcg/kg/min, 26.7 mls/hr Documented by: dexmedeTOMIDine 0.9 % NaCL (Dexmedetomidine-Ns) 400 mcg in 100 mls @ 0 mls/hr IV .Q0M [facility]ATH[facility]; Protocol Last Titration: 01/11/21 19:00 Dose: 0 mcg/kg/hr, 0 mls/hr Documented by: Norepinephrine Bitartrate 4 mg (/ Dextrose) 254 mls @ 0 mls/hr IV .Q0M [facility]; Protocol Last Titration: 01/13/21 22:44 Dose: 5 mcg/min, 19.05 mls/hr Documented by: Midazolam HCl 100 mg/ Sodium (Chloride) 100 mls @ 0 mls/hr IV .Q0M [facility]; Protocol Last Admin: 01/09/21 17:55 Dose: 2 mg/hr, 2 mls/hr Documented by: Cisatracurium Besylate 100 mg/ (Sodium Chloride) 100 mls @ 0 mls/hr IV .Q0M [facility]; Protocol Last Titration: 01/10/21 09:55 Dose: 0 mcg/kg/min, 0 mls/hr Documented by: Fentanyl 1,000 mcg/ Sodium (Chloride) 100 mls @ 0 mls/hr IV .Q0M [facility]ATH[facility]; Protocol Last Titration: 01/15/21 06:40 Dose: 125 mcg/hr, 12.5 mls/hr Documented by: Piperacillin Sod/Tazobactam (Sod 3.375 gm/ Sodium Chloride) 50 mls @ 12.5 mls/hr IV Q8H [facility] Last Admin: 01/15/21 09:34 Dose: 12.5 mls/hr Documented by: Linezolid (Zyvox Premix) 600 mg in 300 mls @ 300 mls/hr IV Q12H [facility]; Protocol Last Infusion: 01/15/21 09:28 Dose: Infused Documented by: Dextrose (D5w) 1,000 mls @ 50 mls/hr IV .Q20H [facility] Last Infusion: 01/14/21 08:21 Dose: 50 mls/hr Documented by: Insulin Aspart (Insulin Aspart 100 Unit/1 Ml) 0 unit SUBCUT WM&BEDTIME [facility]ATHON; Protocol Last Admin: 01/15/21 08:46 Dose: Not Given Documented by: Lactulose (Lactulose Oral Liq 20 Gm/30 Ml Udc) 10 gm PO BID [facility] Last Admin: 01/15/21 09:07 Dose: 10 gm Documented by: Metolazone (Metolazone 5 Mg Tablet) 10 mg PO DAILY [facility] Last Admin: 01/15/21 09:24 Dose: 10 mg Documented by: Metoprolol Tartrate (Metoprolol Tartrate 25 Mg Tablet) 25 mg PO BID@0900,2100 [facility] Last Admin: 01/14/21 08:47 Dose: 25 mg Documented by: Metoprolol Tartrate (Metoprolol Tartrate 1 Mg/1 Ml Sdv 5 Ml) 5 mg IVP Q4H PRN PRN Reason: HR>120 Last Admin: 01/13/21 18:38 Dose: 5 mg Documented by: Multivitamins Therapeutic (Multivitamin Therapeutic Tablet) 1 tab PO DAILY [facility] Last Admin: 01/15/21 09:20 Dose: 1 tab Documented by: Pantoprazole Sodium (Pantoprazole 40 Mg Sdv) 40 mg IVP DAILY [facility] Last Admin: 01/15/21 09:21 Dose: 40 mg Documented by: Potassium Chloride (Potassium Chloride Oral Liq 20 Meq/15 Ml Udc) 40 meq PO DAILY [facility] Last Admin: 01/15/21 09:21 Dose: 40 meq Documented by: Quetiapine Fumarate (Quetiapine 25 Mg Tablet) 25 mg PO BEDTIME [facility] Last Admin: 01/14/21 20:04 Dose: 25 mg Documented by: Senna/Docusate Sodium (Sennosides-Docusate Tablet) 1 tab PO DAILY [facility] Last Admin: 01/15/21 09:24 Dose: 1 tab Documented by: Vitamin D (Cholecalciferol (Vitamin D3) 1,000 Unit Tablet) 2,000 unit PO DAILY [facility] Last Admin: 01/15/21 09:20 Dose: 2,000 unit Documented by: Zinc Gluconate (Zinc Gluconate 50 Mg Tablet) 50 mg PO DAILY [facility] Last Admin: 01/15/21 09:19 Dose: 50 mg Documented by: Discharge Plan Discharge Patient Disposition: er [facility] Condition: Stable Prescriptions: Discontinued NyQuil 7.5-60-30-1,000 mg/30 mL Liquid 30 ml PO BEDTIME RF: 0 acetaminophen [Tylenol Extra Strength] 500 mg Tablet 1,000 mg PO Q4H PRN (Reason: Pain) RF: 0 ascorbic acid (vitamin C) [Vitamin C] 500 mg Tablet 500 mg PO EVERY OTHER DAY RF: 0 ibuprofen 200 mg Tablet 200 - 400 mg PO Q4H PRN (Reason: Pain) RF: 0 Vitamin D3 100 mcg (4,000 unit) Capsule 100 mcg PO EVERY OTHER DAY RF: 0 Centrum Silver Men 300-600-300 mcg Tablet 1 tab PO EVERY OTHER DAY RF: 0 guaifenesin [Mucinex] 600 mg Tablet Extended Release 12hr 600 mg PO Q12H RF: 0 Discharge Orders: Discharge Order (Routine); Ordered 01/15/21 Ordered By: Tim Ashley Patient Instructions: Opioid Safety Transfer Attestations Time Spent in Transfer Care*: less than 30 min Quality Metrics Clinical Quality Measures: During this hospital stay, did patient experience: None Coding Level of Care Code Acute [facility] Fwd Diagnoses Fever R50.9 Pneumonia due to severe acute respiratory syndrome coronavirus 2 (SARS-CoV-2) U07.1; J12.82 Constipation K59.00 Stage II decubitus ulcer L89.92 Hypoalbuminemia E88.09 Hypocalcemia E83.51 Coagulopathy D68.9 Aspiration pneumonitis J69.0 Hematuria R31.9 Hematuria type: unspecified type Thrombocytopenia D69.6 Hypernatremia E87.0 Uremia N19 Hyperkalemia E87.5 Rhabdomyolysis M62.82 Goals of care, counseling/discussion Z71.89 Acute respiratory distress syndrome (ARDS) due to severe acute respiratory syndrome coronavirus 2 (SARS-CoV-2) U07.1; J80 DVT (deep venous thrombosis) I82.493 DVT location: lower extremity Affected thrombotic vein of extremity: other lower extremity vein Chronicity: unspecified Laterality: bilateral LORRAINE (acute kidney injury) N17.9
--- NOTE | 2021-01-15 12:09 | PC.NURSE ---
notified of transfer to [facility] this afternoon.
[2021-01-15] MEDS: dexamethasone 4 mg/mL INJ IVP (12:15)
--- NOTE | 2021-01-15 14:40 | PC.NURSE ---
preparing for transfer to [facility] in [place]. personal belongings sent with ..
--- NOTE | 2021-01-15 15:29 | PC.RESP ---
RT Shift Note Frequent safety and respiratory rounds continue. Orders completed as indicated. Patient monitored pre and post treatments throughout shift. Patient [Did.] tolerate treatments appropriately. Condition [IDidNotChange]. Patient and/or environmental marketing representative educated on respiratory treatment and medications. Patient and/or environmental marketing representative [unable to comprehend]. Will continue to monitor patient progress.
--- NOTE | 2021-01-15 15:55 | PC.NURSE ---
transferred to [facility]. with fentanyl at 150mcg and propofol at 50. o2 sat 100%.
--- NOTE | 2021-01-15 17:02 | PC.NURSE ---
All belongings sent with .
--- NOTE | 2021-01-16 05:03 | PC.NURSE ---
Patient discharged from facility on 01/15/21. Will attempt to send results to current facility caring for patient.
--- NOTE | 2021-01-18 09:07 | PC.SOCIAL ---
discharge follow up call made, spoke with Bailey in case management at [facility]. She reports there haven't been a lot of changes with the patient. He remains on the vent and on propofol.
== END 2021-01-15 15:45 | DRG 207 ==
LOC: ER 12:55 → CSU 16:13 → ICU 12-24 09:49
PROVIDERS: Family Medicine; Internal Medicine Nephrology; Internal Medicine Pulmonary Disease; Student in an Organized Health Care Education/Training Program; Admitting Provider Internal Medicine; Emergency Provider Emergency Medicine; Visit Provider Internal Medicine
DX: U07.1 COVID-19 (principal); J12.82 Pneumonia due to coronavirus disease 2019; J80 Acute respiratory distress syndrome; J69.0 Pneumonitis due to inhalation of food and vomit; B37.1 Pulmonary candidiasis; N17.9 Acute kidney failure, unspecified; I82.4Z3 Acute embolism and thrombosis of unspecified deep veins of distal lower extremity, bilateral; E87.4 Mixed disorder of acid-base balance; J95.851 Ventilator associated pneumonia; M62.82 Rhabdomyolysis; D62 Acute posthemorrhagic anemia; D68.32 Hemorrhagic disorder due to extrinsic circulating anticoagulants; R04.2 Hemoptysis; I47.2 Ventricular tachycardia; T85.638A Leakage of other specified internal prosthetic devices, implants and grafts, initial encounter; E87.6 Hypokalemia; I95.9 Hypotension, unspecified; J42 Unspecified chronic bronchitis; Z79.1 Long term (current) use of non-steroidal anti-inflammatories (NSAID); Z66 Do not resuscitate; E86.0 Dehydration; I48.91 Unspecified atrial fibrillation; E87.5 Hyperkalemia; K59.00 Constipation, unspecified; R31.9 Hematuria, unspecified; D69.6 Thrombocytopenia, unspecified; R04.0 Epistaxis; Y82.8 Other medical devices associated with adverse incidents; Y92.230 Patient room in hospital as the place of occurrence of the external cause; L89.152 Pressure ulcer of sacral region, stage 2
CPT/HCPCS: 31500; 36415; 36416; 36600; 51702; 71045; 71275; 76770; 80048; 80051; 80053; 80202; 80500; 81001; 82044; 82330; 82436; 82550; 82570; 82607; 82728; 82803; 82805; 82962; 83010; 83605; 83615; 83735; 83880; 83930; 83935; 84100; 84133; 84145; 84295; 84300; 84443; 84484; 84550; 85014; 85018; 85025; 85362; 85378; 85384; 85610; 85651; 85730; 86022; 86140; 87040; 87070; 87086; 87106; 87205; 87426; 87641; 93005; 93306; 93970; 94002; 94003; 94640; 94660; 94664; 94669; 94799; 96365; 96367; 96372; 96375; 99285; C9113; J0282; J0330; J0360; J0456; J0610; J0637; J0696; J0743; J0883; J1100; J1170; J1644; J1650; J1815; J1940; J1956; J2020; J2060; J2250; J2270; J2405; J2543; J2704; J2930; J3010; J3262; J3370; J3490; J7030; J7040; J7050; J7060; J7608; J7626; P9041; P9047; Q0144; Q3014; Q9967

== ENCOUNTER → 2021-05-11 12:00 | Outpatient (BNVA) | payer MEDICARE, BC, SELFPAY | PROVIDERS: PCP Nurse Practitioner; Visit Provider Nurse Practitioner | DX: I48.91 Unspecified atrial fibrillation (principal); I48.92 Unspecified atrial flutter; R53.81 Other malaise | CPT/HCPCS: 80053; 84443; 85025 ==

== ENCOUNTER 2021-05-16 15:39 | Outpatient (CLI) | payer MEDICARE, BC, SELFPAY ==
--- NOTE | 2021-05-16 15:56 | XR_ITS ---
WS: [id number] Bilateral hips. HISTORY: Hip pain. RIGHT hip: Severe narrowing of the RIGHT hip joint. Bone upon bone along the superior acetabulum. Sub chondral cystic changes and osteophytes on both sides of the joint space. There is mild lateral sublu xation of the femoral head. Osteophytic ridging around the femoral head is moderate. There is a bony protrusion at the junction of the femoral head and neck. LEFT hip: Moderate narrowing of the LEFT hip joint. Subchondral cysts on both sides of the joint spac e along the superior lateral aspect. There is mild acetabular osteophytic ridging. Mild osteophytic r idging around the femoral head. Mild bony protuberance at the junction of the femoral head and neck. XR/XR hip BI 3-4V wo/w pel [id number] IMPRESSION: 1. Severe RIGHT hip joint osteoarthritis. 2. Moderate LEFT hip joint osteoarthritis. 3. Bilateral prominent bony protrusions at the junction of the femoral head an d neck may be causing some impingement.
--- NOTE | 2021-05-16 15:56 | XR_ITS ---
WS: [id number] LUMBAR SPINE: 3 VIEWS TECHNIQUE: AP, lateral and L5-S1 spot. HISTORY: Hip and low back pain. COMPARISON: None available. Retrolisthesis by 2 to 3 mm of L2, L3 and L4. No fracture. Facet joint arthritis throughout the lumba r spine but most significant at L5-S1. Small anterior osteophytes at all levels. Pedicles are all identified. Mild disc space narrowing at L5-S1. Mild bilateral SI joint narrowing. Hip joints are also narrowed. XR/XR lumbar spine 2-3V* [id number] IMPRESSION: 1. No lumbar spine fracture. 2. Multilevel moderate spondylosis. Moderate facet joint arthritis at L5-S1.
== END 2021-05-16 15:40 | disposition home or self-care (01) ==
PROVIDERS: PCP Nurse Practitioner; Visit Provider Nurse Practitioner
DX: L89.94 Pressure ulcer of unspecified site, stage 4 (principal); M25.559 Pain in unspecified hip; M47.817 Spondylosis without myelopathy or radiculopathy, lumbosacral region; M16.0 Bilateral primary osteoarthritis of hip
CPT/HCPCS: 72100; 73522